=== PATIENT | female | born 1935 | race Caucasian/White ===

== ENCOUNTER 2017-01-06 12:02 | Emergency (ER) | payer OTHER ==
[~2017-01-06] VITALS: Ht 144.8 cm; Wt 54.8 kg
[~2017-01-06 12:02] MED LIST: ASPEC325 PO; LISI-729 PO; MAGN400T6 PO; POTA-335 PO
[2017-01-06 12:09] VITALS: TEMP 36.4; Ht 144.8 cm; Wt 54.8 kg
[2017-01-06 12:14] VITALS: O2SAT 97
[2017-01-06] MEDS ORDERED: SODIUM CHLORIDE 0.9% 1000ML 1,000 ML IV STA (12:14)
[2017-01-06] MEDS ORDERED: SODIUM CHLORIDE 0.9% 1000ML 500 ML IV STA (12:14)
--- NOTE | 2017-01-06 13:08 | DIAGNOSTIC IMAGING REPORT ---
SINGLE VIEW CHEST CLINICAL HISTORY: Weakness. Change in mental status. FINDINGS: An AP, portable, upright chest radiograph is compared to study dated 07/16/2016. The examination is degraded by portable technique and patient rotation. The heart is enlarged and there is atherosclerotic calcification of the thoracic aorta. The pulmonary vasculature is noncongested. A large hiatal hernia is again noted. Chronic interstitial thickening is similar to previous. There is minimal bibasilar atelectasis. No airspace consolidation, large pleural effusion, or pneumothorax is seen. The skeletal structures are osteopenic. The bony thorax is grossly intact. IMPRESSION: 1. Cardiomegaly with no acute cardiopulmonary abnormality. 2. Hiatal hernia. Electronically signed by: Rodolfo Oliveira M.D. 01/06/2017 1:07 PM Dictated Date/Time: 01/06/2017 1:06 PM
[2017-01-06] MEDS ORDERED: ASPI81TA28 PO (13:10)
[2017-01-06 13:22] LABS: HEMATOCRIT 35.2 % (37-47); MEAN PLATELET VOLUME 9.1 fL (7.4-10.4); PLATELET COUNT 314 K/uL (130-400); RED BLOOD COUNT 3.87 M/uL (4.2-5.4); WHITE BLOOD COUNT 13.99 K/uL (4.8-10.8)
[2017-01-06 13:39] LABS: URINE APPEARANCE CLEAR (CLEAR); URINE BILIRUBIN NEG (NEG); URINE COLOR YELLOW; URINE EPITHELIAL CELL AUTO 20-30 /lpf (0-5); URINE NITRITE NEG (NEG); URINE PH 5.5 (4.5-7.5); URINE SPECIFIC GRAVITY 1.007 (1.000-1.030); UROBILINOGEN NEG (NEG); ZZUR CULT IF INDIC CLEAN CATCH NO
[2017-01-06 13:42] LABS: MANUAL MICROSCOPIC REQUIRED? NO; REVIEW REQ? NO
[2017-01-06 13:43] LABS: BASO % 0.1 %; BASO ABS # 0.02 K/uL (0-0.2); COMPLETE YES; EOS % 0.1 %; IG% 0.3 %; LYMPH % 8.6 %; MONO % 6.5 %; NEUT % 84.4 %
[2017-01-06 13:45] LABS: BUN/CREATININE RATIO 18.5 (10-20); CALCIUM 7.9 mg/dl (8.5-10.1); MAGNESIUM 1.9 mg/dl (1.8-2.4); POTASSIUM 2.8 mmol/L (3.5-5.1)
[2017-01-06] MEDS ORDERED: POTASSIUM CHLORIDE 10 MEQ / 100ML WTR IV STA (13:48)
[2017-01-06] MEDS ORDERED: POTASSIUM CHLORIDE 10 MEQ TABCR PO STA (13:48)
[2017-01-06 13:55] LABS: ALB/GLOB RATIO 0.5 (0.9-2); THYROID STIMULATING HORMONE 0.9 uIu/ml (0.300-4.500)
[2017-01-06] MEDS ORDERED: OPTIRAY 320 IV PRN (15:00)
--- NOTE | 2017-01-06 15:16 | EMERGENCY ROOM VISIT NOTE ---
History Report prepared by Lauryn: Belinda Martinez Under the Supervision of: Dr. Rodolfo Caruso M.D. First contact with patient: 12:07 Chief Complaint: HYPOTENSION Stated Complaint: HYPOTENSION History of Present Illness The patient is a 81 year old female who presents to the Emergency Room with complaints of an episode of low blood pressure starting just prior to arrival. The patient states that she went in this morning for a cataract surgery on her left eye and that when she got out, her blood pressure was low. She states that the procedure went fine and that she had the right cataract done a few weeks ago. The patient states she feels fine and that she had no idea her blood pressure was low. She states that she normally takes medication for high blood pressure. The patient notes that she has been eating normally and drinking normally besides for nothing after midnight for the procedure today. She complains of being fatigued for a few days. The patient denies and shortness of breath and chest pain. Per the records sent from the doctor's office, her blood pressure was 89/40. The state they gave her 500 cc of IV Saline and saw no improvement so recommended her to come to the ED. Source of History: patient Onset: prior to arrival Position: other Quality: other (global) Timing: other (episode) Associated Symptoms: + fatigue, No SOB, No chest pain Review of Systems See HPI for pertinent positives & negatives. A total of 10 systems reviewed and were otherwise negative. Past Medical & Surgical Medical Problems: (1) Hypertension Family History No pertinent family history Social History Smoking Status: Never Smoker Marital Status: Housing Status: lives with significant other Occupation Status: retired Current/Historical Medications Scheduled Aspirin (Aspirin Ec), 81 MG PO DAILY Lisinopril (Prinivil), 5 MG PO DAILY Magnesium Oxide (Mag-Ox), 400 MG PO DAILY Potassium Chloride (Micro-K Ext Rel), 20 MEQ PO DAILY Allergies Coded Allergies: No Known Allergies (Verified , 01/06/17) Physical Exam Vital Signs Date Time Temp Pulse Resp B/P Pulse Ox O2 Delivery O2 Flow Rate FiO2 01/06/17 18:32 66 17 01/06/17 18:30 115/73 01/06/17 18:02 74 19 01/06/17 18:00 109/55 01/06/17 17:32 66 25 01/06/17 17:30 102/56 01/06/17 17:02 69 20 01/06/17 17:00 92/50 01/06/17 16:57 112/ 01/06/17 16:32 67 17 01/06/17 16:30 99/54 01/06/17 15:50 77 20 110/64 97 Room Air 01/06/17 15:02 69 23 01/06/17 15:00 110/64 01/06/17 14:32 65 17 01/06/17 14:22 69 106/59 74 104/64 01/06/17 14:17 104/64 01/06/17 14:14 106/59 01/06/17 14:02 65 20 01/06/17 13:50 67 20 93/52 97 Room Air 01/06/17 13:32 64 19 01/06/17 13:02 65 23 01/06/17 12:41 65 01/06/17 12:32 64 19 94 01/06/17 12:30 93/52 01/06/17 12:26 94/54 01/06/17 12:14 97 Room Air 01/06/17 12:09 36.4 67 20 98/49 97 Room Air 01/06/17 12:06 98/49 Physical Exam GENERAL: Patient is in no acute distress. HEENT: No acute trauma, normocephalic atraumatic, mucous membranes moist, no nasal congestion, no scleral icterus. NECK: No stridor, no adenopathy, no meningismus, trachea is midline. LUNGS: Clear to auscultation bilaterally, no wheeze, no rhonchi, breath sounds equal. HEART: Without murmurs gallops or rubs, regular rate and rhythm. ABDOMEN: Soft, nontender, bowel sounds positive, no hernias, no peritonitis. EXTREMITIES: No cyanosis or edema, full range of motion of all the joints without pain or difficulty, no signs for acute trauma. NEUROLOGIC: Oriented x 3, no acute motor or sensory deficits, no focal weakness. SKIN: No rash, no jaundice, no diaphoresis. Medical Decision & Procedures ER Provider Diagnostic Interpretation: X ray results and stated below per my interpretation and radiologist interpretation. Other radiology results and stated below per my review and radiologist interpretation: SINGLE VIEW CHEST CLINICAL HISTORY: Weakness. Change in mental status. FINDINGS: An AP, portable, upright chest radiograph is compared to study dated 07/16/2016. The examination is degraded by portable technique and patient rotation. The heart is enlarged and there is atherosclerotic calcification of the thoracic aorta. The pulmonary vasculature is noncongested. A large hiatal hernia is again noted. Chronic interstitial thickening is similar to previous. There is minimal bibasilar atelectasis. No airspace consolidation, large pleural effusion, or pneumothorax is seen. The skeletal structures are osteopenic. The bony thorax is grossly intact. IMPRESSION: 1. Cardiomegaly with no acute cardiopulmonary abnormality. 2. Hiatal hernia. Electronically signed by: Rodolfo Oliveira M.D. 01/06/2017 1:07 PM Dictated Date/Time: 01/06/2017 1:[address] ABD/PELVIS IV CONTRAST ONLY CLINICAL HISTORY: Lower abdominal pain. History of diverticular abscess. Hypertension. COMPARISON STUDY: 07/16/2016 TECHNIQUE: Following the IV administration of 93 mL of Optiray-320, CT scan of the abdomen and pelvis was performed from the lung bases to the proximal femurs. Images are reviewed in the axial, sagittal, and coronal planes. IV contrast was administered without complication. CT DOSE: 254.02 mGy.cm FINDINGS: Lower chest: There is a moderate hiatal hernia. The heart is mildly enlarged. There is a trace pericardial effusion. There is bibasal atelectasis. Liver: The contrast-enhanced liver is normal in size, contour, and attenuation. There is no intrahepatic biliary ductal dilatation. The hepatic veins and portal veins are patent. Gallbladder: Unremarkable. Spleen: Normal in size and attenuation. Pancreas: Unremarkable. Adrenal glands: Unremarkable. Kidneys: There is symmetric renal cortical enhancement. The kidneys are normal in size without hydronephrosis. Bowel: There are no transition zones indicate bowel obstruction. There is extensive sigmoid wall thickening. There is infiltration the perisigmoid fat. There is matted enhancing soft tissue adjacent to the sigmoid with fluid collections and small air bubbles. The findings are consistent with perisigmoid phlegmonous change with multiple perisigmoid abscesses. The findings are progressive when compared the preceding examination. Fistula to adjacent bowel loops cannot be excluded. Peritoneum: There is no intraperitoneal free air or abdominal ascites. Vasculature: The abdominal aorta is normal in course and caliber. Adenopathy: None. Pelvic viscera: The endometrium remains thickened. Skeletal structures: No destructive osseous lesions are seen. IMPRESSION: 1. Progressive severe diverticulitis. There is suspected microperforation with adjacent phlegmon and peridiverticular abscesses. There is adjacent small bowel wall thickening and fistula to adjacent bowel loops cannot be excluded. 2. Persistent thickening of the endometrium. 3. Hiatal hernia Electronically signed by: Caleb Yanez M.D. 01/06/2017 3:48 PM Dictated Date/Time: 01/06/2017 3:38 PM Laboratory Results 01/06/17 12:55 Red Blood Count 3.87, Mean Corpuscular Volume 91.0, Mean Corpuscular Hemoglobin 30.0, Mean Corpuscular Hemoglobin Concent 33.0, Mean Platelet Volume 9.1, Neutrophils (%) (Auto) 84.4, Lymphocytes (%) (Auto) 8.6, Monocytes (%) (Auto) 6.5, Eosinophils (%) (Auto) 0.1, Basophils (%) (Auto) 0.1, Neutrophils # (Auto) 11.81, Lymphocytes # (Auto) 1.20, Monocytes # (Auto) 0.91, Eosinophils # (Auto) 0.01, Basophils # (Auto) 0.02 01/06/17 12:55 Test 01/06/17 12:55 01/06/17 13:20 White Blood Count 13.99 K/uL (4.8-10.8) Red Blood Count 3.87 M/uL (4.2-5.4) Hemoglobin 11.6 g/dL (12.0-16.0) Hematocrit 35.2 % (37-47) Mean Corpuscular Volume 91.0 fL (80-100) Mean Corpuscular Hemoglobin 30.0 pg (25-34) Mean Corpuscular Hemoglobin Concent 33.0 g/dl (32-36) Platelet Count 314 K/uL (130-400) Mean Platelet Volume 9.1 fL (7.4-10.4) Neutrophils (%) (Auto) 84.4 % Lymphocytes (%) (Auto) 8.6 % Monocytes (%) (Auto) 6.5 % Eosinophils (%) (Auto) 0.1 % Basophils (%) (Auto) 0.1 % Neutrophils # (Auto) 11.81 K/uL (1.4-6.5) Lymphocytes # (Auto) 1.20 K/uL (1.2-3.4) Monocytes # (Auto) 0.91 K/uL (0.11-0.59) Eosinophils # (Auto) 0.01 K/uL (0-0.5) Basophils # (Auto) 0.02 K/uL (0-0.2) RDW Standard Deviation 47.7 fL (36.4-46.3) RDW Coefficient of Variation 14.3 % (11.5-14.5) Immature Granulocyte % (Auto) 0.3 % Immature Granulocyte # (Auto) 0.04 K/uL (0.00-0.02) Anion Gap 8.0 mmol/L (3-11) Est Creatinine Clear Calc Drug Dose 30.9 ml/min Estimated GFR () 60.8 Estimated GFR (Non- 52.4 BUN/Creatinine Ratio 18.5 (10-20) Calcium Level 7.9 mg/dl (8.5-10.1) Magnesium Level 1.9 mg/dl (1.8-2.4) Total Bilirubin 0.7 mg/dl (0.2-1) Aspartate Amino Transf (AST/SGOT) 9 U/L (15-37) Alanine Aminotransferase (ALT/SGPT) 13 U/L (12-78) Alkaline Phosphatase 78 U/L (45-117) Troponin I 0.030 ng/ml (0-0.045) Total Protein 5.8 gm/dl (6.4-8.2) Albumin 2.0 gm/dl (3.4-5.0) Globulin 3.8 gm/dl (2.5-4.0) Albumin/Globulin Ratio 0.5 (0.9-2) Thyroid Stimulating Hormone (TSH) 0.900 uIu/ml (0.300-4.500) Urine Color YELLOW Urine Appearance CLEAR (CLEAR) Urine pH 5.5 (4.5-7.5) Urine Specific [place] 1.007 (1.000-1.030) Urine Protein NEG (NEG) Urine Glucose (UA) NEG (NEG) Urine Ketones NEG (NEG) Urine Occult Blood 1+ (NEG) Urine Nitrite NEG (NEG) Urine Bilirubin NEG (NEG) Urine Urobilinogen NEG (NEG) Urine Leukocyte Esterase NEG (NEG) Urine WBC (Auto) 0 /hpf (0-5) Urine RBC (Auto) 0-4 /hpf (0-4) Urine Hyaline Casts (Auto) 0 /lpf (0-5) Urine Epithelial Cells (Auto) 20-30 /lpf (0-5) Urine Bacteria (Auto) NEG (NEG) Laboratory results reviewed by me. Medications Administered Medications (Trade) Dose Ordered Sig/Cayla Route Start Time Stop Time Status Last Admin Dose Admin Sodium Chloride 500 ml @ 999 mls/hr Q31M STAT IV 01/06/17 12:14 01/06/17 12:44 DC 01/06/17 12:27 999 MLS/HR Sodium Chloride (Nss 1000ml) 1,000 ml @ 200 mls/hr Q5H STAT IV 01/06/17 12:14 01/06/17 17:13 DC 01/06/17 12:27 200 MLS/HR Potassium Chloride (Klor-Con M10) 40 meq NOW STAT PO 01/06/17 13:48 01/06/17 13:50 DC 01/06/17 14:09 40 MEQ Potassium Chloride (Kcl 10 Meq / Wtr) 10 meq NOW STAT IV 01/06/17 13:48 01/06/17 13:50 DC 01/06/17 14:09 10 MEQ Piperacillin Sod/ Tazobactam Sod (Zosyn Iv) 4.5 gm NOW STAT IV 01/06/17 15:55 01/06/17 15:56 DC 01/06/17 16:10 4.5 GM ECG Indication: other (low blood pressure) Rate (beats per minute): 67 Rhythm: sinus rhythm Findings: PAC, no acute ischemic change ED Course 1211: The patient was evaluated in room C3. A complete history and physical exam was performed. 1214: Ordered NSS 1000 ml @ 200 mls/hr, NSS 500 ml @ 999 mls/hr. 1348: Ordered Potassium Chloride 10 meq Iv, Potassium Chloride 40 meq PO. 1408: Upon reevaluation, the patient is feeling fine. Her blood pressure is still low. 1445: Upon reevaluation, the patient is feeling the same. The patient stated that she has a history of a diverticular abscess. 1552: Upon reevaluation, the patient is feeling fine and has no complaints. 1555: Ordered Zosyn Iv 4.5 IV. 1610: Discussed the patient's case with Dr. Gu. The patient will be evaluated for further management. 1617: I notified the patient of the plans for her to be further evaluated at [place]. She will be transferred for further management by ALS. Medical Decision Differential diagnoses include dehydration, anemia, electrolyte imbalance, medications reaction, infection, UTI , AL There is a mild leukocytosis which could be consistent with infection. No concerning anemia. Renal panel testing shows hypokalemia, no kidney failure. There was no hepatitis. The patient appears to be in a euthyroid state. Urinalysis does not show infection. EKG shows a sinus rhythm, no acute ischemia. Cardiac enzyme testing times one is not consistent with acute cardiac injury. Chest x-ray does not show pneumonia or CHF. Abdominal and pelvis CT shows worsening diverticulitis with abscess lesions present. The patient has a severe case of diverticulitis. Things seem worse compared to previous CT scans. I suspect this is the underlying reason for the hypotension and the elevated white blood cell count. The patient received IV saline, she received IV Zosyn, she was given both oral and IV potassium. The patient looks well and is without complaints. Her blood pressure is improved since fluids have been administered. I did speak with the patient, I spoke with her surgical group at [facility] in [place]. The patient is being sent to [facility] via [facility] ambulance. All the paperwork was signed, the orders for transfer were written. Consults Time Called: 1601 Consulting Physician: Dr. Keely Armstrong Returned Call: 1610 Discussed the patient's case with Dr. Gu. The patient will be evaluated for further management. Impression Primary Impression: Diverticulitis Additional Impressions: Intra-abdominal abscess Hypotension Scribe Attestation The scribe's documentation has been prepared under my direction and personally reviewed by me in its entirety. I confirm that the note above accurately reflects all work, treatment, procedures, and medical decision making performed by me. Departure Information Dispostion Transfer Acute Care Facility Referrals Mauricio Mckeon M.D. (PCP) Patient Instructions My [facility] Problem Qualifiers
--- NOTE | 2017-01-06 15:49 | DIAGNOSTIC IMAGING REPORT ---
CT ABD/PELVIS IV CONTRAST ONLY CLINICAL HISTORY: Lower abdominal pain. History of diverticular abscess. Hypertension. COMPARISON STUDY: 07/16/2016 TECHNIQUE: Following the IV administration of 93 mL of Optiray-320, CT scan of the abdomen and pelvis was performed from the lung bases to the proximal femurs. Images are reviewed in the axial, sagittal, and coronal planes. IV contrast was administered without complication. CT DOSE: 254.02 mGy.cm FINDINGS: Lower chest: There is a moderate hiatal hernia. The heart is mildly enlarged. There is a trace pericardial effusion. There is bibasal atelectasis. Liver: The contrast-enhanced liver is normal in size, contour, and attenuation. There is no intrahepatic biliary ductal dilatation. The hepatic veins and portal veins are patent. Gallbladder: Unremarkable. Spleen: Normal in size and attenuation. Pancreas: Unremarkable. Adrenal glands: Unremarkable. Kidneys: There is symmetric renal cortical enhancement. The kidneys are normal in size without hydronephrosis. Bowel: There are no transition zones indicate bowel obstruction. There is extensive sigmoid wall thickening. There is infiltration the perisigmoid fat. There is matted enhancing soft tissue adjacent to the sigmoid with fluid collections and small air bubbles. The findings are consistent with perisigmoid phlegmonous change with multiple perisigmoid abscesses. The findings are progressive when compared the preceding examination. Fistula to adjacent bowel loops cannot be excluded. Peritoneum: There is no intraperitoneal free air or abdominal ascites. Vasculature: The abdominal aorta is normal in course and caliber. Adenopathy: None. Pelvic viscera: The endometrium remains thickened. Skeletal structures: No destructive osseous lesions are seen. IMPRESSION: 1. Progressive severe diverticulitis. There is suspected microperforation with adjacent phlegmon and peridiverticular abscesses. There is adjacent small bowel wall thickening and fistula to adjacent bowel loops cannot be excluded. 2. Persistent thickening of the endometrium. 3. Hiatal hernia Electronically signed by: Caleb Yanez M.D. 01/06/2017 3:48 PM Dictated Date/Time: 01/06/2017 3:38 PM
[2017-01-06] MEDS ORDERED: PIPERACILLIN/TAZOBACTAM 4.5 GM/100ML D5W IV STA (15:55)
[2017-01-06 21:13] VITALS: BP 120/90; PULSE 76; O2SAT 97
== END 2017-01-06 21:15 | disposition short-term general hospital (02) ==
LOC: EDBD 12:02 → C.EDC 12:05
DX: K57.92 Diverticulitis of intestine, part unspecified, without perforation or abscess without bleeding (principal); I95.9 Hypotension, unspecified; K65.1 Peritoneal abscess; Z79.899 Other long term (current) drug therapy

== ENCOUNTER → 2017-04-07 | Outpatient (CLI) | payer OTHER ==
[~2017-04-07] MED LIST changes: -ASPEC325 PO; +ASPI81TA28 PO; +MCRK20 PO; +WATERPILL
--- NOTE | 2017-04-07 15:55 | DIAGNOSTIC IMAGING REPORT ---
CHEST 2 VIEWS ROUTINE CLINICAL HISTORY: PLEURAL EFFUSION dyspnea COMPARISON STUDY: 01/06/2017 FINDINGS: Interval development of a relatively large left pleural effusion. Trace pleural fluid right base. Fixed hiatal hernia. Upper lungs are clear. IMPRESSION: Prominent left pleural effusion. Trace pleural effusion right base. Fixed hiatal hernia. The above report was generated using voice recognition software. It may contain grammatical, syntax or spelling errors. Electronically signed by: Mauricio Linda M.D. 04/07/2017 3:54 PM Dictated Date/Time: 04/07/2017 3:48 PM
== END | disposition home or self-care (01) ==
LOC: C.RAD 15:09
PROVIDERS: ATTEND Internal Medicine
DX: J90 Pleural effusion, not elsewhere classified (principal); K44.9 Diaphragmatic hernia without obstruction or gangrene

== ENCOUNTER → 2017-04-07 | Outpatient (CLI) | payer OTHER ==
[2017-04-07 17:49] LABS: BASO % 0.1 %; BASO ABS # 0.01 K/uL (0-0.2); EOS % 0.2 %; HEMATOCRIT 24.8 % (37-47); IG% 0.3 %; LYMPH % 10.6 %; LYMPH ABS # 1.55 K/uL (1.2-3.4); MEAN CORPUSCULAR HEMOGLOBIN 30.8 pg (25-34); MEAN CORPUSCULAR HGB CONC 31.5 g/dl (32-36); MEAN PLATELET VOLUME 9.6 fL (7.4-10.4); MONO % 5.8 %; PLATELET COUNT 665 K/uL (130-400); RED BLOOD COUNT 2.53 M/uL (4.2-5.4); WHITE BLOOD COUNT 14.65 K/uL (4.8-10.8)
[2017-04-07 18:10] LABS: BLOOD UREA NITROGEN 12 mg/dl (7-18); BUN/CREATININE RATIO 14.9 (10-20); CARBON DIOXIDE 26 mmol/L (21-32); CHLORIDE 104 mmol/L (98-107); CREATININE 0.78 mg/dl (0.60-1.20); GLUCOSE 93 mg/dl (70-99); MAGNESIUM 1.7 mg/dl (1.8-2.4); POTASSIUM 3.8 mmol/L (3.5-5.1); SODIUM 138 mmol/L (136-145)
[2017-04-07 18:24] LABS: COMPLETE YES; POLYCHROMASIA 1+
== END | disposition home or self-care (01) ==
LOC: C.LABBFT 09:53
PROVIDERS: ATTEND Internal Medicine
DX: N18.3 Chronic kidney disease, stage 3 (moderate) (principal); I97.89 Other postprocedural complications and disorders of the circulatory system, not elsewhere classified; J90 Pleural effusion, not elsewhere classified; K44.9 Diaphragmatic hernia without obstruction or gangrene

== ENCOUNTER → 2017-04-18 | Outpatient (CLI) | payer OTHER ==
--- NOTE | 2017-04-18 12:14 | DIAGNOSTIC IMAGING REPORT ---
CHEST 2 VIEWS ROUTINE CLINICAL HISTORY: J90 Pleural [id number] pleural effusion COMPARISON STUDY: December 06, 2016 FINDINGS: Unchanging left pleural effusion. Small fixed hiatal hernia. Trace pleural fluid right lateral costophrenic angle unchanged. Lungs otherwise are clear. IMPRESSION: 1. Stable left pleural effusion. 2. Small stable right pleural effusion.. 3. No change in the prior exam. The above report was generated using voice recognition software. It may contain grammatical, syntax or spelling errors. Electronically signed by: Mauricio Linda M.D. 04/18/2017 12:13 PM Dictated Date/Time: 04/18/2017 12:12 PM
[2017-04-18 13:26] LABS: BASO % 0.2 %; BASO ABS # 0.02 K/uL (0-0.2); EOS % 0.6 %; HEMATOCRIT 26.4 % (37-47); IG% 0.2 %; LYMPH % 12.8 %; LYMPH ABS # 1.32 K/uL (1.2-3.4); MEAN CORPUSCULAR HEMOGLOBIN 29.2 pg (25-34); MEAN CORPUSCULAR HGB CONC 31.4 g/dl (32-36); MEAN PLATELET VOLUME 8.7 fL (7.4-10.4); MONO % 7.5 %; NEUT % 78.7 %; PLATELET COUNT 821 K/uL (130-400); RED BLOOD COUNT 2.84 M/uL (4.2-5.4); WHITE BLOOD COUNT 10.32 K/uL (4.8-10.8)
[2017-04-18 13:32] LABS: ALT/SGPT 24 U/L (12-78); AST/SGOT 35 U/L (15-37); BLOOD UREA NITROGEN 13 mg/dl (7-18); BUN/CREATININE RATIO 15.8 (10-20); CALCIUM 8.7 mg/dl (8.5-10.1); CARBON DIOXIDE 35 mmol/L (21-32); CHLORIDE 97 mmol/L (98-107); CREATININE 0.85 mg/dl (0.60-1.20); GLUCOSE 115 mg/dl (70-99); POTASSIUM 3.3 mmol/L (3.5-5.1); SODIUM 136 mmol/L (136-145)
[2017-04-18 13:37] LABS: ALB/GLOB RATIO 0.4 (0.9-2); ALKALINE PHOSPHATASE 83 U/L (45-117); FERRITIN 133.6 ng/ml (8.0-388.0); TOTAL IRON BINDING CAPACITY 249 mcg/dl (250-450)
[2017-04-18 14:00] LABS: COMPLETE YES; HYPOCHROMIA PRESENT; SPHEROCYTE 1+
--- NOTE | 2017-05-14 06:02 | CODING QUERY MEDICAL NECESSITY ---
CQSUPPORTING DIAGNOSIS NEEDED A supporting diagnosis is required for the test/procedure performed on this patient in order for us to be reimbursed by the patient's insurance. Please provide a supporting diagnosis for the following test/procedure listed below next to the test name along with your signature. *If there is no additional diagnosis for this patient that would support the following test/procedure please document that below next to the test/procedure. Test(s)/Procedure(s) that require a supporting diagnosis: DOS 04/18/17 VITAMIN D TEST VITAMIN B12 TEST FOLIC ACID TEST ORDERED BY JUAN JOSÉ PEREZ Provider Signature: Date: Thank you Eve Shin Health Information Management Once completed, please kindly fax back to [phone] For questions please call [phone]
== END | disposition home or self-care (01) ==
LOC: C.RAD1850 11:29
PROVIDERS: ATTEND Physician Assistant Medical
DX: J90 Pleural effusion, not elsewhere classified (principal); D64.9 Anemia, unspecified; E88.09 Other disorders of plasma-protein metabolism, not elsewhere classified; R53.83 Other fatigue

== ENCOUNTER → 2017-04-28 | Outpatient (CLI) | payer OTHER ==
[2017-04-28 17:43] LABS: HEMATOCRIT 31.7 % (37-47); MEAN CELL VOLUME 91.6 fL (80-100); MEAN CORPUSCULAR HEMOGLOBIN 27.2 pg (25-34); MEAN CORPUSCULAR HGB CONC 29.7 g/dl (32-36); MEAN PLATELET VOLUME 9.2 fL (7.4-10.4); PLATELET COUNT 955 K/uL (130-400); RED BLOOD COUNT 3.46 M/uL (4.2-5.4); WHITE BLOOD COUNT 13.17 K/uL (4.8-10.8)
[2017-04-28 17:58] LABS: ALT/SGPT 27 U/L (12-78); BLOOD UREA NITROGEN 13 mg/dl (7-18); BUN/CREATININE RATIO 14.9 (10-20); CALCIUM 9.3 mg/dl (8.5-10.1); CARBON DIOXIDE 29 mmol/L (21-32); CHLORIDE 101 mmol/L (98-107); GLUCOSE 97 mg/dl (70-99); MAGNESIUM 2.1 mg/dl (1.8-2.4); POTASSIUM 3.6 mmol/L (3.5-5.1); SODIUM 137 mmol/L (136-145)
[2017-04-28 18:03] LABS: ALB/GLOB RATIO 0.4 (0.9-2); ALKALINE PHOSPHATASE 88 U/L (45-117); AST/SGOT 40 U/L (15-37)
[2017-04-28 18:49] LABS: BASO % 0.2 %; BASO ABS # 0.02 K/uL (0-0.2); COMPLETE YES; EOS % 0.2 %; IG% 0.3 %; LYMPH % 14.7 %; LYMPH ABS # 1.93 K/uL (1.2-3.4); MONO % 6.4 %; NEUT % 78.2 %
== END | disposition home or self-care (01) ==
LOC: C.LABBFT 12:01
PROVIDERS: ATTEND Physician Assistant Medical
DX: E87.6 Hypokalemia (principal); D64.9 Anemia, unspecified

== ENCOUNTER → 2017-05-10 | Outpatient (CLI) | payer OTHER ==
--- NOTE | 2017-05-10 15:10 | DIAGNOSTIC IMAGING REPORT ---
(CHEST) THORAX WITHOUT CT DOSE: 159.39 mGy.cm CLINICAL HISTORY: 82 years-old Female with PULM NODULE. Follow-up study to assess for pulmonary nodule. No acute chest complaints. TECHNIQUE: Multiaxial CT images of the chest were performed without contrast. A dose lowering technique was utilized adhering to the principles of ALARA. COMPARISON: CT abdomen and pelvis 01/06/2017, chest radiograph 04/18/2017 FINDINGS: Thyroid is heterogeneous without dominant nodule. Evaluation for adenopathy is limited without the use of IV contrast. Scattered mildly prominent nonenlarged prevascular, AP window and paratracheal lymph nodes are seen measuring up to approximately 5 mm in short axis, nonspecific and likely benign. Multiple calcified mediastinal lymph nodes are also seen compatible with granulomatous disease. Heart is normal in size with small pericardial effusion. Coronary arterial calcifications are noted. There is mild fusiform dilation of the ascending thoracic aorta beginning distal to the sinotubular junction, 4.1 x 4.0 cm in AP and transverse dimension as seen on image 111. Moderate atherosclerosis of the thoracic aorta. There is dilation of the main pulmonary artery, 3.3 cm suggesting pulmonary arterial hypertension. There is a small to moderate left pleural effusion. Lungs are hyperinflated with mild central lobular emphysematous changes. Subsegmental left basilar consolidative opacities are present. There are multiple scattered groundglass nodules of the right lower lobe measuring up to 4 mm. Additionally, solid noncalcified pulmonary nodules are present within the right middle lobe and right lower lobe measuring up to 2 mm as seen on image 139 and 102 of the axial series. Additional scattered groundglass nodules are present within the lingula and to lesser extent within the superior segment left lower lobe. Central airways are patent. Within the left upper abdomen there is a thick-walled collection, 4.6 x 3.5 cm intermediate attenuating collection abutting the spleen superiorly which appears subdiaphragmatic in location or less likely may be subcapsular in location with moderate associated soft tissue stranding within the left upper abdomen. Moderate-sized hiatal hernia with partially intrathoracic stomach is noted. The bones are intact. Multiple remote left-sided rib fractures are noted. Compression deformities of the T7 and T8 vertebral bodies are age indeterminate, however appear chronic. IMPRESSION: 1. Thick-walled complex collection of the left upper abdomen appears to be subdiaphragmatic in location, 4.6 x 3.5 cm with moderate surrounding inflammatory stranding suspicious for abscess, however hematoma may have a similar imaging appearance. Further evaluation with CT abdomen and pelvis with IV contrast is recommended. 2. Small to moderate left pleural effusion, likely reactive. 3. Multiple scattered groundglass pulmonary nodules, greatest within the right lower lobe measuring up to 4 mm are noted in conjunction with a few scattered solid pulmonate nodules measuring up to 2 mm. These findings would suggest infectious or inflammatory etiology. 4. Moderate-sized hiatal hernia with partially intrathoracic stomach. 5. Small pericardial effusion. 6. Fusiform dilation of the ascending thoracic aorta, 4.1 cm 7. Prior granulomatous disease. Please refer to below summary of Fleischner criteria recommendations for follow-up of incidental CT nodules (Nena Kwan, Guidelines for management of small pulmonary nodules detected on CT scans: A statement from the Fleischner Society, Radiology 237: [phone].) SOLID NODULES Solitary nodule size: <6 mm * Low risk patients: no follow-up needed * high risk patients: optional CT at 12 months Solitary nodule size: 6-8 mm * Low risk patients: follow-up at 6-12 months, then consider further follow-up at 18-24 months * high risk patients: initial follow-up CT at 6-12 months and then at 18-24 months if no change Solitary nodule size: >8 mm * either low or high risk patients - consider follow-up CT at 3 months, and/or CT-PET, and/or biopsy Multiple nodules size: <6 mm * Low risk patients: no routine follow-up * high risk patients: optional CT at 12 months Multiple nodules size: 6-8 mm * Low risk patients: follow-up at 3-6 months, then consider further follow-up at 18-24 months * high risk patients: follow-up at 3-6 months, then at 18-24 months if no change Multiple nodules size: >8 mm * Low risk patients: follow-up at 3-6 months, then consider further follow-up at 18-24 months * high risk patients: follow-up at 3-6 months, then at 18-24 months if no change Note: newly detected indeterminate nodule in persons 35 years of age or older. * Low risk patients: minimal or absent history of smoking and/or other known risk factors * high risk patients: history of smoking or of other known risk factors (e.g. first degree relative with lung cancer, or exposure to asbestos, radon, uranium) * if a nodule up to 8 mm is partly solid or is ground glass further follow-up is required after 24 months to exclude possible slow growing adenocarcinoma (THELMA) SUBSOLID NODULES Solitary pure ground-glass nodule * nodule size <6 mm - no CT follow-up required * nodule size >=6 mm - follow-up CT at 6-12 months, then every 2 years until 5 years Solitary part-solid nodule * nodule size <6 mm - no CT follow-up required * nodule size >=6 mm - follow-up CT at 3-6 months. If unchanged, and solid component remains <6 mm, then annual follow-up for 5 years Multiple subsolid nodules * nodule size <6 mm - follow-up CT at 3-6 months, consider further follow-up at 2 and 4 years if stable * nodule size >=6 mm - follow-up CT at 3-6 months, subsequent management based on the most suspicious nodule(s) The above report was generated using voice recognition software. It may contain grammatical, syntax or spelling errors. Electronically signed by: Kevin Mcfarland M.D. 05/10/2017 3:08 PM Dictated Date/Time: 05/10/2017 2:17 PM
== END | disposition home or self-care (01) ==
LOC: C.CTS 13:54
PROVIDERS: ATTEND Internal Medicine
DX: R91.8 Other nonspecific abnormal finding of lung field (principal); J90 Pleural effusion, not elsewhere classified; K44.9 Diaphragmatic hernia without obstruction or gangrene; I31.3 Pericardial effusion (noninflammatory)

== ENCOUNTER 2017-05-18 19:00 | Emergency (ER) | payer OTHER ==
[~2017-05-18] VITALS: Ht 149.9 cm; Wt 50.1 kg
[~2017-05-18 19:00] MED LIST changes: -MCRK20 PO; -OPTIRAY 320 IV PRN; -WATERPILL
[2017-05-18 19:17] VITALS: TEMP 37.6; Ht 149.9 cm; Wt 50.1 kg
[2017-05-18] MEDS ORDERED: WATERPILL (20:04)
[2017-05-18] MEDS ORDERED: MCRK20 PO (20:04)
[2017-05-18 20:15] LABS: BASO % 0.5 %; BASO ABS # 0.05 K/uL (0-0.2); COMPLETE YES; EOS % 1.1 %; HEMATOCRIT 29.9 % (37-47); IG% 0.3 %; LYMPH % 18.6 %; LYMPH ABS # 1.83 K/uL (1.2-3.4); MEAN CELL VOLUME 84.5 fL (80-100); MEAN CORPUSCULAR HGB CONC 30.8 g/dl (32-36); MEAN PLATELET VOLUME 8.6 fL (7.4-10.4); MONO % 7.4 %; NEUT % 72.1 %; PLATELET COUNT 488 K/uL (130-400); RED BLOOD COUNT 3.54 M/uL (4.2-5.4); WHITE BLOOD COUNT 9.85 K/uL (4.8-10.8)
--- NOTE | 2017-05-18 20:16 | EMERGENCY ROOM VISIT NOTE ---
History Report prepared by Lauryn: Aleta Betancur Under the Supervision of: Dr. Rey Ortega D.O. First contact with patient: 19:20 Chief Complaint: ABNORMAL DIAGNOSTIC TESTING Stated Complaint: ANORMAL CT SCAN- PHYSICIAN REFERRED History of Present Illness The patient is a 82 year old female who presents to the Emergency Room after an abdominal CT that was done earlier today. The patient had a colostomy done 2 months ago at [facility] in [place]. She has been doing well since then and she had a follow-up CT today. The patient states that Dr. Gooden ordered the CT because the patient has continued to lose weight since her colostomy. She is currently asymptomatic. She denies nausea, vomiting, fevers, chills, and abdominal pain. She was called this evening with the results of her CT and told to come to the ED for further evaluation. Source of History: patient Onset: today Position: abdomen Symptom Intensity: minimal Timing: constant Associated Symptoms: No fevers, No chills, No nausea, No vomiting, No abdominal pain Review of Systems See HPI for pertinent positives & negatives. A total of 10 systems reviewed and were otherwise negative. Past Medical & Surgical Medical Problems: (1) Hypertension Family History No pertinent family history Social History Smoking Status: Never Smoker Marital Status: Housing Status: lives with significant other Occupation Status: retired Current/Historical Medications Scheduled Aspirin (Aspirin Ec), 81 MG PO DAILY Magnesium Oxide (Mag-Ox), 400 MG PO DAILY Potassium Chloride (Klor-Con M20), 2 MEQ PO DAILY Miscellaneous Medications [Waterpill] Allergies Coded Allergies: No Known Allergies (Verified , 05/18/17) Physical Exam Vital Signs Date Time Temp Pulse Resp B/P (MAP) Pulse Ox O2 Delivery O2 Flow Rate FiO2 05/19/17 00:00 69 18 157/69 05/18/17 23:31 153/71 05/18/17 23:30 71 21 95 05/18/17 23:03 179/77 05/18/17 22:28 74 20 171/78 95 Room Air 05/18/17 21:15 75 18 151/61 96 Room Air 05/18/17 20:49 75 05/18/17 19:17 37.6 83 19 118/84 97 Room Air Physical Exam GENERAL: Patient is awake, alert, and in no acute distress. Patient is resting comfortably and showing no signs of anxiety EYES: The conjunctivae are clear. The pupils are round and reactive. EARS, NOSE, MOUTH AND THROAT: The nose is without any evidence of any deformity. Mucous membranes are moist tongue is midline NECK: The neck is nontender and supple. RESPIRATORY: Normal respiratory effort is noted there is no evidence of wheezing rhonchi or rales CARDIOVASCULAR: Regular rate and rhythm noted there no murmurs rubs or gallops normal S1 normal S2 GASTROINTESTINAL: The abdomen is mildly distended but soft. There was a recent surgical scar noted, no erythema or dehiscence was noted. No guarding or rigidity. Bowel sounds are present in all quadrants. Abdomen is nontender MUSCULOSKELETAL/EXTREMITIES: There is no evidence of gross deformity full range of motion is noted in the hips and shoulders SKIN: There is no obvious evidence of any rash. There are no petechiae, pallor or cyanosis noted. NEUROLOGIC: Patient is awake alert and oriented x3 Medical Decision & Procedures Laboratory Results 05/18/17 20:00 Red Blood Count 3.54, Mean Corpuscular Volume 84.5, Mean Corpuscular Hemoglobin 26.0, Mean Corpuscular Hemoglobin Concent 30.8, Mean Platelet Volume 8.6, Neutrophils (%) (Auto) 72.1, Lymphocytes (%) (Auto) 18.6, Monocytes (%) (Auto) 7.4, Eosinophils (%) (Auto) 1.1, Basophils (%) (Auto) 0.5, Neutrophils # (Auto) 7.10, Lymphocytes # (Auto) 1.83, Monocytes # (Auto) 0.73, Eosinophils # (Auto) 0.11, Basophils # (Auto) 0.05 05/18/17 20:00 Test 05/18/17 20:00 05/18/17 20:03 05/18/17 23:03 White Blood Count 9.85 K/uL (4.8-10.8) Red Blood Count 3.54 M/uL (4.2-5.4) Hemoglobin 9.2 g/dL (12.0-16.0) Hematocrit 29.9 % (37-47) Mean Corpuscular Volume 84.5 fL (80-100) Mean Corpuscular Hemoglobin 26.0 pg (25-34) Mean Corpuscular Hemoglobin Concent 30.8 g/dl (32-36) Platelet Count 488 K/uL (130-400) Mean Platelet Volume 8.6 fL (7.4-10.4) Neutrophils (%) (Auto) 72.1 % Lymphocytes (%) (Auto) 18.6 % Monocytes (%) (Auto) 7.4 % Eosinophils (%) (Auto) 1.1 % Basophils (%) (Auto) 0.5 % Neutrophils # (Auto) 7.10 K/uL (1.4-6.5) Lymphocytes # (Auto) 1.83 K/uL (1.2-3.4) Monocytes # (Auto) 0.73 K/uL (0.11-0.59) Eosinophils # (Auto) 0.11 K/uL (0-0.5) Basophils # (Auto) 0.05 K/uL (0-0.2) RDW Standard Deviation 52.1 fL (36.4-46.3) RDW Coefficient of Variation 16.6 % (11.5-14.5) Immature Granulocyte % (Auto) 0.3 % Immature Granulocyte # (Auto) 0.03 K/uL (0.00-0.02) Erythrocyte Sedimentation Rate 73 mm/hr (0-21) Prothrombin Time 10.7 SECONDS (9.0-12.0) Prothromb Time International Ratio 1.0 (0.9-1.1) Activated Partial Thromboplast Time 28.5 SECONDS (21.0-31.0) Partial Thromboplastin Ratio 1.1 Anion Gap 5.0 mmol/L (3-11) Est Creatinine Clear Calc Drug Dose 26.4 ml/min Estimated GFR () 53.8 Estimated GFR (Non- 46.4 BUN/Creatinine Ratio 13.0 (10-20) Calcium Level 9.5 mg/dl (8.5-10.1) Total Bilirubin 0.4 mg/dl (0.2-1) Direct Bilirubin 0.1 mg/dl (0-0.2) Aspartate Amino Transf (AST/SGOT) 20 U/L (15-37) Alanine Aminotransferase (ALT/SGPT) 14 U/L (12-78) Alkaline Phosphatase 66 U/L (45-117) C-Reactive Protein 5.07 mg/dl (0-0.29) Total Protein 8.1 gm/dl (6.4-8.2) Albumin 2.5 gm/dl (3.4-5.0) Lipase 173 U/L (73-393) Bedside Lactic Acid Venous 1.55 mmol/L (0.90-1.70) Urine Color YELLOW Urine Appearance CLEAR (CLEAR) Urine pH 8.5 (4.5-7.5) Urine Specific [place] 1.044 (1.000-1.030) Urine Protein NEG (NEG) Urine Glucose (UA) NEG (NEG) Urine Ketones NEG (NEG) Urine Occult Blood NEG (NEG) Urine Nitrite NEG (NEG) Urine Bilirubin NEG (NEG) Urine Urobilinogen NEG (NEG) Urine Leukocyte Esterase NEG (NEG) Laboratory results per my review. ED Course 0: The patient was evaluated in room B2. A complete history and physical examination were performed. 0: I updated the patient and will contact her surgeon. 2219: I spoke with Dr. Webster of colorectal surgery with [facility]. We discussed the patient's case and he felt it could just be related to postoperative status and recommends outpatient follow-up and return to ED with worsening symptoms. 2223: I updated the patient and answered all of her questions. 2239: I discussed the case with Dr. Gooden, the patient's PCP. He had spoken with the radiologist regarding the patient's CT results. He was not comfortable managing the patient as an outpatient. 2247: I reassessed the patient at this time. She is feeling better and resting comfortably. I discussed the results and treatment plan with the patient. I answered all pertaining questions that she had. She expressed understanding and verbalized agreement. The patient will be transferred to [facility] for further management. 2257: I discussed the case with Dr. Webster again and he accepted the patient for transfer to his facility. Medical Decision Differential diagnosis: Etiologies such as appendicitis, diverticulitis, PUD, biliary pathology, UTI, pancreatitis, obstruction, mesenteric ischemia, aortic pathology, infections, inflammatory bowel disease, renal colic, as well as others were entertained. Nursing notes reviewed. Patient's CAT scan from earlier today was also reviewed. The patient is an 82-year-old female who presented to the emergency department for an abnormal CT. She had a CT ordered by her primary care physician and was sent to the emergency department for an evaluation after her CAT scan revealed multiple intra-abdominal fluid collections which could be consistent with postoperative abscesses. The patient does not have a fever. Her white blood cell count was normal but her inflammatory markers are elevated. I discussed her case with the covering surgeon at [facility] for the patient' s primary surgeon. I also discussed her case with her primary care physician who is very concerned because these findings on CAT scan. We were only agreement that the patient may require further evaluation for either surgical drainage or possibly drainage oozing interventional radiology. For this reason the patient was transferred to [facility] further management and disposition. At this time I will hold antibiotics as the patient does not have pain or fever. She may require antibiotics in the near future but at this time I will defer this to the surgeon. Medication Reconcilliation Current Medication List: was personally reviewed by me Blood Pressure Screening Patient's blood pressure: Elevated blood pressure Blood pressure disposition: Elevated BP felt to be situational Consults Time Called: 2214 Consulting Physician: Dr. Webster Returned Call: [address] Webster of colorectal surgery with [facility]. We discussed the patient's case and he felt it could just be related to postoperative status and recommends outpatient follow-up and return to ED with worsening symptoms. Additional Consults: Time Called: 2235 Consulted Physician: Dr. Gooden Returned Call: 3 Additional Comments: I discussed the case with Dr. Gooden, the patient's PCP. He had spoken with the radiologist regarding the patient's CT results. He was not comfortable managing the patient as an outpatient. Time Called: 2254 Consulted Physician: Dr. Webster Returned Call: [phone] Additional Comments: I discussed the case with Dr. Webster again and he accepted the patient for transfer to his facility. Impression Primary Impression: Postoperative intra-abdominal abscess Additional Impression: Post op infection Scribe Attestation The scribe's documentation has been prepared under my direction and personally reviewed by me in its entirety. I confirm that the note above accurately reflects all work, treatment, procedures, and medical decision making performed by me. Departure Information Referrals Scott Gooden M.D. (PCP) Patient Instructions My [facility] Problem Qualifiers Primary Impression: Postoperative intra-abdominal abscess Encounter type: initial encounter Qualified Codes: T81.4XXA - Infection following a procedure, initial encounter; K65.1 - Peritoneal abscess Additional Impression: Post op infection Encounter type: initial encounter Qualified Codes: T81.4XXA - Infection following a procedure, initial encounter
[2017-05-18 20:38] LABS: C-REACTIVE PROTEIN 5.07 mg/dl (0-0.29); CALCIUM 9.5 mg/dl (8.5-10.1); CREATININE 1.1 mg/dl (0.60-1.20); POTASSIUM 3.6 mmol/L (3.5-5.1)
[2017-05-18 20:57] LABS: PARTIAL THROMBOPLASTIN RATIO 1.1; PROTHROMBIN TIME (PATIENT) 10.7 SECONDS (9.0-12.0)
[2017-05-18 23:27] LABS: URINE APPEARANCE CLEAR (CLEAR); URINE BILIRUBIN NEG (NEG); URINE COLOR YELLOW; URINE NITRITE NEG (NEG); URINE PH 8.5 (4.5-7.5); URINE SPECIFIC GRAVITY 1.044 (1.000-1.030); UROBILINOGEN NEG (NEG)
[2017-05-18 23:30] LABS: MANUAL MICROSCOPIC REQUIRED? NO; REVIEW REQ? NO
[2017-05-19 00:53] VITALS: BP 157/69; PULSE 70; O2SAT 95
== END 2017-05-19 00:53 | disposition short-term general hospital (02) ==
LOC: C.EDB 19:01
DX: T81.4XXA Infection following a procedure, initial encounter (principal); K65.1 Peritoneal abscess; X58.XXXA Exposure to other specified factors, initial encounter; R93.7 Abnormal findings on diagnostic imaging of other parts of musculoskeletal system; I10 Essential (primary) hypertension; Z79.82 Long term (current) use of aspirin; R93.8 Abnormal findings on diagnostic imaging of other specified body structures

== ENCOUNTER → 2017-05-18 | Outpatient (CLI) | payer OTHER ==
[~2017-05-18] MED LIST changes: +OPTIRAY 320 IV PRN
--- NOTE | 2017-05-18 16:32 | DIAGNOSTIC IMAGING REPORT ---
ABD/PELVIS IV CONTRAST ONLY CT DOSE: 230.49 mGy.cm HISTORY: Pain abscess TECHNIQUE: Multiaxial CT images of the abdomen and pelvis were performed following the use of intravenous contrast. A dose lowering technique was utilized adhering to the principles of ALARA. COMPARISON STUDY: CT chest dated 05/10/2017. CT abdomen and pelvis dated 01/06/2017. FINDINGS: Interval development of a complex left pleural effusion. Circumferential focus of increased density possibly related to subdiaphragmatic collection. This is multifocal high in location with 4.8 and 2.0 cm pockets adjacent to the spleen. Liver is uniform in appearance. Small hiatal hernia. Small pericardial effusion. Spleen is not noted appears to be unremarkable in appearance. Kidneys enhance uniformly. Interval placement of the left anterior colostomy. Bowel pattern is considered nonobstructive. Absence of oral contrast precludes evaluation of moderate to small detail. Potential mild wall thickening of the colon. Postoperative changes in the periumbilical region. Bladder is midline. There is moderate fecal material within the colon. There is moderate fecal material within the rectum. Inguinal regions appear unremarkable. Potential additional collection left mid abdomen measuring 1.6 cm. Additional left flank collection measuring 5. 5.3 x 2.4 cm. IMPRESSION: 1. Interval left anterior colostomy. 2. Postoperative changes central abdominal wall. 3. Interval development of multifocal collections involving the left central abdomen, left flank, left splenic and perisplenic region, and possibly left base as noted. 4. Small left effusion. 5. Small hiatal hernia. 6. Small pericardial effusion. The above report was generated using voice recognition software. It may contain grammatical, syntax or spelling errors. Electronically signed by: Mauricio Linda M.D. 05/18/2017 4:31 PM Dictated Date/Time: 05/18/2017 4:22 PM
== END | disposition home or self-care (01) ==
LOC: C.CTS 15:38
PROVIDERS: ATTEND Internal Medicine
DX: R93.8 Abnormal findings on diagnostic imaging of other specified body structures (principal)

== ENCOUNTER → 2017-07-23 | Outpatient (CLI) | payer OTHER ==
[~2017-07-23] MED LIST changes: -LISI-729 PO; +MCRK20 PO; -POTA-335 PO; +WATERPILL
== END | disposition home or self-care (01) ==
LOC: C.LABSPEC 17:37
PROVIDERS: ATTEND Internal Medicine Hematology & Oncology
DX: D50.9 Iron deficiency anemia, unspecified (principal)

== ENCOUNTER → 2017-10-06 | Outpatient (CLI) | payer OTHER ==
[~2017-10-06] MED LIST changes: +ACET-1311 PO; +AMPI500C9 PO; +COCO1OIL2 PO; +COEN1CAP28 PO; +DILT120C68 PO; +DULCOLAX SUPP RE; +FURO-85 PO; +LCTX PO; +MULT-506 PO; +POTA1TAB PO; +SODI1ENE RE
[2017-10-06 08:49] LABS: ALBUMIN 1.6 gm/dl (3.4-5.0); ALT/SGPT 90 U/L (12-78); BLOOD UREA NITROGEN 11 mg/dl (7-18); CALCIUM 7.9 mg/dl (8.5-10.1); CARBON DIOXIDE 28 mmol/L (21-32); CREATININE 0.63 mg/dl (0.60-1.20); GLUCOSE 84 mg/dl (70-99); POTASSIUM 3.4 mmol/L (3.5-5.1); SODIUM 135 mmol/L (136-145)
[2017-10-06 08:51] LABS: ALKALINE PHOSPHATASE 130 U/L (45-117); AST/SGOT 64 U/L (15-37); TOTAL PROTEIN 5.3 gm/dl (6.4-8.2)
[2017-10-06 09:03] LABS: HEMATOCRIT 20.6 % (37-47); HEMOGLOBIN 6.4 g/dL (12.0-16.0); MEAN CELL VOLUME 91.6 fL (80-100); MEAN CORPUSCULAR HEMOGLOBIN 28.4 pg (25-34); MEAN CORPUSCULAR HGB CONC 31.1 g/dl (32-36); MEAN PLATELET VOLUME 9.5 fL (7.4-10.4); PLATELET COUNT 543 K/uL (130-400); RED CELL DISTRIBUTION WIDTH CV 18.3 % (11.5-14.5); RED CELL DISTRIBUTION WIDTH SD 61.4 fL (36.4-46.3); WHITE BLOOD COUNT 17.21 K/uL (4.8-10.8)
== END ==
LOC: C.LABUPNIT 08:14
PROVIDERS: ATTEND Nurse Practitioner Family
DX: I10 Essential (primary) hypertension (principal)

== ENCOUNTER → 2017-10-06 | Outpatient (CLI) | payer OTHER ==
[2017-10-06 15:44] LABS: HEMATOCRIT 24.3 % (37-47); HEMOGLOBIN 7.5 g/dL (12.0-16.0)
== END ==
LOC: C.LABUPNIT 15:27
PROVIDERS: ATTEND Nurse Practitioner Family
DX: D50.9 Iron deficiency anemia, unspecified (principal)

== ENCOUNTER → 2017-10-07 | Outpatient (CLI) | payer OTHER ==
[2017-10-07 09:13] LABS: HEMOGLOBIN 6.7 g/dL (12.0-16.0); MEAN CELL VOLUME 91.3 fL (80-100); MEAN CORPUSCULAR HEMOGLOBIN 29.1 pg (25-34); MEAN CORPUSCULAR HGB CONC 31.9 g/dl (32-36); MEAN PLATELET VOLUME 9.3 fL (7.4-10.4); PLATELET COUNT 629 K/uL (130-400); RED CELL DISTRIBUTION WIDTH CV 17.7 % (11.5-14.5); RED CELL DISTRIBUTION WIDTH SD 59.6 fL (36.4-46.3); WHITE BLOOD COUNT 17.97 K/uL (4.8-10.8)
[2017-10-07 09:47] LABS: BASO % 0.1 %; BASO ABS # 0.02 K/uL (0-0.2); EOS % 0.7 %; EOS ABS # 0.12 K/uL (0-0.5); IG# 0.07 K/uL (0.00-0.02); LYMPH % 10.1 %; LYMPH ABS # 1.81 K/uL (1.2-3.4); MONO % 8.2 %; MONO ABS # 1.47 K/uL (0.11-0.59); NEUT % 80.5 %; NEUT ABS # 14.48 K/uL (1.4-6.5)
== END ==
LOC: C.LABUPNIT 08:04
PROVIDERS: ATTEND Nurse Practitioner Family
DX: I50.21 Acute systolic (congestive) heart failure (principal)

== ENCOUNTER → 2017-10-08 | Outpatient (CLI) | payer OTHER ==
[2017-10-08 06:38] LABS: BASO % 0.2 %; BASO ABS # 0.04 K/uL (0-0.2); EOS % 0.9 %; EOS ABS # 0.15 K/uL (0-0.5); HEMATOCRIT 24.5 % (37-47); HEMOGLOBIN 7.6 g/dL (12.0-16.0); IG# 0.07 K/uL (0.00-0.02); LYMPH % 9.8 %; MEAN CELL VOLUME 90.7 fL (80-100); MEAN CORPUSCULAR HEMOGLOBIN 28.1 pg (25-34); MEAN PLATELET VOLUME 9.6 fL (7.4-10.4); MONO % 8.6 %; MONO ABS # 1.49 K/uL (0.11-0.59); NEUT % 80.1 %; NEUT ABS # 13.87 K/uL (1.4-6.5); PLATELET COUNT 662 K/uL (130-400); RED CELL DISTRIBUTION WIDTH CV 16.8 % (11.5-14.5); RED CELL DISTRIBUTION WIDTH SD 55.6 fL (36.4-46.3); WHITE BLOOD COUNT 17.32 K/uL (4.8-10.8)
== END ==
LOC: C.LABUPNIT 12:10
PROVIDERS: ATTEND Nurse Practitioner Family
DX: Z43.3 Encounter for attention to colostomy (principal); K94.00 Colostomy complication, unspecified; R68.89 Other general symptoms and signs

== ENCOUNTER → 2017-10-10 | Outpatient (CLI) | payer OTHER ==
[~2017-10-10] MED LIST changes: -ASPI81TA28 PO; -MCRK20 PO; -WATERPILL
[2017-10-10 08:28] LABS: BASO % 0.3 %; BASO ABS # 0.04 K/uL (0-0.2); EOS % 0.7 %; HEMATOCRIT 24.4 % (37-47); HEMOGLOBIN 7.6 g/dL (12.0-16.0); IG# 0.04 K/uL (0.00-0.02); LYMPH % 13.7 %; MEAN CORPUSCULAR HEMOGLOBIN 28.4 pg (25-34); MEAN CORPUSCULAR HGB CONC 31.1 g/dl (32-36); MEAN PLATELET VOLUME 9.3 fL (7.4-10.4); MONO % 9.1 %; MONO ABS # 1.26 K/uL (0.11-0.59); NEUT % 75.9 %; NEUT ABS # 10.51 K/uL (1.4-6.5); PLATELET COUNT 734 K/uL (130-400); RED CELL DISTRIBUTION WIDTH CV 16.7 % (11.5-14.5); RED CELL DISTRIBUTION WIDTH SD 55.3 fL (36.4-46.3); WHITE BLOOD COUNT 13.85 K/uL (4.8-10.8)
== END ==
LOC: C.LABUPNIT 07:45
PROVIDERS: ATTEND Nurse Practitioner Family
DX: I50.21 Acute systolic (congestive) heart failure (principal)

== ENCOUNTER → 2017-10-12 | Outpatient (CLI) | payer OTHER ==
[2017-10-12 09:37] LABS: HEMATOCRIT 25.6 % (37-47); HEMOGLOBIN 7.9 g/dL (12.0-16.0)
[2017-10-12 11:23] LABS: BLOOD UREA NITROGEN 11 mg/dl (7-18); CARBON DIOXIDE 30 mmol/L (21-32); CREATININE 0.67 mg/dl (0.60-1.20); GLUCOSE 80 mg/dl (70-99); POTASSIUM 3.2 mmol/L (3.5-5.1); SODIUM 135 mmol/L (136-145)
[2017-10-12 11:53] LABS: MEAN CORPUSCULAR HEMOGLOBIN 28.5 pg (25-34); MEAN PLATELET VOLUME 9.4 fL (7.4-10.4); PLATELET COUNT 718 K/uL (130-400); RED CELL DISTRIBUTION WIDTH CV 16.1 % (11.5-14.5); RED CELL DISTRIBUTION WIDTH SD 55.1 fL (36.4-46.3); WHITE BLOOD COUNT 12.27 K/uL (4.8-10.8)
[2017-10-12 14:38] LABS: MEAN CELL VOLUME 91.1 fL (80-100); MEAN CORPUSCULAR HGB CONC 30.9 g/dl (32-36)
== END ==
LOC: C.LABUPNIT 08:50
PROVIDERS: ATTEND Nurse Practitioner Family
DX: R77.0 Abnormality of albumin (principal); D58.2 Other hemoglobinopathies; R79.89 Other specified abnormal findings of blood chemistry

== ENCOUNTER → 2017-10-20 | Outpatient (CLI) | payer OTHER ==
[2017-10-20 17:44] LABS: BASO % 0.2 %; BASO ABS # 0.03 K/uL (0-0.2); EOS % 0.8 %; HEMOGLOBIN 9.4 g/dL (12.0-16.0); IG# 0.04 K/uL (0.00-0.02); LYMPH % 16.3 %; LYMPH ABS # 2.05 K/uL (1.2-3.4); MEAN CELL VOLUME 88.5 fL (80-100); MEAN CORPUSCULAR HEMOGLOBIN 27.7 pg (25-34); MEAN CORPUSCULAR HGB CONC 31.3 g/dl (32-36); MEAN PLATELET VOLUME 9.2 fL (7.4-10.4); MONO % 7.6 %; MONO ABS # 0.95 K/uL (0.11-0.59); NEUT % 74.8 %; NEUT ABS # 9.38 K/uL (1.4-6.5); PLATELET COUNT 705 K/uL (130-400); RED CELL DISTRIBUTION WIDTH CV 15.9 % (11.5-14.5); RED CELL DISTRIBUTION WIDTH SD 52.4 fL (36.4-46.3); WHITE BLOOD COUNT 12.55 K/uL (4.8-10.8)
== END | disposition home or self-care (01) ==
LOC: C.LABBFT 13:06
PROVIDERS: ATTEND Internal Medicine Hematology & Oncology
DX: D72.829 Elevated white blood cell count, unspecified (principal)

== ENCOUNTER → 2017-10-26 | Outpatient (CLI) | payer OTHER ==
[2017-10-26 17:47] LABS: BASO % 0.5 %; BASO ABS # 0.05 K/uL (0-0.2); EOS % 0.9 %; EOS ABS # 0.09 K/uL (0-0.5); HEMATOCRIT 30.5 % (37-47); HEMOGLOBIN 9.5 g/dL (12.0-16.0); IG# 0.04 K/uL (0.00-0.02); LYMPH % 21.7 %; LYMPH ABS # 2.19 K/uL (1.2-3.4); MEAN CELL VOLUME 88.2 fL (80-100); MEAN CORPUSCULAR HEMOGLOBIN 27.5 pg (25-34); MEAN CORPUSCULAR HGB CONC 31.1 g/dl (32-36); MEAN PLATELET VOLUME 8.7 fL (7.4-10.4); NEUT % 69.5 %; PLATELET COUNT 561 K/uL (130-400); RED CELL DISTRIBUTION WIDTH CV 16.2 % (11.5-14.5); RED CELL DISTRIBUTION WIDTH SD 51.8 fL (36.4-46.3); WHITE BLOOD COUNT 10.07 K/uL (4.8-10.8)
[2017-10-26 17:57] LABS: ALBUMIN 2.5 gm/dl (3.4-5.0); ALT/SGPT 34 U/L (12-78); AST/SGOT 27 U/L (15-37); BLOOD UREA NITROGEN 18 mg/dl (7-18); CALCIUM 9.1 mg/dl (8.5-10.1); CARBON DIOXIDE 27 mmol/L (21-32); CREATININE 0.94 mg/dl (0.60-1.20); GLUCOSE 91 mg/dl (70-99); POTASSIUM 3.7 mmol/L (3.5-5.1); SODIUM 136 mmol/L (136-145)
[2017-10-26 17:59] LABS: ALKALINE PHOSPHATASE 94 U/L (45-117); TOTAL PROTEIN 7.9 gm/dl (6.4-8.2); TRANSFERRIN 227 mg/dl (200-360)
== END | disposition home or self-care (01) ==
LOC: C.LABBFT 15:24
PROVIDERS: ATTEND Internal Medicine
DX: D50.9 Iron deficiency anemia, unspecified (principal); E55.9 Vitamin D deficiency, unspecified

== ENCOUNTER → 2018-01-20 | Outpatient (CLI) | payer OTHER ==
[2018-01-20 13:02] LABS: BASO % 0.4 %; BASO ABS # 0.03 K/uL (0-0.2); EOS % 0.9 %; EOS ABS # 0.07 K/uL (0-0.5); HEMATOCRIT 43.4 % (37-47); HEMOGLOBIN 14.1 g/dL (12.0-16.0); LYMPH % 21.3 %; LYMPH ABS # 1.63 K/uL (1.2-3.4); MEAN CORPUSCULAR HEMOGLOBIN 31.2 pg (25-34); MEAN CORPUSCULAR HGB CONC 32.5 g/dl (32-36); MEAN PLATELET VOLUME 9.7 fL (7.4-10.4); MONO % 7.5 %; MONO ABS # 0.57 K/uL (0.11-0.59); NEUT % 69.9 %; NEUT ABS # 5.35 K/uL (1.4-6.5); PLATELET COUNT 334 K/uL (130-400); RED CELL DISTRIBUTION WIDTH CV 15.2 % (11.5-14.5); RED CELL DISTRIBUTION WIDTH SD 53.3 fL (36.4-46.3); WHITE BLOOD COUNT 7.65 K/uL (4.8-10.8)
== END | disposition home or self-care (01) ==
LOC: C.LABBFT 11:02
PROVIDERS: ATTEND Internal Medicine Hematology & Oncology
DX: D72.829 Elevated white blood cell count, unspecified (principal); D47.3 Essential (hemorrhagic) thrombocythemia

== ENCOUNTER → 2018-03-28 | Outpatient (CLI) | payer OTHER ==
--- NOTE | 2018-03-28 11:58 | DIAGNOSTIC IMAGING REPORT ---
ULTRASOUND OF THE CAROTID ARTERIES CLINICAL HISTORY: R09.89 Right carotid [id number] COMPARISON STUDY: September 2010 TECHNIQUE: Real-time, grayscale, and color Doppler sonography of the carotid arteries was performed. Imaging reviewed in the transverse and longitudinal planes. NASCET criteria was utilized for stenosis calcification. FINDINGS: There is moderate atherosclerotic plaque present ] at the level the left carotid bulb. The peak systolic velocity within the right internal carotid artery is 91 cm/sec. The systolic velocity ratio of right internal to common carotid artery is 2.2. The peak systolic velocity within the left internal carotid artery is 112 cm/sec. The systolic velocity ratio left internal to common carotid artery is 2.0. Antegrade flow is seen in the vertebral arteries. The external carotid arteries are patent. Blood pressure in the right arm measured 215 mm/Hg. Blood pressure in the left arm measured 228 mm/Hg. IMPRESSION: 1. Atheromatous changes 2. No evidence of hemodynamically significant carotid stenosis 3. Systemic hypertension Electronically signed by: Caleb Yanez M.D. 03/28/2018 11:56 AM Dictated Date/Time: 03/28/2018 11:55 AM
== END | disposition home or self-care (01) ==
LOC: C.ULTR 10:52
PROVIDERS: ATTEND Physician Assistant Medical
DX: R09.89 Other specified symptoms and signs involving the circulatory and respiratory systems (principal); I10 Essential (primary) hypertension

== ENCOUNTER → 2018-04-28 | Outpatient (CLI) | payer OTHER ==
[2018-04-28 12:45] LABS: BASO % 0.3 %; BASO ABS # 0.02 K/uL (0-0.2); EOS % 0.7 %; EOS ABS # 0.05 K/uL (0-0.5); HEMATOCRIT 49.1 % (37-47); HEMOGLOBIN 15.1 g/dL (12.0-16.0); IG# 0.01 K/uL (0.00-0.02); LYMPH % 21.2 %; LYMPH ABS # 1.56 K/uL (1.2-3.4); MEAN CELL VOLUME 92.8 fL (80-100); MEAN CORPUSCULAR HEMOGLOBIN 28.5 pg (25-34); MEAN CORPUSCULAR HGB CONC 30.8 g/dl (32-36); MEAN PLATELET VOLUME 10.5 fL (7.4-10.4); MONO % 7.3 %; MONO ABS # 0.54 K/uL (0.11-0.59); NEUT % 70.4 %; NEUT ABS # 5.18 K/uL (1.4-6.5); PLATELET COUNT 283 K/uL (130-400); RED CELL DISTRIBUTION WIDTH CV 14.9 % (11.5-14.5); RED CELL DISTRIBUTION WIDTH SD 50.5 fL (36.4-46.3); WHITE BLOOD COUNT 7.36 K/uL (4.8-10.8)
== END | disposition home or self-care (01) ==
LOC: C.LABBFT 10:42
PROVIDERS: ATTEND Internal Medicine Hematology & Oncology
DX: D72.829 Elevated white blood cell count, unspecified (principal)

== ENCOUNTER 2019-01-11 09:05 | Observation (INO) ==
[2019-01-11 10:29] LABS: Basophils # (auto) 0.04 K/uL (0-0.2); Basophils % (auto) 0.5 %; Eosinophils # (auto) 0.05 K/uL (0-0.5); Eosinophils % (auto) 0.7 %; Hematocrit (blood only) 43.9 % (37-47); Hemoglobin 14.6 g/dL (12.0-16.0); Immature Granulocytes # (auto) 0.02 K/uL (0.00-0.02); Immature Granulocytes % (auto) 0.3 %; Lymphocytes # (auto) 1.17 K/uL (1.2-3.4); Mean Corpuscular Hgb Conc 33.3 g/dL (32-36); Mean Corpuscular Volume 99.3 fL (80-100); Mean Platelet Volume 9.9 fL (7.4-10.4); Monocytes % (auto) 8.2 %; Neutrophils # (auto) 5.45 K/uL (1.4-6.5); Neutrophils % (auto) 74.3 %; Platelet Count 225 K/uL (130-400); RDW Coefficient of Variation 12.5 % (11.5-14.5); RDW Standard Deviation 45.5 fL (36.4-46.3); Red Blood Count 4.42 M/uL (4.2-5.4); White Blood Count 7.33 K/uL (4.8-10.8)
[2019-01-11 10:38] LABS: Prothrombin Time 10.7 Seconds (9.0-12.0)
[2019-01-11 10:47] LABS: Albumin Level 2.9 gm/dl (3.4-5.0); BUN Creatinine Ratio 18.9 (10-20); Calcium 8.8 mg/dl (8.5-10.1); Creatinine Clr Calc Pharmacy 27.1 ml/min; Est GFR (African American) 51.7; Est GFR (Non-African American) 44.6; Magnesium 1.8 mg/dl (1.8-2.4); Potassium 4.3 mmol/L (3.5-5.1)
[2019-01-11 10:55] LABS: Albumin Globulin Ratio 0.6 (0.9-2); Bilirubin,Total 1.4 mg/dl (0.2-1); Globulin 4.6 gm/dl (2.5-4.0); Total Protein 7.5 gm/dl (6.4-8.2); Troponin I 0.151 ng/ml (0-0.045)
--- NOTE | 2019-01-11 11:17 | XRay Report ---
XR chest 2V routine HISTORY: 83 years-old Female sob, cough acute shortness of breath with cough and pleural effusion COMPARISON: Chest radiograph 01/05/2019 TECHNIQUE: PA and lateral views of the chest FINDINGS: Cardiomediastinal and hilar silhouettes are unchanged. Calcification of the thoracic aortic arch. Mod erate hiatal hernia. No pneumothorax. Subsegmental left basilar atelectasis. Right basilar opacities with moderate right pleural effusion which appears stable from comparison. Degenerative changes of th e shoulders and spine. IMPRESSION: 1. Moderate right pleural effusion with persistent right basilar opacities. 2. Cardiomegaly without overt pulmonary edema. 3. Moderate hiatal hernia. The above report was generated using voice recognition software. It may contain grammatical, syntax o r spelling errors. Electronically signed by: Kevin Mcfarland M.D. 01/11/2019 11:16 AM
[2019-01-11] MEDS ORDERED: FUROSEMIDE 20 MG in SYRINGE 0 ML IV ONE (11:19)
[2019-01-11] MEDS ORDERED: FUROSEMIDE 40 MG/4 ML VIAL IV ONE (11:43)
--- NOTE | 2019-01-11 11:58 | History & Physical Report ---
Date of Service January 11, 2019 Assessment & Plan (1) Dyspnea: 83 y/o F Hx chronic AF, HTN, R pleural effusion. Presents with progressive SOB. Denies CP, a productive cough or fevers. Initial labs are notable for an elevated troponin, elevated BNP and are otherwise unremarkable. A CXR demonstrates a R pleural effusion which has increased in size and R basilar opacities which are reported on previous studies. An EKG demonstrates AF and does not otherwise support acute ischemia. The pt had been to her control operator flow coat earlier in the month due to an elevated HR and Atenolol was added to her Diltiazem with positive effect per her daughter. 1) Progressive R effusion and dyspnea - this is likely due to CHF or possibly volume overload due to recent rate control issues. She is scheduled for an echo. We have provided IV Lasix, will measure I/O, daily weights. If there is no improvement by AM, we would consider a tap. Her control operator flow coat is consulted. 2) Elevated trop is likely due to volume. This will be trended. We do not have convincing evidence of ACS presently. An echo is pending - would reconsider plan of care if there are corresponding wall motion abnormalities. 3) AF - rate is fairly well controlled - anticoagulation would be appropriate as she does not describe a propensity for falls. Cont Atenolol, Diltiazem. 4) HTN - cont Lisinopril, Diltiazem, Atenolol Full code - Heparin prophylaxis - consider full-dose anticoagulation AM if no tap needed. Total time for this admit including review of labs, meds imaging, records - discussion with pt, daughter and ER attending - 38 min (2) Pleural effusion on right: (3) Elevated troponin: History of Present Illness Chief Complaint: Shortness of breath Primary Care Provider: Scott mathews MD 83 y/o F Hx chronic AF, HTN, R pleural effusion. Presents with progressive SOB. Denies CP, a productive cough or fevers. Initial labs are notable for an elevated troponin, elevated BNP and are otherwise unremarkable. A CXR demonstrates a R pleural effusion which has increased in size and R basilar opacities which are reported on previous studies. An EKG demonstrates AF and does not otherwise support acute ischemia. The pt had been to her control operator flow coat earlier in the month due to an elevated HR and Atenolol was added to her Diltiazem with positive effect per her daughter. 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 Family: Noncontributory due to age Allergies Allergy/AdvReac Type Severity Reaction Status Date / Time No Known Allergies Allergy Verified 01/11/19 10:25 Home Medications Home Medications Medication Instructions Recorded Confirmed Type aspirin [Aspirin Low Dose] 81 mg PO DAILY 01/11/19 01/11/19 History atenolol 25 mg PO HS 01/11/19 01/11/19 History diltiazem HCl [DILT-XR] 1 cap PO BID 01/11/19 01/11/19 History furosemide 20 mg PO DAILY 01/11/19 01/11/19 History lisinopril 20 mg PO BID 01/11/19 01/11/19 History Past Med/Surg History Medical History A-fib Hypertension (Chronic) Surgical History History of intestinal surgery Social History Preferred Language: [place] Communication Ability: Effective 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 Beliefs That Will Affect Care: None Current Living Situation: Alone Feels Safe at Home: Yes Safety Concerns: Feels Safe At This Time Smoking Status: Never smoker 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) Hx Alcohol Use: Yes Alcohol type: wine Hx Substance Use: No Review of Systems Review of Systems: Gen: Denies fevers, night sweats, rigors, fatigue, malaise, weight loss/gain ENT: Denies congestion, throat pain, hearing loss Eyes: Denies acute visual changes CV: Denies CP, palpitations Pulmonary: Progressive SOB - no cough GI: Denies N/V, diarrhea, constipation Neuro: Denies acute or unilateral weakness, acute gait impairment, headache or acute visual changes Musculoskeletal: Denies joint pain, inflammation Endocrine: Denies polydipsia, polyuria Skin: Denies acute rashes or ulcers Physical Exam Physical Exam: General: AAO x 3, no distress - breathing is labored ENT: No erythema or exudates, no thrush Eyes: MIGUEL, EOMI Head and neck: Normocephalic, atraumatic + JVD. Malar rash Chest/heart: Nontender, S1,2, irr, slight systolic murmur, no gallops Lungs: marked kyphosis - no air entry into R base Abdomen: Nontender, nondistended, BS+ Neuro: AAO x 3, speech is clear, no unilateral weakness or loss of sensation, coordination intact Musculoskeletal: No joint inflammation, muscle tenderness, FROM Skin: Malar rash is seen Extremities: No clubbing, cyanosis, edema Results & Data Vital Signs (Past 12 Hours) Vital Signs Temp Pulse Pulse Resp BP BP Pulse Ox 01/11/19 11:28 82 16 157/95 H 91 01/11/19 10:31 77 16 157/95 H 97 01/11/19 09:24 90 01/11/19 09:13 97.9 F 78 20 151/95 H 90 Diagnostic Findings CXR: 1. Moderate right pleural effusion with persistent right basilar opacities. 2. Cardiomegaly without overt pulmonary edema. 3. Moderate hiatal hernia. EKG: AF, 80BPM, no evidence of acute ischemia (1) Dyspnea Dyspnea type: shortness of breath Qualified Code(s): R06.02 - Shortness of breath; R06.00 - Dyspnea, unspecified; R06.01 - Orthopnea
[2019-01-11] MEDS ORDERED: NITROGLYCERIN 2% OINTMENT 30GM TUBE EXT STA (13:14)
[2019-01-11] MEDS ORDERED: ACETAMINOPHEN 325 MG TAB PO PRN (15:14)
[2019-01-11] MEDS ORDERED: ALUMINUM/MAGNESIUM SUSP 30 ML UDC PO PRN (15:14)
[2019-01-11] MEDS ORDERED: MAGNESIUM HYDROXIDE SUSP 30 ML UDC PO PRN (15:14)
[2019-01-11] MEDS ORDERED: POLYETHYLENE (MIRALAX) 17 GM PACK PO PRN (15:14)
[2019-01-11] MEDS ORDERED: ONDANSETRON INJ 2 MG/ML 2 ML VIAL IV PRN (15:14)
[2019-01-11] MEDS: HEPARIN SOD 5,000 UNIT/0.5 ML VIAL SQ SCH (21:54)
[2019-01-11] MEDS: LISINOPRIL 20 MG TAB PO SCH (21:56)
[2019-01-11] MEDS: ATENOLOL 25 MG TABLET PO SCH (22:32)
[2019-01-12] MEDS: HEPARIN SOD 5,000 UNIT/0.5 ML VIAL SQ SCH ×3 (05:44→20:50)
--- NOTE | 2019-01-12 07:01 | XRay Report ---
XR chest 1V portable HISTORY: 83 years-old Female chf follow-up study in a patient with congestive heart failure COMPARISON: Chest radiograph 01/11/2019 TECHNIQUE: Portable AP view of the chest FINDINGS: Cardiac silhouette is enlarged, unchanged. Calcification of the thoracic aortic arch. Pulmonary vascu lar congestion with interval development of mild interstitial coarsening. No pneumothorax. Moderate r ight pleural effusion with right lung base and right midlung opacities. Suggestion of a trace left pl eural effusion with left basilar opacities. Moderate hiatal hernia. Degenerative changes of the shoul ders and spine. IMPRESSION: 1. Cardiomegaly with suggestion of mild pulmonary edema. 2. Moderate right pleural effusion with right midlung and right lung base opacities. 3. Probable trace left pleural effusion with left basilar opacities. 4. Moderate hiatal hernia. The above report was generated using voice recognition software. It may contain grammatical, syntax o r spelling errors. Electronically signed by: Kevin Mcfarland M.D. 01/12/2019 6:59 AM
--- NOTE | 2019-01-12 07:07 | Emergency Department Note ---
Entered by Sherine Bhatti acting as a scribe for History of Present Illness General Chief complaint: Shortness of Breath/Dyspnea Stated complaint: SOB,FLUID IN RT LUNG Time Seen by Provider: 01/11/19 09:26 Source: patient and family Mode of arrival: ambulatory Limitations: no limitations History of Present Illness Provider complaint: shortness of breath Onset (ago): day(s) (a few) Location: chest Pain Consistency: + other (persistent) Quality: + other (SOB) Exacerbated By: + other (lying flat) Associated symptoms: + denies other symptoms (urinary, abn BM, leg swelling); no chest pain, no cough and no fever/chills The patient is an 83 year old female who presents to the ER with complaints of a persistent shortness of breath that began a few days ago. The patients niece at bedside reports that the patient has fluid in her right lung and is currently on medication for it, but notes no relief. She states that the patient was also switched from Diltiazem XR 180 mg to Atenolol a week ago. She reports that she did also have a partial bowel removal and does have a history of CHF and a-fib. Patient typically follows with Dr. Telles. Per niece, the patient takes a daily low-dose aspirin, no other anticoagulation. The patient denies any leg swelling or chest pain but notes she has been tired. She also denies any urinary symptoms, abnormal bowel movements, fevers, chills, or cough and cold symptoms. She denies any other history of lung disease. She denies ever being a smoker but admits to daily alcohol use. Per niece, the patient has 1-2 glasses of wine every day. The patient reports that her symptoms are worsened when lying flat and with exertion. Niece does note the patient has a productive sounding cough, denies any other symptoms of URI. Home Medications Home Medications Medication Instructions Recorded Confirmed Type aspirin [Aspirin Low Dose] 81 mg PO DAILY 01/11/19 01/11/19 History atenolol 25 mg PO HS 01/11/19 01/11/19 History diltiazem HCl [DILT-XR] 1 cap PO BID 01/11/19 01/11/19 History furosemide 20 mg PO DAILY 01/11/19 01/11/19 History lisinopril 20 mg PO BID 01/11/19 01/11/19 History Allergies Allergy/AdvReac Type Severity Reaction Status Date / Time No Known Allergies Allergy Verified 01/11/19 10:25 Past Med/Surg History Medical History A-fib Hypertension (Chronic) Surgical History History of intestinal surgery Social History Preferred Language: Taiwanese Communication Ability: Effective 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 and A total of 10 systems reviewed and were otherwise negative Physical Exam Vital Signs Vital Signs - 24 hr 01/11/19 09:13 01/11/19 09:24 01/11/19 10:31 Temperature 36.6 C Temperature Source Oral Sepsis Recent Fever Within 48 Hours No Sepsis Action Taken by Nursing No Action Required Pulse Rate 78 Pulse Rate [Apical] 77 Pulse Rhythm [Apical] Pulse Strength [Apical] Respiratory Rate 20 16 Respiratory Effort / Characteristics Respiratory Depth Respiratory Pattern Blood Pressure 151/95 H Blood Pressure [Right Arm] 157/95 H Blood Pressure Mean 113 Blood Pressure Mean [Right Arm] 115 Blood Pressure Position Sitting Blood Pressure Position [Right Arm] Pulse Oximetry 90 90 97 Oxygen Delivery Method Room Air Room Air Room Air Oxygen Flow Rate 01/11/19 11:28 01/11/19 12:17 01/11/19 13:29 Temperature Temperature Source Sepsis Recent Fever Within 48 Hours Sepsis Action Taken by Nursing Pulse Rate Pulse Rate [Apical] 82 97 H Pulse Rhythm [Apical] Pulse Strength [Apical] Respiratory Rate 16 16 Respiratory Effort / Characteristics Non-Labored Spontaneous Respiratory Depth Normal Respiratory Pattern Regular Blood Pressure Blood Pressure [Right Arm] 157/95 H 154/110 H Blood Pressure Mean Blood Pressure Mean [Right Arm] 115 124 Blood Pressure Position Blood Pressure Position [Right Arm] Pulse Oximetry 91 93 Oxygen Delivery Method Room Air Room Air Room Air Oxygen Flow Rate 01/11/19 14:39 01/11/19 15:00 01/11/19 15:41 Temperature 36.8 C Temperature Source Oral Sepsis Recent Fever Within 48 Hours Sepsis Action Taken by Nursing Pulse Rate 102 H Pulse Rate [Apical] 89 Pulse Rhythm [Apical] Pulse Strength [Apical] Respiratory Rate 18 20 Respiratory Effort / Characteristics Non-Labored Spontaneous Respiratory Depth Normal Respiratory Pattern Blood Pressure 131/98 Blood Pressure [Right Arm] 137/86 Blood Pressure Mean Blood Pressure Mean [Right Arm] 103 Blood Pressure Position Blood Pressure Position [Right Arm] Lying Pulse Oximetry 94 92 96 Oxygen Delivery Method Room Air Room Air Nasal Cannula Oxygen Flow Rate 2 01/11/19 17:29 01/11/19 20:00 01/11/19 20:20 Temperature 36.8 C Temperature Source Oral Sepsis Recent Fever Within 48 Hours Sepsis Action Taken by Nursing Pulse Rate Pulse Rate [Apical] 88 Pulse Rhythm [Apical] Pulse Strength [Apical] Respiratory Rate 18 Respiratory Effort / Characteristics Non-Labored Spontaneous SOB on Exertion Non-Labored Spontaneous SOB on Exertion Respiratory Depth Normal Normal Respiratory Pattern Regular Regular Blood Pressure Blood Pressure [Right Arm] 138/95 Blood Pressure Mean Blood Pressure Mean [Right Arm] 109 Blood Pressure Position Blood Pressure Position [Right Arm] Pulse Oximetry 92 Oxygen Delivery Method Nasal Cannula Room Air Oxygen Flow Rate 2 1 01/11/19 23:05 01/12/19 03:57 Temperature 36.4 C L 36.8 C Temperature Source Oral Oral Sepsis Recent Fever Within 48 Hours Sepsis Action Taken by Nursing Pulse Rate Pulse Rate [Apical] 82 71 Pulse Rhythm [Apical] Irregular Pulse Strength [Apical] Normal Respiratory Rate 18 20 Respiratory Effort / Characteristics Non-Labored Spontaneous SOB on Exertion Respiratory Depth Normal Respiratory Pattern Regular Blood Pressure Blood Pressure [Right Arm] 124/80 153/89 H Blood Pressure Mean Blood Pressure Mean [Right Arm] 94 110 Blood Pressure Position Blood Pressure Position [Right Arm] Lying Pulse Oximetry 92 91 Oxygen Delivery Method Room Air Room Air Oxygen Flow Rate GENERAL: alert, well appearing, well nourished, no distress, non-toxic EYE EXAM: normal conjunctiva, PERRL and EOM's grossly intact OROPHARYNX: no exudate, no erythema, lips, buccal mucosa, and tongue normal and mucous membranes are moist NECK: supple, no nuchal rigidity, no adenopathy, non-tender LUNGS: Diminished breath sounds at bilateral bases. Mildly increased work of breathing. HEART: no murmurs, S1 normal and S2 normal ABDOMEN: abdomen soft, non-tender, normo-active bowel sounds, no masses, no rebound or guarding. BACK: Back is symmetrical on inspection and there is no deformity, no midline tenderness, no CVA tenderness. SKIN: no rashes and no bruising UPPER EXTREMITIES: upper extremities are grossly normal. FROM, nml pulses b/l. LOWER EXTREMITIES: No pitting edema. FROM, nml pulses b/l. NEURO EXAM: Normal sensorium, cranial nerves II-XII grossly intact, normal speech, no gross weakness of arms, no gross weakness of legs. Gross sensation intact. Course 930: Past medical records reviewed. The patient was evaluated in room B8. A complete history and physical examination was performed. 1127: I updated the patient on her results and she verbalized agreement of the treatment plan. 1148: I discussed the patients case with Dr. [facility] Hospitalist. He will evaluate the patient for further management. Administered Medications Atenolol (Tenormin) 25 mg PO HS ARI Stop: 02/10/19 20:59 Last Admin: 01/11/19 22:32 Dose: 25 mg Documented by: [id number] Diltiazem HCl (Dilacor Xr) 180 mg PO BID ARI Stop: 02/10/19 20:59 Last Admin: 01/11/19 21:56 Dose: 180 mg Documented by: [id number] Heparin Sodium (Porcine) (Heparin Sodium (Porcine)) 5,000 units SQ Q8 ARI Stop: 02/10/19 21:59 Last Admin: 01/12/19 05:44 Dose: 5,000 units Documented by: [id number] Cosigned by: [id number] Admin: 01/11/19 21:54 Dose: 5,000 units Documented by: [id number] Cosigned by: [id number] Lisinopril (Zestril) 20 mg PO BID ARI Stop: 02/10/19 20:59 Last Admin: 01/11/19 21:56 Dose: 20 mg Documented by: [id number] Discontinued Medications Furosemide (Lasix) Confirm Administered Dose 40 mg IV .STK-MED ONE Stop: 01/11/19 11:44 Last Admin: 01/11/19 11:46 Dose: 20 mg Documented by: [id number] Furosemide 20 mg/ Syringe 2 mls @ 4 mls/min IV ONE ONE Stop: 01/11/19 11:20 Last Admin: 01/11/19 11:46 Dose: Not Given Documented by: [id number] Nitroglycerin (Nitro-Bid 2%) 1 inch EXT NOW STA Stop: 01/11/19 13:15 Last Admin: 01/11/19 13:28 Dose: 1 inch Documented by: [id number] Medical Decision Making Differential Diagnosis Differential diagnoses includes : pneumonia, bronchitis, COPD/Asthma exacerbation, pneumothorax, pulmonary embolism, congestive heart failure, and acute coronary syndrome amongst others. Medical Records Attestation: I reviewed the patient's medical records. Home Medications Current Medication List: was personally reviewed by me Laboratory Data Attestation: I reviewed the patient's lab results. Result diagrams: 01/11/19 10:13 01/11/19 10:13 Lab Results 01/11/19 01/11/19 01/11/19 Range/Units 10:13 10:13 10:17 WBC 7.33 (4.8-10.8) K/uL RBC 4.42 (4.2-5.4) M/uL Hgb 14.6 (12.0-16.0) g/dL Hct 43.9 (37-47) % MCV 99.3 (80-100) fL MCH 33.0 (25-34) pg MCHC 33.3 (32-36) g/dL RDW Std Deviation 45.5 (36.4-46.3) fL RDW Coeff of Elvi 12.5 (11.5-14.5) % Plt Count 225 (130-400) K/uL MPV 9.9 (7.4-10.4) fL Immature Gran % (Auto) 0.3 % Neut % (Auto) 74.3 % Lymph % (Auto) 16.0 % [place] % (Auto) 8.2 % Eos % (Auto) 0.7 % Baso % (Auto) 0.5 % Immature Gran # (Auto) 0.02 (0.00-0.02) K/uL Neut # (Auto) 5.45 (1.4-6.5) K/uL Lymph # (Auto) 1.17 L (1.2-3.4) K/uL [place] # (Auto) 0.60 H (0.11-0.59) K/uL Eos # (Auto) 0.05 (0-0.5) K/uL Baso # (Auto) 0.04 (0-0.2) K/uL PT 10.7 (9.0-12.0) Seconds INR 1.0 (0.9-1.1) Sodium 138 (136-145) mmol/L Potassium 4.3 (3.5-5.1) mmol/L Chloride 103 (98-107) mmol/L Carbon Dioxide 31 (21-32) mmol/L Anion Gap 4.0 (3-11) BUN 21 H (7-18) mg/dl Creatinine 1.13 (0.6-1.2) mg/dl Est Cr Clr Drug Dosing 27.1 ml/min Est GFR ( Amer) 51.7 Est GFR (Non-Af Amer) 44.6 BUN/Creatinine Ratio 18.9 (10-20) Glucose 89 (70-99) mg/dl Calcium 8.8 (8.5-10.1) mg/dl Magnesium 1.8 (1.8-2.4) mg/dl Total Bilirubin 1.4 H (0.2-1) mg/dl AST 23 (15-37) U/L ALT 21 (12-78) U/L Alkaline Phosphatase 85 (45-117) U/L Troponin I 0.151 H* (0-0.045) ng/ml NT-Pro-B Natriuret Pep 2411 H (0-1800) pg/ml Total Protein 7.5 (6.4-8.2) gm/dl Albumin 2.9 L (3.4-5.0) gm/dl Globulin 4.6 H (2.5-4.0) gm/dl Albumin/Globulin Ratio 0.6 L (0.9-2) Lipase 88 (73-393) U/L 01/11/19 01/11/19 Range/Units 15:34 18:51 WBC (4.8-10.8) K/uL RBC (4.2-5.4) M/uL Hgb (12.0-16.0) g/dL Hct (37-47) % MCV (80-100) fL MCH (25-34) pg MCHC (32-36) g/dL RDW Std Deviation (36.4-46.3) fL RDW Coeff of Elvi (11.5-14.5) % Plt Count (130-400) K/uL MPV (7.4-10.4) fL Immature Gran % (Auto) % Neut % (Auto) % Lymph % (Auto) % [place] % (Auto) % Eos % (Auto) % Baso % (Auto) % Immature Gran # (Auto) (0.00-0.02) K/uL Neut # (Auto) (1.4-6.5) K/uL Lymph # (Auto) (1.2-3.4) K/uL [place] # (Auto) (0.11-0.59) K/uL Eos # (Auto) (0-0.5) K/uL Baso # (Auto) (0-0.2) K/uL PT (9.0-12.0) Seconds INR (0.9-1.1) Sodium (136-145) mmol/L Potassium (3.5-5.1) mmol/L Chloride (98-107) mmol/L Carbon Dioxide (21-32) mmol/L Anion Gap (3-11) BUN (7-18) mg/dl Creatinine (0.6-1.2) mg/dl Est Cr Clr Drug Dosing ml/min Est GFR ( Amer) Est GFR (Non-Af Amer) BUN/Creatinine Ratio (10-20) Glucose (70-99) mg/dl Calcium (8.5-10.1) mg/dl Magnesium (1.8-2.4) mg/dl Total Bilirubin (0.2-1) mg/dl AST (15-37) U/L ALT (12-78) U/L Alkaline Phosphatase (45-117) U/L Troponin I 0.217 H* 0.230 H* (0-0.045) ng/ml NT-Pro-B Natriuret Pep (0-1800) pg/ml Total Protein (6.4-8.2) gm/dl Albumin (3.4-5.0) gm/dl Globulin (2.5-4.0) gm/dl Albumin/Globulin Ratio (0.9-2) Lipase (73-393) U/L Imaging Data Radiologist's Impression: Radiology results as stated below per my review and the radiologist's interpretation: XR chest 2V routine HISTORY: 83 years-old Female sob, cough acute shortness of breath with cough and pleural effusion COMPARISON: Chest radiograph 01/05/2019 TECHNIQUE: PA and lateral views of the chest FINDINGS: Cardiomediastinal and hilar silhouettes are unchanged. Calcification of the thoracic aortic arch. Moderate hiatal hernia. No pneumothorax. Subsegmental left basilar atelectasis. Right basilar opacities with moderate right pleural effusion which appears stable from comparison. Degenerative changes of the shoulders and spine. IMPRESSION: 1. Moderate right pleural effusion with persistent right basilar opacities. 2. Cardiomegaly without overt pulmonary edema. 3. Moderate hiatal hernia. The above report was generated using voice recognition software. It may contain grammatical, syntax or spelling errors. Electronically signed by: Kevin Mcfarland M.D. 01/11/2019 11:16 AM ECG Data Attestation: I personally reviewed and interpreted this ECG as follows: Indication: SOB/dyspnea Rate (beats per minute): 81 Rhythm: atrial fibrillation Findings: + other (normal QRS and QTC, normal axis); no acute ischemic change Blood Pressure Blood Pressure Findings: Elevated blood pressure Blood Pressure Disposition: further management by hospitalist RUBI Wright Patient presenting with increasing dyspnea and known small right pleural effusion for which she uses Lasix as needed. Patient here found to have a slightly increased size of her pleural effusion as well as an increase in her BNP and subsequent increase in troponin. I have a low suspicion for primary ACS. I feel the elevated troponin is likely secondary to the respiratory distress, pleural effusion/CHF. Patient does routinely follow with cardiology. Patient is on antiplatelet but no anticoagulation therapy. Patient with normal renal function. I do not suspect occult infectious etiology of pleural effusion. Patient with no fevers or leukocytosis. Patient here hemodynamically stable. While patient was not overtly hypoxic on room air, she did have increased work of breathing and requested oxygen via nasal cannula which she felt symptomatically improved her breathing. Patient and niece made aware of all results and were in agreement with plan for additional inpatient management. Patient in her chronic A. fib here, rate controlled in the 70s. Impression & Plan Dyspnea, Pleural effusion on right, Elevated troponin, Elevated brain natriuretic peptide (BNP) level Discharge Plan Visit Data *Final* Discharge Date/Time: 01/11/19 14:39 Chief Complaint: Shortness of Breath/Dyspnea Stated Complaint: SOB,FLUID IN RT LUNG ED Provider: Patrica Ramon Discharge Problem: Dyspnea, Pleural effusion on right, Elevated troponin, Elevated brain natriuretic peptide (BNP) level Patient Disposition: Admitted As Inpatient Discharge Instructions Interventions: ED Discharge Assessment Last Done: 01/11/19 14:39 Discharge Problem: Dyspnea Qualifiers: Dyspnea type: shortness of breath Qualified Code(s): R06.02 - Shortness of breath The scribe's documentation has been prepared under my direction and personally reviewed by me in its entirety. I confirm that the note above accurately reflec ts all work, treatment, procedures, and medical decision making performed by me.
[2019-01-12] MEDS ORDERED: HydrALAZINE HCL 20 MG/ML VIAL IV PRN (08:10)
[2019-01-12] MEDS: ASPIRIN 81 MG ECTAB PO SCH (08:14)
[2019-01-12] MEDS: LISINOPRIL 20 MG TAB PO SCH ×2 (08:14→20:49)
[2019-01-12] MEDS ORDERED: FUROSEMIDE 20 MG in SYRINGE 0 ML IV ONE (08:40)
--- NOTE | 2019-01-12 08:50 | Cardiology Consultation ---
Date of Consultation January 12, 2019 Assessment & Plan (1) Acute diastolic CHF (congestive heart failure): She appears mildly hypervolemic. Will give another dose of 40 mg IV Lasix later this morning but first recommend basic metabolic panel to evaluate electrolytes and renal function. It is likely that her pleural effusion is related to CHF but given her degree of shortness of breath, would consider thoracentesis. Low-sodium diet. Recommend strict I&Os and daily weights. On discharge, would recommend at least 40 mg of p.o. Lasix daily rather than 20 mg which she has been taking more recently. (2) Elevated troponin: Elevated troponins but no angina. Could be secondary to CHF exacerbation. Echocardiogram is ordered and pending. No further ischemic evaluation at this time however. Recommend treatment for hypervolemia and consideration of thoracentesis to improve her breathing. (3) Pleural effusion on right: Consider thoracentesis. Discussed with Dr. Lopez. (4) A-fib: Heart rate is adequately controlled on diltiazem and also atenolol. She has declined anticoagulation therapy despite extensive discussions in the past. Please see outpatient notes for full details. (5) Hypertension: Blood pressure has been reasonably controlled but is elevated this morning. Another dose of diuretics ordered. Monitor and adjust antihypertensive agents if necessary. Low-sodium diet. Disposition: Plan of care discussed with Dr. Lopez of the primary hospitalist service. I will be away from the hospital for the next 2 days. Please call the on-call blueprinting machine operator over the weekend for any questions or concerns. Would try to keep that fluid balance negative each day, if renal function remains stable. Heart failure program will be notified to ensure close follow-up when discharged. Greater than 40 minute spent, with greater than 50% time spent counseling patient and coordinating care. Thank you for allowing me to participate in the care of your patient. Please call for any other questions or concerns. Sincerely, Srinivas Telles M.D. History of Present Illness Reason for Consultation: CHF and elevated troponin Requesting Physician: Dr. Leon Attending Physician: Sohan Lopez MD, PhD, [facility] History of Present Illness Ms. Odom is a very pleasant 83-year-old female with a history significant for paroxysmal atrial fibrillation, hypertension, mitral regurgitation, and suspected TIA. She was referred to Cardiology for atrial fibrillation. She was admitted on 01/11/2019 with worsening shortness of breath. She has a right-sided pleural effusion. She was given intravenous Lasix but unfortunately did not collect her urine for quantification. She continues to feel short of breath. She describes orthopnea and also dyspnea with exertion. She appears slightly short of breath even discussing her presentation, when compared to her outpatient visit on 01/05/2019. At that time, she had just started taking Lasix 20 mg daily and she had already been feeling better after 2 days. She states that she had continue taking Lasix but her symptoms worsened. She maintains a low-sodium diet. She does not weigh herself as an outpatient. She denies chest pain, syncope, near-syncope, palpitations, edema, melena, hematochezia, hematuria, nausea, vomiting, diarrhea, fevers, stroke or stroke- like symptoms. She does not feel any better now than when she presented yesterday, despite Lasix 40 mg IV and 20 mg IV. Last week when seen as an outpatient, she was in atrial fibrillation with rapid ventricular response. Atenolol 25 mg once daily was initiated and her heart rate is now adequately controlled. She denies palpitations. Review of systems: As above. Review of systems otherwise negative/unremarkable. Past medical history: 1. Abnormal CBC (R79.89) 2. Abnormal finding on imaging (R93.89) 3. Bilateral lower extremity edema (R60.0) 4. Chronic kidney disease, stage 3 (N18.3) 5. Cyst 6. Fatigue (R53.83) 7. Hiatal hernia (K44.9) 8. 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 Hypertension (I10) 10. Hypoalbuminemia (E88.09) 11. Hypokalemia (E87.6) 12. Iron deficiency anemia (D50.9) 13. Mitral regurgitation (I34.0) 14. MRSA infection (A49.02) 15. Need for shingles vaccine (Z23) 16. Paroxysmal atrial fibrillation (I48.0) 17. Pericardial effusion (I31.3) 18. Pleural effusion (J90) 19. Postoperative anemia (D64.9) 20. Pulmonary nodules (R91.8) 21. Right carotid bruit (R09.89) 22. Thrombocytosis (D47.3) 23. Vitamin D deficiency (E55.9) Family history: Mother in her 30s from infection. There was no known premature CAD in first-degree relatives. Social history: Denies tobacco or drug abuse. She consumes 3 glasses of wine per day. She is from her first marriage and from her second marriage. She has 4 step children but no biologic children. She lives alone. Her niece, Shayna, typically accompanies her to the office. She is currently alone in her hospital room. Allergies Allergy/AdvReac Type Severity Reaction Status Date / Time No Known Allergies Allergy Verified 01/11/19 10:25 Home Medications Home Medications Medication Instructions Recorded Confirmed Type aspirin [Aspirin Low Dose] 81 mg PO DAILY 01/11/19 01/11/19 History atenolol 25 mg PO HS 01/11/19 01/11/19 History diltiazem HCl [DILT-XR] 1 cap PO BID 01/11/19 01/11/19 History furosemide 20 mg PO DAILY 01/11/19 01/11/19 History lisinopril 20 mg PO BID 01/11/19 01/11/19 History Patient History Medical History A-fib Hypertension (Chronic) Surgical History History of intestinal surgery Social History Preferred Language: Telugu Communication Ability: Effective Conservation Agent Required: No Beliefs That Will Affect Care: None Current Living Situation: Alone Feels Safe at Home: Yes Safety Concerns: Feels Safe At This Time Smoking Status: Never smoker 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 Alert and oriented. HEENT: Anicteric sclera. Neck: Mild JVD with hepatic jugular reflux. No bruits. Normal carotid upstrokes bilaterally. Cardiac: PMI was nondisplaced. No ventricular heave. Irregularly irregular. Normal S1-S2. 2/6 holosystolic murmur. No rubs, or gallops. Pulmonary: Decreased breath sounds in the right lung field, excluding the apex. Otherwise clear to auscultation. Abdomen: Soft, nontender, nondistended, with normoactive bowel sounds. No bruits noted. Extremities: 2+ radial pulses bilaterally. 2+ posterior tibialis pulses bilaterally. No edema or cyanosis. Psychiatric: Affect appears appropriate. Back: Kyphosis. Results & Data Vital Signs (Past 12 Hours) Vital Signs Temp Pulse Resp BP Pulse Ox 01/12/19 07:49 37 C 89 18 170/104 H 90 01/12/19 03:57 36.8 C 71 20 153/89 H 91 01/11/19 23:05 36.4 C L 82 18 124/80 92 Laboratory Results Laboratory Results - last 24 hr 01/11/19 01/11/19 01/11/19 10:13 10:13 10:17 WBC 7.33 RBC 4.42 Hgb 14.6 Hct 43.9 MCV 99.3 MCH 33.0 MCHC 33.3 RDW Std Deviation 45.5 RDW Coeff of Elvi 12.5 Plt Count 225 MPV 9.9 Immature Gran % (Auto) 0.3 Neut % (Auto) 74.3 Lymph % (Auto) 16.0 [place] % (Auto) 8.2 Eos % (Auto) 0.7 Baso % (Auto) 0.5 Immature Gran # (Auto) 0.02 Neut # (Auto) 5.45 Lymph # (Auto) 1.17 L [place] # (Auto) 0.60 H Eos # (Auto) 0.05 Baso # (Auto) 0.04 PT 10.7 INR 1.0 Sodium 138 Potassium 4.3 Chloride 103 Carbon Dioxide 31 Anion Gap 4.0 BUN 21 H Creatinine 1.13 Est Cr Clr Drug Dosing 27.1 Est GFR ( Amer) 51.7 Est GFR (Non-Af Amer) 44.6 BUN/Creatinine Ratio 18.9 Glucose 89 Calcium 8.8 Magnesium 1.8 Total Bilirubin 1.4 H AST 23 ALT 21 Alkaline Phosphatase 85 Troponin I 0.151 H* NT-Pro-B Natriuret Pep 2411 H Total Protein 7.5 Albumin 2.9 L Globulin 4.6 H Albumin/Globulin Ratio 0.6 L Lipase 88 01/11/19 01/11/19 15:34 18:51 WBC RBC Hgb Hct MCV MCH MCHC RDW Std Deviation RDW Coeff of Elvi Plt Count MPV Immature Gran % (Auto) Neut % (Auto) Lymph % (Auto) [place] % (Auto) Eos % (Auto) Baso % (Auto) Immature Gran # (Auto) Neut # (Auto) Lymph # (Auto) [place] # (Auto) Eos # (Auto) Baso # (Auto) PT INR Sodium Potassium Chloride Carbon Dioxide Anion Gap BUN Creatinine Est Cr Clr Drug Dosing Est GFR ( Amer) Est GFR (Non-Af Amer) BUN/Creatinine Ratio Glucose Calcium Magnesium Total Bilirubin AST ALT Alkaline Phosphatase Troponin I 0.217 H* 0.230 H* NT-Pro-B Natriuret Pep Total Protein Albumin Globulin Albumin/Globulin Ratio Lipase Diagnostic Findings ECG personally reviewed: ECG 01/11/2019: Atrial fibrillation 81 bpm. Nonspecific T-wave abnormality. Telemetry personally reviewed: Atrial fibrillation. No ventricular arrhythmia noted. Chest x-ray 01/12/2019: Moderate right pleural effusion with right mid lung and right lung base opacities. Medications Administered Current Inpatient Medications Acetaminophen (Tylenol) 650 mg PO Q4H PRN PRN Reason: Pain or Fever Stop: 02/10/19 15:13 Al Hydrox/Mg Hydrox/Simethicone (Maalox) 15 ml PO Q4H PRN PRN Reason: Dyspepsia Stop: 02/10/19 15:13 Aspirin (Ecotrin Ectab) 81 mg PO DAILY ARI Stop: 02/11/19 08:59 Last Admin: 01/12/19 08:14 Dose: 81 mg Documented by: Atenolol (Tenormin) 25 mg PO HS ARI Stop: 02/10/19 20:59 Last Admin: 01/11/19 22:32 Dose: 25 mg Documented by: Diltiazem HCl (Dilacor Xr) 180 mg PO BID ARI Stop: 02/10/19 20:59 Last Admin: 01/12/19 08:14 Dose: 180 mg Documented by: Heparin Sodium (Porcine) (Heparin Sodium (Porcine)) 5,000 units SQ Q8 ARI Stop: 02/10/19 21:59 Last Admin: 01/12/19 05:44 Dose: 5,000 units Documented by: Hydralazine HCl (Hydralazine Hcl) 20 mg IV Q8 PRN PRN Reason: Hypertension Stop: 02/11/19 08:09 Furosemide 40 mg/ Syringe 4 mls @ 4 mls/min IV ONE ONE Stop: 01/12/19 11:01 Lisinopril (Zestril) 20 mg PO BID ARI Stop: 02/10/19 20:59 Last Admin: 01/12/19 08:14 Dose: 20 mg Documented by: Magnesium Hydroxide (Milk Of Magnesia) 30 ml PO Q12H PRN PRN Reason: Constipation Stop: 02/10/19 15:13 Ondansetron HCl (Zofran) 4 mg IV Q6H PRN PRN Reason: Nausea Stop: 02/10/19 15:13 Polyethylene Glycol (Miralax Powder Packet) 17 gm PO DAILY PRN PRN Reason: Constipation Stop: 02/10/19 15:13
[2019-01-12] MEDS ORDERED: FUROSEMIDE 20 MG TAB PO SCH (09:00)
--- NOTE | 2019-01-12 09:36 | Consultation Report ---
DATE OF CONSULTATION: 01/12/2019 SURGICAL CONSULTATION REASON FOR CONSULTATION: Pleural effusion. HISTORY OF PRESENT ILLNESS: This is an 83-year-old female who was admitted to [facility] due to worsening dyspnea. At the time of admission, the patient did have labs checked where CBC revealed hemoglobin, hematocrit, white blood cell count and platelet count were all within the normal range. Coagulation studies were checked and were also noted to be within normal range. A chemistry profile was checked, it showed sodium, potassium and creatinine were within normal range as well. BUN was elevated at 21. The patient did have serial troponins checked that were elevated. She also had a ProBNP that was noted to be elevated at 2411. Imaging studies were checked including chest x-rays yesterday as well as today that showed the patient had a moderate right pleural effusion. This was compared with a chest x-ray that was performed on 01/05/2019 and again showed a right pleural effusion. I did visit with the patient at the bedside and she notes that she has had progressive shortness of breath that she feels it has gotten worse over the past 3 days. Because of worsening shortness of breath, she presented to the Emergency Department with the above labs and imaging that were performed and the patient was ultimately admitted to the hospital. I questioned on her numerous symptoms. She has not had any recent falls, head injuries, or visual changes. She denies any tinnitus, sore throat, fever, shakes, or chills. She has not noted any chest pain or palpitations, but again notes some worsening shortness of breath and her shortness of breath has gotten to the point where even minimal activity such as having a conversation makes her somewhat winded. She denies abdominal pain, nausea, vomiting or diarrhea. She denies dysuria. She does not note any history of DVT, PE, anxiety, or depression. At the time of my exam, she was resting comfortably in bed, but even with a simple conversation, she did seem to get somewhat short of breath. PAST MEDICAL HISTORY: Includes the followin. Atrial fibrillation. 2. Hypertension. PAST SURGICAL HISTORY: The patient notes that she has had a colonoscopy in the past. SOCIAL HISTORY: She is a lifetime nonsmoker. FAMILY HISTORY: She does not note any family history of premature coronary artery disease. ALLERGIES: None. OUTPATIENT MEDICATIONS: 1. Aspirin 81 mg daily. 2. Atenolol 25 mg daily. 3. Diltiazem twice daily. 4. Lasix 20 mg daily. 5. Lisinopril 20 mg twice daily. REVIEW OF SYSTEMS: As noted above. PHYSICAL EXAMINATION: VITAL SIGNS: Blood pressure is 170/104, pulse is 89 and irregular, respirations are 18 and unlabored. Temperature, she is afebrile with temperature of 37.0 degrees. Her oxygen saturation is 90% on room air. GENERAL: She is alert. She is oriented x3. She is in no distress. HEENT: Head is atraumatic, normocephalic. Eyes: Pupils equal, round, react to light and accommodation. Extraocular motions are intact. Ears: Auditory acuity is grossly intact. Nose: Nasal patency was intact. Sinuses are nontender. Mouth is moist without exudates. NECK: Supple. There is no JVD. CARDIOVASCULAR: Revealed irregular rate and rhythm. LUNGS: Revealed markedly decreased breath sounds at the right base. ABDOMEN: Soft and nontender. EXTREMITIES: Revealed no cyanosis, clubbing or edema. NEUROLOGIC: Revealed she can move all 4 extremities and follow simple commands without noted focal deficits. DIAGNOSTIC DATA: As noted above. IMPRESSION: This is an 83-year-old female admitted with acute diastolic congestive heart failure, now with a right pleural effusion. PLAN: I have discussed with the patient the risks and benefits of performing a thoracentesis. The risks include but are not limited to bleeding, infection and pneumothorax as well as reexpansion pulmonary edema. Benefits include obtaining a diagnostic evaluation of fluid as well as improving her respiratory status. Alternatives include merely observing this fluid. I did explain to her that we can perform a bedside ultrasound and if we can identify a large enough fluid pocket, we will consider doing a thoracentesis at that time, and she is agreeable to this and informed consent has been obtained. For specifics of this procedure, please refer to separate note.
[2019-01-12 09:47] LABS: BUN Creatinine Ratio 17.9 (10-20); Calcium 9.2 mg/dl (8.5-10.1); Creatinine Clr Calc Pharmacy 28.1 ml/min; Est GFR (Non-African American) 46.6; Potassium 3.6 mmol/L (3.5-5.1)
[2019-01-12] MEDS ORDERED: FUROSEMIDE 40 MG in SYRINGE 0 ML IV ONE (11:00)
--- NOTE | 2019-01-12 12:03 | XRay Report ---
XR chest 1V portable CLINICAL HISTORY: thoracentesis COMPARISON STUDY: Chest radiograph performed earlier today. FINDINGS: The right pleural effusion has decreased in size following thoracentesis. There is no pneum othorax. A small left pleural effusion is noted. Bibasilar opacities persist. There is cardiomegaly. There is no evidence for pulmonary edema. A hiatal hernia is suspected. IMPRESSION: 1. No pneumothorax following right thoracentesis. Interval decrease in size of the right pleural effu faviola. 2. Small bilateral pleural effusions. 3. Large hiatal hernia. Electronically signed by: Jimi Skinner M.D. 01/12/2019 12:02 PM
[2019-01-12 12:43] LABS: Total Protein Pleural Fluid 4.2 g/dl
[2019-01-12 13:04] LABS: Appearance Pleural Fluid HAZY; Color Pleural Fluid YELLOW; Mononuclear WBC Pleural 57.3 %; Polynuclear WBC Pleural 42.7 %; RBC Pleural Fluid (A) < 3000 /uL; Source Pleural Fluid RIGHT LUNG; WBC Pleural Fluid (A) 2971 /uL
--- NOTE | 2019-01-12 14:52 | Hospitalist Progress Note ---
Date of Service January 12, 2019 Assessment & Plan (1) Dyspnea: likely because of acute on chronic diastolic CHF exacerbation, bilateral pleural effusion, right more than left, CHF exacerbation is supported by obvious dyspnea on exertion, mild JVD, right pleural effusion, elevated BNP, and chest x-ray of pulmonary edema Talk to road repairer, continue oral Lasix 20 daily, Chest surgery and has done right thoracentesis with 1300 ml fluid removed, likely transudate, Accelerated hypertension, blood pressure 170/101, add hydralazine as needed, Minimal elevated troponin at 0.15 up to 0.23, negative because of the impending ischemia, follow-up Hypomagnesemia, Continue IV diuretic, replace magnesium, Minimal elevated total bili, liver function test was within normal limits, possible from liver congestion from CHF, will follow up, Hypertension, stable we will follow-up, Increase activity PTOT, follow-up morning lab (2) Pleural effusion on right: See above (3) Elevated troponin: See above (4) A-fib: Stable, Subjective Had a paracentesis done, tolerated well, comfortable, pleasant 92% in room air, Review of Systems Review of Systems: Review of Systems Constitutional: positive weakness, and fatigue Respiratory: occasional cough , no wheezing, or dyspnea on exertion Cardiac: No chest pain, No orthopnea, Abdomen: No pain, No nausea, No vomiting, No diarrhea, No constipation, No GI bleeding Musculoskeletal: No joint pain, No muscle pain, No swelling, : No dysuria, No urinary frequency, No incontinence, No hematuria Neurologic: No paralysis, No weakness, No numbness/tingling, Psychiatric: No depression symptoms, No anxiety, Heme: No abnormal bleeding/bruising, No clotting problems, Skin: No rash, No itch, No new/changing skin lesions, No color change, No bleeding Physical Exam Physical Exam: Gen.: Pleasant, no short of breath, no acute distress, smiling, HEENT: Anicteric sclera. Neck: Mild JVD with hepatic jugular reflux. No bruits. Normal carotid upstrokes bilaterally. Cardiac: PMI was nondisplaced. No ventricular heave. Irregularly irregular. Normal S1-S2. 2/6 systolic murmur. No rubs, or gallops. Pulmonary: Decreased breath sounds in the right lung field, excluding the apex. Otherwise clear to auscultation. Abdomen: Soft, nontender, nondistended, with normoactive bowel sounds. No bruits noted. Extremities: 2+ radial pulses bilaterally. 2+ posterior tibialis pulses bilaterally. No edema or cyanosis. Psychiatric: Affect appears appropriate. Back: Kyphosis. Results & Data Vital Signs (Past 12 Hours) Vital Signs Temp Pulse Resp BP Pulse Ox 01/12/19 11:45 36.6 C 74 18 135/83 92 01/12/19 07:49 37 C 89 18 170/104 H 90 01/12/19 03:57 36.8 C 71 20 153/89 H 91 Laboratory Results - last 24 hr 01/11/19 01/11/19 01/12/19 15:34 18:51 08:42 Sodium 138 Potassium 3.6 D Chloride 102 Carbon Dioxide 31 Anion Gap 6.0 BUN 20 H Creatinine 1.09 Est Cr Clr Drug Dosing 28.1 Est GFR ( Amer) 54.0 Est GFR (Non-Af Amer) 46.6 BUN/Creatinine Ratio 17.9 Glucose 170 H Calcium 9.2 Troponin I 0.217 H* 0.230 H* Pleural Fluid Source Pleural Color Pleural Appearance Pleural WBC Pleural RBC Pleural Polynuclear % Pleural Mononuclear % Pleural Total Protein Pleural LDH Pleural Glucose Pleural Amylase 01/12/19 01/12/19 11:00 11:00 Sodium Potassium Chloride Carbon Dioxide Anion Gap BUN Creatinine Est Cr Clr Drug Dosing Est GFR ( Amer) Est GFR (Non-Af Amer) BUN/Creatinine Ratio Glucose Calcium Troponin I Pleural Fluid Source RIGHT LUNG Pleural Color YELLOW Pleural Appearance HAZY Pleural WBC 2971 Pleural RBC < 3000 Pleural Polynuclear % 42.7 Pleural Mononuclear % 57.3 Pleural Total Protein 4.2 Pleural LDH 145 Pleural Glucose 114 Pleural Amylase 37 Microbiology 01/12/19 11:00 Pleural Fluid Fungal Smear - Final 01/12/19 11:00 Pleural Fluid Gram Stain - Final (1) Dyspnea Dyspnea type: shortness of breath Qualified Code(s): R06.02 - Shortness of breath; R06.00 - Dyspnea, unspecified; R06.01 - Orthopnea
--- NOTE | 2019-01-12 14:53 | Heart Failure Progress Note ---
Date of Service January 12, 2019 Assessment & Plan (1) Acute diastolic CHF (congestive heart failure): She appears mildly hypervolemic. She's had a total of 60 mg IV Lasix so far and one dose of 20 mg PO. Kidney function and electrolyte are stable on today's labs. She should continue to maintain a negative fluid balance. Low- sodium diet. Recommend strict I&Os and daily weights. On discharge, would recommend at least 40 mg of p.o. Lasix daily rather than 20 mg which she has been taking more recently. Echocardiogram has been completed but results are pending at this time. (2) Elevated troponin: Elevated troponins but no angina. Could be secondary to CHF exacerbation. Echocardiogram is ordered and pending. No further ischemic evaluation at this time however. Recommend treatment for hypervolemia and consideration of thoracentesis to improve her breathing. (3) Pleural effusion on right: S/p right thoracentesis. Will continue to follow clinical response. (4) A-fib: Heart rate is adequately controlled on diltiazem and also atenolol. She has declined anticoagulation therapy despite extensive discussions in the past. Please see outpatient notes for full details. (5) Hypertension: Blood pressure has been reasonably controlled but is elevated this morning. Monitor and adjust antihypertensive agents if necessary. Low-sodium diet. Disposition: Patient is agreeable to participating in the heart failure program as an outpatient. She will need to follow up within 7 days of discharge with labs prior. Will activate the outpatient protocol. Subjective Ms. Odom has been referred to the heart failure program by Dr. Telles for discharge planning. She had underwent thoracentesis this morning with Dr. Odonnell. She is sitting up in the bed this afternoon and reports she is feeling much better. She is inquiring about going home. Current weight is 58 kg and she is net negative -.[phone] L so far this admission, not including pleural fluid. Results & Data Vital Signs (Past 12 Hours) Vital Signs Temp Pulse Resp BP Pulse Ox 01/12/19 11:45 36.6 C 74 18 135/83 92 01/12/19 07:49 37 C 89 18 170/104 H 90 01/12/19 03:57 36.8 C 71 20 153/89 H 91
[2019-01-12] MEDS: ATENOLOL 25 MG TABLET PO SCH (20:49)
--- NOTE | 2019-01-12 23:23 | Consultation Report ---
DATE OF CONSULTATION: 01/12/2019 Ms. Odom is an 83-year-old who has probable congestive heart failure and has a loculated effusion. We were asked to see her for this effusion. She was really having trouble breathing and had a long talk with the patient's niece. We have elected to proceed with a thoracentesis. For specifics of this consultation, please see Mr. Lai Balderas's note.
--- NOTE | 2019-01-12 23:30 | Operative Report ---
DATE OF OPERATION: 01/12/2019 PREPROCEDURE DIAGNOSIS: Large right pleural effusion. POSTOPERATIVE DIAGNOSIS: Large right pleural effusion. PROCEDURE: Bedside thoracentesis under ultrasound guidance on the right. SURGEON: Sotero Odonnell MD. CLAY WASHER: JUAN JOSÉ Mae. ANESTHESIA: Local. DESCRIPTION OF PROCEDURE: After appropriate consent had been obtained. I had a long discussion with the patient and her niece. We elected to proceed with the thoracentesis. The patient in a seated position on the side of the bed, I used an ultrasound and found a good spot for a window into her chest. I did not see fluid on the left, but we saw significant amount on the right. She was prepped and draped in usual sterile fashion, calling appropriate timeout, 25-gauge needle was used to raise a skin wheal. A large bore needle was used to anesthetize the deeper subcutaneous tissues and pleura and then got free flowing fluid and guidewire was inserted through the needle and the needle removed. Triple lumen catheter was slid over the guidewire and the guidewire removed and 1300 mL of a poe yellow fluid was drained. I-STAT pH was 7.40. She had some reexpansion pain. We really could not get any more fluid out and stopped at 1300 mL. Catheter was removed. She had no bleeding. An antimicrobial dressing was placed. Her x-ray showed much improvement with no pneumothorax. I attest to the content of the Intraoperative Record and any orders documented therein. Any exception s are noted below.
[2019-01-13] MEDS: HEPARIN SOD 5,000 UNIT/0.5 ML VIAL SQ SCH (05:23)
[2019-01-13 06:45] LABS: Basophils # (auto) 0.04 K/uL (0-0.2); Basophils % (auto) 0.4 %; Eosinophils # (auto) 0.31 K/uL (0-0.5); Eosinophils % (auto) 3.1 %; Hematocrit (blood only) 48.2 % (37-47); Hemoglobin 16.6 g/dL (12.0-16.0); Immature Granulocytes # (auto) 0.02 K/uL (0.00-0.02); Immature Granulocytes % (auto) 0.2 %; Lymphocytes # (auto) 1.59 K/uL (1.2-3.4); Lymphocytes % (auto) 16.1 %; Mean Corpuscular Hgb Conc 34.4 g/dL (32-36); Mean Corpuscular Volume 96.2 fL (80-100); Mean Platelet Volume 9.8 fL (7.4-10.4); Monocytes # (auto) 0.94 K/uL (0.11-0.59); Monocytes % (auto) 9.5 %; Neutrophils # (auto) 6.98 K/uL (1.4-6.5); Neutrophils % (auto) 70.7 %; Platelet Count 258 K/uL (130-400); RDW Coefficient of Variation 12.3 % (11.5-14.5); RDW Standard Deviation 43.2 fL (36.4-46.3); Red Blood Count 5.01 M/uL (4.2-5.4); White Blood Count 9.88 K/uL (4.8-10.8)
--- NOTE | 2019-01-13 07:11 | XRay Report ---
XR chest 1V portable CLINICAL HISTORY: effusion dyspnea COMPARISON STUDY: 01/12/2019 FINDINGS: Moderate cardiomegaly. Stable fixed hiatal hernia. Small bilateral pleural effusions unchanged. No evidence pneumothorax. Chronic prominence of the pulm onary vasculature. IMPRESSION: 1. Small stable bilateral pleural effusions. 2. Moderate cardiomegaly and hiatal hernia considered unchanged. 3. Slight fullness the pulmonary vasculature. 4. No evidence for pneumothorax. The above report was generated using voice recognition software. It may contain grammatical, syntax or spelling errors. Electronically signed by: Mauricio Linda M.D. 01/13/2019 7:10 AM
[2019-01-13 07:29] LABS: Albumin Globulin Ratio 0.6 (0.9-2); Albumin Level 2.6 gm/dl (3.4-5.0); BUN Creatinine Ratio 17.7 (10-20); Bilirubin,Total 1.6 mg/dl (0.2-1); Creatinine Clr Calc Pharmacy 29.5 ml/min; Est GFR (African American) 57.1; Est GFR (Non-African American) 49.3; Globulin 4.6 gm/dl (2.5-4.0); Magnesium 1.4 mg/dl (1.8-2.4); Phosphorus 2.7 mg/dl (2.5-4.9); Potassium 3.6 mmol/L (3.5-5.1); Total Protein 7.2 gm/dl (6.4-8.2)
[2019-01-13] MEDS ORDERED: MAGNESIUM SULFATE / D5W 1 GM/100 ML BAG IV ONE (08:30)
[2019-01-13] MEDS: ASPIRIN 81 MG ECTAB PO SCH (08:48)
[2019-01-13] MEDS: LISINOPRIL 20 MG TAB PO SCH (08:48)
[2019-01-13] MEDS ORDERED: MAGNESIUM OXIDE 400 MG TAB PO SCH (09:00)
[2019-01-13 11:54] VITALS: BP 132/62; PULSE 76; TEMP 97.7; O2SAT 96
[2019-01-13] MEDS ORDERED: FUROSEMIDE 40 MG in SYRINGE 0 ML IV SCH (12:45)
--- NOTE | 2019-01-13 13:31 | Progress Note ---
DATE: 01/13/2019 Ms. Odom was seen today on 01/13/2019. She underwent a thoracentesis yesterday. She is being discharged today. She felt much better after we drained approximately 1300 mL of fluid yesterday. This is an LDH of 145, which is close to being an exudate. Her glucose is 114. Her pH was 7.4. She has no evidence of infection. She had no organisms on her Gram stain. Her x-ray looked better. I was quite pleased with her film this morning. She had some minor reaccumulation, but she sounds good on physical exam. At this point, she is to be discharged. I will not follow her up unless she reaccumulates.
--- NOTE | 2019-01-13 15:18 | Discharge Summary ---
Date of Service January 13, 2019 Admission HPI Per Admitting Provider 83 y/o F Hx chronic AF, HTN, R pleural effusion. Presents with progressive SOB. Denies CP, a productive cough or fevers. Initial labs are notable for an elevated troponin, elevated BNP and are otherwise unremarkable. A CXR demonstrates a R pleural effusion which has increased in size and R basilar opacities which are reported on previous studies. An EKG demonstrates AF and does not otherwise support acute ischemia. The pt had been to her joinery machinist earlier in the month due to an elevated HR and Atenolol was added to her Diltiazem with positive effect per her daughter. 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 Family: Noncontributory due to age Principal Diagnosis no Discharge Exam Gen.: Pleasant, no short of breath, no acute distress, smiling, HEENT: Anicteric sclera. Neck: Mild JVD with hepatic jugular reflux. No bruits. Normal carotid upstrokes bilaterally. Cardiac: PMI was nondisplaced. No ventricular heave. Irregularly irregular. Normal S1-S2. 2/6 systolic murmur. No rubs, or gallops. Pulmonary: Decreased breath sounds in the right lung field, excluding the apex. Otherwise clear to auscultation. Abdomen: Soft, nontender, nondistended, with normoactive bowel sounds. No bruits noted. Extremities: 2+ radial pulses bilaterally. 2+ posterior tibialis pulses bilaterally. No edema or cyanosis. Psychiatric: Affect appears appropriate. Back: Kyphosis. Discharge Data Allergies Allergy/AdvReac Type Severity Reaction Status Date / Time No Known Allergies Allergy Verified 01/11/19 10:25 Consultations 01/11/19 11:49 ED Decision to Admit Stat 01/11/19 13:10 Consult Cardiology Routine 01/12/19 08:35 Consult Thoracic Surgery Routine Hospital Course (1) Dyspnea: likely because of acute on chronic diastolic CHF exacerbation, bilateral pleural effusion, right more than left, CHF exacerbation is supported by obvious dyspnea on exertion, mild JVD, right pleural effusion, elevated BNP, and chest x-ray of pulmonary edema Talked to joinery machinist, continue oral Lasix 40 daily, Chest surgery and has done right thoracentesis with 1300 ml fluid removed, likely transudate, Accelerated hypertension, blood pressure 170/101, add hydralazine as needed, improved to 132/62 Minimal elevated troponin at 0.15 up to 0.23, likely because of the impending ischemia, follow-up Hypomagnesemia, replaced Continue IV diuretic, replace magnesium, Minimal elevated total bili, liver function test was within normal limits, possible from liver congestion from CHF, t bili today 1.6 , with normal AST/ALT/ALK, pcp please f/u Hypertension, stable we will follow-up, Increase activity , up and walk in hallway, doing well, DC today you have acute on chronic diastolic CHF exacerbationa and bilateral pleural effusion, right more than left, your current oral Lasix is 40 daily, Chest surgery and has done right thoracentesis with 1300 ml fluid removed I told pt to follow up with joinery machinist Dr. Telles or heart failure clinic in 1week, labs of bmp , mag in the follow up visit (2) Pleural effusion on right: See above (3) Elevated troponin: See above (4) A-fib: Stable, Total Time Total Time Spent Total Time Spent (In Minutes): 32 Discharge Plan Discharge Items Patient Disposition: Home - Self-Care Reason For Visit: PLEURAL EFFUSION, ELEVATED TROP Discharge Diagnosis: cute on chronic diastolic CHF exacerbationa and bilateral pleural effusion, right more than left Condition: Fair Discharge Goals: Decrease discomfort, Diagnostic testing, Improve disease control and Improve function Activity: Resume your previous activity Non-emergency contact: Primary Care Provider and Quality Control Engineering Technician Call non-emergency contact if: you have any medication questions Follow-up/Referrals: Nehemias Gooden MD [Primary Care Provider] - Diet: Low Sodium (2gm) Fluids: 1800ml (7 cups) Addtl Provider Instructions: you have acute on chronic diastolic CHF exacerbationa and bilateral pleural effusion, right more than left, your current oral Lasix is 40 daily, Chest surgery and has done right thoracentesis with 1300 ml fluid removed you need to follow up with joinery machinist Dr. Telles or heart failure clinic in 1week, labs of bmp , mag in the follow up visit you need to follow up with your primary care physician in 1 week, - take medication as instructed, never overdose or any misuse, or take with alcohol, because misuse of medicine may cause organ damage or , call me, or your primary care physician if have questions of discharge medicaitons. - call your primary care physician, or go to local emergency room if has any fever/chill, chest pain, shortness of breathing, nausea/vomiting/abdominal pain, facial droop/slurry speech/local weakness, or if has any questions. - fall precaution - diet as instructed Prescriptions: New magnesium oxide 400 mg (241.3 mg magnesium) Tablet 400 mg PO BID 10 Days Qty: 20 RF: 0 Continued lisinopril 20 mg tablet 20 mg PO BID RF: 0 atenolol 25 mg tablet 25 mg PO HS RF: 0 aspirin [Aspirin Low Dose] 81 mg Tablet,Delayed Release (Dr/Ec) 81 mg PO DAILY RF: 0 diltiazem HCl [DILT-XR] 180 mg capsule,ext.rel 24h degradable 1 cap PO BID RF: 0 Changed furosemide 20 mg Tablet 40 mg PO DAILY Qty: 0 RF: 0 Stand-Alone Forms: [facility] [place]/Other Patient Handouts: Choices Low Salt, Heart Failure Tracking Weight, Fluids Limiting Dc Discharge Orders: Discharge Order (Routine); Ordered 01/13/19 Ordered By: Sohan Lopez Admission Data Admit Date/Time: 01/11/19 12:21 Attending Provider: Sohan Lopez Admit Provider: Navarro Leon Primary Care Provider: Nehemias Gooden Other Providers: Navarro Leon ; Brody Telles ; Sotero Odonnell Service: Telemetry Other Interventions: Discharge Summary Assessment (RN) Last Done: 01/13/19 13:36 DC Date/Time DO NOT enter until pt leaves facility: 01/13/19 15:02
== END 2019-01-13 15:02 | disposition home or self-care (01) ==
LOC: ED 09:05 → 2S 09:05 → SUATTDRO 12:21 → 2S 14:39

== ENCOUNTER 2019-07-10 15:52 | Inpatient (IN) ==
[2019-07-10] MEDS ORDERED: ACETAMINOPHEN 1,000 MG/100 ML VIAL IV STA (16:39)
[2019-07-10] MEDS ORDERED: SODIUM CHLORIDE 0.9% 500 ML IV SCH (16:45)
[2019-07-10] MEDS ORDERED: IOVERSOL 100ml IV PRN (16:49)
[2019-07-10 16:54] LABS: Basophils # (auto) 0.01 K/uL (0-0.2); Basophils % (auto) 0.1 %; Eosinophils # (auto) 0.01 K/uL (0-0.5); Eosinophils % (auto) 0.1 %; Hematocrit (blood only) 38.3 % (37-47); Hemoglobin 12.6 g/dL (12.0-16.0); Immature Granulocytes # (auto) 0.07 K/uL (0.00-0.02); Immature Granulocytes % (auto) 0.4 %; Lymphocytes # (auto) 0.94 K/uL (1.2-3.4); Lymphocytes % (auto) 5.7 %; Mean Corpuscular Hemoglobin 31.9 pg (25-34); Mean Corpuscular Hgb Conc 32.9 g/dL (32-36); Mean Platelet Volume 9.9 fL (7.4-10.4); Monocytes # (auto) 0.95 K/uL (0.11-0.59); Monocytes % (auto) 5.7 %; Neutrophils # (auto) 14.58 K/uL (1.4-6.5); Platelet Count 318 K/uL (130-400); RDW Coefficient of Variation 13.6 % (11.5-14.5); RDW Standard Deviation 47.2 fL (36.4-46.3); Red Blood Count 3.95 M/uL (4.2-5.4); White Blood Count 16.56 K/uL (4.8-10.8)
[2019-07-10 16:56] LABS: iSTAT Creatinine 1.1 mg/dl (0.6-1.3); iSTAT Hemoglobin 12.6 g/dl (12.0-16.0); iSTAT Ionized Calcium 1.15 mmol/l (1.12-1.32); iSTAT Potassium 3.8 mEq/L (3.3-5.0)
[2019-07-10 17:04] LABS: INR 1.1 (0.9-1.1); Prothrombin Time 11.1 Seconds (9.0-12.0)
--- NOTE | 2019-07-10 17:22 | CT Scan Report ---
CT cervical spine wo con CT DOSE: HISTORY: Trauma. Pain. fall TECHNIQUE: Multiaxial CT images of the cervical spine were performed and reformatted in the sagittal and coronal plane without the use of contrast. A dose lowering technique was utilized adhering to th e principles of ALARA. COMPARISON: None. FINDINGS: Considerable degenerative disc changes throughout. No evidence for compression deformity. Grade 1 anterolisthesis C2 on C3 felt to be degenerative in nature. Degenerative changes C1-C2 complex with subchondral cyst formation throughout. No evidence for fracture. No evidence for compression deformity. IMPRESSION: Considerable degenerative change. No acute process. The above report was generated using voice recognition software. It may contain grammatical, syntax or spelling errors. Electronically signed by: Mauricio Linda M.D. 07/10/2019 5:20 PM
--- NOTE | 2019-07-10 17:24 | CT Scan Report ---
CT thoracic spine wo con CT DOSE: HISTORY: Trauma fall TECHNIQUE: Multiaxial CT images of the thoracic spine were performed and reformatted in the sagittal and coronal plane without the use of contrast. A dose lowering technique was utilized adhering to th e principles of ALARA. COMPARISON: None. FINDINGS: Significant degenerative disc changes throughout. 50% compression deformity T10. 25% compression deformity T8. 50% compression deformity T7. Osteopenia. No evidence for subluxation. No bony compromise of the spinal canal or neural foramina. Bilateral pleural effusions are present. IMPRESSION: 1. Compression deformities of T7, T8, and T10. 2. Generalized degenerative disc changes throughout. 3. Osteopenia to osteoporosis. 4. No bony compromise of the spinal canal. The above report was generated using voice recognition software. It may contain grammatical, syntax or spelling errors. Electronically signed by: Mauricio Linda M.D. 07/10/2019 5:23 PM
--- NOTE | 2019-07-10 17:24 | CT Scan Report ---
CT SCAN OF THE BRAIN WITHOUT IV CONTRAST CLINICAL HISTORY: Fall. COMPARISON STUDY: CT of the brain dated 06/14/2019. TECHNIQUE: Unenhanced axial CT scan of the brain is performed from the vertex to the skull base. A do se lowering technique was utilized adhering to the principles of ALARA. FINDINGS: Brain parenchyma: There are age-related involutional changes noting moderate confluent subcortical a nd periventricular microangiopathic change. There is no hemorrhage, mass effect, or evidence of acute territorial ischemia by CT criteria. Min-white matter differentiation is preserved. No extra-axial fluid collection is seen. Ventricles, sulci, cisterns: Prominent secondary to involutional change. Intracranial vasculature: There is atherosclerotic calcification of the cavernous carotid arteries. Calvarium: The skeletal structures are osteopenic. No depressed calvarial fracture is identified. Soft tissues: There is occipital scalp contusion. Sinuses and mastoids: Mucosal thickening is noted within the right ethmoid sinuses. The remaining vis ualized paranasal sinuses are clear. There is a small left mastoid effusion. The right mastoid air ce lls are well pneumatized. Orbits: The bony orbits are grossly intact. There are bilateral ocular lens implants. IMPRESSION: There is no hemorrhage, mass effect, or evidence of acute territorial ischemia by CT aguila pedro. Electronically signed by: Rodolfo Oliveira M.D. 07/10/2019 5:23 PM
[2019-07-10 17:26] LABS: Alanine Aminotransferase 15 U/L (12-78); Albumin Globulin Ratio 0.6 (0.9-2); Albumin Level 2.7 gm/dl (3.4-5.0); Alkaline Phosphatase 98 U/L (45-117); Aspartate Aminotransferase 22 U/L (15-37); BUN Creatinine Ratio 21.3 (10-20); Bilirubin,Total 1.6 mg/dl (0.2-1); Blood Urea Nitrogen 25 mg/dl (7-18); Calcium 9.5 mg/dl (8.5-10.1); Carbon Dioxide 32 mmol/L (21-32); Chloride 101 mmol/L (98-107); Creatine Kinase 229 U/L (26-192); Est GFR (African American) 49.2; Est GFR (Non-African American) 42.5; Globulin 4.8 gm/dl (2.5-4.0); Glucose 109 mg/dl (70-99); Potassium 3.7 mmol/L (3.5-5.1); Sodium 139 mmol/L (136-145); Total Protein 7.5 gm/dl (6.4-8.2); Troponin I < 0.015 ng/ml (0-0.045)
--- NOTE | 2019-07-10 17:29 | CT Scan Report ---
CT chest w con CT DOSE: HISTORY: Trauma fall TECHNIQUE: Multiaxial CT images of the chest were performed following the intravenous administration of contrast. A dose lowering technique was utilized adhering to the principles of ALARA. COMPARISON: None 2016 FINDINGS: Bilateral pleural effusions. Components of atelectatic change of the right as well as left lower lobe region. Moderate cardiomegaly. Small pericardial effusion. Atherosclerotic change and ectasia of the thoracic aorta. Several moderate compression deformities of the thoracic spine which have been described previously. No evidence for pneumothorax. No well-defined rib fracture. IMPRESSION: 1. Bilateral pleural effusions with basilar lower lobe atelectatic change. 2. Cardiomegaly with small pericardial effusion. 3. Several compression deformities of the thoracic spine which have been described previously. The above report was generated using voice recognition software. It may contain grammatical, syntax or spelling errors. Electronically signed by: Mauricio Linda M.D. 07/10/2019 5:28 PM
--- NOTE | 2019-07-10 17:42 | CT Scan Report ---
CT SCAN OF THE ABDOMEN AND PELVIS WITH IV CONTRAST; CT SCAN OF THE LUMBAR SPINE WITHOUT IV CONTRAST CLINICAL HISTORY: Fall. COMPARISON STUDY: Abdominal CT dated 05/18/2017. TECHNIQUE: Following the IV administration of 92 cc of Optiray 320, CT scan of the abdomen and pelvi s is performed from the lung bases to the proximal femora. Additionally, CT scan of the lumbar spine is performed from the lower thoracic spine to the sacrum. Images were both examinations are reviewed in the axial, sagittal, and coronal planes. IV contrast was administered without complication. A dose lowering technique was utilized adhering to the principles of ALARA. The examination is greater by s treak artifact from the arms which could not be elevated above the abdomen. CT DOSE: 1594.65 mGy.cm FINDINGS: Lung bases: The heart is top normal in size noting a moderate pericardial effusion. There are moderat e right and trace left pleural effusions with associated atelectasis. No basilar pneumothorax is seen . A moderate hiatal hernia is noted. Liver: The contrast-enhanced liver is normal in size, contour, and attenuation. There is no intrahepa tic biliary ductal dilatation. The hepatic veins and portal veins are patent. Gallbladder: Unremarkable. Spleen: Normal in size and attenuation. There are calcified splenic granulomas. Pancreas: Atrophic and grossly unremarkable. Adrenal glands: Unremarkable. Kidneys: The contrast enhanced kidneys are atrophic and without hydronephrosis. The kidneys enhance s ymmetrically. Abdominal vasculature: The abdominal aorta is normal in course and caliber noting advanced atheroscle rotic calcification. Bowel: There is postoperative change from sigmoid colon resection with colocolonic anastomosis. Small bowel anastomoses are noted in the right lower quadrant. No bowel obstruction is seen. There is rect al sigmoid fecal retention and moderate constipation. The appendix is well-visualized and normal. Peritoneum end body wall: There is no intraperitoneal free air or abdominal ascites. There is a thick walled, peripherally enhancing, and multiloculated collection identified within the abdominal wall i n the posterior left flank. Most superiorly loculated component is seen on image 113 and measures loreta roximately 6 x 5 x 2.5 cm. A more inferiorly loculated component on image #150 measures approximately 4.5 x 4 x 2.5 cm. This was present in 2017 but has decreased in size from that examination. Residual soft tissue thickening is noted in the left iliacus muscle and along the posterior margin of the spl een. Lymphadenopathy: None. Pelvic viscera: The bladder is distended but otherwise normal in appearance. The endometrium is promi nent for age measuring up to 7 mm in thickness. No adnexal lesion is seen. Intramuscular hemorrhage i s noted within the right adductor compartment. Skeletal structures: The skeletal structures are osteopenic. There is a comminuted and distracted fra cture of the intertrochanteric right femur with surrounding hemorrhage. The lumbosacral spine and bon y pelvis appear intact. No lytic or blastic lesions are seen. LUMBAR SPINE: Vertebral body height and alignment are maintained throughout the lumbar spine. Minimal levocurvature is centered at L3. There is no evidence of fracture or malalignment. Anterior and late ral marginal osteophytes are seen throughout. The transverse and spinous processes are intact. There is no evidence of spondylolysis. There is advanced disc space narrowing at T12-L1. Moderate disc spac e narrowing seen at L3-L4 and L4-L5. Only mild disc space narrowing seen at the remaining lumbar leve ls. Posterior discussed by complexes are seen at L2-L3, L3-L4, and L4-L5. There is no evidence of hig h-grade central canal stenosis by CT The paraspinous soft tissues are within normal limits. IMPRESSION: 1. There is a comminuted and distracted fracture of the intertrochanteric right femur with surroundin g hemorrhage. 2. There is no evidence of fracture or malalignment involving the lumbar spine. 3. There is no evidence of solid organ injury in the abdomen or pelvis. 4. There are thick-walled, peripherally enhancing, and multiloculated fluid collections identified wi thin the abdominal wall of the left posterior flank as detailed above. This has been present dating b ack to 2017 but has decreased in size from that time. Top differential considerations include infecti on/abscess or possibly necrotic tumor. Clinical correlation will be essential. 5. Moderate right and trace left pleural effusions. 6. Intramuscular hemorrhage is noted within the right adductor compartment. 7. Moderate pericardial effusion. 8. Postoperative change from colonic resections as above. No bowel obstruction is seen. 9. The endometrium appears thickened for age. This is not well assessed by CT, and follow-up with a n onemergent pelvic ultrasound is recommended for further assessment. 10. Additional findings as above. Electronically signed by: Rodolfo Oliveira M.D. 07/10/2019 5:41 PM
--- NOTE | 2019-07-10 17:51 | XRay Report ---
XR chest 1V portable CLINICAL HISTORY: fall trauma COMPARISON STUDY: 06/22/2018 FINDINGS: Interval bilateral pleural effusions possibly with a loculated component. Stable cardiomega ly. No evidence of pneumothorax. Prominent pulmonary vasculature. IMPRESSION: 1. Progressive bilateral parenchymal infiltrates. 2. Moderate stable cardiomegaly. 3. Potential components of developing congestive failure. The above report was generated using voice recognition software. It may contain grammatical, syntax or spelling errors. Electronically signed by: Mauricio Linda M.D. 07/10/2019 5:50 PM
--- NOTE | 2019-07-10 17:53 | XRay Report ---
XR pelvis 1-2V routine CLINICAL HISTORY: fall/pain pain COMPARISON: None. DISCUSSION: Limited study technically. Intertrochanteric fracture right hip versus fracture proximal right femoral shaft. No evidence dislocation. Nondiagnostic evaluation of the left hip. There is no evidence for soft tissue swelling. IMPRESSION: 1. Intertrochanteric fracture right hip with probable extension to the proximal femoral shaft. 2. No evidence dislocation. 3. Evaluation of the remaining bony structures is extremely limited due to overlying bowel content The above report was generated using voice recognition software. It may contain grammatical, syntax or spelling errors. Electronically signed by: Mauricio Linda M.D. 07/10/2019 5:52 PM
--- NOTE | 2019-07-10 17:54 | XRay Report ---
XR femur RT 2V routine CLINICAL HISTORY: fall trauma. Pain. COMPARISON: None. DISCUSSION: Intertrochanteric fracture right hip with extension to the proximal femoral shaft. Remain robbie the femur shows no additional acute abnormality. Moderate generalized soft tissue edema IMPRESSION: Fracture intertrochanteric region right hip with extension to the proximal femoral shaft. The above report was generated using voice recognition software. It may contain grammatical, syntax or spelling errors. Electronically signed by: Mauricio Linda M.D. 07/10/2019 5:53 PM
[2019-07-10 18:52] LABS: Appearance Urine Clear (Clear); Bacteria Urine Automated Negative (Negative); Bilirubin Urine Negative (Negative); Blood Urine Negative (Negative); Color Urine Yellow; Epithelial Cell Urine Auto >30 /lpf (0-5); Glucose Urine UA Negative (Negative); Ketones Urine Negative (Negative); Leukocyte Esterase Urine Negative (Negative); Nitrite Urine Negative (Negative); Protein Urine Trace (Negative); RBC Urine Automated 0-4 /hpf (0-4); Specific Gravity Urine 1.026 (1.000-1.030); Urobilinogen Urine Negative (Negative)
--- NOTE | 2019-07-10 20:14 | Emergency Department Note ---
Entered by Lizzie Santo acting as a scribe for History of Present Illness General Chief complaint: Altered Mental Status Stated complaint: AMS Source: patient and family Mode of arrival: EMS Limitations: altered mental status History of Present Illness Onset (ago): day(s) 1 Location: head Radiation: non-radiation Pain Consistency: + constant Maximum Pain Intensity: 0 Relieved By: + none Exacerbated By: + none Treatments prior to arrival: none The patient is an 84 year old female who presents to the ED with complaints of altered mental status. She was brought to the ED via EMS. EMS states they found her on the floor of her home and are unsure of how long she was on the floor for. The patient thinks she was down for about 3 hours, but is not completely sure. Her family states they last saw her yesterday afternoon around 1400. They tried calling her today, but were unable to reach her, so they called a friend to check on her, and the friend found her on the floor of her home. The patient did start taking Atenolol yesterday for a history of atrial fibrillation. She denies any other symptoms at this time. History is limited secondary to patient confusion. Home Medications Home Medications Medication Instructions Recorded Confirmed Type diltiazem HCl [DILT-XR] 1 cap PO BID 01/11/19 07/10/19 History furosemide 20 mg tablet 20 mg PO QAM tab 04/17/19 07/10/19 History lisinopril 20 mg tablet 20 mg PO BID #60 tab 05/14/19 07/10/19 Rx atenolol 25 mg tablet 12.5 mg PO HS #45 tab 07/09/19 07/10/19 Rx [id number] 1 cap PO DAILY 07/10/19 07/10/19 History [Mega[employer] [place]-3 Krill Oil] Allergies Allergy/AdvReac Type Severity Reaction Status Date / Time codeine AdvReac Verified 07/10/19 17:28 fentanyl AdvReac Verified 07/10/19 17:28 hydromorphone [From Dilaudid] AdvReac Verified 07/10/19 17:28 tramadol AdvReac Verified 07/10/19 17:28 Past Med/Surg History Medical History Pleural effusion on right (Acute) Arrhythmia (Acute) Atrial fibrillation (Acute) HTN (hypertension) (Acute) Hypertension (Acute) Surgical History History of colon resection (Acute) Hx laparoscopic cholecystectomy (Acute) Social History Preferred Language: [place] Communication Ability: Effective Pipe Connector Required: No Beliefs That Will Affect Care: None Current Living Situation: Alone Feels Safe at Home: Yes Smoking Status: Never smoker Second Hand Exposure: No ; Hx Alcohol Use: Yes Alcohol type: wine Hx Substance Use: No Review of Systems See HPI for pertinent positives & negatives. Unobtainable due to cognitive status Physical Exam Vital Signs Vital Signs - 24 hr 07/10/19 15:55 07/10/19 16:07 07/10/19 16:08 Temperature 36.8 C Temperature Source Oral Sepsis Recent Fever Within 48 Hours No Sepsis New/Unexplained Change in Mental Status No Sepsis Action Taken by Nursing No Action Required Pulse Rate 91 H 94 H 78 Pulse Rate [Finger] Pulse Rate from SpO2 Sensor Respiratory Rate 18 23 20 Blood Pressure 164/121 H 164/121 H Blood Pressure [Right Arm] Blood Pressure Mean 135 135 Blood Pressure Mean [Right Arm] Pulse Oximetry 96 Oxygen Delivery Method Room Air Room Air Room Air Oxygen Flow Rate 07/10/19 16:10 07/10/19 16:20 07/10/19 16:30 Temperature Temperature Source Sepsis Recent Fever Within 48 Hours Sepsis New/Unexplained Change in Mental Status Sepsis Action Taken by Nursing Pulse Rate 99 H 98 H 103 H Pulse Rate [Finger] Pulse Rate from SpO2 Sensor Respiratory Rate 25 H 22 14 Blood Pressure Blood Pressure [Right Arm] Blood Pressure Mean Blood Pressure Mean [Right Arm] Pulse Oximetry Oxygen Delivery Method Room Air Room Air Room Air Oxygen Flow Rate 07/10/19 16:40 07/10/19 16:45 07/10/19 16:50 Temperature Temperature Source Sepsis Recent Fever Within 48 Hours Sepsis New/Unexplained Change in Mental Status Sepsis Action Taken by Nursing Pulse Rate 89 91 H Pulse Rate [Finger] Pulse Rate from SpO2 Sensor Respiratory Rate 25 H 23 Blood Pressure Blood Pressure [Right Arm] Blood Pressure Mean Blood Pressure Mean [Right Arm] Pulse Oximetry Oxygen Delivery Method Room Air Room Air Room Air Oxygen Flow Rate 07/10/19 17:26 07/10/19 17:27 07/10/19 17:28 Temperature Temperature Source Sepsis Recent Fever Within 48 Hours Sepsis New/Unexplained Change in Mental Status Sepsis Action Taken by Nursing Pulse Rate Pulse Rate [Finger] 86 Pulse Rate from SpO2 Sensor 104 H 87 Respiratory Rate 15 Blood Pressure 104/86 Blood Pressure [Right Arm] 104/86 Blood Pressure Mean 92 Blood Pressure Mean [Right Arm] 92 Pulse Oximetry 91 87 L 89 L Oxygen Delivery Method Room Air Nasal Cannula Nasal Cannula Oxygen Flow Rate 2 2 07/10/19 17:30 07/10/19 17:40 07/10/19 17:50 Temperature Temperature Source Sepsis Recent Fever Within 48 Hours Sepsis New/Unexplained Change in Mental Status Sepsis Action Taken by Nursing Pulse Rate 80 89 Pulse Rate [Finger] Pulse Rate from SpO2 Sensor 84 Respiratory Rate Blood Pressure 147/78 H Blood Pressure [Right Arm] Blood Pressure Mean 101 Blood Pressure Mean [Right Arm] Pulse Oximetry 84 L Oxygen Delivery Method Nasal Cannula Nasal Cannula Nasal Cannula Oxygen Flow Rate 2 2 2 07/10/19 17:54 07/10/19 18:00 07/10/19 18:01 Temperature Temperature Source Sepsis Recent Fever Within 48 Hours Sepsis New/Unexplained Change in Mental Status Sepsis Action Taken by Nursing Pulse Rate 89 84 Pulse Rate [Finger] Pulse Rate from SpO2 Sensor Respiratory Rate 23 11 L Blood Pressure 159/124 H Blood Pressure [Right Arm] Blood Pressure Mean 135 Blood Pressure Mean [Right Arm] Pulse Oximetry 88 L Oxygen Delivery Method Nasal Cannula Nasal Cannula Nasal Cannula Oxygen Flow Rate 2 2 2 07/10/19 18:10 07/10/19 18:20 07/10/19 18:30 Temperature Temperature Source Sepsis Recent Fever Within 48 Hours Sepsis New/Unexplained Change in Mental Status Sepsis Action Taken by Nursing Pulse Rate 84 99 H 78 Pulse Rate [Finger] Pulse Rate from SpO2 Sensor Respiratory Rate 14 22 21 Blood Pressure Blood Pressure [Right Arm] Blood Pressure Mean Blood Pressure Mean [Right Arm] Pulse Oximetry Oxygen Delivery Method Nasal Cannula Nasal Cannula Nasal Cannula Oxygen Flow Rate 2 2 2 07/10/19 18:31 07/10/19 18:40 07/10/19 18:50 Temperature Temperature Source Sepsis Recent Fever Within 48 Hours Sepsis New/Unexplained Change in Mental Status Sepsis Action Taken by Nursing Pulse Rate 85 80 85 Pulse Rate [Finger] Pulse Rate from SpO2 Sensor 88 83 Respiratory Rate 19 14 16 Blood Pressure 174/100 H Blood Pressure [Right Arm] Blood Pressure Mean 124 Blood Pressure Mean [Right Arm] Pulse Oximetry 100 99 Oxygen Delivery Method Nasal Cannula Nasal Cannula Nasal Cannula Oxygen Flow Rate 2 2 2 07/10/19 19:00 07/10/19 19:10 07/10/19 19:20 Temperature Temperature Source Sepsis Recent Fever Within 48 Hours Sepsis New/Unexplained Change in Mental Status Sepsis Action Taken by Nursing Pulse Rate 80 83 79 Pulse Rate [Finger] Pulse Rate from SpO2 Sensor 80 83 78 Respiratory Rate 17 18 19 Blood Pressure 137/84 Blood Pressure [Right Arm] Blood Pressure Mean 101 Blood Pressure Mean [Right Arm] Pulse Oximetry 100 100 99 Oxygen Delivery Method Nasal Cannula Nasal Cannula Nasal Cannula Oxygen Flow Rate 2 2 2 07/10/19 19:32 Temperature Temperature Source Sepsis Recent Fever Within 48 Hours Sepsis New/Unexplained Change in Mental Status Sepsis Action Taken by Nursing Pulse Rate Pulse Rate [Finger] 80 Pulse Rate from SpO2 Sensor Respiratory Rate 20 Blood Pressure Blood Pressure [Right Arm] 134/113 H Blood Pressure Mean Blood Pressure Mean [Right Arm] 120 Pulse Oximetry 94 Oxygen Delivery Method Nasal Cannula Oxygen Flow Rate 2 GENERAL: Awake, alert, on litter in c collar. HENT: Normocephalic, atraumatic. EYES: Normal conjunctiva. Sclera non-icteric. PERRL NECK: In C-Collar. No nuchal rigidity. No midline tenderness RESPIRATORY: Clear to auscultation. No wheezes. Normal respiratory effort. CARDIAC: Normal rate. Irregular rhythm. Extremities with decreased cap refill. GI: Soft, non-distended. No tenderness to palpation. No rebound or guarding. RECTAL: Deferred. MUSCULOSKELETAL: Atraumatic. Chest examination reveals no tenderness. There is no CVA tenderness to palpation. LOWER EXTREMITIES: Tenderness and deformity of right upper thigh, moving RLE. Faint DP pulses. NEURO: Patient is oriented to birthday and month, not oriented to events. No facial droop. Moving all extremities, but limited in the RLE thigh/hip area. SKIN: Warm and dry. No jaundice noted. Course 163: The patient was evaluated in room C12 and a complete history and physical were performed. 1809: I reevaluated the patient. I discussed my recommendation she remain in the hospital for further evaluation and management and she is agreeable with the plan. 1826: I discussed the patients case with Dr. Watson, Orthopedics. He will see the patient in the morning. 1904: I discussed the patients case with Dr. Sanchez, [facility] Hospitalist. The patient will be further evaluated. Consultations Consultation #1: I discussed the patients case with Dr. Watson, Orthopedics. He will see the patient in the morning. Time: 18:27 Consultation #2: 1904: I discussed the patients case with Dr. Sanchez, [facility] Hospitalist. The patient will be further evaluated. Time: 19:05 Administered Medications Ioversol (Optiray 320 100ml) 92 ml IV ONCE PRN PRN Reason: Interaction Checking Stop: 07/14/19 16:48 Last Admin: 07/10/19 16:49 Dose: 92 ml Documented by: [id number] Discontinued Medications Acetaminophen (Ofirmev) 1,000 mg in 100 mls @ 400 mls/hr IV NOW STA Stop: 07/10/19 16:53 Last Infusion: 07/10/19 17:46 Dose: 0 mls/hr Documented by: [id number] Admin: 07/10/19 17:22 Dose: 400 mls/hr Documented by: [id number] Sodium Chloride (Nss) 500 mls @ 999 mls/hr IV .Q31M ARI Stop: 07/10/19 17:15 Last Infusion: 07/10/19 17:56 Dose: 0 mls/hr Documented by: [id number] Admin: 07/10/19 17:25 Dose: 999 mls/hr Documented by: [id number] Medical Decision Making Differential Diagnosis Differential diagnoses include major intracranial, cervical, spinal, thoracic, abdominal, pelvic and neurologic injury. Fracture, contusion, sprain, strain, laceration, abrasions included as well. Medical Records Attestation: I reviewed the patient's medical records. Home Medications Current Medication List: was personally reviewed by me Laboratory Data Attestation: I reviewed the patient's lab results. Result diagrams: 07/10/19 16:38 07/10/19 16:38 Lab Results 07/10/19 07/10/19 07/10/19 Range/Units 16:38 16:38 16:38 WBC 16.56 H (4.8-10.8) K/uL RBC 3.95 L (4.2-5.4) M/uL Hgb 12.6 (12.0-16.0) g/dL POC Hgb (12.0-16.0) g/dl Hct 38.3 (37-47) % POC Hct (37-47) % MCV 97.0 (80-100) fL MCH 31.9 (25-34) pg MCHC 32.9 (32-36) g/dL RDW Std Deviation 47.2 H (36.4-46.3) fL RDW Coeff of Elvi 13.6 (11.5-14.5) % Plt Count 318 (130-400) K/uL MPV 9.9 (7.4-10.4) fL Immature Gran % (Auto) 0.4 % Neut % (Auto) 88.0 % Lymph % (Auto) 5.7 % [place] % (Auto) 5.7 % Eos % (Auto) 0.1 % Baso % (Auto) 0.1 % Immature Gran # (Auto) 0.07 H (0.00-0.02) K/uL Neut # (Auto) 14.58 H (1.4-6.5) K/uL Lymph # (Auto) 0.94 L (1.2-3.4) K/uL [place] # (Auto) 0.95 H (0.11-0.59) K/uL Eos # (Auto) 0.01 (0-0.5) K/uL Baso # (Auto) 0.01 (0-0.2) K/uL PT 11.1 (9.0-12.0) Seconds INR 1.1 (0.9-1.1) POC Sodium (135-144) mEq/L Sodium 139 (136-145) mmol/L POC Potassium (3.3-5.0) mEq/L Potassium 3.7 (3.5-5.1) mmol/L POC Chloride (101-112) mEq/L Chloride 101 (98-107) mmol/L Carbon Dioxide 32 (21-32) mmol/L POC Total CO2 (24-31) mEq/l Anion Gap 6.0 (3-11) POC Anion Gap (16-25) mmol/L POC BUN (7-18) mg/dl BUN 25 H (7-18) mg/dl Creatinine 1.17 (0.6-1.2) mg/dl POC Creatinine (0.6-1.3) mg/dl Est Cr Clr Drug Dosing 27.0 ml/min Est GFR ( Amer) 49.2 Est GFR (Non-Af Amer) 42.5 BUN/Creatinine Ratio 21.3 H (10-20) Glucose 109 H (70-99) mg/dl POC Glucose (other) (70-99) mg/dl Calcium 9.5 (8.5-10.1) mg/dl POC Ioniz Calcium Margot (1.12-1.32) mmol/l Total Bilirubin 1.6 H (0.2-1) mg/dl AST 22 (15-37) U/L ALT 15 (12-78) U/L Alkaline Phosphatase 98 (45-117) U/L Total Creatine Kinase 229 H (26-192) U/L Troponin I < 0.015 (0-0.045) ng/ml Total Protein 7.5 (6.4-8.2) gm/dl Albumin 2.7 L (3.4-5.0) gm/dl Globulin 4.8 H (2.5-4.0) gm/dl Albumin/Globulin Ratio 0.6 L (0.9-2) Specimen Hemolysis Urine Color Urine Appearance (Clear) Urine pH (4.5-7.5) Ur Specific [place] (1.000-1.030) Urine Protein (Negative) Urine Glucose (UA) (Negative) Urine Ketones (Negative) Urine Blood (Negative) Urine Nitrite (Negative) Urine Bilirubin (Negative) Urine Urobilinogen (Negative) Ur Leukocyte Esterase (Negative) Urine WBC (Auto) (0-5) /hpf Urine RBC (Auto) (0-4) /hpf U Hyaline Cast (Auto) (0-5) /lpf U Epithel Cells (Auto) (0-5) /lpf Urine Bacteria (Auto) (Negative) 07/10/19 07/10/19 Range/Units 16:43 18:35 WBC (4.8-10.8) K/uL RBC (4.2-5.4) M/uL Hgb (12.0-16.0) g/dL POC Hgb 12.6 (12.0-16.0) g/dl Hct (37-47) % POC Hct 37 (37-47) % MCV (80-100) fL MCH (25-34) pg MCHC (32-36) g/dL RDW Std Deviation (36.4-46.3) fL RDW Coeff of Elvi (11.5-14.5) % Plt Count (130-400) K/uL MPV (7.4-10.4) fL Immature Gran % (Auto) % Neut % (Auto) % Lymph % (Auto) % [place] % (Auto) % Eos % (Auto) % Baso % (Auto) % Immature Gran # (Auto) (0.00-0.02) K/uL Neut # (Auto) (1.4-6.5) K/uL Lymph # (Auto) (1.2-3.4) K/uL [place] # (Auto) (0.11-0.59) K/uL Eos # (Auto) (0-0.5) K/uL Baso # (Auto) (0-0.2) K/uL PT (9.0-12.0) Seconds INR (0.9-1.1) POC Sodium 140 (135-144) mEq/L Sodium (136-145) mmol/L POC Potassium 3.8 (3.3-5.0) mEq/L Potassium (3.5-5.1) mmol/L POC Chloride 98 L (101-112) mEq/L Chloride (98-107) mmol/L Carbon Dioxide (21-32) mmol/L POC Total CO2 35 H (24-31) mEq/l Anion Gap (3-11) POC Anion Gap 12.0 L (16-25) mmol/L POC BUN 29 H (7-18) mg/dl BUN (7-18) mg/dl Creatinine (0.6-1.2) mg/dl POC Creatinine 1.1 (0.6-1.3) mg/dl Est Cr Clr Drug Dosing ml/min Est GFR ( Amer) Est GFR (Non-Af Amer) BUN/Creatinine Ratio (10-20) Glucose (70-99) mg/dl POC Glucose (other) 112 H (70-99) mg/dl Calcium (8.5-10.1) mg/dl POC Ioniz Calcium Margot 1.15 (1.12-1.32) mmol/l Total Bilirubin (0.2-1) mg/dl AST (15-37) U/L ALT (12-78) U/L Alkaline Phosphatase (45-117) U/L Total Creatine Kinase (26-192) U/L Troponin I (0-0.045) ng/ml Total Protein (6.4-8.2) gm/dl Albumin (3.4-5.0) gm/dl Globulin (2.5-4.0) gm/dl Albumin/Globulin Ratio (0.9-2) Specimen Hemolysis Urine Color Yellow Urine Appearance Clear (Clear) Urine pH 5.0 (4.5-7.5) Ur Specific [place] 1.026 (1.000-1.030) Urine Protein Trace H (Negative) Urine Glucose (UA) Negative (Negative) Urine Ketones Negative (Negative) Urine Blood Negative (Negative) Urine Nitrite Negative (Negative) Urine Bilirubin Negative (Negative) Urine Urobilinogen Negative (Negative) Ur Leukocyte Esterase Negative (Negative) Urine WBC (Auto) 1-5 (0-5) /hpf Urine RBC (Auto) 0-4 (0-4) /hpf U Hyaline Cast (Auto) 1-5 (0-5) /lpf U Epithel Cells (Auto) >30 H (0-5) /lpf Urine Bacteria (Auto) Negative (Negative) Imaging Data Radiologist's Impression: Radiology results as stated below per my review and the radiologist's interpretation: XR pelvis 1-2V routine CLINICAL HISTORY: fall/pain pain COMPARISON: None. DISCUSSION: Limited study technically. Intertrochanteric fracture right hip versus fracture proximal right femoral shaft. No evidence dislocation. Nondiagnostic evaluation of the left hip. There is no evidence for soft tissue swelling. IMPRESSION: 1. Intertrochanteric fracture right hip with probable extension to the proximal femoral shaft. 2. No evidence dislocation. 3. Evaluation of the remaining bony structures is extremely limited due to overlying bowel content The above report was generated using voice recognition software. It may contain grammatical, syntax or spelling errors. Electronically signed by: Mauricio Linda M.D. 07/10/2019 5:52 PM XR femur RT 2V routine CLINICAL HISTORY: fall trauma. Pain. COMPARISON: None. DISCUSSION: Intertrochanteric fracture right hip with extension to the proximal femoral shaft. Remainder the femur shows no additional acute abnormality. Moderate generalized soft tissue edema IMPRESSION: Fracture intertrochanteric region right hip with extension to the proximal femoral shaft. The above report was generated using voice recognition software. It may contain grammatical, syntax or spelling errors. Electronically signed by: Mauricio Linda M.D. 07/10/2019 5:[address] thoracic spine wo con CT DOSE: HISTORY: Trauma fall TECHNIQUE: Multiaxial CT images of the thoracic spine were performed and reformatted in the sagittal and coronal plane without the use of contrast. A dose lowering technique was utilized adhering to the principles of ALARA. COMPARISON: None. FINDINGS: Significant degenerative disc changes throughout. 50% compression deformity T10. 25% compression deformity T8. 50% compression deformity T7. Osteopenia. No evidence for subluxation. No bony compromise of the spinal canal or neural foramina. Bilateral pleural effusions are present. IMPRESSION: 1. Compression deformities of T7, T8, and T10. 2. Generalized degenerative disc changes throughout. 3. Osteopenia to osteoporosis. 4. No bony compromise of the spinal canal. The above report was generated using voice recognition software. It may contain grammatical, syntax or spelling errors. Electronically signed by: Mauricio Linda M.D. 07/10/2019 5:[address] SCAN OF THE ABDOMEN AND PELVIS WITH IV CONTRAST; CT SCAN OF THE LUMBAR SPINE WITHOUT IV CONTRAST CLINICAL HISTORY: Fall. COMPARISON STUDY: Abdominal CT dated 05/18/2017. TECHNIQUE: Following the IV administration of 92 cc of Optiray 320, CT scan of the abdomen and pelvis is performed from the lung bases to the proximal femora. Additionally, CT scan of the lumbar spine is performed from the lower thoracic spine to the sacrum. Images were both examinations are reviewed in the axial, sagittal, and coronal planes. IV contrast was administered without complication. A dose lowering technique was utilized adhering to the principles of ALARA. The examination is greater by streak artifact from the arms which could not be elevated above the abdomen. CT DOSE: 1594.65 mGy.cm FINDINGS: Lung bases: The heart is top normal in size noting a moderate pericardial effusion. There are moderate right and trace left pleural effusions with associated atelectasis. No basilar pneumothorax is seen. A moderate hiatal her meme is noted. Liver: The contrast-enhanced liver is normal in size, contour, and attenuation. There is no intrahepatic biliary ductal dilatation. The hepatic veins and portal veins are patent. Gallbladder: Unremarkable. Spleen: Normal in size and attenuation. There are calcified splenic granulomas. Pancreas: Atrophic and grossly unremarkable. Adrenal glands: Unremarkable. Kidneys: The contrast enhanced kidneys are atrophic and without hydronephrosis. The kidneys enhance symmetrically. Abdominal vasculature: The abdominal aorta is normal in course and caliber noting advanced atherosclerotic calcification. Bowel: There is postoperative change from sigmoid colon resection with colocolon ic anastomosis. Small bowel anastomoses are noted in the right lower quadrant. No bowel obstruction is seen. There is rectal sigmoid fecal retention and moderate constipation. The appendix is well-visualized and normal. Peritoneum end body wall: There is no intraperitoneal free air or abdominal asc ites. There is a thick walled, peripherally enhancing, and multiloculated collection identified within the abdominal wall in the posterior left flank. Most superiorly loculated component is seen on image 113 and measures approximately 6 x 5 x 2.5 cm. A more inferiorly loculated component on image #1 50 measures approximately 4.5 x 4 x 2.5 cm. This was present in 2017 but has decreased in size from that examination. Residual soft tissue thickening is noted in the left iliacus muscle and along the posterior margin of the spleen. Lymphadenopathy: None. Pelvic viscera: The bladder is distended but otherwise normal in appearance. The endometrium is prominent for age measuring up to 7 mm in thickness. No adnexal lesion is seen. Intramuscular hemorrhage is noted within the right adductor compartment. Skeletal structures: The skeletal structures are osteopenic. There is a comminuted and distracted fracture of the intertrochanteric right femur with surrounding hemorrhage. The lumbosacral spine and bony pelvis appear intact. No lytic or blastic lesions are seen. LUMBAR SPINE: Vertebral body height and alignment are maintained throughout the lumbar spine. Minimal levocurvature is centered at L3. There is no evidence of fracture or malalignment. Anterior and lateral marginal osteophytes are seen throughout. The transverse and spinous processes are intact. There is no evidence of spondylolysis. There is advanced disc space narrowing at T12-L1. Moderate disc space narrowing seen at L3-L4 and L4-L5. Only mild disc space narrowing seen at the remaining lumbar levels. Posterior discussed by complexes are seen at L2-L3, L3-L4, and L4-L5. There is no evidence of high-grade central canal stenosis by CT The paraspinous soft tissues are within normal limits. IMPRESSION: 1. There is a comminuted and distracted fracture of the intertrochanteric right femur with surrounding hemorrhage. 2. There is no evidence of fracture or malalignment involving the lumbar spine. 3. There is no evidence of solid organ injury in the abdomen or pelvis. 4. There are thick-walled, peripherally enhancing, and multiloculated fluid collections identified within the abdominal wall of the left posterior flank as detailed above. This has been present dating back to 2017 but has decreased in size from that time. Top differential considerations include infection/abscess or possibly necrotic tumor. Clinical correlation will be essential. 5. Moderate right and trace left pleural effusions. 6. Intramuscular hemorrhage is noted within the right adductor compartment. 7. Moderate pericardial effusion. 8. Postoperative change from colonic resections as above. No bowel obstruction is seen. 9. The endometrium appears thickened for age. This is not well assessed by CT, and follow-up with a nonemergent pelvic ultrasound is recommended for further assessment. 10. Additional findings as above. Electronically signed by: Rodolfo Oliveira M.D. 07/10/2019 5:[address] SCAN OF THE BRAIN WITHOUT IV CONTRAST CLINICAL HISTORY: Fall. COMPARISON STUDY: CT of the brain dated 06/14/2019. TECHNIQUE: Unenhanced axial CT scan of the brain is performed from the vertex to the skull base. A dose lowering technique was utilized adhering to the principles of ALARA. FINDINGS: Brain parenchyma: There are age-related involutional changes noting moderate confluent subcortical and periventricular microangiopathic change. There is no hemorrhage, mass effect, or evidence of acute territorial ischemia by CT criteria. Min-white matter differentiation is preserved. No extra-axial fluid collection is seen. Ventricles, sulci, cisterns: Prominent secondary to involutional change. Intracranial vasculature: There is atherosclerotic calcification of the cavernous carotid arteries. Calvarium: The skeletal structures are osteopenic. No depressed calvarial fracture is identified. Soft tissues: There is occipital scalp contusion. Sinuses and mastoids: Mucosal thickening is noted within the right ethmoid sinuses. The remaining visualized paranasal sinuses are clear. There is a small left mastoid effusion. The right mastoid air cells are well pneumatized. Orbits: The bony orbits are grossly intact. There are bilateral ocular lens implants. IMPRESSION: There is no hemorrhage, mass effect, or evidence of acute territorial ischemia by CT criteria. Electronically signed by: Rodolfo Oliveira M.D. 07/10/2019 5:23 PM XR chest 1V portable CLINICAL HISTORY: fall trauma COMPARISON STUDY: 06/22/2018 FINDINGS: Interval bilateral pleural effusions possibly with a loculated component. Stable cardiomegaly. No evidence of pneumothorax. Prominent pulmonary vasculature. IMPRESSION: 1. Progressive bilateral parenchymal infiltrates. 2. Moderate stable cardiomegaly. 3. Potential components of developing congestive failure. The above report was generated using voice recognition software. It may contain grammatical, syntax or spelling errors. Electronically signed by: Mauricio Linda M.D. 07/10/2019 5:[address] chest w con CT DOSE: HISTORY: Trauma fall TECHNIQUE: Multiaxial CT images of the chest were performed following the intravenous administration of contrast. A dose lowering technique was utilized adhering to the principles of ALARA. COMPARISON: None 2016 FINDINGS: Bilateral pleural effusions. Components of atelectatic change of the right as well as left lower lobe region. Moderate cardiomegaly. Small pericardial effusion. Atherosclerotic change and ectasia of the thoracic aorta. Several moderate compression deformities of the thoracic spine which have been described previously. No evidence for pneumothorax. No well-defined rib fracture. IMPRESSION: 1. Bilateral pleural effusions with basilar lower lobe atelectatic change. 2. Cardiomegaly with small pericardial effusion. 3. Several compression deformities of the thoracic spine which have been described previously. The above report was generated using voice recognition software. It may contain grammatical, syntax or spelling errors. Electronically signed by: Mauricio Linda M.D. 07/10/2019 5:[address] cervical spine wo con CT DOSE: HISTORY: Trauma. Pain. fall TECHNIQUE: Multiaxial CT images of the cervical spine were performed and reformatted in the sagittal and coronal plane without the use of contrast. A dose lowering technique was utilized adhering to the principles of ALARA. COMPARISON: None. FINDINGS: Considerable degenerative disc changes throughout. No evidence for compression deformity. Grade 1 anterolisthesis C2 on C3 felt to be degenerative in nature. Degenerative changes C1-C2 complex with subchondral cyst formation throughout. No evidence for fracture. No evidence for compression deformity. IMPRESSION: Considerable degenerative change. No acute process. The above report was generated using voice recognition software. It may contain grammatical, syntax or spelling errors. Electronically signed by: Mauricio Linda M.D. 07/10/2019 5:20 PM ECG Data Attestation: I personally reviewed and interpreted this ECG as follows: Indication: + altered mental status Rate (beats per minute): 104 Rhythm: + atrial fibrillation ECG ST segments: + T-wave inversions (Anterior); no ST elevation ECG Findings: + PVCs Comparison ECG Date: from (01/11/2019) Change: the following changes noted (Increased anterior t-wave inversions, still in atrial fibrillation) Blood Pressure Blood Pressure Findings: Elevated blood pressure Blood Pressure Disposition: further management by hospitalist Head Trauma GCS Score: 13 MDM Narrative Patient is a 84-year-old female with a history of CKD, CHF, atrial fibrillation not currently on anticoagulation, anemia and hypertension presenting from home after a fall. Patient's knows the month and her birthday is been unable to provide lots of details. Found her floor by family when neighbor checked on her today. Did not take her evening medications so concerned she may spent the night on the floor. Significant pain of the right proximal femur and hip area. Patient was placed in a c-collar by staff upon arrival. Basic labs were checked including CK to look for signs of dehydration elect light abnormality or rhabdomyolysis. CT of the head, cervical spine, lumbar spine, thoracic spine, chest abdomen pelvis were completed. X-rays of the chest and right hip and femur were obtained. No obvious lacerations. Blood work showed no significant CPK elevation or troponin. Renal function appeared stable. Leukocytosis of [address] the head and cervical spine without acute traumatic injury noted. Cervical collar removed. CT of the chest shows effusions but no other traumatic injury. She has had recurrent effusions priorly dealt with by Dr. Oliveros. CT of the thoracic spine shows T7, T8, and T10 compression deformities. No intra- abdominal significant acute traumatic pathology. Imaging shows a right intertrochanteric hip fracture extended the proximal femur. Moving extremities with just globally decreased peripheral perfusion. Discussed with family and patient and on-call orthopedics. Will admit medically given her underlying medical conditions for optimization for likely surgical repair. No signs of UTI at this point. Discussed with the [place] hospitalist group. Impression & Plan Compression fracture of thoracic vertebra, Fall, Closed fracture of right hip, Confusion Discharge Plan Visit Data Chief Complaint: Altered Mental Status Stated Complaint: [facility] ED Provider: Bull Garcia Discharge Problem: Compression fracture of thoracic vertebra, Fall, Closed fracture of right hip, Confusion Patient Disposition: Being Evaluated by Hospitalist Forms Stand Alone Forms: My [facility] Prescriptions Prescriptions: No Action atenolol 25 mg tablet 12.5 mg PO HS Qty: 45 RF: 3 lisinopril 20 mg tablet 20 mg PO BID Qty: 60 RF: 0 diltiazem HCl [DILT-XR] 180 mg capsule,ext.rel 24h degradable 1 cap PO BID RF: 0 furosemide 20 mg tablet 20 mg PO QAM RF: 0 Mega[employer] [place]-3 [employer] [phone] mg Capsule 1 cap PO DAILY RF: 0 Referrals Referrals: Nehemias Gooden MD [Primary Care Provider] - The scribe's documentation has been prepared under my direction and personally reviewed by me in its entirety. I confirm that the note above accurately reflects all work, treatment, procedures, and medical decision making performed by me.
--- NOTE | 2019-07-10 20:40 | History & Physical Report ---
Date of Service July 10, 2019 Assessment & Plan (1) Closed comminuted intertrochanteric fracture of femur: Ms. Odom is a 84 year old female with a past medical history of atrial fibrillation, hypertension, diastolic CHF, CKD stage III, compression fractures of thoracic vertebrae, recurrent pleural effusions s/p repeated thoracenteses and vitamin D deficiency who presents to the emergency department after a fall. ED course: 500 mL normal saline bolus, 1 g IV acetaminophen She had several imaging studies conducted, including a head CT, chest x-ray, chest CT, C-spine CT, abdomen and pelvis CT, thoracic spine CT, lumbar spine CT, pelvic x-ray, femur x-ray. Her head CT was negative for intracranial hemorrhage. Her C-Spine CT did not show any evidence of fracture. Additional imaging addressed below. Closed comminuted intertrochanteric fracture femur -Admit to med/surg -CT scan shows comminuted fracture of intratrochanteric right femur with surrounding hemorrhage -Orthopedics aware, Dr. Watson consulted -N.p.o. at midnight, in preparation for potential surgery tomorrow -pierson catheter placed in ER -We will consult cardiology for pre-op optimization, given patient's cardiac history, Intramuscular hemorrhage within right adductor compartment -Seen on CT scan -Vitals stable, hemoglobin 12.6 -Trend hemoglobin every 8 hours Compression fracture of thoracic vertebrae -Seen on thoracic spine CT, involving T7, T8 and T10 -Sustained during prior fall 3 weeks ago -Continue pain management with 1 g IV acetaminophen scheduled every 8 hours Diastolic CHF -Follows with heart failure clinic -Echo in 01/21 -> left ventricular ejection fraction of 60-65%. Grade 2 diastolic dysfunction. Mild mitral regurg. Small pericardial effusion. -Hold Lasix, can restart postoperatively History of pleural effusions -Follows with Dr. Odonnell -Last thoracentesis was on 06/22/2019, at which time she had 700 mL of fluid drained from her right lung -Chest CT today showed bilateral pleural effusions - moderate on the right and trace on the left -Dr. Odonnell consulted given right sided effusion Atrial fibrillation -Not on anticoagulation -Continue home atenolol and diltiazem Hypertension -Hold home lisinopril given dehydrated on examination -Can restart postoperatively CKD stage III -Creatinine 1.17 today, close to baseline of 1 -Monitor BMP, avoid nephrotoxic agents Elevated creatinine kinase -Creatinine kinase elevated at 229, suspect this is related to mild rhabdomyolysis, given patient was reportedly laying on the floor overnight -Continue gentle rehydration with IVF, recheck level tomorrow Vitamin D deficiency -Vitamin D not listed as a home medication -Vitamin D level ordered with a.m. labs Incidentals seen on imaging: -Thickened endometrial lining nonemergent pelvic ultrasound recommended outpatient -Thick-walled, peripherally enhancing, multiloculated fluid collections in the abdominal wall of the left posterior flankpresent since 2017, decreased in size from that time. Differential diagnosis infection/abscess/necrotic tumor. Low suspicion for infection and abscess given this has been present for a number of years. CODE STATUS: DNR/DNI, confirmed with POA who brought advanced directive DVT prophylaxis: SCDs Disposition: Admit to med/surg. Anticipate discharge to rehab facility. This was discussed with the family. Will require PT/OT evals postoperatively. (2) Intramuscular hematoma: (3) Fall: (4) Compression fracture of thoracic vertebra: (5) Vitamin D deficiency: (6) Anemia: (7) CKD (chronic kidney disease) stage 3, GFR 30-59 ml/min: (8) Pleural effusion: (9) Acute diastolic CHF (congestive heart failure): (10) A-fib: (11) Hypertension: History of Present Illness Chief Complaint: Hip Fracture Primary Care Provider: Scott Gooden MD Ms. Odom is a 84 year old female with a past medical history of atrial fibrillation, hypertension, diastolic CHF, CKD stage III, compression fractures of thoracic vertebrae, recurrent pleural effusions s/p repeated thoracenteses and vitamin D deficiency who presents to the emergency department after a fall. Her family is present at the bedside, and report that they found her on the ground this afternoon, and think that she may have fallen last evening. History is largely provided by her family, given Ms. Odom is extremely hard of hearing. Her family states that she has been well recently, although do report that she did have another mechanical fall approximately 3 weeks ago, while she was walking her dog. She did seek medical attention at this time, and had a CT scan of her head performed, which did not show any evidence of intracranial hemorrhage. She, however, did suffer vertebral fractures at this time, and has been managing her pain with Tylenol. They do endorse that she has been more short of breath since June 22, at which time she had a pleural effusion drained by Dr. Odonnell. They do note that since her atenolol dose was decreased recently, she has not complained of shortness of breath. She denies any recent chest pain. Her family reports that she did not take any of her usual medications last night. They report that she follows with the heart failure clinic, and generally sees Dr. Telles. She is not on anticoagulation for atrial fibrillation. She is a non-smoker. She enjoys the occasional glass of wine. She lives at home, by herself, and is independent in all her ADLs. Her home is one level, however she does have a few steps to get into her house, and a couple of steps to get into certain rooms. Allergies Allergy/AdvReac Type Severity Reaction Status Date / Time codeine AdvReac Verified 07/10/19 17:28 fentanyl AdvReac Verified 07/10/19 17:28 hydromorphone [From Dilaudid] AdvReac Verified 07/10/19 17:28 tramadol AdvReac Verified 07/10/19 17:28 Home Medications Home Medications Medication Instructions Recorded Confirmed Type diltiazem HCl [DILT-XR] 1 cap PO BID 01/11/19 07/10/19 History furosemide 20 mg tablet 20 mg PO QAM tab 04/17/19 07/10/19 History lisinopril 20 mg tablet 20 mg PO BID #60 tab 05/14/19 07/10/19 Rx atenolol 25 mg tablet 12.5 mg PO HS #45 tab 07/09/19 07/10/19 Rx [id number] 1 cap PO DAILY 07/10/19 07/10/19 History [MegaRed [place]-3 Kr[employer]] Past Med/Surg History Medical History Pleural effusion on right (Acute) Arrhythmia (Acute) Atrial fibrillation (Acute) HTN (hypertension) (Acute) Hypertension (Acute) Surgical History History of colon resection (Acute) Hx laparoscopic cholecystectomy (Acute) Social History Preferred Language: Korean Communication Ability: Effective Communication Ability Comment: Patient disoriented. Unable to answer at this time. 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 Beliefs That Will Affect Care: None Current Living Situation: Alone Feels Safe at Home: Yes Smoking Status: Unknown if ever smoked Hx Alcohol Use: Yes Alcohol type: wine Review of Systems Constitutional: no fever and no chills Respiratory: no cough, no dyspnea and no wheezing Cardiovascular: no chest pain, no syncope, no edema and no calf pain Gastrointestinal: no abdominal pain, no nausea, no vomiting and no change in bowel habits Musculoskeletal: + back pain Integumentary: no rash and no lesions Physical Exam Constitutional: WD/WN, vitals as above Eyes: PERRL, conjunctivae normal, anicteric sclerae ENMT: external ear and nose normal, oropharynx normal (Dry mucous membranes) Respiratory: normal respiratory effort, lungs clear to auscultation Cardiovascular: Rate/Rhythm: regular rate and regular rhythm (Irregularly irregular) Vessels: dorsalis pedis pulses present (Faint, but palpable) Extremities: normal capillary refill; no calf tenderness and no pedal edema Gastrointestinal (Abdomen): normal bowel sounds, soft, nontender, no hepatosplenomegaly Musculoskeletal: Right leg externally rotated and shortened Moves all extremities, with the exception of right leg Skin: no rashes, warm and dry Neurologic: PERRL, EOMI, accommodation nl, no face palsy, no dysarthria no focal motor deficits Psychiatric: Orientation: alert Oriented to person only Results & Data Vital Signs (Past 12 Hours) Vital Signs Temp Pulse Pulse Resp BP BP Pulse Ox 07/10/19 19:32 80 20 134/113 H 94 07/10/19 19:20 79 19 99 07/10/19 19:10 83 18 100 07/10/19 19:00 80 17 137/84 100 07/10/19 18:50 85 16 99 07/10/19 18:40 80 14 100 07/10/19 18:31 85 19 174/100 H 07/10/19 18:30 78 21 07/10/19 18:20 99 H 22 07/10/19 18:10 84 14 07/10/19 18:01 84 11 L 07/10/19 18:00 89 23 159/124 H 07/10/19 17:54 88 L 07/10/19 17:50 89 07/10/19 17:40 80 07/10/19 17:30 147/78 H 84 L 07/10/19 17:28 104/86 89 L 07/10/19 17:27 87 L 07/10/19 17:26 86 15 104/86 91 07/10/19 16:50 91 H 23 07/10/19 16:40 89 25 H 07/10/19 16:30 103 H 14 07/10/19 16:20 98 H 22 07/10/19 16:10 99 H 25 H 07/10/19 16:08 36.8 C 78 20 164/121 H 96 07/10/19 16:07 94 H 23 07/10/19 15:55 91 H 18 164/121 H Code Status & VTE Plan VTE Prophylaxis Plan VTE Prophylaxis will be ordered: Yes Supervising Physician Co-Signing Physician Notes Patient was seen and examined by me personally. I reviewed the chart, the orders and discussed the case in detail with Dr. Beba Stephen MD. I read this H&P and agree with its contents to entirety. Resident Activity Tracking Resident Involvement: Resident Care Provided Care Provided: Adult Hospital Medicine (1) Compression fracture of thoracic vertebra Encounter type: initial encounter Thoracic vertebra fracture level: unspecified thoracic vertebra Qualified Code(s): S22.000A - Wedge compression fracture of unspecified thoracic vertebra, initial encounter for closed fracture (2) Fall Encounter type: initial encounter Qualified Code(s): W19.XXXA - Unspecified fall, initial encounter
[2019-07-10] MEDS ORDERED: ATENOLOL 25 MG TABLET PO SCH (21:04)
[2019-07-10] MEDS ORDERED: ONDANSETRON INJ 2 MG/ML 2 ML VIAL IV PRN (21:04)
[2019-07-10] MEDS: LACTATED RINGER'S 1,000 ML IV SCH (21:21)
[2019-07-10] MEDS: ACETAMINOPHEN 1,000 MG/100 ML VIAL IV SCH (22:19)
[2019-07-11 00:32] LABS: Hematocrit (blood only) 34.7 % (37-47); Hemoglobin 11.1 g/dL (12.0-16.0)
--- NOTE | 2019-07-11 01:19 | Death Summary ---
Coding Level of Care Code 11430 Initial Inpt Care Lvl 3
[2019-07-11] MEDS ORDERED: PNEUMOCOCCAL POLYSACCHARIDES 25 MCG/0.5 ML VIAL/SYR IM ONE (05:45)
[2019-07-11] MEDS ORDERED: INFLUENZA VACCINE HIGH DOSE 65+ 0.5 ML SYR IM ONE (05:45)
[2019-07-11] MEDS ORDERED: PNEUMOCOCCAL ADMINISTRATION CHARGE ONE (05:45)
[2019-07-11] MEDS ORDERED: INFLUENZA ADMINISTRATION CHARGE ONE (05:45)
[2019-07-11] MEDS: ACETAMINOPHEN 1,000 MG/100 ML VIAL IV SCH ×2 (05:45→15:00)
--- NOTE | 2019-07-11 07:44 | Consultation ---
Date of Consultation July 11, 2019 Assessment & Plan (1) Closed comminuted intertrochanteric fracture of femur: -ortho planning on surgical intervention once medically cleared (2) Pleural effusion: -the effusion on the left is small and does not warrant intervention -the effusion on the right does not seem to be causing significant respiratory issues at this time -review of CXR reveals that effusion is similar in size to most recent thoracentesis -due to hip fracture, pt. will not be able to sit up at bedside for thoracentesis -will not intervene at this time -will follow pt. while she is in hospital and if she is noted to have worsen ing effusion/respiratory issue will consider thoracentesis (3) Pericardial effusion: -this was noted on CT scan and is small -at this time there is no clinical evidence of tamponade -this can be followed clinically as well as with serial echos History of Present Illness Attending Physician: Alphonso Sanchez, History of Present Illness 84 year old female known to our service. She was initially seen in Jan, 2019, secondary to right pleural effusion. She has undergone right thoracentesis on 01/12/19 (1300 cc fluid), 01/25/19 (1400 cc fluid), 03/27/19 (700 cc fluid), 06/22/19 (700 cc fluid). Of note the fluid has never been shown to have malignant cells, and all cultures have been (-) for growth. It is felt that her effusion are related to hx. of diastolic CHF, and she has been followed by the CHF clinic for optimization of her cardiac meds. She was admitted to [facility] last night as she fell resulting in a right hip fracture. I questioned her about her fracture and she stated that she fell, but could not provide any further details. She did not report preceding CP or SOB and is unsure if she "passed out." She believes she hit her head. At the time of my exam (7:30 am) she was resting in bed and complained of pain in her right hip (worse with palpation) as well as a slight headache. She specifically stated that her breathing was comfortable even with lying flat. In addition she noted that prior to her admission her breathing seemed to be "ok." Allergies Allergy/AdvReac Type Severity Reaction Status Date / Time codeine AdvReac Verified 07/10/19 17:28 fentanyl AdvReac Verified 07/10/19 17:28 hydromorphone [From Dilaudid] AdvReac Verified 07/10/19 17:28 tramadol AdvReac Verified 07/10/19 17:28 Home Medications Home Medications Medication Instructions Recorded Confirmed Type diltiazem HCl [DILT-XR] 1 cap PO BID 01/11/19 07/10/19 History furosemide 20 mg tablet 20 mg PO QAM tab 04/17/19 07/10/19 History lisinopril 20 mg tablet 20 mg PO BID #60 tab 05/14/19 07/10/19 Rx atenolol 25 mg tablet 12.5 mg PO HS #45 tab 07/09/19 07/10/19 Rx [id number]-ast 1 cap PO DAILY 07/10/19 07/10/19 History [MegaRed [place]-3 Krill Oil] Patient History Medical History Pleural effusion on right (Acute) Arrhythmia (Acute) Atrial fibrillation (Acute) HTN (hypertension) (Acute) Hypertension (Acute) Surgical History History of colon resection (Acute) Hx laparoscopic cholecystectomy (Acute) Social History Preferred Language: Czech Communication Ability: Effective Communication Ability Comment: Patient disoriented. Unable to answer at this time. Welt Butter Hand Required: No Beliefs That Will Affect Care: None Current Living Situation: Alone Feels Safe at Home: Yes Smoking Status: Unknown if ever smoked Hx Alcohol Use: Yes Alcohol type: wine Review of Systems Constitutional: no fever and no chills Eyes: no diplopia Ear, Nose, Mouth, Throat: no ear pain and no dizziness Respiratory: no cough and no dyspnea Cardiovascular: no chest pain Additional Comments: no orthopnea Gastrointestinal: no abdominal pain Genitourinary: no dysuria Musculoskeletal: + joint pain (right hip) Integumentary: no rash Neurologic: + gait abnormality (frequent falls) Physical Exam Constitutional: no acute distress and not ill appearing Eyes: PERRL, conjunctivae normal, anicteric sclerae -no raccoon eyes ENMT: Ears: no hearing impairment Mouth: no oral mucosal abnormality and no tongue abnormality Neck: trachea midline Respiratory: normal respiratory effort; no respiratory distress, no labored breathing and does not use accessory muscles BS are slightly decreased at bases, R>L Cardiovascular: Rate/Rhythm: regular rate Heart Sounds: no murmur Gastrointestinal (Abdomen): Percussion/Palpation: abdomen soft; abdomen nontender Musculoskeletal: right LE is shortened and externally rotated Skin: no rashes, warm and dry Neurologic: -pt. able to follow simple commands; she is alert to person and place (knows she is in hospital secondary to hip fracture); unsure of year; no focal or localized deficits Psychiatric: Orientation: alert oriented to person and place Results & Data Vital Signs (Past 12 Hours) Vital Signs Temp Pulse Pulse Resp BP BP BP 07/11/19 07:07 36.4 C L 72 18 151/99 H 07/10/19 23:22 36.5 C 92 H 16 138/92 07/10/19 22:10 88 156/107 H 07/10/19 21:22 36.4 C L 92 H 18 162/96 H 07/10/19 21:00 36.4 C L 92 H 18 162/96 H 07/10/19 20:50 81 16 146/83 H Pulse Ox 07/11/19 07:07 93 07/10/19 23:22 99 07/10/19 22:10 07/10/19 21:22 99 07/10/19 21:00 98 07/10/19 20:50 100
--- NOTE | 2019-07-11 08:00 | Consultation Report ---
DATE OF CONSULTATION: 07/11/2019 CHIEF COMPLAINT: Right hip pain. HISTORY OF PRESENT ILLNESS: Ms. Odom is a pleasant 84-year-old female who was found in her home yesterday on the ground with inability to walk. She was brought to the Emergency Room by ambulance where she had an extensive workup which revealed a subtrochanteric right femur fracture. She was also found to have compression fractures of the T7, T8 and T10 vertebrae which were likely sustained 3 weeks ago. She has a medical history significant for diastolic congestive heart failure with a history of pleural effusion status post for thoracocentesis times [address] Odonnell. She has atrial fibrillation but does not take anticoagulation. She has a chronic kidney disease stage III. She was admitted by the hospitalist service and thoracic surgery and cardiology has been consulted. The patient was seen in her hospital bed this morning. She is arousable and conversant. She is oriented to her name and place. She denies pain in the hip, although when palpated, she does that this hurts. PAST MEDICAL HISTORY: As per HPI and reviewed in the chart. Past surgical history, medications, allergies, social history, family history, 14-point review of systems are all reviewed in the chart as well. PHYSICAL EXAMINATION: GENERAL: She is a thin female, arousable and oriented x2. She is comfortable. SKIN: Over the right hip shows no cuts lesions, abrasions or rashes. NEUROLOGIC: Reveals her to wiggle her toes and fire ankle dorsiflexors and plantar flexors. She reports sensation intact to light touch dorsal and plantar aspects of the foot. CARDIOVASCULAR: She has warm and well perfused feet with palpable dorsalis pedis pulse. MUSCULOSKELETAL: Right leg is shortened and externally rotated. She has mild swelling over the hip. She is tender to palpation here. RESULTS REVIEWED: X-rays that were done yesterday evening in the Emergency Room demonstrate a subtrochanteric femur fracture and osteoporotic appearing bone. The fracture is displaced. IMPRESSION: Displaced subtrochanteric femur fracture in an 84-year-old female with multiple medical comorbidities. PLAN: I spoke with the patient's niece Shayna regarding the diagnosis and treatment options, including nonsurgical and surgical treatment, as she is her power of commonwealth attorney and medical decision maker. Risks and benefits of both options were reviewed in detail. The patient's niece elects to proceed with surgery. Informed consent was obtained. She will have her consultations performed by thoracic surgery and cardiology this morning. Assuming they clear her for surgery, we will plan on performing an intramedullary leodan after a closed versus open reduction of her fracture today. JULY
[2019-07-11 08:31] LABS: Hematocrit (blood only) 34.7 % (37-47); Hemoglobin 11.1 g/dL (12.0-16.0)
[2019-07-11 08:58] LABS: BUN Creatinine Ratio 20.8 (10-20); Calcium 8.9 mg/dl (8.5-10.1); Creatinine Clr Calc Pharmacy 28.4 ml/min; Est GFR (African American) 56.7; Potassium 3.6 mmol/L (3.5-5.1)
--- NOTE | 2019-07-11 09:20 | Cardiology Consultation ---
Date of Consultation July 11, 2019 Assessment & Plan (1) A-fib: (2) Chronic diastolic CHF (congestive heart failure): (3) Pleural effusion: (4) Hypertension: (5) Preoperative cardiovascular examination: ASSESSMENT/PLAN: 1. Atrial fibrillation: Heart rate currently adequately controlled on atenolol and diltiazem. She is asymptomatic in this regard. She has declined anticoagulation therapy as an outpatient after several discussions despite having significantly elevated chads Vasc score. 2. Chronic diastolic CHF: She appears well compensated. Can continue home dose of Lasix. Low-sodium diet. 3. Hypertension: Blood pressure has mostly been elevated while hospitalized. This may be due to pain as well from her right hip fracture. Continue home medications. Titrate medications as appropriate. 4. Pleural effusion: Followed by Dr. Odonnell. She does not appear to be symptomatic currently. 5. Preoperative cardiac assessment: Prior to this injury, she was able to achieve greater than 4 METS according to her niece, without angina. She would be low cardiac risk for upcoming surgery. She may become more significant tachycardic with her atrial fibrillation. Continue her outpatient regimen, including the day of surgery of diltiazem and atenolol. If she becomes tachycardic, can consider IV medications if necessary. No further cardiac workup recommended prior to her surgery. Overall risk discussed with her niece, Corina, via telephone. 6. Disposition: Please call for any other questions or concerns. Patient care discussed with Dr. Odonnell. Thank you for allowing me to participate in the care of your patient. Please call for any other questions or concerns. Sincerely, Srinivas Telles M.D. History of Present Illness Reason for Consultation: Preoperative cardiac assessment Requesting Physician: Dr. Stephen Attending Physician: Doc Bassett History of Present Illness Ms. Odom is a very pleasant 84-year-old female with a history significant for atrial fibrillation, diastolic CHF, pleural effusions s/p thoracentesis (Dr. Odonnell), hypertension, mitral regurgitation, and suspected TIA. She was 1st diagnosed with atrial fibrillation immediately postop on 03/28/2017 for elective sigmoid resection due to ongoing diverticulitis. Her atrial fibrillation was with rapid ventricular response. She spontaneously converted to sinus rhythm following metoprolol IV. She was completely asymptomatic with her atrial fibrillation. She was placed on Coumadin which initially was switched to Pradaxa due to difficulty in monitoring her INR. Pradaxa was then discontinued secondary to financial concerns. She did not tolerate outpatient metoprolol and this was replaced with diltiazem. She had Holter monitors as an outpatient which reported paroxysmal atrial fibrillation episodes in April of 2017. She has had the following studies/procedures: 1. Echo 05/02/2017 [facility]: Normal LV systolic function. EF 64%. Normal wall motion. Sigmoid septum. Moderate left atrial dilation. Moderate MR. Mild TR. Small circumferential pericardial effusion. Sinus rhythm. 2. Holter [facility] 04/21/2017: Sinus rhythm predominantly. Frequent short episodes of atrial fibrillation. Frequent PVCs. No symptoms reported. 3. Echo 06/30/2018: Normal LV size, wall motion, systolic function. EF> 70%. Mild to moderate LVH. Type 1 diastolic dysfunction. Severe left atrial dilation. Mild to moderate MR. Sclerotic aortic valve. RVSP 40. Small anterior pericardial effusion. Sinus rhythm. 4. Echo 01/12/2019: Normal LV size, wall motion, systolic function. EF 60-65%. Mild MR. Small pericardial effusion without echocardiographic evidence of tamponade physiology. She presented to [facility] on 07/10/2019 with a right hip fracture. She apparently fell 3 weeks ago while walking her dog and this is reported as a mechanical fall by her niece, Shayna. She once again recently fell however there are no details of the event. It is not clear the etiology of yesterday's fall however family, Shayna, believes that her falls have been mechanical. The patient herself is a very poor historian. Shayna states that she believes that the atenolol was causing her to have 2 slow heart rate. When asked how slow her heart rate had been, she was unable to quantitate. She states that when she checked her pulse, it was a retic as she does have atrial fibrillation. She states that earlier this week atenolol was reduced to 12.5 mg daily and she believes that her heart rate has improved. She also thought that the atenolol was causing her aunt to be more disoriented. She states that up until her recent fall, she had been quite active and that her aunt had not been experiencing chest pain. Her breathing has also improved in the past with thoracentesis. Patient herself currently denies chest pain, shortness of breath, palpitations, or bleeding. She denies any current pain. When asked about alcohol consumption, she states that she consumes 5-6 drinks per night however in the past she reported 3 drinks per night. When asked, her niece believes that she does consume alcohol and states that she typically admits to 2 glasses of wine per day but she does have concerns that she may be drinking more a sometimes when she calls in the evening she has noted that her aunt slurs her words. Review of systems: As above. Review of systems otherwise negative or unobtainable due to patient's mental status. Family history: Mother in her 30s from infection. There was no known premature CAD in first-degree relatives. Social history: Denies tobacco or drug abuse. She consumes at least glasses of wine per day. She is from her first marriage and from her second marriage. She has 4 step children but no biologic children. She lives alone. No family at the bedside. Corina, her niece, typically accompanies her in the office. Allergies Allergy/AdvReac Type Severity Reaction Status Date / Time codeine AdvReac Verified 07/10/19 17:28 fentanyl AdvReac Verified 07/10/19 17:28 hydromorphone [From Dilaudid] AdvReac Verified 07/10/19 17:28 tramadol AdvReac Verified 07/10/19 17:28 Home Medications Home Medications Medication Instructions Recorded Confirmed Type diltiazem HCl [DILT-XR] 1 cap PO BID 01/11/19 07/10/19 History furosemide 20 mg tablet 20 mg PO QAM tab 04/17/19 07/10/19 History lisinopril 20 mg tablet 20 mg PO BID #60 tab 05/14/19 07/10/19 Rx atenolol 25 mg tablet 12.5 mg PO HS #45 tab 07/09/19 07/10/19 Rx [id number] 1 cap PO DAILY 07/10/19 07/10/19 History [MegaRed [place]-3 Krill Oil] Patient History Medical History Chronic diastolic CHF (congestive heart failure) (Chronic) Hypertension (Chronic) A-fib (Chronic) Pleural effusion (Acute) Pericardial effusion (Acute) Compression fracture of thoracic vertebra (Acute) Fall (Acute) Vitamin D deficiency (Chronic) Anemia (Chronic) CKD (chronic kidney disease) stage 3, GFR 30-59 ml/min (Chronic) Pleural effusion on right (Acute) Arrhythmia (Acute) Atrial fibrillation (Acute) HTN (hypertension) (Acute) Hypertension (Acute) Surgical History History of colon resection (Acute) Hx laparoscopic cholecystectomy (Acute) Social History Preferred Language: [place] Citizen Communication Ability: Effective Communication Ability Comment: Patient disoriented. Unable to answer at this time. Clinical Specialist Medical Device Required: No Beliefs That Will Affect Care: None Current Living Situation: Alone Feels Safe at Home: Yes Smoking Status: Unknown if ever smoked Hx Alcohol Use: Yes Alcohol type: wine Physical Exam Physical Exam: Gen.: No acute distress. Alert. Oriented to place and self. She did not know the year month.. HEENT: Anicteric sclera. Neck: No JVD. No bruits. Normal carotid upstrokes bilaterally. Cardiac: PMI was nondisplaced. No ventricular heave. Irregularly irregular, but rate controlled. Normal S1-S2. 1/6 systolic murmur best heard at the apex. No rubs, or gallops. Pulmonary: Clear to auscultation bilaterally without wheezes, rales, or rhonchi. Abdomen: Soft, nontender, nondistended, with normoactive bowel sounds. No bruits noted. Extremities: 2+ radial pulses bilaterally. 1+ posterior tibialis pulses bilaterally. No edema or cyanosis. Psychiatric: Affect appears appropriate. Results & Data Vital Signs (Past 12 Hours) Vital Signs Temp Pulse Resp BP BP Pulse Ox 07/11/19 07:07 36.4 C L 72 18 151/99 H 93 07/10/19 23:22 36.5 C 92 H 16 138/92 99 07/10/19 22:10 88 156/107 H 07/10/19 21:22 36.4 C L 92 H 18 162/96 H 99 Laboratory Results Laboratory Results - last 24 hr 07/10/19 07/10/19 07/10/19 16:38 16:38 16:38 WBC 16.56 H RBC 3.95 L Hgb 12.6 POC Hgb Hct 38.3 POC Hct MCV 97.0 MCH 31.9 MCHC 32.9 RDW Std Deviation 47.2 H RDW Coeff of Elvi 13.6 Plt Count 318 MPV 9.9 Immature Gran % (Auto) 0.4 Neut % (Auto) 88.0 Lymph % (Auto) 5.7 [place] % (Auto) 5.7 Eos % (Auto) 0.1 Baso % (Auto) 0.1 Immature Gran # (Auto) 0.07 H Neut # (Auto) 14.58 H Lymph # (Auto) 0.94 L [place] # (Auto) 0.95 H Eos # (Auto) 0.01 Baso # (Auto) 0.01 PT 11.1 INR 1.1 POC Sodium Sodium 139 POC Potassium Potassium 3.7 POC Chloride Chloride 101 Carbon Dioxide 32 POC Total CO2 Anion Gap 6.0 POC Anion Gap POC BUN BUN 25 H Creatinine 1.17 POC Creatinine Est Cr Clr Drug Dosing 27.0 Est GFR ( Amer) 49.2 Est GFR (Non-Af Amer) 42.5 BUN/Creatinine Ratio 21.3 H Glucose 109 H POC Glucose (other) Calcium 9.5 POC Ioniz Calcium Margot Total Bilirubin 1.6 H AST 22 ALT 15 Alkaline Phosphatase 98 Total Creatine Kinase 229 H Troponin I < 0.015 Total Protein 7.5 Albumin 2.7 L Globulin 4.8 H Albumin/Globulin Ratio 0.6 L 25-OH Vitamin D Total Specimen Hemolysis Urine Color Urine Appearance Urine pH Ur Specific [place] Urine Protein Urine Glucose (UA) Urine Ketones Urine Blood Urine Nitrite Urine Bilirubin Urine Urobilinogen Ur Leukocyte Esterase Urine WBC (Auto) Urine RBC (Auto) U Hyaline Cast (Auto) U Epithel Cells (Auto) Urine Bacteria (Auto) 07/10/19 07/10/19 07/11/19 16:43 18:35 00:18 WBC RBC Hgb 11.1 L POC Hgb 12.6 Hct 34.7 L POC Hct 37 MCV MCH MCHC RDW Std Deviation RDW Coeff of Elvi Plt Count MPV Immature Gran % (Auto) Neut % (Auto) Lymph % (Auto) [place] % (Auto) Eos % (Auto) Baso % (Auto) Immature Gran # (Auto) Neut # (Auto) Lymph # (Auto) [place] # (Auto) Eos # (Auto) Baso # (Auto) PT INR POC Sodium 140 Sodium POC Potassium 3.8 Potassium POC Chloride 98 L Chloride Carbon Dioxide POC Total CO2 35 H Anion Gap POC Anion Gap 12.0 L POC BUN 29 H BUN Creatinine POC Creatinine 1.1 Est Cr Clr Drug Dosing Est GFR ( Amer) Est GFR (Non-Af Amer) BUN/Creatinine Ratio Glucose POC Glucose (other) 112 H Calcium POC Ioniz Calcium Margot 1.15 Total Bilirubin AST ALT Alkaline Phosphatase Total Creatine Kinase Troponin I Total Protein Albumin Globulin Albumin/Globulin Ratio 25-OH Vitamin D Total Specimen Hemolysis Urine Color Yellow Urine Appearance Clear Urine pH 5.0 Ur Specific [place] 1.026 Urine Protein Trace H Urine Glucose (UA) Negative Urine Ketones Negative Urine Blood Negative Urine Nitrite Negative Urine Bilirubin Negative Urine Urobilinogen Negative Ur Leukocyte Esterase Negative Urine WBC (Auto) 1-5 Urine RBC (Auto) 0-4 U Hyaline Cast (Auto) 1-5 U Epithel Cells (Auto) >30 H Urine Bacteria (Auto) Negative 07/11/19 07/11/19 07/11/19 08:14 08:14 08:14 WBC RBC Hgb 11.1 L POC Hgb Hct 34.7 L POC Hct MCV MCH MCHC RDW Std Deviation RDW Coeff of Elvi Plt Count MPV Immature Gran % (Auto) Neut % (Auto) Lymph % (Auto) [place] % (Auto) Eos % (Auto) Baso % (Auto) Immature Gran # (Auto) Neut # (Auto) Lymph # (Auto) [place] # (Auto) Eos # (Auto) Baso # (Auto) PT INR POC Sodium Sodium 141 POC Potassium Potassium 3.6 POC Chloride Chloride 103 Carbon Dioxide 31 POC Total CO2 Anion Gap 6.0 POC Anion Gap POC BUN BUN 22 H Creatinine 1.04 POC Creatinine Est Cr Clr Drug Dosing 28.4 Est GFR ( Amer) 56.7 Est GFR (Non-Af Amer) 49.0 BUN/Creatinine Ratio 20.8 H Glucose 94 POC Glucose (other) Calcium 8.9 POC Ioniz Calcium Margot Total Bilirubin AST ALT Alkaline Phosphatase Total Creatine Kinase 163 Troponin I Total Protein Albumin Globulin Albumin/Globulin Ratio 25-OH Vitamin D Total 20.6 L Specimen Hemolysis Urine Color Urine Appearance Urine pH Ur Specific [place] Urine Protein Urine Glucose (UA) Urine Ketones Urine Blood Urine Nitrite Urine Bilirubin Urine Urobilinogen Ur Leukocyte Esterase Urine WBC (Auto) Urine RBC (Auto) U Hyaline Cast (Auto) U Epithel Cells (Auto) Urine Bacteria (Auto) Diagnostic Findings Echo report reviewed as above. ECG personally reviewed: ECG 07/10/2019: AFib with RVR 104 bpm. PVC versus aberrantly conducted complex. Nonspecific T-wave abnormality. CT chest 07/10/2019: Bilateral pleural effusions. Several compression deformities of the thoracic spine. Small pericardial effusion. Medications Administered Current Inpatient Medications Atenolol (Tenormin) 12.5 mg PO HS ARI Stop: 08/09/19 21:03 Last Admin: 07/10/19 22:15 Dose: 12.5 mg Documented by: Diltiazem HCl (Dilacor Xr) 180 mg PO BID ARI Stop: 08/09/19 21:03 Last Admin: 07/11/19 07:37 Dose: 180 mg Documented by: Lactated Ringer's (Lr) 1,000 mls @ 75 mls/hr IV .[id number] ARI Stop: 08/09/19 21:29 Last Infusion: 07/11/19 06:03 Dose: 75 mls/hr Documented by: Acetaminophen (Ofirmev) 1,000 mg in 100 mls @ 400 mls/hr IV Q8H ARI Stop: 07/11/19 21:59 Last Infusion: 07/11/19 06:03 Dose: Infused Documented by: Cefazolin Sodium (Ancef 2000mg) 2,000 mg in 15 mls @ 3.75 mls/min IV PREOP ARI Stop: 07/11/19 18:00 Ioversol (Optiray 320 100ml) 92 ml IV ONCE PRN PRN Reason: Interaction Checking Stop: 07/14/19 16:48 Last Admin: 07/10/19 16:49 Dose: 92 ml Documented by: Ondansetron HCl (Zofran) 4 mg IV Q6H PRN PRN Reason: Nausea Stop: 08/09/19 21:03 PG Care Time/CCT Total # of Minutes Spent Total Time Spent with Patient: Total time spent is greater than 50% in coordination of care (as documented) at patient's floor/unit and/or counseling patient:
[2019-07-11] MEDS ORDERED: CEFAZOLIN 2000MG 2,000 MG/15 ML SYR IV SCH (09:45)
[2019-07-11] MEDS: LACTATED RINGER'S 1,000 ML IV SCH ×2 (11:16→16:28)
--- NOTE | 2019-07-11 12:12 | Anesthesiology Consultation ---
Date of Service July 11, 2019 Assessment & Plan (1) Encounter for pre-operative examination: Chart Review Chart Review: Acceptable Risk for Surgery and Patient NOT seen in Pre Admission Testing Consults Requested none ASA ASA3 Proposed Anesthesia Anesthesia Type: MAC Spinal Risk / Benefits Reviewed With: PT / POA / Parent / Guardian, Accepts Plan and Informed Consent Obtained Additional Notes Per patient and her niece - to receive no narcotics intraop History Surgery Operation Date: 07/11/19 07:00 Proposed Procedures p Right Hip Long Troch Nail - Roger Watson MD Height/Weight Height: 5 ft Weight: 50 kg Allergies Allergy/AdvReac Type Severity Reaction Status Date / Time codeine AdvReac Verified 07/10/19 17:28 fentanyl AdvReac Verified 07/10/19 17:28 hydromorphone [From Dilaudid] AdvReac Verified 07/10/19 17:28 tramadol AdvReac Verified 07/10/19 17:28 Medications Home Medications Medication Instructions Recorded Confirmed Last Taken diltiazem HCl [DILT-XR] 1 cap PO BID 01/11/19 07/10/19 07/10/19 furosemide 20 mg tablet 20 mg PO QAM tab 04/17/19 07/10/19 07/10/19 lisinopril 20 mg tablet 20 mg PO BID #60 tab 05/14/19 07/10/19 07/10/19 atenolol 25 mg tablet 12.5 mg PO HS #45 tab 07/09/19 07/10/19 07/09/19 [id number] 1 cap PO DAILY 07/10/19 07/10/19 Unknown [MegaRed [place]-3 Krill Oil] Active Medications Generic Name Dose Route Start Last Admin Trade Name Freq PRN Reason Stop Dose Admin Atenolol 12.5 mg 07/10/19 21:04 07/10/19 22:15 Tenormin PO 08/09/19 21:03 12.5 mg HS ARI Administration Diltiazem HCl 180 mg 07/10/19 21:04 07/11/19 07:37 Dilacor Xr PO 08/09/19 21:03 180 mg BID ARI Administration Lactated Ringer's 1,000 mls @ 75 mls/hr 07/10/19 21:30 07/11/19 11:16 Lr IV 08/09/19 21:29 75 mls/hr .[id number] ARI Administration Acetaminophen 1,000 mg in 100 mls @ 400 mls/hr 07/10/19 22:00 07/11/19 06:03 Ofirmev IV 07/11/19 21:59 Infused Q8H ARI Infusion Ioversol 92 ml 07/10/19 16:49 07/10/19 16:49 Optiray 320 100ml IV 07/14/19 16:48 92 ml ONCE PRN Administration Interaction Checking NPO Date Last Intake of Fluids: 07/10/19 Time Last Intake of Fluids: 23:59 Date Last Intake of Solids: 07/10/19 Time Last Intake of Solids: 23:59 Past Medical History Medical History Chronic diastolic CHF (congestive heart failure) (Chronic) Hypertension (Chronic) A-fib (Chronic) Pleural effusion (Acute) Pericardial effusion (Acute) Compression fracture of thoracic vertebra (Acute) Fall (Acute) Vitamin D deficiency (Chronic) Anemia (Chronic) CKD (chronic kidney disease) stage 3, GFR 30-59 ml/min (Chronic) Pleural effusion on right (Acute) Arrhythmia (Acute) Atrial fibrillation (Acute) HTN (hypertension) (Acute) Hypertension (Acute) Exercise / Class Metabolic Activity III < 4 Walking/Shop/Light housework Past Surgical History Surgical History History of colon resection (Acute) Hx laparoscopic cholecystectomy (Acute) Past Anesthesia History No Hx of Anesthesia Complications History of PONV No Hx of PONV Social History Smoking Status: Unknown if ever smoked Hx Alcohol Use: Yes Alcohol type: wine alcohol intake frequency: 0-2 drinks per day substance use type: does not use Review of Systems Patient denies active symptoms of GERD. Physical Exam Vital Signs Last Vital Signs Temp 36.6 C 07/11/19 12:17 Pulse 52 L 07/11/19 12:17 Resp 18 07/11/19 12:17 BP 107/71 07/11/19 12:17 Pulse Ox 99 07/11/19 12:17 Constitutional not obese ENMT Mouth: no TMJ abnormality and oral opening not small Thyromental Distance: < 3.5 Finger Breadths Mallampati Class: II Mouth / Teeth: 1. capped Neck normal visual inspection; neck extension not limited Respiratory normal respiratory effort Auscultation: lungs clear to auscultation bilaterally Cardiovascular Rate/Rhythm: regular rate and regular rhythm Heart Sounds: no murmur Vessels: no carotid bruit Neurologic moves all extremities Psychiatric Orientation: alert and oriented x 3 Testing Laboratory Results 07/11/19 08:14 07/11/19 08:14 PT 11.1 Seconds (9.0-12.0) 07/10/19 16:38 INR 1.1 (0.9-1.1) 07/10/19 16:38 Urine Color Yellow 07/10/19 18:35 Urine Appearance Clear (Clear) 07/10/19 18:35 Urine pH 5.0 (4.5-7.5) 07/10/19 18:35 Ur Specific [place] 1.026 (1.000-1.030) 07/10/19 18:35 Urine Protein Trace (Negative) H 07/10/19 18:35 Urine Glucose (UA) Negative (Negative) 07/10/19 18:35 Urine Ketones Negative (Negative) 07/10/19 18:35 Urine Nitrite Negative (Negative) 07/10/19 18:35 Ur Leukocyte Esterase Negative (Negative) 07/10/19 18:35 Urine WBC (Auto) 1-5 /hpf (0-5) 07/10/19 18:35 Urine RBC (Auto) 0-4 /hpf (0-4) 07/10/19 18:35 U Hyaline Cast (Auto) 1-5 /lpf (0-5) 07/10/19 18:35 U Epithel Cells (Auto) >30 /lpf (0-5) H 07/10/19 18:35 Urine Bacteria (Auto) Negative (Negative) 07/10/19 18:35 Electrocardiogram Date: 07/10/19 Findings: + AFIB @ (104) Rapid ventricular response with premature ventricular or aberrantly conducted complexes, Nonspecific T wave abnormality, When compared with ECG of 11-JAN-2019 10:26, Nonspecific T wave abnormality now evident in Inferior leads Inverted T waves have replaced nonspecific T wave abnormality in Anterior leads T wave inversion no longer evident in Lateral leads Chest X-Ray Date: 07/10/19 IMPRESSION: 1. Bilateral pleural effusions with basilar lower lobe atelectatic change. 2. Cardiomegaly with small pericardial effusion. 3. Several compression deformities of the thoracic spine which have been described previously. Echocardiogram Date: 01/12/19 EF: 60-65% LV Function: normal RWMA: + none Other Findings: + diastolic dysfunction (grade 2) Valvular Disease: + MR (mild) small pericardial effusion, no tamponade
[2019-07-11] MEDS ORDERED: ATROPINE SULFATE 0.1 MG/ML 10ML SYR IV PRN (12:47)
[2019-07-11] MEDS ORDERED: ONDANSETRON INJ 2 MG/ML 2 ML VIAL IV PRN (12:47)
[2019-07-11] MEDS ORDERED: ePHEDrine sulfate 50 MG/ML AMP IV PRN (12:47)
[2019-07-11] MEDS ORDERED: BUPIVACAINE/EPINEPHRINE 0.5% MPF 1:200,000 30 ML VIAL ONE ×2 (13:02→13:03)
[2019-07-11] MEDS ORDERED: PHENYLEPHRINE 100MCG/ML 5ML SYR ONE (13:54)
[2019-07-11] MEDS ORDERED: ePHEDrine sulfate 50 MG/ML SYR ONE (13:54)
[2019-07-11] MEDS ORDERED: PROPOFOL IV EMULSION 10 MG/ML 20 ML VIAL IV ONE (13:54)
[2019-07-11] MEDS ORDERED: BUPIVACAINE/EPINEPHRINE 0.25% 1:200,000 30 ML VIAL INJ ONE (14:56)
[2019-07-11] MEDS ORDERED: NALOXONE HCL 0.4 MG/1 ML VIAL/CARP IV PRN (15:11)
--- NOTE | 2019-07-11 15:11 | Operative Report ---
Post Operative Report Pre & Post Diagnosis Operation Date: 07/11/19 07:00 Pre-Op Diagnosis: Right hip fracture Post-Op Diagnosis: Right hip fracture I identified the patient and participated in the time-out.: Yes Procedure Operation Date: 07/11/19 07:00 Actual Procedures p Right Hip Long Troch Nail(Right) - Roger Watson MD Surgeon Roger Watson MD [employer] Gino Mercer PA-C Estimated Blood Loss 50 Findings Consistent with Post-Op Diagnosis Specimens none Complications none Disposition Accompanied Patient To Recovery: Yes Disposition: Recovery Room Description of Procedure I was present during the entire procedure assisting with wound closure and dressing application. Please see Dr. Watson procedure note for specifics of the case. I attest to the content of the Intraoperative Record and any orders documented therein. Any exceptions are noted below.
[2019-07-11] MEDS ORDERED: SODIUM CHLORIDE 0.9% 1000ML 1,000 ML IV SCH (15:15)
--- NOTE | 2019-07-11 15:23 | Fluoroscopy Report ---
FL hip RT 2-3V HISTORY: 84 years-old Female RT TROCH NAIL acute fracture of the right hip COMPARISON: Right femur radiographs 07/10/2019 TECHNIQUE: 4 spot fluoroscopic images of the right hip and femur were obtained utilizing 193.0 second s fluoroscopy time FINDINGS: Fixation of the acute intertrochanteric fracture with intertrochanteric nail and elongated medullary leodan. There is improved alignment with a least 1 cm lateral displacement of the greater trochanter fra cture fragment. Moderate right hip osteoarthritis. Demineralized appearance of the bones. No addition al acute fracture identified. Expected postsurgical soft tissue swelling and deep tissue air. IMPRESSION: Fluoroscopic assistance as above. Please see operative report for further details. The above report was generated using voice recognition software. It may contain grammatical, syntax o r spelling errors. Electronically signed by: Kevin Mcfarland M.D. 07/11/2019 3:22 PM
--- NOTE | 2019-07-11 15:42 | Operative Report ---
DATE OF OPERATION: 07/11/2019 PREOPERATIVE DIAGNOSIS: Right intertrochanteric femur fracture with subtrochanteric extension. POSTOPERATIVE DIAGNOSIS: Right intertrochanteric femur fracture with subtrochanteric extension. OPERATIONS PERFORMED: Closed reduction and intramedullary nailing of right intertrochanteric femur fracture. SURGEON: Roger Watson MD. HYDROMETEOROLOGY TEACHER: Leon Mercer. ESTIMATED BLOOD LOSS: 50 mL. INTRAVENOUS FLUIDS: 1000 mL of crystalloid. SPECIMENS: None. COMPLICATIONS: None. IMPLANTS: 1. Synthes 11 mm x 360 mm titanium trochanteric fixation nail and a 90 mm length helical blade. 2. A 5 x 48 mm locking screw. INDICATIONS: Ms. Odom is an 84-year-old female who was found down at her home yesterday from a fall. She was brought to the Emergency Room and was admitted to the internal medicine service. X-rays in the Emergency Room demonstrated an intertrochanteric femur fracture with subtrochanteric extension. Her leg was shortened and externally rotated and she was distally neurovascularly intact. She lives independently at baseline. I had a long discussion with the patient and her family about the risks and benefits of surgery, alternatives to surgery and expected outcomes. After reviewing all these, both the patient and her power of roller skates assembler who is her niece, Shayna Wolf, elected to proceed. Informed consent was signed. FINDINGS: Fracture was reduced in closed fashion and stabilized with a long cephalomedullary Synthes titanium nail and helical blade. DESCRIPTION OF THE OPERATION: The patient was identified in the preoperative holding area where her surgical site was marked. She was brought back to main operating room where a spinal anesthetic was performed by anesthesia. She was then moved on to the operating room table. She was moved down on the perineal post and the foot was padded appropriately and secured in a boot for the fracture table. The contralateral hip was flexed and abducted and well-padded. We then brought in our C-arm fluoroscopy and obtained a reduction using a combination of traction, adduction and internal rotation of the leg. The hip was then prepped and draped in the normal sterile fashion. Prior to incision, a multidisciplinary timeout was called. All in the room were in agreement. We began by marking out on the lateral fluoroscopic view, the proper trajectory on the skin. This was then confirmed on the AP view and an incision was made for a length of approximately 4 cm. The guidewire was then placed down to the tip of the trochanter on the AP view. It was then optimized on the lateral view. The guidewire was then drilled down through the greater trochanter and into the proximal femur past the fracture site. The awl was then used to open up the proximal femur. We had just a slight loss of reduction of the greater trochanter fragment when the awl was introduced. I decided to accept this, as the risks of opening the fracture to get a better reduction outweigh the potential benefits. We then placed our 12.5 mm reamer over the guidewire and reamed all the way down to the distal femur. We obtained our measurement, which was 380 mm. I elected to use a 360 mm nail so as to not violate the anterior cortex of the distal femur. The femoral nail was then opened up. The nail was slid over the guidewire and was optimally positioned on the AP fluoroscopic view. We then positioned it on the lateral view. We then placed the outrigger device with the metal sleeve and obturator which we used to attempt to reduce the greater trochanter fragment by turning the compression mechanism which was partially successful. Once this was optimized, the guidewire was then drilled up into the center-center position of the femoral head. It measured a 98 mm. We then drilled to a depth of 95 mm using the opening reamer first and then the step reamer. We then opened up a 90 mm helical blade. This was impacted up into the femoral head. Once this was in place, we then engaged the proximal set screw in the nail to control rotation. We then used the compression device to compress the intertrochanteric fracture region using the helical blade. At this point, the traction was let down on the leg to further compress the subtrochanteric fracture region. We then abducted the leg on the fracture table and obtained our perfect circles on lateral view of the static locking hole in the distal aspect of the nail. A small anna incision was made in the skin and the drill was placed using perfect circles technique. It was measured and a 48 mm screw was selected. The screw was then placed without difficulty. This was checked on the AP and fluoroscopic views, which we were very happy with. At this point, our final fluoroscopic images were obtained. Again, there was slight malreduction of the greater trochanter fragment, but excellent reduction of the medial calcar. The wounds were irrigated with copious amounts of normal saline. The wounds were closed using 2-0 Vicryl in the deep layers and hesham for the skin. 30 mL of 0.5% Marcaine with epinephrine was injected into the incision sites for postoperative pain control. Wounds were dressed with Xeroform, 4 x 4's and Tegaderms. She then had her sedation lifted and was transferred to the recovery room in stable condition. POSTOPERATIVE COURSE: The patient will be admitted back to the internal medicine service. She will be on Lovenox for DVT prophylaxis starting tomorrow morning. She can weightbear as tolerated. Hard copy x-rays are pending in the recovery room. I attest to the content of the Intraoperative Record and any orders documented therein. Any exceptions are noted below. JULY
--- NOTE | 2019-07-11 15:46 | XRay Report ---
XR femur RT 2V routine HISTORY: 84 years-old Female post op troch nail acute fracture of the right hip COMPARISON: Right femur radiographs 07/10/2019 TECHNIQUE: 2 views of the right femur FINDINGS: Status post placement of an intratrochanteric nail with intramedullary leodan fixating the previously de scribed intertrochanteric fracture. There is persistent lateral displacement of the greater trochante deirdre fragment measuring up to 1.7 cm which has improved from comparison. Moderate right hip osteoarthr itis. No additional acute fracture or dislocation. Lateral skin hesham with expected postsurgical so ft tissue swelling and deep tissue air. Arterial calcifications are noted. IMPRESSION: Status post fixation of the acute intertrochanteric fracture with improved alignment. The re is persistent lateral displacement of the greater trochanter. The above report was generated using voice recognition software. It may contain grammatical, syntax o r spelling errors. Electronically signed by: Kevin Mcfarland M.D. 07/11/2019 3:44 PM
--- NOTE | 2019-07-11 16:00 | Anesthesiology Progress Note ---
Date of Service July 11, 2019 Anesthesia Post Procedure Vital Signs Vital Signs: Temp Pulse Pulse Pulse Resp BP BP 07/11/19 15:50 36.4 C L 47 L 20 07/11/19 15:40 47 L 20 07/11/19 15:30 44 L 14 07/11/19 15:20 52 L 19 07/11/19 15:12 36.3 C L 44 L 19 07/11/19 12:17 36.6 C 52 L 18 107/71 07/11/19 07:07 36.4 C L 72 18 151/99 H 07/10/19 23:22 36.5 C 92 H 16 07/10/19 22:10 88 156/107 H 07/10/19 21:22 36.4 C L 92 H 18 162/96 H 07/10/19 21:00 36.4 C L 92 H 18 07/10/19 20:50 81 16 146/83 H 07/10/19 19:32 80 20 07/10/19 19:20 79 19 07/10/19 19:10 83 18 07/10/19 19:00 80 17 137/84 07/10/19 18:50 85 16 07/10/19 18:40 80 14 07/10/19 18:31 85 19 174/100 H 07/10/19 18:30 78 21 07/10/19 18:20 99 H 22 07/10/19 18:10 84 14 07/10/19 18:01 84 11 L 07/10/19 18:00 89 23 159/124 H 07/10/19 17:54 07/10/19 17:50 89 07/10/19 17:40 80 07/10/19 17:30 147/78 H 07/10/19 17:28 104/86 07/10/19 17:27 07/10/19 17:26 86 15 07/10/19 16:50 91 H 23 07/10/19 16:40 89 25 H 07/10/19 16:30 103 H 14 07/10/19 16:20 98 H 22 07/10/19 16:10 99 H 25 H 07/10/19 16:08 36.8 C 78 20 164/121 H 07/10/19 16:07 94 H 23 BP Pulse Ox 07/11/19 15:50 92/46 L 100 07/11/19 15:40 92/47 L 97 07/11/19 15:30 89/42 L 100 07/11/19 15:20 101/44 L 100 07/11/19 15:12 79/41 L 98 07/11/19 12:17 99 07/11/19 07:07 93 07/10/19 23:22 138/92 99 07/10/19 22:10 07/10/19 21:22 99 07/10/19 21:00 162/96 H 98 07/10/19 20:50 100 07/10/19 19:32 134/113 H 94 07/10/19 19:20 99 07/10/19 19:10 100 07/10/19 19:00 100 07/10/19 18:50 99 07/10/19 18:40 100 07/10/19 18:31 07/10/19 18:30 07/10/19 18:20 07/10/19 18:10 07/10/19 18:01 07/10/19 18:00 07/10/19 17:54 88 L 07/10/19 17:50 07/10/19 17:40 07/10/19 17:30 84 L 07/10/19 17:28 89 L 07/10/19 17:27 87 L 07/10/19 17:26 104/86 91 07/10/19 16:50 07/10/19 16:40 07/10/19 16:30 07/10/19 16:20 07/10/19 16:10 07/10/19 16:08 96 07/10/19 16:07 Transfer of Care Handoff Completed per policy Notes Mental Status: alert / awake / arousable and participated in evaluation Nausea / Vomiting: adequately controlled Pain: adequately controlled Airway Patency, RR, SpO2: stable & adequate BP & HR: stable & adequate Hydration State: stable & adequate Neuraxial Anesthesia: was administered and sensory block is resolving Anesthetic Complications: no major complications apparent and Pt Satisfied with anesthetic care
--- NOTE | 2019-07-11 17:25 | Hospitalist Progress Note ---
Date of Service July 11, 2019 Assessment & Plan (1) Bradycardia: EKG this evening with slow a.fib. Bradycardia began about noon today. Prior to noon her HRs had been appropriate. She did receive her atenolol last pm and cardizem last pm and this am. These are chronic meds for her. She appears asymptomatic from the a.fib at this time. However, her low or low-normal BP could be from reduced cardiac output in the setting of the bradycardia. Plan - HOLD atenolol. HOLD cardizem. Check TSH in am. Keep mag/K wnl. Transfer to PCU for ongoing monitoring. If BP continues to be low despite adequate fluid resuscitation, and especially if HR continues to be low, consider giving IV calcium for reversal of calcium channel reggie. Could consider low-dose dopamine or similar as well. Plan of care was signed out to night-time MD. Family made aware of transfer to telemetry. She does not endorse symptoms of ACS but consider checking troponin. (2) Hypotension: Appears to correlate with start of the bradycardia based on vital signs flow sheet. See above in "bradycardia." Thus low cardiac output from slow a.fib could be contributing to hypotension. Gave 500cc NS bolus this evening followed by ongoing maintenance fluids with LR. EBL from surgery today was ~50cc. Despite the low EBL consider checking H/H this evening with any persistent hypotension. HOLD atenolol. HOLD lasix. HOLD cardizem. HOLD lisinopril. Could consider random cortisol level as well. (3) Closed comminuted intertrochanteric fracture of femur: RIGHT. s/p ORIF today by orthopedics. Appreciate their assistance. Lovenox for DVT proph. PT, OT. Replace low vitamin D. Will need rehab. (4) Intramuscular hematoma: Right - in setting of hip fracture. Trend h/h. (5) Fall: Multiple (1 fall about 3 weeks ago, and another preceding this admission). Cause of falls? Niece concerned it is due to bradycardia. See discussion above. Telemetry. Pt, Ot. (6) Compression fracture of thoracic vertebra: osteoporotic. T7, T8, and T10. no pain reported during my visit today. (7) Vitamin D deficiency: vit D level 20. start vit D 2000 IU daily. (8) Anemia: Hb 11. anticipate lower level by the am given fluids, acute blood loss, etc. trend CBC. (9) Pleural effusion: recurrent. high total protein in fluid c/w exudative. etiology?? b/l but worse on right. s/p recent thoracentesis on right by Dr Odonnell in June. moderate effusion on right on CT. seen by thoracic - no Rx at this time. (10) Chronic kidney disease, stage IV (severe): baseline CrCl <30. BMP in am. (11) A-fib: see discussion above in "bradycardia." not on chronic anticoagulation. (12) Hypertension: holding all anti-hypertensives due to hypotension. see above. (13) Chronic diastolic CHF (congestive heart failure): appears compensated at this time. (14) Pericardial effusion: small in size, dating back to 2017 based on serial echos. no evidence of tamponade clinically. etiology? (15) DVT prophylaxis: lovenox 30mg daily selected by orthopedics plan 30-day course of such family updated at bedside this afternoon message left for niece early this evening re: transfer to telemetry next of kin is niece (pt is and she has no biological children) Subjective saw the patient post hip surgery on the ortho floor. her niece and 2 step-sons walked into the room shortly after my arrival. the patient has severe hearing impairment and did not have her hearing aids. thus it was hard to elicit a review of systems. however it appeared she denied any dyspnea, orthopnea, chest pain, abd pain or nausea. a pulse ox/HR monitor was on her and it was reading 40s/50s for her HR. review of HR trend since about 12noon today showed low HRs. following my visit I continued to trend her HR - HRs indeed remained <60. EKG was obtained - my reading - slow a.fib - rate low 40s. no pauses. decision was made to transfer patient to PCU for closer monitoring given her slow a.fib and low or low-normal BPs. Review of Systems Constitutional: no fever Respiratory: no cough and no dyspnea Cardiovascular: no chest pain, no dyspnea at rest, no orthopnea, no paroxysmal nocturnal dyspnea, no palpitations and no edema Gastrointestinal: no abdominal pain, no nausea and no vomiting Physical Exam Constitutional: + thin and + altered mental status (vs severe hearing impairment masquerading as altered MS); no acute distress ENMT: external ear and nose normal, oropharynx normal Respiratory: no respiratory distress Auscultation: lungs clear to auscultation bilaterally and + diminished lung sounds (right base); no crackles and no wheezes Cardiovascular: Rate/Rhythm: + bradycardic and + irregularly irregular Heart Sounds: normal S1 and normal S2; no murmur Vessels: posterior tibial pulses present and dorsalis pedis pulses present; no JVD Extremities: no edema Gastrointestinal (Abdomen): normal bowel sounds, soft, nontender, no hepatosplenomegaly Musculoskeletal: right hip dressings in place Psychiatric: Orientation: alert (mildly slow to answer questions) Results & Data Vital Signs (Past 12 Hours) Vital Signs Temp Pulse Pulse Pulse Resp BP BP 07/11/19 16:55 36.2 C L 52 L 12 108/66 07/11/19 16:20 36.3 C L 43 L 17 98/52 L 07/11/19 16:00 36.4 C L 47 L 20 94/51 L 07/11/19 15:50 36.4 C L 47 L 20 92/46 L 07/11/19 15:40 47 L 20 92/47 L 07/11/19 15:30 44 L 14 89/42 L 07/11/19 15:20 52 L 19 101/44 L 07/11/19 15:12 36.3 C L 44 L 19 79/41 L 07/11/19 12:17 36.6 C 52 L 18 107/71 07/11/19 07:07 36.4 C L 72 18 151/99 H Pulse Ox 07/11/19 16:55 100 07/11/19 16:20 100 07/11/19 16:00 100 07/11/19 15:50 100 07/11/19 15:40 97 07/11/19 15:30 100 07/11/19 15:20 100 07/11/19 15:12 98 07/11/19 12:17 99 07/11/19 07:07 93 Laboratory Results Laboratory Results - last 24 hr 07/11/19 07/11/19 07/11/19 00:18 08:14 08:14 Hgb 11.1 L 11.1 L Hct 34.7 L 34.7 L Sodium 141 Potassium 3.6 Chloride 103 Carbon Dioxide 31 Anion Gap 6.0 BUN 22 H Creatinine 1.04 Est Cr Clr Drug Dosing 28.4 Est GFR ( Amer) 56.7 Est GFR (Non-Af Amer) 49.0 BUN/Creatinine Ratio 20.8 H Glucose 94 Calcium 8.9 Total Creatine Kinase 163 25-OH Vitamin D Total 07/11/19 08:14 Hgb Hct Sodium Potassium Chloride Carbon Dioxide Anion Gap BUN Creatinine Est Cr Clr Drug Dosing Est GFR ( Amer) Est GFR (Non-Af Amer) BUN/Creatinine Ratio Glucose Calcium Total Creatine Kinase 25-OH Vitamin D Total 20.6 L Diagnostic Findings all studies from ER presentation reviewed in detail PG Care Time/CCT Total # of Minutes Spent Total Time Spent with Patient: Total time spent is greater than 50% in coordination of care (as documented) at patient's floor/unit and/or counseling patient: (1) Closed comminuted intertrochanteric fracture of femur Encounter type: subsequent encounter Laterality: right Fracture healing: with routine healing Qualified Code(s): S72.141D - Displaced intertrochanteric fracture of right femur, subsequent encounter for closed fracture with routine healing (2) Fall Encounter type: initial encounter Qualified Code(s): W19.XXXA - Unspecified fall, initial encounter (3) Compression fracture of thoracic vertebra Encounter type: initial encounter Thoracic vertebra fracture level: unspecified thoracic vertebra Qualified Code(s): S22.000A - Wedge compression fracture of unspecified thoracic vertebra, initial encounter for closed fracture (4) Anemia Anemia type: other cause Other causes of anemia: other cause, not classified Qualified Code(s): D64.89 - Other specified anemias (5) A-fib Atrial fibrillation type: permanent Qualified Code(s): I48.21 - Permanent atrial fibrillation (6) Hypertension Hypertension type: essential hypertension Qualified Code(s): I10 - Essential (primary) hypertension (7) Hypotension Hypotension type: other hypotension type Qualified Code(s): I95.89 - Other hypotension
[2019-07-11] MEDS ORDERED: SODIUM CHLORIDE 0.9% 1000ML 500 ML IV ONE (18:33)
[2019-07-11] MEDS ORDERED: Nursing to Pharmacy Communication ONE ×2 (20:28→20:51)
[2019-07-12 06:44] LABS: Basophils # (auto) 0.02 K/uL (0-0.2); Basophils % (auto) 0.1 %; Eosinophils # (auto) 0.03 K/uL (0-0.5); Eosinophils % (auto) 0.2 %; Hematocrit (blood only) 30.4 % (37-47); Hemoglobin 9.5 g/dL (12.0-16.0); Immature Granulocytes # (auto) 0.04 K/uL (0.00-0.02); Immature Granulocytes % (auto) 0.3 %; Lymphocytes % (auto) 7.4 %; Mean Corpuscular Hemoglobin 31.5 pg (25-34); Mean Corpuscular Hgb Conc 31.3 g/dL (32-36); Mean Corpuscular Volume 100.7 fL (80-100); Mean Platelet Volume 9.8 fL (7.4-10.4); Monocytes # (auto) 0.85 K/uL (0.11-0.59); Monocytes % (auto) 6.3 %; Neutrophils # (auto) 11.62 K/uL (1.4-6.5); Neutrophils % (auto) 85.7 %; Platelet Count 245 K/uL (130-400); RDW Coefficient of Variation 13.8 % (11.5-14.5); RDW Standard Deviation 50.6 fL (36.4-46.3); Red Blood Count 3.02 M/uL (4.2-5.4); White Blood Count 13.56 K/uL (4.8-10.8)
[2019-07-12 07:09] LABS: BUN Creatinine Ratio 20.5 (10-20); Calcium 8.4 mg/dl (8.5-10.1); Creatinine Clr Calc Pharmacy 36.6 ml/min; Est GFR (African American) 68.5; Est GFR (Non-African American) 59.1; Magnesium 1.4 mg/dl (1.8-2.4); Potassium 3.9 mmol/L (3.5-5.1)
[2019-07-12 07:20] LABS: Thyroid Stimulating Hormone 3.05 uIu/ml (0.300-4.500)
[2019-07-12] MEDS: LACTATED RINGER'S 1,000 ML IV SCH ×2 (07:43→15:41)
[2019-07-12] MEDS: CHOLECALCIFEROL 1,000 UNITS TAB PO SCH (07:44)
--- NOTE | 2019-07-12 08:56 | Hospitalist Progress Note ---
Date of Service July 12, 2019 Assessment & Plan (1) Closed comminuted intertrochanteric fracture of femur: * POD #1 S/p right hip ORIF by Dr. Watson * Lovenox for DVT * PT * OT * Rehab referral placed for [facility]- auth pending * Will send patient with 50,000 IU Vit D (2) Bradycardia: * Resolved -- post-op EKG with slow a.fib, hypotension (90s/50s) -- likely secondary to slow HR given response of treatment. Evening medications held, 500cc bolus given, transferred to PCU. * Telemetry overnight with HRs 90-110s, 80-90s this morning. * Restarted diltiazem 180 this morning for rate control. * Discussion with cardiology -- continue dilt, but only 180mg daily, continue atenolol (3) Hypotension: * As above * Lasix held in setting of hypotension post-op * Stable- current BP 110/70 * Will resume lasix tomorrow, as patient not volume up on exam- creat stable at 0.89 (4) Intramuscular hematoma: * Right - in setting of hip fracture. * H/H down to 9.5/30.4 * Continue to monitor (5) Fall: * Multiple (1 fall about 3 weeks ago, and another preceding this admission). * Mechanical fall * PT/OT-- will need rehab -- ref Chrissy (6) Compression fracture of thoracic vertebra: * osteoporotic. * T7, T8, and T10. * Pain minimal by report * Vit D supplement-- will d/c with 50,000 IU weekly (7) Vitamin D deficiency: * vit D level 20. * start vit D 2000 IU daily. * Will increase Vit D supplement as above (8) Anemia: * Hb 9.5 -- secondary to fluid bolus and acute blood loss post-op * MCV elevated * B12 wnl * CBC, Folate level in AM (9) Pleural effusion: * recurrent. s/p thoracentesis on right by Dr Odonnell in June.. Seen during admission. No treatment at this time. * high total protein in fluid c/w exudative - ?etiology * Mod right sided effusion on CT (10) Chronic kidney disease, stage IV (severe): * baseline CrCl <30. * BMP in am. (11) A-fib: * see discussion above in "bradycardia." * not on chronic anticoagulation -- per discussion with patient and family today, patient worried about "lack of reversal" for new agents * Will readdress anticoag in AM given patient's CHADsVASc (12) Hypertension: * See above * Stable at 110/70 currenlty. (13) Chronic diastolic CHF (congestive heart failure): * appears compensated at this time. (14) Pericardial effusion: * small in size, dating back to 2017 based on serial echos. * no evidence of tamponade clinically. * etiology? (15) DVT prophylaxis: * lovenox 30mg daily selected by orthopedics * plan 30-day course of such Dispo: possible d/c to [facility] tomorrow pending evaluation Supervising Physician Co-Signing Physician Notes Attending Attestation: Chart reviewed in detail, care plan d/w PA Genevieve Slaughter. I agree w/ the domínguez components of her documentation. POD #1 - s/p ORIF for right hip fracture. Post-op had slow a.fib/bradycardia and hypotension. I believe her hypotension was due to reduced cardiac output from the slow a.fib. Fortunately both her HR and BP are now improved/normalized. Mild acute blood loss anemia - 1.5gm drop overnight. Recommend ferrous sulfate supplementation. MCV is borderline high - recommend checking folic acid level. B12 was wnl. Other plans per Ms Slaughter. Doc Bassett MD Subjective Patient evaluated up in chair with family present. She states she feels better. She was up with physical therapy today and states she is a little sore, but it's much better. Moving her bowels. Denies any chest pain, shortness of breath, nausea, vomiting, fevers, chills, dizziness, or syncope. She plans to go to [facility] for rehab once medically stable. Review of Systems Review of Systems: No fevers, chills, diplopia, difficulty swallowing, chest pain, nausea, vomiting, diarrhea, fevers, chills, dizziness, or syncope. Physical Exam Constitutional: WD/WN, vitals as above Eyes: PERRL, conjunctivae normal, anicteric sclerae ENMT: hard of hearing Neck: trachea midline, no thyromegaly Respiratory: no respiratory distress and no labored breathing Auscultation: + diminished lung sounds (primarily right base); no crackles and no wheezes Cardiovascular: Rate/Rhythm: + irregularly irregular Heart Sounds: normal S1 and normal S2; no murmur Vessels: no JVD Extremities: no edema Gastrointestinal (Abdomen): normal bowel sounds, soft, nontender, no hepatosplenomegaly Musculoskeletal: Right hip: dressings clean, dry and intact. Neurovascularly intact. Calf nontender. Skin: no rashes, warm and dry Neurologic: PERRL, EOMI, accommodation nl, no face palsy, no dysarthria Psychiatric: Orientation: alert, oriented to person and oriented to place baseline dementia Results & Data Vital Signs (Past 12 Hours) Vital Signs Temp Pulse Pulse Resp BP Pulse Ox 07/12/19 08:00 36.4 C L 77 18 123/77 100 07/12/19 03:39 36.5 C 84 20 114/69 100 07/11/19 23:27 36.5 C 66 21 111/71 100 Laboratory Results 07/12/19 07/12/19 07/12/19 Range/Units 08:30 06:31 06:31 WBC 13.56 H (4.8-10.8) K/uL RBC 3.02 L (4.2-5.4) M/uL Hgb 9.5 L (12.0-16.0) g/dL Hct 30.4 L (37-47) % MCV 100.7 H (80-100) fL MCH 31.5 (25-34) pg MCHC 31.3 L (32-36) g/dL RDW Std Deviation 50.6 H (36.4-46.3) fL RDW Coeff of Elvi 13.8 (11.5-14.5) % Plt Count 245 (130-400) K/uL MPV 9.8 (7.4-10.4) fL Immature Gran % (Auto) 0.3 % Neut % (Auto) 85.7 % Lymph % (Auto) 7.4 % [place] % (Auto) 6.3 % Eos % (Auto) 0.2 % Baso % (Auto) 0.1 % Immature Gran # (Auto) 0.04 H (0.00-0.02) K/uL Neut # (Auto) 11.62 H (1.4-6.5) K/uL Lymph # (Auto) 1.00 L (1.2-3.4) K/uL [place] # (Auto) 0.85 H (0.11-0.59) K/uL Eos # (Auto) 0.03 (0-0.5) K/uL Baso # (Auto) 0.02 (0-0.2) K/uL Sodium 140 (136-145) mmol/L Potassium 3.9 (3.5-5.1) mmol/L Chloride 106 (98-107) mmol/L Carbon Dioxide 30 (21-32) mmol/L Anion Gap 4.0 (3-11) BUN 18 (7-18) mg/dl Creatinine 0.89 (0.6-1.2) mg/dl Est Cr Clr Drug Dosing 36.6 ml/min Est GFR ( Amer) 68.5 Est GFR (Non-Af Amer) 59.1 BUN/Creatinine Ratio 20.5 H (10-20) Glucose 111 H (70-99) mg/dl Calcium 8.4 L (8.5-10.1) mg/dl Magnesium 1.4 L (1.8-2.4) mg/dl Total Creatine Kinase (26-192) U/L Vitamin B12 Pending 25-OH Vitamin D Total (30-100) ng/ml TSH 3.050 (0.300-4.500) uIu/ml 07/11/19 07/11/19 Range/Units 08:14 08:14 WBC (4.8-10.8) K/uL RBC (4.2-5.4) M/uL Hgb (12.0-16.0) g/dL Hct (37-47) % MCV (80-100) fL MCH (25-34) pg MCHC (32-36) g/dL RDW Std Deviation (36.4-46.3) fL RDW Coeff of Elvi (11.5-14.5) % Plt Count (130-400) K/uL MPV (7.4-10.4) fL Immature Gran % (Auto) % Neut % (Auto) % Lymph % (Auto) % [place] % (Auto) % Eos % (Auto) % Baso % (Auto) % Immature Gran # (Auto) (0.00-0.02) K/uL Neut # (Auto) (1.4-6.5) K/uL Lymph # (Auto) (1.2-3.4) K/uL [place] # (Auto) (0.11-0.59) K/uL Eos # (Auto) (0-0.5) K/uL Baso # (Auto) (0-0.2) K/uL Sodium 141 (136-145) mmol/L Potassium 3.6 (3.5-5.1) mmol/L Chloride 103 (98-107) mmol/L Carbon Dioxide 31 (21-32) mmol/L Anion Gap 6.0 (3-11) BUN 22 H (7-18) mg/dl Creatinine 1.04 (0.6-1.2) mg/dl Est Cr Clr Drug Dosing 28.4 ml/min Est GFR ( Amer) 56.7 Est GFR (Non-Af Amer) 49.0 BUN/Creatinine Ratio 20.8 H (10-20) Glucose 94 (70-99) mg/dl Calcium 8.9 (8.5-10.1) mg/dl Magnesium (1.8-2.4) mg/dl Total Creatine Kinase 163 (26-192) U/L Vitamin B12 25-OH Vitamin D Total 20.6 L (30-100) ng/ml TSH (0.300-4.500) uIu/ml PG Care Time/CCT Total # of Minutes Spent Total Time Spent with Patient: Total time spent is greater than 50% in coordination of care (as documented) at patient's floor/unit and/or counseling patient: (1) Anemia Anemia type: other cause Other causes of anemia: other cause, not classified Qualified Code(s): D64.89 - Other specified anemias (2) A-fib Atrial fibrillation type: permanent Qualified Code(s): I48.21 - Permanent atrial fibrillation (3) Compression fracture of thoracic vertebra Encounter type: initial encounter Thoracic vertebra fracture level: unspecified thoracic vertebra Qualified Code(s): S22.000A - Wedge compression fracture of unspecified thoracic vertebra, initial encounter for closed fracture (4) Closed comminuted intertrochanteric fracture of femur Encounter type: subsequent encounter Fracture healing: with routine healing Laterality: right Qualified Code(s): S72.141D - Displaced intertrochanteric fracture of right femur, subsequent encounter for closed fracture with routine healing (5) Hypertension Hypertension type: essential hypertension Qualified Code(s): I10 - Essential (primary) hypertension (6) Hypotension Hypotension type: other hypotension type Qualified Code(s): I95.89 - Other hypotension (7) Fall Encounter type: initial encounter Qualified Code(s): W19.XXXA - Unspecified fall, initial encounter
[2019-07-12] MEDS ORDERED: KRILL OM DHA EPA PHOSPHO AST PO SCH (09:00)
[2019-07-12] MEDS ORDERED: FUROSEMIDE 20 MG TAB PO SCH (09:00)
[2019-07-12] MEDS: MAGNESIUM SULFATE / D5W 1 GM/100 ML BAG IV SCH ×3 (09:06→11:15)
[2019-07-12] MEDS ORDERED: CEFAZOLIN 2000MG 2,000 MG/15 ML SYR IV ONE (09:30)
[2019-07-12] MEDS: ACETAMINOPHEN 500 MG TAB PO PRN ×2 (10:16→21:06)
--- NOTE | 2019-07-12 11:06 | Orthopedic Progress Note ---
Date of Service July 12, 2019 Assessment & Plan (1) Status post-operative repair of hip fracture: PT/OT today DVT prophy with IM Lovenox 40 mg for 21 days post op. Please Provide prescription Knee high TEDs for 2 wks post op Pain control with PO med WBAT with walker assistance Ice with EZ wrap Awaiting placement in rehab facility Keep dressing intact Will cont to follow while inpatient Orthopedically patient is ready for discharge. F/u with Dr. Watson or Gino Mercer at [facility] 2 wks after hospital discharge. Call to set up appointment. Subjective This 84 yo F is seen this AM after undergoing ORIF of Right femoral fracture with intramedulary rodding yesterday afternoon. Patient states that she is doing well. States that her pain is well controlled. She denies CP, SOB, Nausea, vomiting, diarrhea or lethargy. Review of Systems Review of Systems: All systems reviewed & are unremarkable except as noted in HPI & below Physical Exam Physical Exam: Right hip: dressings clean, dry and intact. Able to SLR. NV intact. Calf soft and supple. Has not yet been ambulatory but has transitioned from bed to chair. Results & Data Vital Signs (Past 12 Hours) Vital Signs Temp Pulse Pulse Resp BP Pulse Ox 07/12/19 08:00 36.4 C L 77 18 123/77 100 07/12/19 03:39 36.5 C 84 20 114/69 100 07/11/19 23:27 36.5 C 66 21 111/71 100 Laboratory Results 07/12/19 07/12/19 07/12/19 Range/Units 08:30 06:31 06:31 WBC 13.56 H (4.8-10.8) K/uL RBC 3.02 L (4.2-5.4) M/uL Hgb 9.5 L (12.0-16.0) g/dL Hct 30.4 L (37-47) % MCV 100.7 H (80-100) fL MCH 31.5 (25-34) pg MCHC 31.3 L (32-36) g/dL RDW Std Deviation 50.6 H (36.4-46.3) fL RDW Coeff of Elvi 13.8 (11.5-14.5) % Plt Count 245 (130-400) K/uL MPV 9.8 (7.4-10.4) fL Immature Gran % (Auto) 0.3 % Neut % (Auto) 85.7 % Lymph % (Auto) 7.4 % [place] % (Auto) 6.3 % Eos % (Auto) 0.2 % Baso % (Auto) 0.1 % Immature Gran # (Auto) 0.04 H (0.00-0.02) K/uL Neut # (Auto) 11.62 H (1.4-6.5) K/uL Lymph # (Auto) 1.00 L (1.2-3.4) K/uL [place] # (Auto) 0.85 H (0.11-0.59) K/uL Eos # (Auto) 0.03 (0-0.5) K/uL Baso # (Auto) 0.02 (0-0.2) K/uL Sodium 140 (136-145) mmol/L Potassium 3.9 (3.5-5.1) mmol/L Chloride 106 (98-107) mmol/L Carbon Dioxide 30 (21-32) mmol/L Anion Gap 4.0 (3-11) BUN 18 (7-18) mg/dl Creatinine 0.89 (0.6-1.2) mg/dl Est Cr Clr Drug Dosing 36.6 ml/min Est GFR ( Amer) 68.5 Est GFR (Non-Af Amer) 59.1 BUN/Creatinine Ratio 20.5 H (10-20) Glucose 111 H (70-99) mg/dl Calcium 8.4 L (8.5-10.1) mg/dl Magnesium 1.4 L (1.8-2.4) mg/dl Vitamin B12 1637 H (211-911) pg/ml TSH 3.050 (0.300-4.500) uIu/ml
[2019-07-12] MEDS: ENOXAPARIN INJ 30 MG/0.3 ML SYR SQ SCH (15:42)
--- NOTE | 2019-07-12 16:53 | Cardiology Progress Note ---
Date of Service July 12, 2019 Assessment & Plan (1) A-fib: (2) Chronic diastolic CHF (congestive heart failure): (3) Pleural effusion: (4) Hypertension: ASSESSMENT/PLAN: 1. Atrial fibrillation: She remains asymptomatic. She was bradycardic following surgery yesterday. Atenolol has been completely held. She became tachycardic this morning and primary service gave diltiazem 180 mg. Her heart rate is very well controlled currently. Would recommend continuing diltiazem 180 mg once daily in place of her usual twice daily unless her heart rate warrants returning to her home dose. She has declined anticoagulation therapy as an outpatient after several discussions despite having significantly elevated chads Vasc score. 2. Chronic diastolic CHF: She appears euvolemic on examination. Can resume her home dose of Lasix as she has been receiving some intermittent fluids. Low- sodium diet. 3. Hypertension: Blood pressure was mildly hypotensive yesterday but normotensive today. Plan as above. 4. Pleural effusion: Followed by Dr. Odonnell. She does not appear to be s ymptomatic currently. 5. Disposition: Plan of care discussed with primary service, Ms. Slaughter. Please call with any other questions or concerns. Subjective She is much more alert today. She denies chest pain, shortness of breath, syncope, near-syncope, palpitations, or edema. She states that her right hip hurts if she tries to walk. Because she is more alert today and less confused we discussed her fall that led to her injury. She states that she lost her balance in the kitchen when she turned, describing a mechanical fall, without syncope. Yesterday following surgery she became bradycardic. Hospitalist service held her rate-controlling medications and her heart rate improved, becoming mildly tachycardic this morning. Diltiazem 180 mg was given this morning and her heart rate has since improved. She was alone in her hospital room. Review of systems: As above. Physical Exam Physical Exam: Gen.: No acute distress. Alert. Oriented to place, month, self. She did not know the year. HEENT: Anicteric sclera. Neck: No JVD. Cardiac: Irregularly irregular. Rate controlled. Normal S1-S2. 1/6 systolic murmur best heard at the apex. No rubs, or gallops. Pulmonary: Clear to auscultation bilaterally without wheezes, rales, or rhonchi. Abdomen: Soft, nontender, nondistended, with normoactive bowel sounds. No bruits noted. Extremities: 2+ radial pulses bilaterally. 1+ posterior tibialis pulses bilaterally. No edema or cyanosis. Psychiatric: Affect appears appropriate. Results & Data Vital Signs (Past 12 Hours) Vital Signs Temp Pulse Pulse Resp BP Pulse Ox 07/12/19 15:51 68 07/12/19 15:16 36.4 C L 67 18 110/70 98 07/12/19 12:00 36.4 C L 77 18 102/67 07/12/19 08:00 36.4 C L 77 18 123/77 100 Intake & Output 07/10/19 07/11/19 07/12/19 07/13/19 06:59 06:59 06:59 06:59 Intake Total 1430 / 1430 3610 / 3610 1037.5 / 1037.5 Output Total 325 / 325 425 / 425 110 / 110 Balance 1105 / 1105 3185 / 3185 927.5 / 927.5 Weight 50 kg 57.2 kg Laboratory Results Laboratory Results - last 24 hr 07/12/19 07/12/19 07/12/19 06:31 06:31 08:30 WBC 13.56 H RBC 3.02 L Hgb 9.5 L Hct 30.4 L MCV 100.7 H MCH 31.5 MCHC 31.3 L RDW Std Deviation 50.6 H RDW Coeff of Elvi 13.8 Plt Count 245 MPV 9.8 Immature Gran % (Auto) 0.3 Neut % (Auto) 85.7 Lymph % (Auto) 7.4 [place] % (Auto) 6.3 Eos % (Auto) 0.2 Baso % (Auto) 0.1 Immature Gran # (Auto) 0.04 H Neut # (Auto) 11.62 H Lymph # (Auto) 1.00 L [place] # (Auto) 0.85 H Eos # (Auto) 0.03 Baso # (Auto) 0.02 Sodium 140 Potassium 3.9 Chloride 106 Carbon Dioxide 30 Anion Gap 4.0 BUN 18 Creatinine 0.89 Est Cr Clr Drug Dosing 36.6 Est GFR ( Amer) 68.5 Est GFR (Non-Af Amer) 59.1 BUN/Creatinine Ratio 20.5 H Glucose 111 H Calcium 8.4 L Magnesium 1.4 L Vitamin B12 1637 H TSH 3.050 Diagnostic Findings Telemetry personally reviewed: Currently rate controlled atrial fibrillation. No significant pauses. Was tachycardic this morning. Medications Administered Current Inpatient Medications Acetaminophen (Tylenol) 1,000 mg PO Q6H PRN PRN Reason: post op pain Stop: 08/10/19 15:14 Last Admin: 07/12/19 10:16 Dose: 1,000 mg Documented by: Atenolol (Tenormin) 12.5 mg PO HS [facility] Stop: 08/09/19 21:03 Last Admin: 07/10/19 22:15 Dose: 12.5 mg Documented by: Diltiazem HCl (Dilacor Xr) 180 mg PO QAM [facility] Stop: 08/12/19 08:59 Enoxaparin Sodium (Lovenox) 30 mg SQ Q24H [facility] Stop: 08/02/19 15:14 Last Admin: 07/12/19 15:42 Dose: 30 mg Documented by: Furosemide (Lasix) 20 mg PO QAM [facility] Stop: 08/11/19 08:59 Lactated Ringer's (Lr) 1,000 mls @ 75 mls/hr IV .[id number] [facility] Stop: 08/09/19 21:29 Last Admin: 07/12/19 15:41 Dose: 75 mls/hr Documented by: Sodium Chloride (Nss 1000ml) 1,000 mls @ 0 mls/hr IV .Q0M [facility] Stop: 08/10/19 15:14 Ioversol (Optiray 320 100ml) 92 ml IV ONCE PRN PRN Reason: Interaction Checking Stop: 07/14/19 16:48 Last Admin: 07/10/19 16:49 Dose: 92 ml Documented by: Lisinopril (Zestril) 20 mg PO BID [facility] Stop: 08/10/19 20:59 Naloxone HCl (Narcan) 0.1 mg IV UD PRN PRN Reason: Opioid Overdose Stop: 08/10/19 15:10 Ondansetron HCl (Zofran) 4 mg IV Q6H PRN PRN Reason: Nausea Stop: 08/09/19 21:03 Vitamin D (Vitamin D3) 2,000 units PO QAM [facility] Stop: 08/11/19 08:59 Last Admin: 07/12/19 07:44 Dose: 2,000 units Documented by: PG Care Time/CCT Total # of Minutes Spent Total Time Spent with Patient: Total time spent is greater than 50% in coordination of care (as documented) at patient's floor/unit and/or counseling patient: (1) A-fib Atrial fibrillation type: permanent Qualified Code(s): I48.21 - Permanent atrial fibrillation (2) Hypertension Hypertension type: essential hypertension Qualified Code(s): I10 - Essential (primary) hypertension
[2019-07-12] MEDS: ATENOLOL 25 MG TABLET PO SCH (21:00)
[2019-07-12] MEDS: LISINOPRIL 20 MG TAB PO SCH (21:01)
[2019-07-12] MEDS ORDERED: FUROSEMIDE 20 MG TAB PO ONE (23:28)
[2019-07-13] MEDS: LACTATED RINGER'S 1,000 ML IV SCH (04:00)
[2019-07-13 06:51] LABS: Hematocrit (blood only) 30.8 % (37-47); Hemoglobin 9.8 g/dL (12.0-16.0); Mean Corpuscular Hemoglobin 31.3 pg (25-34); Mean Corpuscular Hgb Conc 31.8 g/dL (32-36); Mean Corpuscular Volume 98.4 fL (80-100); Mean Platelet Volume 9.8 fL (7.4-10.4); Platelet Count 243 K/uL (130-400); RDW Coefficient of Variation 13.8 % (11.5-14.5); RDW Standard Deviation 49.6 fL (36.4-46.3); Red Blood Count 3.13 M/uL (4.2-5.4); White Blood Count 14.29 K/uL (4.8-10.8)
[2019-07-13 07:26] LABS: BUN Creatinine Ratio 16.7 (10-20); Calcium 8.9 mg/dl (8.5-10.1); Creatinine Clr Calc Pharmacy 30.5 ml/min; Est GFR (African American) 55.4; Est GFR (Non-African American) 47.8; Magnesium 2.1 mg/dl (1.8-2.4); Potassium 3.7 mmol/L (3.5-5.1)
--- NOTE | 2019-07-13 08:57 | Surgery Progress Note ---
Date of Service July 13, 2019 Assessment & Plan (1) Pleural effusion: -pt. has undergone multiple thoracentesis in the past -as she does not appear to have respiratory distress/SOB no intervention will be performed at this time -continue to follow symptomatically as well as with serial CXR and consider thoracentesis if the need arises Subjective Pt. state her breathing "feels fine." No CP. Physical Exam Respiratory: normal respiratory effort; no respiratory distress, no labored breathing and no cough BS noted to be diminished at bases R>L Results & Data Vital Signs (Past 12 Hours) Vital Signs Temp Pulse Pulse Resp BP BP Pulse Ox 07/13/19 08:00 36.3 C L 81 18 116/68 07/13/19 04:10 36.4 C L 70 20 124/73 93 07/12/19 23:14 36.4 C L 69 16 104/64 91 07/12/19 21:02 102/61 96 PG Care Time/CCT Total # of Minutes Spent Total Time Spent with Patient: Total time spent is greater than 50% in coordination of care (as documented) at patient's floor/unit and/or counseling patient:
[2019-07-13] MEDS: FOLIC ACID 400 MCG TAB PO SCH (10:10)
[2019-07-13] MEDS: CHOLECALCIFEROL 1,000 UNITS TAB PO SCH (10:10)
[2019-07-13] MEDS: LISINOPRIL 20 MG TAB PO SCH ×2 (10:12→20:55)
--- NOTE | 2019-07-13 11:37 | Orthopedic Progress Note ---
Date of Service July 13, 2019 Assessment & Plan (1) Status post-operative repair of hip fracture: PT/OT today DVT prophy with IM Lovenox 40 mg for 21 days post op. Please Provide prescription Knee high TEDs for 2 wks post op Pain control with PO med WBAT with walker assistance Ice with EZ wrap Awaiting placement in rehab facility Keep dressing intact Will cont to follow while inpatient Orthopedically patient is ready for discharge to rehab facility. F/u with Dr. Watson or Gino Mercer at [facility] 2 wks after hospital discharge. Call to set up appointment. Subjective This 84 yo F is 2 days s/p ORIF of Right femoral neck fracture with intramedulary leodan placement. Patient states that she is doing well. She is currently seated in chair. She denies pain, fever, chills, sweats, nausea, vomiting diarrhea, CP or SOB. Family is currently visiting. Review of Systems Review of Systems: All systems reviewed & are unremarkable except as noted in HPI & below Physical Exam Physical Exam: Right hip: dressings clean, dry and intact. Able to SLR. NV intact. Calf soft and supple. Has been ambulatory around her room with walker assitance with PT. Results & Data Vital Signs (Past 12 Hours) Vital Signs Temp Pulse Pulse Resp BP BP Pulse Ox 07/13/19 09:26 80 20 100 07/13/19 09:25 79 20 97 07/13/19 08:00 36.3 C L 81 18 116/68 07/13/19 04:10 36.4 C L 70 20 124/73 93 Laboratory Results 07/13/19 07/13/19 07/13/19 Range/Units 06:36 06:36 06:36 WBC 14.29 H (4.8-10.8) K/uL RBC 3.13 L (4.2-5.4) M/uL Hgb 9.8 L (12.0-16.0) g/dL Hct 30.8 L (37-47) % MCV 98.4 (80-100) fL MCH 31.3 (25-34) pg MCHC 31.8 L (32-36) g/dL RDW Std Deviation 49.6 H (36.4-46.3) fL RDW Coeff of Elvi 13.8 (11.5-14.5) % Plt Count 243 (130-400) K/uL MPV 9.8 (7.4-10.4) fL Sodium 138 (136-145) mmol/L Potassium 3.7 (3.5-5.1) mmol/L Chloride 102 (98-107) mmol/L Carbon Dioxide 30 (21-32) mmol/L Anion Gap 6.0 (3-11) BUN 18 (7-18) mg/dl Creatinine 1.06 (0.6-1.2) mg/dl Est Cr Clr Drug Dosing 30.5 ml/min Est GFR ( Amer) 55.4 Est GFR (Non-Af Amer) 47.8 BUN/Creatinine Ratio 16.7 (10-20) Glucose 98 (70-99) mg/dl Calcium 8.9 (8.5-10.1) mg/dl Magnesium 2.1 (1.8-2.4) mg/dl Folate 4.14 L (>5.38) ng/ml
[2019-07-13] MEDS: ACETAMINOPHEN 500 MG TAB PO PRN ×2 (12:46→20:55)
[2019-07-13] MEDS: ENOXAPARIN INJ 30 MG/0.3 ML SYR SQ SCH (16:25)
--- NOTE | 2019-07-13 17:12 | Hospitalist Progress Note ---
Date of Service July 13, 2019 Assessment & Plan (1) Closed comminuted intertrochanteric fracture of femur: * POD #2 S/p right hip ORIF by Dr. Watson * Lovenox for DVT * PT * OT * Rehab referral placed for [facility] -- auth pending * Vit D level low-- will need to increase replacement-- had previously been on 50,000IU daily but unsure why they stopped. (2) Bradycardia: * Resolved -- post-op EKG with slow a.fib, hypotension (90s/50s) -- likely secondary to slow HR given response of treatment. Evening medications held, 500cc bolus given, transferred to PCU. * Telemetry overnight -- afib 70-80s, 80s this morning-- rate controlled * Restarted diltiazem 180 yesterday morning for rate control -- per cardiology recommendations, will continue forward with just 180mg daily. Continue atenolol. (3) Hypotension: * As above -- lasix originally held in setting of hypotension post operatively. * Lasix held in setting of hypotension post-op * Stable - current BP 116/68 * Lasix was resumed last evening for urine output. Patient euvolemic on exam today * Will continue to monitor (4) Intramuscular hematoma: * Right - in setting of hip fracture. * H/H improved to 9.8/30.8 * Continue to monitor (5) Fall: * Multiple (1 fall about 3 weeks ago, and another preceding this admission). * Mechanical fall * PT/OT-- to go to [facility] tomorrow (6) Compression fracture of thoracic vertebra: * osteoporotic. * T7, T8, and T10. * Pain minimal by report * Vit D supplement increased to 50,000 IU weekly * Family requested DEXA scan while inpatient-- will need done as outpatient (7) Vitamin D deficiency: * vit D level 20. * Will increase Vit D supplement as above (8) Anemia: * Hb 9.8 -- secondary to fluid bolus and acute blood loss post-op * MCV elevated -- B12 wnl, however folate level low * Folic acid supplementation * Continue to monitor (9) Pleural effusion: * Recurrent. s/p thoracentesis on right by Dr Odonnell in June. * Moderate right sided effusion on CT * Previous analysis c/w exudative effusion -- ?? CHF vs other * See during this admission. Sats acceptable on room air-- no intervention at this time * Will continue to monitor (10) Chronic kidney disease, stage IV (severe): * baseline GFR <30. * GFR 30.5 today * Will continue to monitor * BMP in am. (11) A-fib: * See discussion above in "bradycardia." * Not on chronic anticoagulation -- per discussion with patient and family, patient worried about "lack of reversal" for new agents * Will readdress anticoag in AM given patient's CHADsVASc (12) Hypertension: * See above * Stable at 116/68 currently. (13) Chronic diastolic CHF (congestive heart failure): * appears compensated at this time. * ECHO 01/12/19 -- LVEF 60-65%. Normal LV size. Grade 2 diastolic dysfunction. Mild mitral regurg. Small pericardial effusion. No evidence of tamponade (14) Pericardial effusion: * small in size, dating back to 2017 based on serial echos. * no evidence of tamponade clinically. (15) DVT prophylaxis: * lovenox 30mg daily selected by orthopedics * plan 30-day course of such Dispo: discharge tomorrow to [facility] Supervising Physician Co-Signing Physician Notes Attending Attestation: Chart reviewed in detail, care plan d/w JUAN JOSÉ Slaughter. I agree w/ the domínguez components of her documentation. POD #2 - s/p ORIF for right hip fracture. Post-op had slow a.fib/bradycardia and hypotension. Both resolved. Diltiazem resumed although at daily dosing rather than BID dosing as previous. HRs/BPs acceptable overnight. Mild acute blood loss anemia - ferrous sulfate supplementation. Folic acid def - start folate 1mg daily x 30 days. Dispo planning for rehab. Doc Bassett MD Subjective Patient evaluated at bedside with family present. She states she's feeling fine. Pain in hip tolerable with PO medications. No bowel movement, but she has been passing gas. Patient plans to go to [facility] once stable via liter van per family. Denies chest pain or shortness of breath at this time. Review of Systems Review of Systems: No fevers, chills, diplopia, syncope, dizziness, difficulty swallowing, chest pain, nausea, vomiting, diarrhea, fevers, chills. Physical Exam Constitutional: WD/WN, vitals as above Eyes: PERRL, conjunctivae normal, anicteric sclerae Neck: trachea midline, no thyromegaly Respiratory: no respiratory distress and no labored breathing Auscultation: + diminished lung sounds (primarily right base); no crackles and no wheezes Cardiovascular: Rate/Rhythm: + irregularly irregular Heart Sounds: normal S1 and normal S2; no murmur Vessels: no JVD Extremities: no edema Gastrointestinal (Abdomen): normal bowel sounds, soft, nontender, no hepatosplenomegaly Musculoskeletal: dressing to hip c/d/i NVI Skin: no rashes, warm and dry Neurologic: PERRL, EOMI, accommodation nl, no face palsy, no dysarthria Psychiatric: Orientation: alert, oriented to person and oriented to place Results & Data Vital Signs (Past 12 Hours) Vital Signs Temp Pulse Resp BP Pulse Ox 07/13/19 15:03 36.8 C 84 16 87/57 L 91 07/13/19 12:00 37.2 C 72 20 95/63 L 07/13/19 09:26 80 20 100 07/13/19 09:25 79 20 97 07/13/19 08:00 36.3 C L 81 18 116/68 Laboratory Results 07/13/19 07/13/19 07/13/19 Range/Units 06:36 06:36 06:36 WBC 14.29 H (4.8-10.8) K/uL RBC 3.13 L (4.2-5.4) M/uL Hgb 9.8 L (12.0-16.0) g/dL Hct 30.8 L (37-47) % MCV 98.4 (80-100) fL MCH 31.3 (25-34) pg MCHC 31.8 L (32-36) g/dL RDW Std Deviation 49.6 H (36.4-46.3) fL RDW Coeff of Elvi 13.8 (11.5-14.5) % Plt Count 243 (130-400) K/uL MPV 9.8 (7.4-10.4) fL Sodium 138 (136-145) mmol/L Potassium 3.7 (3.5-5.1) mmol/L Chloride 102 (98-107) mmol/L Carbon Dioxide 30 (21-32) mmol/L Anion Gap 6.0 (3-11) BUN 18 (7-18) mg/dl Creatinine 1.06 (0.6-1.2) mg/dl Est Cr Clr Drug Dosing 30.5 ml/min Est GFR ( Amer) 55.4 Est GFR (Non-Af Amer) 47.8 BUN/Creatinine Ratio 16.7 (10-20) Glucose 98 (70-99) mg/dl Calcium 8.9 (8.5-10.1) mg/dl Magnesium 2.1 (1.8-2.4) mg/dl Folate 4.14 L (>5.38) ng/ml PG Care Time/CCT Total # of Minutes Spent Total Time Spent with Patient: Total time spent is greater than 50% in coordination of care (as documented) at patient's floor/unit and/or counseling patient: (1) Anemia Anemia type: other cause Other causes of anemia: other cause, not classified Qualified Code(s): D64.89 - Other specified anemias (2) A-fib Atrial fibrillation type: permanent Qualified Code(s): I48.21 - Permanent atrial fibrillation (3) Compression fracture of thoracic vertebra Encounter type: initial encounter Thoracic vertebra fracture level: unspecified thoracic vertebra Qualified Code(s): S22.000A - Wedge compression fracture of unspecified thoracic vertebra, initial encounter for closed fracture (4) Closed comminuted intertrochanteric fracture of femur Encounter type: subsequent encounter Fracture healing: with routine healing Laterality: right Qualified Code(s): S72.141D - Displaced intertrochanteric fracture of right femur, subsequent encounter for closed fracture with routine healing (5) Hypertension Hypertension type: essential hypertension Qualified Code(s): I10 - Essential (primary) hypertension (6) Hypotension Hypotension type: other hypotension type Qualified Code(s): I95.89 - Other hypotension (7) Fall Encounter type: initial encounter Qualified Code(s): W19.XXXA - Unspecified fall, initial encounter
[2019-07-13] MEDS ORDERED: POLYETHYLENE (MIRALAX) 17 GM PACK PO PRN (19:05)
[2019-07-13] MEDS ORDERED: DOCUSATE SODIUM 100 MG CAP PO ONE (19:05)
[2019-07-13] MEDS: ATENOLOL 25 MG TABLET PO SCH (20:54)
[2019-07-14 06:58] LABS: Hematocrit (blood only) 28.6 % (37-47); Hemoglobin 9.2 g/dL (12.0-16.0); Mean Corpuscular Hemoglobin 31.3 pg (25-34); Mean Corpuscular Hgb Conc 32.2 g/dL (32-36); Mean Corpuscular Volume 97.3 fL (80-100); Mean Platelet Volume 9.6 fL (7.4-10.4); Platelet Count 263 K/uL (130-400); RDW Coefficient of Variation 13.6 % (11.5-14.5); RDW Standard Deviation 47.8 fL (36.4-46.3); Red Blood Count 2.94 M/uL (4.2-5.4); White Blood Count 14.11 K/uL (4.8-10.8)
[2019-07-14 07:06] LABS: Prothrombin Time 10.4 Seconds (9.0-12.0)
[2019-07-14 07:35] LABS: BUN Creatinine Ratio 18.9 (10-20); Calcium 8.7 mg/dl (8.5-10.1); Est GFR (African American) 64.1; Est GFR (Non-African American) 55.3; Magnesium 1.8 mg/dl (1.8-2.4); Potassium 3.3 mmol/L (3.5-5.1)
[2019-07-14] MEDS ORDERED: ERGOCALCIFEROL 50,000 UNITS CAP PO SCH (08:00)
[2019-07-14] MEDS: FOLIC ACID 400 MCG TAB PO SCH (08:51)
[2019-07-14] MEDS: LISINOPRIL 20 MG TAB PO SCH (08:51)
[2019-07-14] MEDS ORDERED: POTASSIUM CHLORIDE 20 MEQ TABCR PO ONE ×2 (09:00)
--- NOTE | 2019-07-14 10:53 | Hospitalist Progress Note ---
Date of Service July 14, 2019 Results & Data Vital Signs (Past 12 Hours) Vital Signs Temp Pulse Pulse Resp BP Pulse Ox 07/14/19 07:44 36.5 C 80 16 105/69 98 07/14/19 03:27 36.3 C L 90 18 122/78 94 07/14/19 00:00 77 07/13/19 23:07 36.3 C L 85 18 97/61 L 94 Laboratory Results 07/14/19 07/14/19 07/14/19 Range/Units 06:51 06:51 06:51 WBC 14.11 H (4.8-10.8) K/uL RBC 2.94 L (4.2-5.4) M/uL Hgb 9.2 L (12.0-16.0) g/dL Hct 28.6 L (37-47) % MCV 97.3 (80-100) fL MCH 31.3 (25-34) pg MCHC 32.2 (32-36) g/dL RDW Std Deviation 47.8 H (36.4-46.3) fL RDW Coeff of Elvi 13.6 (11.5-14.5) % Plt Count 263 (130-400) K/uL MPV 9.6 (7.4-10.4) fL PT 10.4 (9.0-12.0) Seconds INR 1.0 (0.9-1.1) Sodium 137 (136-145) mmol/L Potassium 3.3 L (3.5-5.1) mmol/L Chloride 102 (98-107) mmol/L Carbon Dioxide 28 (21-32) mmol/L Anion Gap 7.0 (3-11) BUN 18 (7-18) mg/dl Creatinine 0.94 (0.6-1.2) mg/dl Est Cr Clr Drug Dosing 35.0 ml/min Est GFR ( Amer) 64.1 Est GFR (Non-Af Amer) 55.3 BUN/Creatinine Ratio 18.9 (10-20) Glucose 88 (70-99) mg/dl Calcium 8.7 (8.5-10.1) mg/dl Magnesium 1.8 (1.8-2.4) mg/dl PG Care Time/CCT Total # of Minutes Spent Total Time Spent with Patient: Total time spent is greater than 50% in coordination of care (as documented) at patient's floor/unit and/or counseling patient:
--- NOTE | 2019-07-14 11:34 | Discharge Summary ---
Date of Service July 14, 2019 Admission HPI Per Admitting Provider Ms. Odom is a 84 year old female with a past medical history of atrial fibrillation, hypertension, diastolic CHF, CKD stage III, compression fractures of thoracic vertebrae, recurrent pleural effusions s/p repeated thoracenteses and vitamin D deficiency who presents to the emergency department after a fall. Her family is present at the bedside, and report that they found her on the ground this afternoon, and think that she may have fallen last evening. History is largely provided by her family, given Ms. Odom is extremely hard of hearing. Her family states that she has been well recently, although do report that she did have another mechanical fall approximately 3 weeks ago, while she was walking her dog. She did seek medical attention at this time, and had a CT scan of her head performed, which did not show any evidence of intracranial hemorrhage. She, however, did suffer vertebral fractures at this time, and has been managing her pain with Tylenol. They do endorse that she has been more short of breath since June 22, at which time she had a pleural effusion drained by Dr. Odonnell. They do note that since her atenolol dose was decreased recently, she has not complained of shortness of breath. She denies any recent chest pain. Her family reports that she did not take any of her usual medications last night. They report that she follows with the heart failure clinic, and generally sees Dr. Telles. She is not on anticoagulation for atrial fibrillation. She is a non-smoker. She enjoys the occasional glass of wine. She lives at home, by herself, and is independent in all her ADLs. Her home is one level, however she does have a few steps to get into her house, and a couple of steps to get into certain rooms. Admission Exam Per Admitting Provider Constitutional: WD/WN, vitals as above Eyes: PERRL, conjunctivae normal, anicteric sclerae ENMT: external ear and nose normal, oropharynx normal (Dry mucous membranes) Respiratory: normal respiratory effort, lungs clear to auscultation Cardiovascular: Rate/Rhythm: regular rate and regular rhythm (Irregularly irregular) Vessels: dorsalis pedis pulses present (Faint, but palpable) Extremities: normal capillary refill; no calf tenderness and no pedal edema Gastrointestinal (Abdomen): normal bowel sounds, soft, nontender, no hepato splenomegaly Musculoskeletal: Right leg externally rotated and shortened Moves all extremities, with the exception of right leg Skin: no rashes, warm and dry Neurologic: PERRL, EOMI, accommodation nl, no face palsy, no dysarthria no focal motor deficits Psychiatric: Orientation: alert Oriented to person only Principal Diagnosis Closed comminuted intertrochanteric fracture of femur Discharge Exam Constitutional WD/WN, vitals as above Eyes PERRL, conjunctivae normal, anicteric sclerae Neck trachea midline, no thyromegaly Respiratory no respiratory distress and no labored breathing Auscultation: + diminished lung sounds (primarily right base); no crackles and no wheezes Cardiovascular Rate/Rhythm: + irregularly irregular Heart Sounds: normal S1 and normal S2; no murmur Vessels: no JVD Extremities: no edema Gastrointestinal (Abdomen) normal bowel sounds, soft, nontender, no hepatosplenomegaly Skin no rashes, warm and dry Neurologic PERRL, EOMI, accommodation nl, no face palsy, no dysarthria Psychiatric Orientation: alert, oriented to person and oriented to place Discharge Data Allergies Allergy/AdvReac Type Severity Reaction Status Date / Time codeine AdvReac Verified 07/10/19 17:28 fentanyl AdvReac Verified 07/10/19 17:28 hydromorphone [From Dilaudid] AdvReac Verified 07/10/19 17:28 tramadol AdvReac Verified 07/10/19 17:28 Consultations 07/10/19 19:05 ED Decision to Admit Stat 07/10/19 21:04 Consult Cardiology Routine Consult Case Management - Discharge Planning Routine Consult Orthopedic Surgery Routine 07/10/19 22:09 Consult Thoracic Surgery Routine 07/11/19 15:11 Consult Case Management - Discharge Planning Routine Procedures Performed Operation Date: 07/11/19 07:00 Actual Procedures p Right Hip Long Troch Nail(Right) - Roger Watson MD Ordered Studies 07/10/19 16:37 CT cervical spine wo con Stat CT chest w con Stat CT head/brain wo con Stat 07/10/19 16:39 CT abd pelvis IV con only Stat CT lumbar spine wo con Stat CT thoracic spine wo con Stat 07/11/19 14:00 FL fluoroscopy <1hr Routine FL hip RT 2-3V Routine Femur x-ray Hip x-ray Pelvis x-ray Chest x-ray Hospital Course (1) Closed comminuted intertrochanteric fracture of femur: * POD #3 S/p right hip ORIF by Dr. Watson * Now on Eliquis for A. fib which would also serve as DVT prophylaxis * PT * OT * Rehab at [facility] * Vit D level low-- had previously been on 50,000IU daily but unsure why they stopped -- was given 2,000 IU daily and 50,000 IU prior to d/c * Will need outpatient DEXA scan (2) Bradycardia: * Resolved -- post-op EKG with slow a.fib, hypotension (90s/50s) -- likely secondary to slow HR given response of treatment. Evening medications held, 500cc bolus given and patient was transferred to PCU. Patient remained rate controlled, 70-80bpm on telemetry after reducing AV breana blocking agents * Restarted diltiazem 180 mg ONCE DAILY as per cardiology recommendations which is a reduction from her previous dosing of twice daily * Continue atenolol 12.5 mg qhs (3) Hypotension: * As above (4) Intramuscular hematoma: * Right - in setting of hip fracture. H/H decreased, but stable at d/c. Patient initiated on iron BID as well as folate. (5) Fall: * Multiple (1 fall about 3 weeks ago, and another preceding this admission). * Mechanical fall (6) Compression fracture of thoracic vertebra: * osteoporotic. * T7, T8, and T10. * Pain minimal by report * Vit D supplement increased to 50,000 IU weekly * DEXA scan will need done as outpatient (7) Vitamin D deficiency: * vit D level 20. * Increase Vit D supplement as above (8) Anemia: * Hb 9.2 -- secondary to fluid bolus and acute blood loss post-op * MCV elevated -- B12 wnl, however folate level low * With folate deficiency anemia * Folic acid supplementation recommended at 1 mg once daily (9) Pleural effusion: * Recurrent. s/p thoracentesis on right by Dr Odonnell in June. * Moderate right sided effusion on CT * Previous analysis c/w exudative effusion -- ?? CHF vs other * See during this admission. Sats acceptable on room air-- no intervention at this time (10) Chronic kidney disease, stage IV (severe): * baseline GFR <30. * GFR 30.5 today (11) A-fib: * See discussion above in "bradycardia." * Not on chronic anticoagulation -- per discussion with patient and family, patient worried about "lack of reversal" for new agents * Patient agreeable to initiation of Eliquis prior to discharge. Given prescription, 2.5mg BID dosing based on wt and age (12) Hypertension: * See above (13) Chronic diastolic CHF (congestive heart failure): * appears compensated at this time. * ECHO 01/12/19 -- LVEF 60-65%. Normal LV size. Grade 2 diastolic dysfunction. Mild mitral regurg. Small pericardial effusion. No evidence of tamponade (14) Pericardial effusion: * small in size, dating back to 2017 based on serial echos. * no evidence of tamponade clinically. (15) Leukocytosis: WBC count still elevated at 14 up on the day of discharge. She remained afebrile and there was no signs of infection anywhere This likely represents a reactive leukocytosis secondary to stress of recent surgery -Follow CBC in 2 to 3 days as a resident [facility] [place] [facility] (16) DVT prophylaxis: * Lovenox while inpatient-- as patient d/c on eliquis, will no longer need lovenox Total Time Total Time Spent Total Time Spent (In Minutes): 60 Discharge Plan Discharge Items Patient Disposition: Transfer Jail Fac Reason For Visit: HIP FRACTURE Discharge Diagnosis: Right Hip Fracture Goals: You have been hospitalized for an urgent problem which required surgery. During your stay at [facility], we have made an effort to correct the problem that brought you to the hospital while keeping you as comfortable as possible. Surgery and medications were used to bring your condition under control and your discharge instructions will include directions for any medications you should take after leaving the hospital. Please make sure to follow the advice of your surgeon regarding follow up with the surgeon and with your primary care provider. Activity: As commented below Non-emergency contact: Primary Care Provider and Surgeon Call non-emergency contact if: you have any medication questions, your pain is not controlled, you have a fever, your wound has increased redness, your wound has increased drainage and your wound pain has increased Follow-up/Referrals: Nehemias Gooden MD [Primary Care Provider] - Diet: Heart Healthy Addtl Attending Provider Instructions: The following medications changes have been made: - DECREASE Diltiazem to 180mg ONCE DAILY - DECREASE Lisinopril to 20mg ONCE DAILY --- this may be titrated back up to twice daily if your blood pressure begins to become elevated. - START Eliquis 2.5mg TWICE DAILY These medications were started while you have been in the hospital: - CONTINUE Folic Acid 1 mg DAILY - CONTINUE IRON supplementation 325mg TWICE DAILY - CONTINUE Vitamin D 50,000 IU weekly. You received last dose 07/13/19. You should have a repeat CBC (complete blood count) drawn within 2-3 days to monitor your hemoglobin and your elevated white blood cell count. You should be seen by your primary care provider in the next week. Call your primary care for all non-emergent needs. Please report to the closest emergency room for increased shortness of breath, fever, chills, burning with urination or for any other symptoms that are concerning for you. It has been a pleasure taking part in your care while in the hospital. Thank you! Addtl Shell Fisherman Provider Instructions: HIP FRACTURE INSTRUCTIONS You may be at risk for blood clots-Please wear your surgical stockings (DA hose) for 2 weeks after surgery. This will reduce swelling in the legs and improve your circulation Use your walker for ambulation. This may be necessary for up to 6 weeks. Your physical therapist will help you transition to a cane when appropriate. Wear low heeled shoes with non slip soles Be sure you floors are free of tripping hazards, such as throw rugs, electric cords, etc. Try to walk several times per day. You may require small rest periods in between walks. Keep your wounds covered and dry. The bandages may be removed and replaced if they become soiled. You may shower beginning on day 3, but keep your incision covered so it does not get wet. Do not soak in a tub or pool. Apply ice to the leg several times per day to reduce pain/swelling. You can bear as tolerated with walker assistance. Please call the office at [phone] if you develop: 1. Temperature greater than 101.5 degrees 2. Increased drainage or redness around the surgical incision 3. Increased pain not controlled with your prescribed medications 4. Additional questions not answered in your discharge instructions Please take Iron 325mg 2 times per day for 2 weeks to rebuild your blood count. Please be advised that this can cause you to have dark stools. If you become constipated, you may use colace or miralax to help move your bowels. Follow-up with Dr. Watson or Gino Mercer at [facility] 2 wks after hospital discharge. Call to set up appointment. This should be 12-15 days after your surgery. Pending Studies at Discharge: No Stand-Alone Forms: My [facility] Skilled Items Patient informed of condition?: Yes DNR: Yes Discharge Level of Care: Acute rehab Communicable Disease: No Discharge Prognosis: Improving Lines: None Urinary Catheter: No Medications and DC Order Prescriptions: New ferrous sulfate 325 mg (65 mg iron) Tablet,Delayed Release (Dr/Ec) 325 mg PO BIDM Qty: 28 RF: 0 diltiazem HCl 180 mg Capsule,Ext.Rel 24h Degradable 180 mg PO QAM 30 Days Qty: 30 RF: 0 lisinopril 20 mg tablet 20 mg PO DAILY Qty: 30 RF: 0 ergocalciferol (vitamin D2) [Vitamin D2] 50,000 unit Capsule 50,000 unit PO Q7D 30 Days Qty: 4 RF: 2 Eliquis 2.5 mg tablet 2.5 mg PO BID 30 Days Qty: 60 RF: 0 acetaminophen [Tylenol Extra Strength] 500 mg Tablet 1,000 mg PO Q6H PRN (Reason: pain) Qty: 30 RF: 0 folic acid 1 mg tablet 1 mg PO DAILY Qty: 30 RF: 0 Continued atenolol 25 mg tablet 12.5 mg PO HS Qty: 45 RF: 3 furosemide 20 mg tablet 20 mg PO QAM RF: 0 MegaRed [place]-3 Krill Oil [id number] mg Capsule 1 cap PO DAILY RF: 0 Discontinued lisinopril 20 mg tablet 20 mg PO BID Qty: 60 RF: 0 diltiazem HCl [DILT-XR] 180 mg capsule,ext.rel 24h degradable 1 cap PO BID RF: 0 Discharge Orders: Discharge Order (Routine); Ordered 07/14/19 Ordered By: Kary Rubio Admission Data Admit Date/Time: 07/10/19 20:25 Attending Provider: Kary Rubio Admit Provider: Beba Stephen Primary Care Provider: Nehemias Gooden Other Providers: Sotero Odonnell ; Roger Watson ; Rey Bocanegra ; Alphonso Sanchez Other Interventions: Discharge Summary Assessment (RN) Last Done: 07/14/19 13:36 DC Date/Time DO NOT enter until pt leaves facility: 07/14/19 14:29 Supervising Physician Co-Signing Physician Notes PA Supervision Note: I personally saw and examined the patient. I verified all domínguez points and agree with JUAN JOSÉ Slaughter with the following exceptions and/or additions: Patient frustrated that she is not able to walk much. No bowel movement in 3 days but is working on it. Otherwise denies chest pain or shortness of breath. No nausea or abdominal pain. She is eating. Vitals reviewed Gen: AAOx3, NAD HEENT: Anicteric sclerae, EOMI CV: Irregularly irregular no mgr nl S1S2 Pulm: Positive crackles in the right base, otherwise clear Abd: +BS soft NT ND no masses or hernias Ext: Right lower extremity with edema and ecchymosis, dressing in place Skin: Ecchymosis of right lower extremity Neuro: Able to move bilateral legs 84-year-old female with a history of CKD stage IV, chronic diastolic CHF, HTN, PAF, pleural effusion, here with fall with subsequent right hip fracture now status post repair -Stable for discharge to rehab
[2019-07-14 11:41] VITALS: BP 95/61; PULSE 75; TEMP 97.2; O2SAT 93
[2019-07-14] MEDS ORDERED: BISACODYL 5 MG TABEC PO ONE (12:46)
[2019-07-14] MEDS ORDERED: FERROUS SULFATE 325 MG TAB PO SCH ×2 (17:00)
[2019-07-15] MEDS ORDERED: FUROSEMIDE 20 MG TAB PO SCH (09:00)
== END 2019-07-14 14:29 | DRG 481 ==
LOC: ED 15:52 → 3N 20:25 → SUATTDRO 20:25 → 3N 20:50 → 2S 07-11 20:04

== ENCOUNTER 2019-09-28 08:24 | Inpatient (IN) ==
--- NOTE | 2019-09-28 09:09 | History & Physical Bridge Note ---
Date of Service September 28, 2019 History & Physical Bridge Note I have examined the patient, reviewed the History & Physical and in the interval since the performance of the History & Physical I have noted the following changes of clinical significance: no changes noted
--- NOTE | 2019-09-28 09:10 | Pre Anesthesia Assessment ---
Date of Service September 28, 2019 Pre Sedation Assessment Vital Signs Temp Pulse Resp BP Pulse Ox 09/28/19 08:45 98.4 F 131 H 20 110/74 100 Cardiovascular RRR, no murmur, no edema Respiratory normal respiratory effort, lungs clear to auscultation Pre-Sedation Airway Assessment Smoking Status: Never smoker Hx Sleep Apnea: No Hx Difficult Intubation: No Short, Thick Neck: No Thyromental Distance: > or= 3.5 Finger Breadths Oral Cavity: + WNL Mallampati Class: II ASA: ASA4 NPO Status Date of Last Intake of Fluids: 09/27/19 Date of Last Intake of Solid Food: 09/27/19 Procedure Planning Contraindications for Sedation: none Current Medications Reviewed: Yes Notes The planned sedation has been discussed with the patient. Informed Consent was obtained. I have identified the patient, determined the appropriateness of sedation and have assessed the patient immediately prior to the procedure. All medicine(s) and interventions are by my order.
[2019-09-28] MEDS ORDERED: MIDAZOLAM HCL 5 MG/ML 1 ML VIAL ONE ×2 (09:50→14:08)
[2019-09-28] MEDS ORDERED: MoRPHine SULFATE 2 MG/ML CARP ONE ×3 (09:50→10:36)
[2019-09-28] MEDS ORDERED: HEPARIN (PORCINE) 1000 UNIT/ML 10 ML (CATH LAB USE ONLY) ONE (10:25)
[2019-09-28] MEDS ORDERED: NiCARDipine HCL INJ 2.5 MG/ML 10 ML AMP ONE (10:25)
[2019-09-28] MEDS ORDERED: MoRPHine SULFATE 10 MG/ML CARP/VIAL ONE ×2 (11:15→14:08)
[2019-09-28] MEDS ORDERED: NITROGLYCERIN/D5W 100MCG/ML 20ML SYR ONE (13:17)
[2019-09-28] MEDS ORDERED: NOREPINEPHRINE BITARTRATE 1 MG/ML 4 ML VIAL IV ONE (13:57)
[2019-09-28] MEDS ORDERED: SODIUM CHLORIDE 0.9% 250 ML IV PRN (13:57)
[2019-09-28 14:52] LABS: Basophils # (auto) 0.02 K/uL (0-0.2); Basophils % (auto) 0.2 %; Eosinophils # (auto) 0.06 K/uL (0-0.5); Eosinophils % (auto) 0.6 %; Hematocrit (blood only) 26.9 % (37-47); Hemoglobin 8.4 g/dL (12.0-16.0); Immature Granulocytes # (auto) 0.03 K/uL (0.00-0.02); Immature Granulocytes % (auto) 0.3 %; Lymphocytes # (auto) 1.89 K/uL (1.2-3.4); Mean Corpuscular Hemoglobin 29.6 pg (25-34); Mean Corpuscular Volume 94.7 fL (80-100); Monocytes % (auto) 5.7 %; Neutrophils # (auto) 7.91 K/uL (1.4-6.5); Neutrophils % (auto) 75.2 %; Platelet Count 381 K/uL (130-400); RDW Coefficient of Variation 14.2 % (11.5-14.5); RDW Standard Deviation 49.4 fL (36.4-46.3); Red Blood Count 2.84 M/uL (4.2-5.4); White Blood Count 10.51 K/uL (4.8-10.8)
[2019-09-28 15:03] LABS: iSTAT Arterial Blood Gas HCO3 27 meg/L (19-24); iSTAT Arterial Blood Gas pCO2 52 mmHg (35-46); iSTAT Arterial Blood Gas pH 7.33 (7.35-7.45); iSTAT Arterial Blood Gas pO2 221 mmHg (80-95); iSTAT Carbon Dioxide 29 mmol/L (24-31); iSTAT Hematocrit 26 % (37-47); iSTAT Hemoglobin 8.8 g/dl (12.0-16.0); iSTAT Potassium 3.9 mmol/L (3.3-5.0); iSTAT Sodium 141 mmol/L (135-144)
[2019-09-28 15:10] LABS: Albumin Level 1.7 gm/dl (3.4-5.0); BUN Creatinine Ratio 26.5 (10-20); Calcium 8.4 mg/dl (8.5-10.1); Creatinine Clr Calc Pharmacy 32.2 ml/min; Est GFR (African American) 70.4; Est GFR (Non-African American) 60.7; Potassium 3.9 mmol/L (3.5-5.1)
[2019-09-28 15:11] LABS: INR 1.3 (0.9-1.1)
[2019-09-28 15:13] LABS: Albumin Globulin Ratio 0.4 (0.9-2); Bilirubin,Total 0.4 mg/dl (0.2-1); Globulin 4.3 gm/dl (2.5-4.0)
[2019-09-28] MEDS ORDERED: MoRPHine SULFATE 2 MG/ML CARP IV PRN (15:21)
[2019-09-28] MEDS ORDERED: ONDANSETRON INJ 2 MG/ML 2 ML VIAL IV PRN (15:21)
[2019-09-28] MEDS ORDERED: CLOPIDOGREL BISULFATE 300 MG TAB PO STA (15:21)
[2019-09-28] MEDS ORDERED: ACETAMINOPHEN 500 MG TAB PO PRN (15:23)
[2019-09-28 15:24] LABS: Mean Corpuscular Hgb Conc 31.2 g/dL (32-36)
[2019-09-28] MEDS ORDERED: SODIUM CHLORIDE 0.9% 1000ML 1,000 ML IV SCH (15:30)
[2019-09-28] MEDS ORDERED: CEFAZOLIN 1000MG 1,000 MG/7.5 ML SYR IV ONE (16:00)
[2019-09-28 17:05] LABS: Partial Thromboplastin Ratio 1.8
[2019-09-28] MEDS ORDERED: DOXYCYCLINE HYCLATE 100 MG CAP PO SCH (18:00)
--- NOTE | 2019-09-28 21:33 | Operative Report ---
PG Post Operative Report Pre & Post Diagnosis Operation Date: 09/28/19 09:30 <No data on this case meets the specified criteria> I identified the patient and participated in the time-out.: Yes Procedure Operation Date: 09/28/19 09:30 Actual Procedures p Cineradiography w/Routine Exam - Nehemias Reyes MD Surgeon Scott Reyes MD [employer] Fscm Developer Jennifer Estimated Blood Loss 25 Findings Consistent with Post-Op Diagnosis Specimens none Complications none Disposition Disposition: Recovery Room Description of Procedure Indication: Non-healing right lower extremity wound, critical limb ischemia - Previously underwent right lower extremity angiogram 1 week prior. Found to have an occluded distal SFA through popliteal artery with single vessel run-off to the foot via reconstituted DAVID. Unable to cross SFA occlusion antegrade. Procedure: Left common femoral access obtained under ultrasound guidance, short 5Fr sheath placed Obtained anterior tibial artery access at level of ankle under ultrasound guidance V18 wire and 0.18 seeker catheter navigated into popliteal artery. 6Fr 45 cm destination sheath placed from LT MAINTENANCE TECHNICIAN into RT SFA With aid of a quickcross, glideadvantage wire navigated across distal SFA occlusion and able to enter into plane of retrograde catheter and follow into DAVID. Intraluminal DAVID position confirmed with injection through quickcross Distal SFA, popliteal, DAVID dilated with 2.5 balloon. Calcified proximal DAVID stenosis dilated with 3.0 ultrascore balloon. SFA, popliteal dilated with 4.0 and 5.0 balloons. Poor flow after balloon dilation, possible dissection and decision to stent Popliteal artery stented with 5.0 x 120 Supera Distal SFA and proximal popliteal artery stented with 5.5 x 80 Supera overlapping proximal aspect of intial stent Still slow flow distal to stent and distal popliteal/proximal DAVID dilated with 4.0 balloon. Distal popliteal into DAVID stented with 2 overlapping drug-eluting coronary stents (3.5 x 38, 3.5 x 30 [place] Resolute CARLITOS). SFA/popliteal stents post-dilated with 6.0 balloon. IA vasodilators administered Post procedure good angiographic result, stents well expanded, no evidence of dissection with single vessel run-off to the foot. Contrast used: 120 ml Access closure: StarClose Summary: 1. Successful angioplasty of distal SFA, popliteal artery and anterior tibial artery with 4 overlapping stents (5.5 x 80 Supera, 5.0 x 120 Supera, 3.5 x 38 [place], 3.5 x 30 [place]). Recommendations: Continue Clopidogrel for 3 months along with anticoagulation with warfarin Continue ASCVD risk factor modification Follow-up ultrasound in 1 month. I attest to the content of the Intraoperative Record and any orders documented therein. Any exceptions are noted below.
--- NOTE | 2019-09-28 22:20 | Operative Report ---
PG Post Operative Report Pre & Post Diagnosis Operation Date: 09/28/19 09:30 <No data on this case meets the specified criteria> I identified the patient and participated in the time-out.: Yes Procedure Operation Date: 09/28/19 09:30 Actual Procedures p Cineradiography w/Routine Exam - Nehemias Reyes MD Surgeon Scott Reyes MD News Video Editor Ronald Estimated Blood Loss 5 Findings Consistent with Post-Op Diagnosis Specimens none Complications none Disposition Disposition: PCU Description of Procedure Indication: Following endovascular mention to right SFA, popliteal, anterior tibial artery called to recovery room. Left foot cold and blue. No dopplerable pulses present distally. Patient later hypotensive to the 70s. Decision made to reassess left lower extremity arterial system. Procedure: Right WELLNESS SPA MANAGER access obtained under ultrasound guidance with placement of short 5 Fr sheath Rim catheter placed in aorta and left common iliac. Angiography revealed widely patent iliacs, WELLNESS SPA MANAGER without any obvious dissection, perforation. SFA with mild diffuse disease prior to 100% chronic proximal popliteal occlusion. Tibial vessels occluded with collaterals to the foot With IV fluids pressure improved. Left lower extremity perfusion improved, distal pulses dopplerable. Contrast: 30 ml Summary: 1. No evidence of iliac, WELLNESS SPA MANAGER perforation or dissection. 2. Left popliteal artery chronically occluded. 3. Left tibial vessels chronically occluded with collaterals to the foot I attest to the content of the Intraoperative Record and any orders documented therein. Any exceptions are noted below.
[2019-09-28] MEDS ORDERED: CLOPIDOGREL BISULFATE 300 MG TAB ONE (22:45)
[2019-09-28] MEDS: WARFARIN SOD 2 MG TAB PO SCH (22:46)
[2019-09-28] MEDS: DOXYCYCLINE HYCLATE 100 MG CAP PO SCH (22:46)
[2019-09-28] MEDS: FERROUS SULFATE 325 MG TAB PO SCH (22:47)
[2019-09-28] MEDS: CALCIUM CARBONATE 1250MG TAB PO SCH (22:48)
[2019-09-29] MEDS: DOXYCYCLINE HYCLATE 100 MG CAP PO SCH (04:56)
[2019-09-29] MEDS ORDERED: lisinopriL 10 MG TAB PO SCH (09:00)
[2019-09-29] MEDS ORDERED: METOPROLOL TARTRATE 1 MG/ML VIAL IV PRN (09:57)
--- NOTE | 2019-09-29 09:57 | Cardiology Progress Note ---
Date of Service September 29, 2019 Assessment & Plan (1) Peripheral arterial occlusive disease: - Post endovascular intervention with 4 overlapping stents from RT distal SFA to DAVID with resulting single vessel run-off to the foot. - Post repeat angiography revealing no apparent iliac perforation or dissection -- Continue clopidogrel 75 mg daily -- Repeat ultrasound in 3 weeks as outpatient 2. Non-healing right > left lower extremity ulcerations -- Followed by wound clinic, consulted -- Continue home doxycline 3. Delirium - Confused, agitated since post procedure on top of some underlying dementia - Suspect in part medication related post significant sedation (versed, morphine) with prolonged procedures yesterday -- continue to monitor post sedation -- Repeat labs as able -- Consult hospital medicine 4. Atrial fibrillation with RVR - Long-standing persistent AF - HR in 110s pre procedure yesterday. Up into 140s overnight. Off home diltiazem, atenolol - Resume home diltiazem, start low dose metoprolol 12.5 mg BID - IV metoprolol 2.5 mg PRN for persistent HRs in 140s and above. OK with HR in 110s - Restart home coumadin. DVT prophylaxis until therapeutic. 5. Anemia - Hb down to 8.4 post procedure, IV fluids yesterday. No obvious bleeding on repeat angiography. Unable to get labs this AM - Repeat H/H later this afternoon as able - continue iron, folic acid 6. Chronic diastolic heart failure - Looks dry on limited exam - Hold home diuretics - Additional gentle IV fluids. 7. Relative Hypotension -- Hold lisinopril, gentle IV fluids Dispo - Back to [facility] when able. Left message for daughter this AM to update on status. Subjective Patient confused, intermittently combative. Did not wish to be examined. Denied pain, shortness of breath. Review of Systems Review of Systems: Unobtainable due to cognitive status Physical Exam Physical Exam: General: Lying in bed naked. Intermittently answers questions Eyes: Sclerae anicteric, extraocular movements intact HENT: Oropharynx dry Lungs: patient declined exam Cardiac: declined exam Abdomen: Soft Psych: Alert to person Extremities/Vascular: -- RT lower leg dressed. No drainage or surrounding induration. DPA pulse intact -- LT leg - warm, slight DPA pulse. ulcers dressed -- femoral access sites dressed. ecchymosis. tender Results & Data Vital Signs (Past 12 Hours) Vital Signs Temp Pulse Resp BP Pulse Ox 09/29/19 04:45 99.1 F 115 H 18 95/73 L 95 09/29/19 00:06 136 H 19 99/80 L 93 09/28/19 23:13 97.9 F 130 H 17 110/50 L 94 09/28/19 22:53 132 H 103/76 97 PG Care Time/CCT Total # of Minutes Spent Total Time Spent with Patient: Total time spent is greater than 50% in coordination of care (as documented) at patient's floor/unit and/or counseling patient: Coding Level of Care Code 92905 Subseq Hosp Care Lvl 3 Diagnoses Peripheral arterial occlusive disease I77.9
[2019-09-29] MEDS ORDERED: SODIUM CHLORIDE 0.9% 1000ML 1,000 ML IV SCH (10:00)
[2019-09-29] MEDS: CLOPIDOGREL BISULFATE 75 MG TAB PO SCH (10:02)
[2019-09-29] MEDS: dilTIAZem ER 120 MG CAPCR PO SCH (10:02)
[2019-09-29 10:10] LABS: Hematocrit (blood only) 26.1 % (37-47); Hemoglobin 8.2 g/dL (12.0-16.0); Mean Corpuscular Hgb Conc 31.4 g/dL (32-36); Mean Corpuscular Volume 95.6 fL (80-100); Mean Platelet Volume 8.7 fL (7.4-10.4); Platelet Count 364 K/uL (130-400); RDW Coefficient of Variation 14.3 % (11.5-14.5); RDW Standard Deviation 48.9 fL (36.4-46.3); Red Blood Count 2.73 M/uL (4.2-5.4); White Blood Count 14.08 K/uL (4.8-10.8)
[2019-09-29 10:20] LABS: INR 1.3 (0.9-1.1); Prothrombin Time 12.7 Seconds (9.0-12.0)
[2019-09-29] MEDS ORDERED: VANCOMYCIN CONSULT ACTIVE PRN ×2 (10:42→10:44)
[2019-09-29] MEDS ORDERED: CEFEPIME CONSULT ACTIVE ONE (10:45)
[2019-09-29] MEDS ORDERED: VANCOMYCIN HCL 1,000 MG in SODIUM CHLORIDE 0.9% 500 ML IV SCH (10:45)
[2019-09-29] MEDS: CALCIUM CARBONATE 1250MG TAB PO SCH ×2 (10:59→20:56)
[2019-09-29] MEDS: FOLIC ACID 1 MG TAB PO SCH (11:02)
[2019-09-29] MEDS: FERROUS SULFATE 325 MG TAB PO SCH ×3 (11:03→20:56)
[2019-09-29] MEDS: DOCUSATE SODIUM 100 MG CAP PO SCH (11:03)
[2019-09-29] MEDS ORDERED: CEFEPIME 2,000 MG in SYRINGE 7.5 ML IV ONE (11:15)
[2019-09-29] MEDS ORDERED: VANCOMYCIN HCL 1,000 MG in SODIUM CHLORIDE 0.9% 250 ML IV ONE (11:15)
--- NOTE | 2019-09-29 11:17 | Hospitalist Consultation ---
Date of Consultation September 29, 2019 Assessment & Plan (1) Altered mental status: Likely due to delirium s/p procedure yesterday and associated with mixed vascular/Alzheimer dementia as well as prolonged sedation with Versed and morphine during the procedure. The delirium is slowly resolving and patient is more responsive and oriented in person. Pending CT of the head Continue monitoring electrolytes and replenish as needed Avoid sedating agents including but not limited to Versed and pain medicine unless patient in severe pain. If pain medicine needs to be utilized use very small doses and less frequently. Instead we will try with salmon calcitonin to help patient with pain. Present on Admission?: Yes (2) Stage II pressure ulcer of right heel: Consulted inpatient wound care and wound care provider Dr. Reginald Garland who already knows the patient. Blood cultures pending, Wound cultures pending, MRSA swab pending, Discontinued doxycycline p.o. and started cefepime and vancomycin Plan to discontinue vancomycin if MRSA negative and continue with cefepime for good coverage of Pseudomonas. When culture available then we will target the organism with specific antibiotic. For now antibiotic therapy is empirical. Trend down white blood cell count. Lactic acid pending. Follow-up with the results Present on Admission?: Yes (3) 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: The plan as above. In addition we will do x-rays of the right lower extremity tibia-fibula since wound at the lateral aspect of the leg is large surface. Present on Admission?: Yes (4) Peripheral arterial occlusive disease: As per the primary team Present on Admission?: Yes (5) Chronic diastolic CHF (congestive heart failure): As per primary team Present on Admission?: Yes (6) A-fib: As per primary team. Continue anticoagulation as per primary team and follow closely INR. Present on Admission?: Yes History of Present Illness Reason for Consultation: Altered mental status Requesting Physician: Dr. Scott Reyes Attending Physician: Scott Reyes MD History of Present Illness The patient is an 84 years old female who has past medical history of atrial fibrillation on warfarin, iron deficiency anemia, chronic diastolic CHF who underwent cineradiography with routine exam for peripheral vascular disease of right SFA, popliteal, anterior tibial artery, and left popliteal and tibial vessels by Dr. Wasserman yesterday. This morning patient was confused and intermittently combative and medicine is consulted for patient's altered mental status. Around 11 AM when we saw the patient patient was oriented in person and place but still mildly confused. She was more cooperative and willing to follow the RNs directions. Patient was not combative anymore. Patient is poor historian but she denied fever, chills, chest pain, shortness of breath, abdominal pain, frequency or urgency. Patient has bilateral lower extremity wounds all which are measuring 13.2 x 26.2 x 0.2 cm , right heel wound 2.3 x 3.3 x 0.1 cm, left posterior leg wound 5 x 10 x 0.1 cm and wound for is located on the left facial and scalp. Patient sees Dr. Reginald Garland for wound care. Labs are reviewed: WBC is 14.08, hemoglobin 8.2, hematocrit 26.1, platelets 364. INR 1.3, PT 12.7, APTT 49. Sodium 139, potassium 3.9, chloride 108, BUN 23, creatinine 0.87, GFR 60.7, Albumin 1.7. TSH pending. X-rays of the right lower extremity pending. Allergies Allergy/AdvReac Type Severity Reaction Status Date / Time codeine AdvReac Verified 09/11/19 10:56 fentanyl AdvReac Verified 09/11/19 10:56 hydromorphone [From Dilaudid] AdvReac Verified 09/11/19 10:56 tramadol AdvReac Verified 09/11/19 10:56 Home Medications Home Medications Medication Instructions Recorded Confirmed Type furosemide 20 mg tablet 20 mg PO BID tab 04/17/19 09/21/19 History atenolol 25 mg tablet 12.5 mg PO HS #45 tab 07/09/19 09/21/19 Rx MegaRed [place]-3 Krill Oil 1 cap PO QAM 07/10/19 09/21/19 History acetaminophen [Tylenol Extra 1,000 mg PO Q6H PRN #30 tab 07/14/19 09/21/19 Rx Strength] calcium carbonate [Calcium 500] 500 mg PO BID 08/09/19 09/21/19 History ergocalciferol (vitamin D2) 50,000 unit PO MUIR 08/09/19 09/21/19 History [Vitamin D2] ferrous sulfate 325 mg PO TID 08/09/19 09/21/19 History folic acid 1 mg PO QAM 08/09/19 09/21/19 History docusate sodium 100 mg capsule 100 mg PO DAILY 08/16/19 09/21/19 History warfarin 1 mg tablet 1 mg PO .COMPLEX 08/16/19 09/21/19 History warfarin 2 mg tablet 2 mg PO DAILY 08/16/19 09/21/19 History doxycycline hyclate 100 mg tablet 100 mg PO bid #28 tab 08/23/19 09/21/19 Rx diltiazem HCl 180 mg capsule,24 120 mg PO DAILY cap 09/11/19 09/21/19 History hr,extended release lisinopril 20 mg tablet 10 mg PO QAM tab 09/20/19 09/21/19 History Patient History Medical History A-fib (Chronic) Anemia (Chronic) Arrhythmia (Acute) Atrial fibrillation (Acute) Chronic diastolic CHF (congestive heart failure) (Chronic) CKD (chronic kidney disease), stage III Compression fracture of thoracic vertebra (Acute) Fall (Acute) HTN (hypertension) (Acute) Hypertension (Chronic) Hypertension (Acute) Pericardial effusion (Acute) Peripheral arterial occlusive disease Pleural effusion (Acute) Pleural effusion on right (Acute) 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 Stage II pressure ulcer of right heel Vitamin D deficiency (Chronic) Surgical History History of colon resection (Acute) Hx laparoscopic cholecystectomy (Acute) Family History Other Family history non-contributory Social History Preferred Language: Thai Communication Ability: Effective Manugrapher Required: No Beliefs That Will Affect Care: None marital status: / Current Living Situation: Care Home Current Living Situation Comment: currently at [facility] for rehab due to hip replacement in Jul 2019 current occupational status: retired Other Information That Helps Us Care for You: No Feels Safe at Home: Yes Safety Concerns: Feels Safe At This Time Smoking Status: Never smoker Hx Alcohol Use: Yes Alcohol type: wine Alcohol type Comment: stated "some" Hx Substance Use: No during the past year weight has: remained stable Review of Systems Review of Systems: All systems reviewed & are unremarkable except as noted in HPI & below Physical Exam Constitutional: WD/WN, vitals as above well developed and + cachectic Eyes: PERRL, conjunctivae normal, anicteric sclerae ENMT: external ear and nose normal, oropharynx normal Neck: trachea midline, no thyromegaly Respiratory: normal respiratory effort, lungs clear to auscultation Cardiovascular: Rate/Rhythm: + irregularly irregular Extremities: + pedal edema Dorsalis pedis pulses present but diminished bilaterally. Worse on the left. Gastrointestinal (Abdomen): normal bowel sounds, soft, nontender, no hepatosplenomegaly Musculoskeletal: no cyanosis or clubbing, extremities motor strength 5/5 Skin: no rashes, warm and dry Neurologic: patellar DTR's 2+ bilat, sensation intact Psychiatric: Orientation: alert, oriented to person and cooperative Affect: + flat affect Insight: + limited insight Patient has underlining moderate dementia mixed type. She is coming back to her baseline. Still mildly confused. Results & Data Vital Signs (Past 12 Hours) Vital Signs Temp Pulse Resp BP BP Pulse Ox 09/29/19 10:17 36.5 C 146 H 22 96/55 L 98 09/29/19 04:45 37.3 C 115 H 18 95/73 L 95 09/29/19 00:06 136 H 19 99/80 L 93 PG Care Time/CCT Total # of Minutes Spent Total Time Spent with Patient: Total time spent is greater than 50% in coordination of care (as documented) at patient's floor/unit and/or counseling patient: Coding Level of Care Code 02775 Inpt Consult Level 5 Diagnoses Altered mental status R41.82 Stage II pressure ulcer of right heel L89.612 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 L89.622 Peripheral arterial occlusive disease I77.9 Chronic diastolic CHF (congestive heart failure) I50.32 A-fib I48.21 Atrial fibrillation type: permanent (1) A-fib Atrial fibrillation type: permanent Qualified Code(s): I48.21 - Permanent atrial fibrillation
[2019-09-29 11:49] LABS: BUN Creatinine Ratio 21.1 (10-20); Calcium 9.1 mg/dl (8.5-10.1); Creatinine Clr Calc Pharmacy 28.3 ml/min; Est GFR (African American) 60.2; Potassium 3.9 mmol/L (3.5-5.1)
--- NOTE | 2019-09-29 11:56 | CT Scan Report ---
CT SCAN OF THE BRAIN WITHOUT IV CONTRAST CLINICAL HISTORY: Change in mental status. COMPARISON STUDY: CT of the brain dated 07/10/2019. TECHNIQUE: Unenhanced axial CT scan of the brain is performed from the vertex to the skull base. A do se lowering technique was utilized adhering to the principles of ALARA. CT DOSE: 614.27 mGy.cm FINDINGS: Brain parenchyma: There are age-related involutional changes noting moderate to advanced subcortical and periventricular microangiopathic change. There is no hemorrhage, mass effect, or evidence of acu te territorial ischemia by CT criteria. Min-white matter differentiation is preserved. No extra-axia l fluid collection is seen. Ventricles, sulci, cisterns: Prominent secondary to involutional change. Intracranial vasculature: There is atherosclerotic calcification of the cavernous carotid and vertebr al arteries. Calvarium: Unremarkable. Sinuses and mastoids: There is mucosal thickening within the ethmoid sinuses. The remaining visualize d paranasal sinuses are clear. The mastoid air cells are well pneumatized. Orbits: The bony orbits are grossly intact. There are bilateral ocular lens implants. IMPRESSION: There is no hemorrhage, mass effect, or evidence of acute territorial ischemia by CT aguila pedro. ACT 112: Negative or not required by law. Electronically signed by: Rodolfo Oliveira M.D. 09/29/2019 11:55 AM
[2019-09-29] MEDS ORDERED: CEFEPIME CONSULT ACTIVE PRN (12:03)
[2019-09-29] MEDS: ENOXAPARIN INJ 30 MG/0.3 ML SYR SQ SCH (12:04)
[2019-09-29] MEDS: METOPROLOL TARTRATE 25 MG TAB PO SCH ×2 (12:05→21:00)
--- NOTE | 2019-09-29 12:23 | XRay Report ---
RIGHT TIBIA AND FIBULA 2 VIEWS CLINICAL HISTORY: Right lower extremity ulceration. FINDINGS: AP and crosstable lateral views of the right tibia and fibula are correlated with right ank le radiographs dated 08/01/2019. The skeletal structures are osteopenic. An intramedullary nail is pa rtially visualized in the distal femur. There is no radiographic evidence of tibial or fibular fractu re. Soft tissue edema is present throughout the right lower extremity. A large ulceration is suggeste d along the lateral aspect of the distal fibula. Erosive change is suggested along the lateral aspect of the distal fibular cortex deep to the ulceration. No periostitis is identified. Small foci of sub cutaneous gas are suggested in the region of the ulcer. Advanced atherosclerotic calcification is not ed in the regional arteries. A vascular stent is suggested posterior to the knee. IMPRESSION: 1. There is a large ulceration suggested along the lateral aspect of the distal fibula. 2. There is cortical irregularity seen involving the lateral cortex of the distal fibula. This repres ents a change from 08/01/2019 and is highly concerning for osteomyelitis. 3. No fracture is seen. 4. Diffuse soft tissue edema is present throughout the right lower extremity and suggests cellulitis. Clinical correlation will be required. Electronically signed by: Rodolfo Oliveira M.D. 09/29/2019 12:22 PM
[2019-09-29] MEDS: CALCITONIN SALMON NA 200 IU/AC 3.7 ML BTL SCH (12:44)
--- NOTE | 2019-09-29 13:47 | Pharmacy Report ---
Pharmacy Abx Initial Consult - Date of Service September 29, 2019 - Pharmacy Dosing Scope Date of Consult: 09/29/2019 Consultation requested by: Dr. Davidson Pharmacy is consulted to initiate Vancomycin and cefepime IV/PO dosing therapy, order appropriate labs and adjust drug dose/frequency. - Subjective The patient is a 84 year old F admitted on 09/29/19 10:04. - Objective Height: 4 ft 11 in Weight: 45 kg Vital Signs (Past 12hrs): Vital Signs Temp Pulse Resp BP BP Pulse Ox 09/29/19 10:17 36.5 C 146 H 22 96/55 L 98 09/29/19 04:45 37.3 C 115 H 18 95/73 L 95 Lab Results (24hrs): Laboratory Tests (24 Hours) 09/29/19 09/29/19 09/28/19 10:00 10:00 14:38 WBC 14.08 H Neut # (Auto) Creatinine 0.99 0.87 Est Cr Clr Drug Dosing 28.3 32.2 09/28/19 14:38 WBC 10.51 Neut # (Auto) 7.91 H Creatinine Est Cr Clr Drug Dosing Micro Results: 09/29/19 11:28 Aerobic Blood Culture - Pending Blood Anaerobic Blood Culture - Pending 09/29/19 11:22 Aerobic Blood Culture - Pending Blood Anaerobic Blood Culture - Pending - Risk Factors for Resistance * Hospitalization for 48 hours or more within the past 90 days (07/14/19) * 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 According to outpatient prescription fill history - patient has been taking doxycycline PO since August 2019. Patient also has history of peripheral arterial disease. X-ray of right tibia/fibula (09/29): cortical irregularity noted - highly concerning for osteomyelitis. Microbiology: Blood x 2: pending Plan Vancomycin IV * Estimated PK Parameters: Vd 0.7 L/kg, Humberto 0.028 hr-1, t1/2 24 hr * Loading dose: 1000 mg (22 mg/kg) * Will obtain random level tomorrow morning due to low body weight and will re- dose once appropriate * Goal trough level for osteomyelitis : 15 to 20 mcg/mL Cefepime IV * target dose for osteomyelitis: 2 g IV q8h * 2 g IV q24h appropriate for estimated CrCl: 28 mL/min Pharmacy will continue to follow and will adjust dose/frequency as necessary. Thank you.
[2019-09-29 14:10] LABS: Hematocrit (blood only) 24.9 % (37-47); Hemoglobin 7.8 g/dL (12.0-16.0)
[2019-09-29] MEDS: WARFARIN SOD 2 MG TAB PO SCH ×2 (17:27→17:31)
[2019-09-29] MEDS ORDERED: HALOPERIDOL LACTATE 5 MG/ML 1 ML VIAL IV PRN (17:55)
[2019-09-29] MEDS ORDERED: CEFEPIME 2,000 MG in SYRINGE 7.5 ML IV SCH (21:00)
[2019-09-29] MEDS ORDERED: ATENOLOL 25 MG TABLET PO SCH (21:00)
[2019-09-30 06:25] LABS: INR 1.6 (0.9-1.1); Prothrombin Time 15.8 Seconds (9.0-12.0)
[2019-09-30 06:51] LABS: Est GFR (African American) 72.4; Est GFR (Non-African American) 62.5
[2019-09-30 08:02] LABS: Basophils # (auto) 0.02 K/uL (0-0.2); Basophils % (auto) 0.2 %; Eosinophils # (auto) 0.06 K/uL (0-0.5); Eosinophils % (auto) 0.5 %; Hematocrit (blood only) 22.9 % (37-47); Hemoglobin 7.3 g/dL (12.0-16.0); Immature Granulocytes # (auto) 0.02 K/uL (0.00-0.02); Immature Granulocytes % (auto) 0.2 %; Lymphocytes # (auto) 1.21 K/uL (1.2-3.4); Lymphocytes % (auto) 10.8 %; Mean Corpuscular Hemoglobin 30.2 pg (25-34); Mean Corpuscular Hgb Conc 31.9 g/dL (32-36); Mean Corpuscular Volume 94.6 fL (80-100); Mean Platelet Volume 8.9 fL (7.4-10.4); Monocytes # (auto) 0.78 K/uL (0.11-0.59); Neutrophils # (auto) 9.12 K/uL (1.4-6.5); Neutrophils % (auto) 81.3 %; Platelet Count 350 K/uL (130-400); RDW Coefficient of Variation 14.5 % (11.5-14.5); Red Blood Count 2.42 M/uL (4.2-5.4); White Blood Count 11.21 K/uL (4.8-10.8)
[2019-09-30] MEDS ORDERED: VANCOMYCIN HCL 750 MG in SODIUM CHLORIDE 0.9% 250 ML IV ONE (08:15)
[2019-09-30 08:31] LABS: BUN Creatinine Ratio 21.8 (10-20); Calcium 8.4 mg/dl (8.5-10.1); Est GFR (African American) 72.4; Est GFR (Non-African American) 62.5; Potassium 3.6 mmol/L (3.5-5.1)
[2019-09-30] MEDS: CEFEPIME 2,000 MG in SYRINGE 7.5 ML IV SCH ×2 (08:55→20:05)
[2019-09-30] MEDS: FOLIC ACID 1 MG TAB PO SCH (08:57)
[2019-09-30] MEDS: FERROUS SULFATE 325 MG TAB PO SCH ×3 (08:57→20:08)
[2019-09-30] MEDS: DOCUSATE SODIUM 100 MG CAP PO SCH (08:57)
[2019-09-30] MEDS: METOPROLOL TARTRATE 25 MG TAB PO SCH ×3 (08:58→20:07)
[2019-09-30] MEDS: CALCITONIN SALMON NA 200 IU/AC 3.7 ML BTL SCH (08:58)
[2019-09-30] MEDS: CALCIUM CARBONATE 1250MG TAB PO SCH ×2 (08:58→20:08)
[2019-09-30] MEDS: CLOPIDOGREL BISULFATE 75 MG TAB PO SCH ×2 (08:58→13:53)
[2019-09-30] MEDS: dilTIAZem ER 120 MG CAPCR PO SCH ×2 (09:04→13:53)
[2019-09-30] MEDS ORDERED: HALOPERIDOL LACTATE 5 MG/ML 1 ML VIAL IV PRN ×2 (09:39→14:15)
[2019-09-30] MEDS ORDERED: CEFEPIME 1,000 MG in SYRINGE 0 ML IV SCH (11:00)
[2019-09-30] MEDS ORDERED: CEFEPIME 2,000 MG in SYRINGE 7.5 ML IV SCH (11:00)
[2019-09-30] MEDS: ENOXAPARIN INJ 30 MG/0.3 ML SYR SQ SCH (12:20)
--- NOTE | 2019-09-30 14:16 | Pharmacy Report ---
Pharmacy Abx Dose Short Note - Date of Service September 30, 2019 - Assessment & Plan Assessment 84 year old F receiving empiric vancomycin and cefepime for treatment of possible osteomyelitis secondary to stage II pressure ulcer of right heal. Day # 2 of antimicrobial therapy. Microbiology: Blood cultures x 2 (09/29/19): no growth at 24 hours Right leg (08/16/19): MRSA Plan Vancomycin * Random vanco level this morning returned at 8.9 approximately 17.5 hrs after the initial dose * Will initiate vancomycin 750 mg IV q18h * Goal trough level for osteomyelitis : 15 to 20 mcg/mL * Trough level ordered for: 10/02/19 @1430 * Will continue to follow renal function Cefepime * target dose: 2 g IV q8h * 2 g IV q12h appropriate based on estimated CrCl: 33 mL/min Pharmacy will continue to follow and will adjust dose/frequency as necessary. Thank you.
--- NOTE | 2019-09-30 14:33 | Consultation Report ---
DATE OF CONSULTATION: 09/30/2019 HISTORY OF PRESENT ILLNESS: This is an 84-year-old female seen at the request of Dr. Davidson for possible osteomyelitis of the right lower extremity. The patient has had a complicated history specifically related to chronic vascular insufficiency. She recently had a bilateral cineradiography and cannulization of her arteries of lower extremities to attempt a stent or balloon bilateral SFA occlusions. The patient had confusion and change in mental status and she is admitted to the hospital. She has been under the care of Reginald Garland at the [facility] for significant period of time and based upon some screening radiographs which were obtained noted new evidence of possible osteomyelitis of the lateral distal fibula, this resulted in consultation for orthopedics. The patient is in chronically debilitated state. She is nonambulatory. She is somewhat verbal; however, she is often confused and exhibiting features consistent with Alzheimer dementia. PAST MEDICAL HISTORY: Chronic AFib, chronic anemia, arrhythmia, atrial fibrillation, chronic diastolic heart failure, chronic kidney disease stage III, compression fractures of the thoracic vertebra, frequent falls, hypertension, pericardial effusion, peripheral arterial occlusive disease bilaterally, pleural effusions, stage II to III pressure ulcers of the left heel, stage II to III pressure ulcers of the right heel, skin loss of right lower extremity with chronic ulcerations, massive right lower extremity exposed tendon. PAST SURGICAL HISTORY: Colon resection laparoscopic, cholecystectomy, ORIF of wrist fracture, bilateral PTCA. ALLERGIES: CODEINE, FENTANYL, HYDROMORPHONE AND TRAMADOL. MEDICATIONS: Please note the list in the medical record. SOCIAL HISTORY: She denies tobacco, alcohol or drug use. She is retired. She is a resident of a nursing facility. PHYSICAL EXAMINATION: This is an 84-year-old female lying on her left lateral side in the hospital room. She is somewhat verbal with questioning, answered some questions reasonably; however, irritable and does answer in some nonsensical fashion time to time. No reliable history can be obtained. The examination of the lower extremities demonstrates massive skin loss on the right lower extremity essentially circumferential in the lower leg. Exposed fascia, some granulation tissue, exposed Achilles tendon, exposed peroneal tendon sheath. Desiccated superficial cutaneous nerves. Wound size is 13 x 26.2 x 0.2 cm, right heel wound 2.3 cm x 3.3 cm x 0.1 cm, left posterior leg wound 5 cm x 10 cm x 0.1 cm. Limited range of motion. She has contractures of bilateral knees and rests in a hip flexed position. Limitation in active and passive range of motion of bilateral lower extremities. Pulses are palpable. She has a regular rhythm with 1/4 pulses. Feet are warm. There is edema in the right lower extremity compared to the left. There is desiccation noted at the distal Achilles tendon. There is diffuse tenderness to palpation in the bilateral lower extremities. Radiographs reviewed demonstrating possible evidence of osteomyelitis of the lateral distal fibula. No acute fractures. Overall, osteopenia is noted. IMPRESSION: 1. Possible osteomyelitis, right distal lateral fibula. 2. Exposed Achilles tendon with desiccation. 3. Massive right lower extremity skin loss. 4. Bilateral lower extremity severe peripheral vascular disease. 5. Hypoalbuminemia. 6. Malnutrition. 7. Dementia. RECOMMENDATIONS: It is unlikely that the patient will be able to recover from massive skin loss in the right lower extremity. She will at minimum require a resection of her distal Achilles, which will render her unable to ambulate independently without a brace. At this point, a reasonable recommendation would be for amputation of the right lower extremity. The patient and family should have a discussion with medical service and vascular surgery and wound care to make a decision regarding the right lower extremity; however, it is doubtful at best, that this limb could be retained in its current state. Recommended an MRI of the right lower extremity to confirm or deny the presence of osteomyelitis at the distal fibula. We will follow with you. Thank you for the opportunity to consult in the care of this patient. JULY
--- NOTE | 2019-09-30 14:59 | Vascular Medicine ProgressNote ---
Date of Service September 30, 2019 Assessment & Plan (1) Peripheral arterial occlusive disease: - Post endovascular intervention with 4 overlapping stents from RT distal SFA to DAVID with resulting single vessel run-off to the foot. - Post repeat angiography revealing no apparent iliac perforation or dissection - RT foot with improved perfusion on exam. - Extensive RLE ulceration and now suspected osteomyelitis on plalin films -- Continue clopidogrel 75 mg daily --Now on broad-spectrum antibiotics, cefepime, vancomycin --Appreciate orthopedics consultation. Recommendation for amputation noted --MRI when able to follow commands --Further discussions with family pending 2. Delirium - Confused, agitated since post procedure on top of some underlying dementia - Suspect medications, infection, metabolic encephalopathy. Head CT unremarkable. -- continue to monitor post sedation --Appreciate hospital medicine consultation 3. Atrial fibrillation with RVR - Long-standing persistent AF - HR in 110s pre procedure. Still with RVR particularly with agitation -Back on diltiazem, and now low-dose metoprolol 12.5 mg BID with intermittent IV metoprolol. -We will hold additional Coumadin in the setting of worsening anemia, potential need for additional surgery 4. Anemia - Hb trending down with IV fluids yesterday -Serial hemoglobin -With cardiac disease target hemoglobin around 8. Will transfuse as necessary -Hold Coumadin - continue iron, folic acid 5. Chronic diastolic heart failure - Looks dry on limited exam - Continue to home diuretics 6. Relative Hypotension -- Home lisinopril on hold Subjective Patient again confused, agitated and combative overnight. At time of visit this morning patient sleeping comfortably. Review of Systems Review of Systems: Unobtainable due to cognitive status Physical Exam Physical Exam: General: Sleeping comfortably, exam deferred setting of persistent agitation Results & Data Vital Signs (Past 12 Hours) Vital Signs Temp Pulse Pulse Resp BP BP BP 09/30/19 10:52 97.9 F 105 H 14 145/112 H 09/30/19 09:01 141 H 102/69 09/30/19 07:35 97.9 F 115 H 18 101/60 09/30/19 04:05 97.9 F 09/30/19 04:02 104 H 94/51 L Pulse Ox 09/30/19 10:52 95 09/30/19 09:01 09/30/19 07:35 95 09/30/19 04:05 09/30/19 04:02 95 PG Care Time/CCT Total # of Minutes Spent Total Time Spent with Patient: Total time spent is greater than 50% in coordina tion of care (as documented) at patient's floor/unit and/or counseling patient: Coding Level of Care Code 65618 Subseq Hosp Care Lvl 3 Diagnoses Peripheral arterial occlusive disease I77.9
--- NOTE | 2019-09-30 16:50 | Hospitalist Progress Note ---
Date of Service September 30, 2019 Assessment & Plan (1) Altered mental status: Likely due to delirium s/p procedure on 09/28 and associated with mixed vascular/Alzheimer dementia as well as prolonged sedation with Versed and morphine during the procedure. very agitated today, received Haldol 1mg IV, took a few hours to work will increase Haldol to 2mg IV q6 infection is well controlled, no electrolyte abnormalities suspect that all of the agitation and confusion is hospital delirium on baseline dementia continue one on one at night, supportive care (2) Stage II pressure ulcer of right heel: Consulted inpatient wound care and wound care provider Dr. Reginald Garland who already knows the patient. Blood cultures show no growth Wound cultures from the past grew MRSA continue cefepime and vancomycin likely has osteomyelitis of distal fibula, exposed Achilles tendon Dr. Cruz recommends MRI if she can tolerate, should reassess tomorrow, too agitated today Dr. Cruz is recommending amputation of the leg, unlikely to heal from resection of Achilles tendon, not enough skin for healing (3) 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: continue wound care, Cefepime and Vanco (4) Peripheral arterial occlusive disease: As per the primary team s/p angioplasty and 4 overlapping stents to right leg (5) Chronic diastolic CHF (congestive heart failure): As per primary team (6) A-fib: As per primary team. Continue anticoagulation as per primary team Subjective patient extremely agitated this morning hitting, punching staff, trying to bite them, refused to take medications, broke her blood pressure cuff received Haldol 1mg IV after a few hours she became calm and cooperative, she did not recall being agitated and violent on exam, she denies chest pain, dyspnea, cough, fever she has some pain in her right lower leg appreciate consultation from Dr. Cruz, leg cannot be salvaged at a minimum she would need resection of Achilles tendon however, she likely would not do well and more reasonable recommendation would be amputation of right leg Dr. Cruz recommends MRI of the right leg, unsure she would cooperate today reviewed labs, WBC down to 11k from 14k, Hb down to 7.3, will need to watch closely INR 1.6 BMP shows stable renal function and electrolytes Review of Systems Review of Systems: Unobtainable due to cognitive status (patient slightly confused) Physical Exam Constitutional: WD/WN, vitals as above + thin Eyes: PERRL, conjunctivae normal, anicteric sclerae ENMT: external ear and nose normal, oropharynx normal Neck: trachea midline, no thyromegaly Respiratory: normal respiratory effort, lungs clear to auscultation Cardiovascular: Rate/Rhythm: + tachycardic and + irregularly irregular Heart Sounds: normal S1 and normal S2; no murmur Vessels: no JVD Extremities: + abnormal capillary refill (delayed refill) and no edema Gastrointestinal (Abdomen): normal bowel sounds, soft, nontender, no hepatosplenomegaly Musculoskeletal: Head/Neck/Chest: normocephalic and head atraumatic Extremities: + abnormal strength (generalized weakness); no cyanosis and no club dennis Neurologic: patellar DTR's 2+ bilat, sensation intact and PERRL, EOMI, accommodation nl, no face palsy, no dysarthria Psychiatric: Orientation: alert, oriented to person and + guarded; + not oriented to place and + not oriented to time Lymphatic: no cervical or axillary lymphadenopathy Results & Data Vital Signs (Past 12 Hours) Vital Signs Temp Pulse Pulse Resp BP BP BP 09/30/19 15:08 36.3 C L 117 H 19 113/65 09/30/19 10:52 36.6 C 105 H 14 145/112 H 09/30/19 09:01 141 H 102/69 09/30/19 07:35 36.6 C 115 H 18 101/60 Pulse Ox 09/30/19 15:08 90 09/30/19 10:52 95 09/30/19 09:01 09/30/19 07:35 95 Laboratory Results Laboratory Results - last 24 hr 09/30/19 09/30/19 09/30/19 05:54 05:54 05:54 WBC RBC Hgb Hct MCV MCH MCHC RDW Std Deviation RDW Coeff of Elvi Plt Count MPV Immature Gran % (Auto) Neut % (Auto) Lymph % (Auto) [place] % (Auto) Eos % (Auto) Baso % (Auto) Immature Gran # (Auto) Neut # (Auto) Lymph # (Auto) [place] # (Auto) Eos # (Auto) Baso # (Auto) PT 15.8 H INR 1.6 H Sodium Potassium Chloride Carbon Dioxide Anion Gap BUN Creatinine 0.85 Est Cr Clr Drug Dosing 33.0 Est GFR ( Amer) 72.4 Est GFR (Non-Af Amer) 62.5 BUN/Creatinine Ratio Glucose Calcium Random Vancomycin 8.9 09/30/19 09/30/19 07:50 07:50 WBC 11.21 H RBC 2.42 L Hgb 7.3 L Hct 22.9 L MCV 94.6 MCH 30.2 MCHC 31.9 L RDW Std Deviation 50.0 H RDW Coeff of Elvi 14.5 Plt Count 350 MPV 8.9 Immature Gran % (Auto) 0.2 Neut % (Auto) 81.3 Lymph % (Auto) 10.8 [place] % (Auto) 7.0 Eos % (Auto) 0.5 Baso % (Auto) 0.2 Immature Gran # (Auto) 0.02 Neut # (Auto) 9.12 H Lymph # (Auto) 1.21 [place] # (Auto) 0.78 H Eos # (Auto) 0.06 Baso # (Auto) 0.02 PT INR Sodium 141 Potassium 3.6 Chloride 110 H Carbon Dioxide 25 Anion Gap 6.0 BUN 18 Creatinine 0.85 Est Cr Clr Drug Dosing 33.0 Est GFR ( Amer) 72.4 Est GFR (Non-Af Amer) 62.5 BUN/Creatinine Ratio 21.8 H Glucose 83 Calcium 8.4 L Random Vancomycin Medications Administered Current Inpatient Medications Acetaminophen (Tylenol) 1,000 mg PO Q6H PRN PRN Reason: pain Stop: 10/28/19 15:22 Last Admin: 09/29/19 21:33 Dose: 1,000 mg Documented by: Calcitonin Hammond (Fortical) 1 sprays NA DAILY [facility] Stop: 10/29/19 11:44 Last Admin: 09/30/19 08:58 Dose: Not Given Documented by: Calcium Carbonate (Os-Josué 500) 1,250 mg PO BID [facility] Stop: 10/28/19 20:59 Last Admin: 09/30/19 08:58 Dose: Not Given Documented by: Clopidogrel Bisulfate (Plavix) 75 mg PO QAM [facility] Stop: 10/29/19 08:59 Last Admin: 09/30/19 13:53 Dose: 75 mg Documented by: Diltiazem HCl (Tiazac) 120 mg PO DAILY [facility] Stop: 10/29/19 08:59 Last Admin: 09/30/19 13:53 Dose: 120 mg Documented by: Docusate Sodium (Colace) 100 mg PO DAILY [facility] Stop: 10/29/19 08:59 Last Admin: 09/30/19 08:57 Dose: Not Given Documented by: Enoxaparin Sodium (Lovenox) 30 mg SQ Q24H [facility] Stop: 10/29/19 10:59 Last Admin: 09/30/19 12:20 Dose: 30 mg Documented by: Ferrous Sulfate (Feosol) 325 mg PO TID [facility] Stop: 10/28/19 20:59 Last Admin: 09/30/19 13:12 Dose: Not Given Documented by: Folic Acid (Folvite) 1 mg PO QAM [facility] Stop: 10/29/19 08:59 Last Admin: 09/30/19 08:57 Dose: Not Given Documented by: Haloperidol Lactate (Haldol) 2 mg IV Q6H PRN PRN Reason: Agitation Stop: 10/29/19 17:59 Cefepime HCl 2,000 mg/ Syringe 20 mls @ 5 mls/min IV Q12@0800,2000 [facility]; Protocol Stop: 11/11/19 08:14 Last Admin: 09/30/19 08:55 Dose: 5 mls/min Documented by: Vancomycin HCl 750 mg/ Sodium (Chloride) 265 mls @ 125 mls/hr IV Q18H [facility]; Protocol Stop: 11/12/19 02:59 Metoprolol Tartrate (Lopressor) 2.5 mg IV Q4 PRN PRN Reason: Tachycardia Stop: 10/29/19 09:56 Last Admin: 09/30/19 09:01 Dose: 2.5 mg Documented by: Metoprolol Tartrate (Lopressor) 12.5 mg PO BID [facility] Stop: 10/29/19 10:14 Last Admin: 09/30/19 13:53 Dose: 12.5 mg Documented by: Miscellaneous Information (Consult) 1 ea N/A UD PRN PRN Reason: Consult Stop: 10/29/19 10:43 Miscellaneous Information (Cefepime Consult Active) 1 ea N/A UD PRN PRN Reason: Consult Stop: 10/29/19 12:02 Ondansetron HCl (Zofran) 4 mg IV Q6H PRN PRN Reason: Nausea And Vomiting Stop: 10/28/19 15:20 Quetiapine Fumarate (Seroquel) 25 mg PO Q12 [facility] Stop: 10/30/19 20:59 Warfarin Sodium (Coumadin) 2 mg PO DAILY@1600 [facility] Stop: 10/28/19 16:29 Last Admin: 09/29/19 17:31 Dose: Not Given Documented by: PG Care Time/CCT Total # of Minutes Spent Total Time Spent with Patient: Total time spent is greater than 50% in coordination of care (as documented) at patient's floor/unit and/or counseling patient: Coding Level of Care Code 92399 Subseq Hosp Care Lvl 3 Diagnoses Altered mental status R41.82 Stage II pressure ulcer of right heel L89.612 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 L89.622 Peripheral arterial occlusive disease I77.9 Chronic diastolic CHF (congestive heart failure) I50.32 A-fib I48.21 Atrial fibrillation type: permanent (1) A-fib Atrial fibrillation type: permanent Qualified Code(s): I48.21 - Permanent atrial fibrillation
[2019-09-30] MEDS: QUETIAPINE FUMARATE 25 MG TABLET PO SCH (20:07)
[2019-10-01] MEDS: VANCOMYCIN HCL 750 MG in SODIUM CHLORIDE 0.9% 250 ML IV SCH ×2 (02:30→21:11)
[2019-10-01] MEDS: CEFEPIME 2,000 MG in SYRINGE 7.5 ML IV SCH ×2 (08:11→21:10)
[2019-10-01] MEDS: METOPROLOL TARTRATE 25 MG TAB PO SCH ×2 (09:36→21:10)
[2019-10-01] MEDS: CLOPIDOGREL BISULFATE 75 MG TAB PO SCH (09:37)
[2019-10-01] MEDS: QUETIAPINE FUMARATE 25 MG TABLET PO SCH ×2 (09:38→21:10)
[2019-10-01] MEDS: dilTIAZem ER 120 MG CAPCR PO SCH (09:39)
[2019-10-01] MEDS: FERROUS SULFATE 325 MG TAB PO SCH ×3 (09:40→21:10)
[2019-10-01] MEDS: FOLIC ACID 1 MG TAB PO SCH (09:40)
[2019-10-01] MEDS: CALCITONIN SALMON NA 200 IU/AC 3.7 ML BTL SCH (09:42)
[2019-10-01] MEDS: CALCIUM CARBONATE 1250MG TAB PO SCH ×2 (09:43→21:11)
[2019-10-01] MEDS: DOCUSATE SODIUM 100 MG CAP PO SCH (09:43)
[2019-10-01 10:30] LABS: Basophils # (auto) 0.02 K/uL (0-0.2); Basophils % (auto) 0.2 %; Eosinophils # (auto) 0.05 K/uL (0-0.5); Eosinophils % (auto) 0.6 %; Hematocrit (blood only) 23.8 % (37-47); Hemoglobin 7.5 g/dL (12.0-16.0); Immature Granulocytes # (auto) 0.03 K/uL (0.00-0.02); Immature Granulocytes % (auto) 0.3 %; Lymphocytes # (auto) 1.32 K/uL (1.2-3.4); Lymphocytes % (auto) 15.1 %; Mean Corpuscular Hemoglobin 29.9 pg (25-34); Mean Corpuscular Hgb Conc 31.5 g/dL (32-36); Mean Corpuscular Volume 94.8 fL (80-100); Mean Platelet Volume 8.9 fL (7.4-10.4); Monocytes # (auto) 0.45 K/uL (0.11-0.59); Monocytes % (auto) 5.1 %; Neutrophils # (auto) 6.87 K/uL (1.4-6.5); Neutrophils % (auto) 78.7 %; Platelet Count 337 K/uL (130-400); RDW Coefficient of Variation 14.6 % (11.5-14.5); RDW Standard Deviation 49.8 fL (36.4-46.3); Red Blood Count 2.51 M/uL (4.2-5.4); White Blood Count 8.74 K/uL (4.8-10.8)
[2019-10-01 10:48] LABS: Albumin Level 1.7 gm/dl (3.4-5.0); BUN Creatinine Ratio 18.4 (10-20); Calcium 8.8 mg/dl (8.5-10.1); Creatinine Clr Calc Pharmacy 29.2 ml/min; Est GFR (African American) 62.5; Est GFR (Non-African American) 53.9; Potassium 3.9 mmol/L (3.5-5.1)
[2019-10-01 10:50] LABS: Albumin Globulin Ratio 0.4 (0.9-2); Bilirubin,Total 0.5 mg/dl (0.2-1); Creatinine Clr Calc Pharmacy 30.2 ml/min; Globulin 4.5 gm/dl (2.5-4.0); Total Protein 6.2 gm/dl (6.4-8.2)
[2019-10-01 10:51] LABS: RBC Morphology Unremarkable
[2019-10-01 11:03] LABS: INR 1.3 (0.9-1.1); Prothrombin Time 13.5 Seconds (9.0-12.0)
[2019-10-01] MEDS: ENOXAPARIN INJ 30 MG/0.3 ML SYR SQ SCH (11:30)
--- NOTE | 2019-10-01 12:07 | Hospitalist Progress Note ---
Date of Service October 01, 2019 Assessment & Plan (1) Stage II pressure ulcer of right heel: Consulted inpatient wound care and wound care provider Dr. Reginald Garland who already knows the patient. Blood cultures show no growth Wound cultures from the past grew MRSA continue cefepime and vancomycin With severe PAD and likely has osteomyelitis of distal fibula, exposed Achilles tendon--> will try to get MRI extremity today to look for OM Post endovascular intervention with 4 overlapping stents from RT distal SFA to DAVID with resulting single vessel run-off to the foot. - Post repeat angiography revealing no apparent iliac perforation or dissection - RT foot with improved perfusion on exam. - Extensive RLE ulceration and now suspected osteomyelitis on plain films as above -- Continue clopidogrel 75 mg daily --continue broad-spectrum antibiotics, cefepime, vancomycin continue wound care Appreciate Vascular Cardio intervention Haydee Victoria is the patient's HCPOA and is adamant that the patient NOT have an amputation a this time and to perform other procedures to salvage the leg first. Appreciate ortho consult: Dr. Cruz recommends MRI if she can tolerate Dr. Cruz is recommending amputation of the leg, unlikely to heal from resection of Achilles tendon, not enough skin for healing--> however as above,HCPOA hoping for salvage of limb -continue IV abx, wound care (2) Altered mental status: Acute metabolic encephalopathy secondary to being s/p procedure on 09/28 and associated with mixed vascular/Alzheimer dementia as well as prolonged sedation with Versed and morphine during the procedure. very agitated on 09/30, received Haldol 1mg IV, took a few hours to work Seems somewhat improved now on 10/01 but still requiring IV haldol prn -continue Haldol 2mg IV q6 prn infection is well controlled, no electrolyte abnormalities suspect that all of the agitation and confusion is hospital delirium on baseline dementia continue one on one, supportive care (3) 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: continue wound care, abx (4) Peripheral arterial occlusive disease: As per the primary team, as above (5) Chronic diastolic CHF (congestive heart failure): As per primary team, not volume overloaded (6) A-fib: As per primary team. Rates mildly elevated Continue anticoagulation as per primary team-holding coumadin now, INR 1.4, for procedure -continue po diltiazem, metoprolol (7) DVT prophylaxis: Lovenox SQ Dispo-remain on PCU Discussed case at length on phone and in hallway with Corina HYLTON Subjective Pt drowsy but wakes up to verbal stimului and starts screaming out in pain when her left leg is examined due to pain. Denies headache, chest pain. She did eat some yogurt and a [place] instant breakfast this AM. Was given IV Haldol this AM as well. Tele with Aflutter and fib in the 100s, with artifact compounding. Discussed her case with Wound Care MD Dr. Garland and Ortho Review of Systems Review of Systems: Unobtainable due to cognitive status Physical Exam Constitutional: average body habitus and + lethargic; no acute distress Eyes: + anicteric sclerae ENMT: external ear and nose normal, oropharynx normal Neck: trachea midline, no thyromegaly Respiratory: normal respiratory effort, lungs clear to auscultation Cardiovascular: Rate/Rhythm: regular rate and + irregularly irregular Heart Sounds: no murmur Extremities: + edema (left leg and foot with 1+ pitting edema) Chest (Breasts): Chest: normal inspection of chest Gastrointestinal (Abdomen): normal bowel sounds, soft, nontender, no hepatosplenomegaly Musculoskeletal: Extremities: no cyanosis and no clubbing Skin: + lesion (rt Achilles exposed, large amount skin absent from medial posterior ankl ), + ulcer (left lateral leg with open wound, mild erythema) and + erythema (surrounding rt medial leg wound) Neurologic: moves all extremities; no focal motor deficits Psychiatric: Orientation: + guarded Eye Contact: + poor eye contact Speech: + loud speech Affect: + irritable affect Lymphatic: no lymphedema Results & Data Vital Signs (Past 12 Hours) Vital Signs Temp Pulse Resp BP Pulse Ox 10/01/19 11:18 36.5 C 110 H 16 90/60 L 92 10/01/19 07:33 36.6 C 108 H 18 101/64 10/01/19 04:45 36.5 C 112 H 19 90/48 L 96 Laboratory Results 10/01/19 10/01/19 10/01/19 Range/Units 10:08 10:08 10:08 WBC 8.74 (4.8-10.8) K/uL RBC 2.51 L (4.2-5.4) M/uL Hgb 7.5 L (12.0-16.0) g/dL Hct 23.8 L (37-47) % MCV 94.8 (80-100) fL MCH 29.9 (25-34) pg MCHC 31.5 L (32-36) g/dL RDW Std Deviation 49.8 H (36.4-46.3) fL RDW Coeff of Elvi 14.6 H (11.5-14.5) % Plt Count 337 (130-400) K/uL MPV 8.9 (7.4-10.4) fL Immature Gran % (Auto) 0.3 % Neut % (Auto) 78.7 % Lymph % (Auto) 15.1 % [place] % (Auto) 5.1 % Eos % (Auto) 0.6 % Baso % (Auto) 0.2 % Immature Gran # (Auto) 0.03 H (0.00-0.02) K/uL Neut # (Auto) 6.87 H (1.4-6.5) K/uL Lymph # (Auto) 1.32 (1.2-3.4) K/uL [place] # (Auto) 0.45 (0.11-0.59) K/uL Eos # (Auto) 0.05 (0-0.5) K/uL Baso # (Auto) 0.02 (0-0.2) K/uL RBC Morphology Unremarkable PT 13.5 H (9.0-12.0) Seconds INR 1.3 H (0.9-1.1) Sodium 139 (136-145) mmol/L Potassium 3.9 (3.5-5.1) mmol/L Chloride 110 H (98-107) mmol/L Carbon Dioxide 29 (21-32) mmol/L Anion Gap 0 L (3-11) BUN 18 (7-18) mg/dl Creatinine 0.96 (0.6-1.2) mg/dl Est Cr Clr Drug Dosing 29.2 ml/min Est GFR ( Amer) 62.5 Est GFR (Non-Af Amer) 53.9 BUN/Creatinine Ratio 18.4 (10-20) Glucose 141 H (70-99) mg/dl Calcium 8.8 (8.5-10.1) mg/dl Total Bilirubin 0.5 (0.2-1) mg/dl AST 24 (15-37) U/L ALT 10 L (12-78) U/L Alkaline Phosphatase 99 (45-117) U/L Total Protein 6.2 L (6.4-8.2) gm/dl Albumin 1.7 L (3.4-5.0) gm/dl Globulin 4.5 H (2.5-4.0) gm/dl Albumin/Globulin Ratio 0.4 L (0.9-2) Stl C. diff Tox B Gene (Neg) 10/01/19 09/30/19 Range/Units 10:08 Unknown WBC (4.8-10.8) K/uL RBC (4.2-5.4) M/uL Hgb (12.0-16.0) g/dL Hct (37-47) % MCV (80-100) fL MCH (25-34) pg MCHC (32-36) g/dL RDW Std Deviation (36.4-46.3) fL RDW Coeff of Elvi (11.5-14.5) % Plt Count (130-400) K/uL MPV (7.4-10.4) fL Immature Gran % (Auto) % Neut % (Auto) % Lymph % (Auto) % [place] % (Auto) % Eos % (Auto) % Baso % (Auto) % Immature Gran # (Auto) (0.00-0.02) K/uL Neut # (Auto) (1.4-6.5) K/uL Lymph # (Auto) (1.2-3.4) K/uL [place] # (Auto) (0.11-0.59) K/uL Eos # (Auto) (0-0.5) K/uL Baso # (Auto) (0-0.2) K/uL RBC Morphology PT (9.0-12.0) Seconds INR (0.9-1.1) Sodium (136-145) mmol/L Potassium (3.5-5.1) mmol/L Chloride (98-107) mmol/L Carbon Dioxide (21-32) mmol/L Anion Gap (3-11) BUN (7-18) mg/dl Creatinine 0.93 (0.6-1.2) mg/dl Est Cr Clr Drug Dosing 30.2 ml/min Est GFR ( Amer) 65.0 Est GFR (Non-Af Amer) 56.0 BUN/Creatinine Ratio (10-20) Glucose (70-99) mg/dl Calcium (8.5-10.1) mg/dl Total Bilirubin (0.2-1) mg/dl AST (15-37) U/L ALT (12-78) U/L Alkaline Phosphatase (45-117) U/L Total Protein (6.4-8.2) gm/dl Albumin (3.4-5.0) gm/dl Globulin (2.5-4.0) gm/dl Albumin/Globulin Ratio (0.9-2) Stl C. diff Tox B Gene Negative Cdiff Gene (Neg) PG Care Time/CCT Total # of Minutes Spent Total Time Spent with Patient: Total time spent is greater than 50% in coordination of care (as documented) at patient's floor/unit and/or counseling patient: Coding Level of Care Code 50143 Subseq Hosp Care Lvl 3 Diagnoses Stage II pressure ulcer of right heel L89.612 Altered mental status R41.82 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 L89.622 Peripheral arterial occlusive disease I77.9 Chronic diastolic CHF (congestive heart failure) I50.32 A-fib I48.21 Atrial fibrillation type: permanent DVT prophylaxis Z29.9 (1) A-fib Atrial fibrillation type: permanent Qualified Code(s): I48.21 - Permanent atrial fibrillation
--- NOTE | 2019-10-01 14:27 | Cardiology Progress Note ---
Date of Service October 01, 2019 Assessment & Plan (1) Peripheral arterial occlusive disease: - Post endovascular intervention with 4 overlapping stents from RT distal SFA to DAVID with resulting single vessel run-off to the foot. - Post repeat angiography revealing no apparent iliac perforation or dissection - RT foot with improved perfusion on exam. - Extensive RLE ulceration and now suspected osteomyelitis on plalin films -- Continue clopidogrel 75 mg daily --Now on broad-spectrum antibiotics, cefepime, vancomycin --Appreciate orthopedics consultation. Recommendation for amputation noted --MRI when able to follow commands --Further discussions with family pending 2. Delirium - Confused, agitated since post procedure on top of some underlying dementia - Suspect medications, infection, metabolic encephalopathy. Head CT unremarkable. -- continue to monitor post sedation --Appreciate hospital medicine consultation 3. Atrial fibrillation with RVR - Long-standing persistent AF - HR in 110s pre procedure. Still with RVR particularly with agitation -Back on diltiazem, and now low-dose metoprolol 12.5 mg BID with intermittent IV metoprolol. -We will hold additional Coumadin in the setting of worsening anemia, potential need for additional surgery 4. Anemia - Hb trending down with IV fluids yesterday -Serial hemoglobin -With cardiac disease target hemoglobin around 8. Will transfuse as necessary -Hold Coumadin - continue iron, folic acid 5. Chronic diastolic heart failure - Looks dry on limited exam - Continue to home diuretics 6. Relative Hypotension -- Home lisinopril on hold Subjective Intermittently answers questions appropriately - seemed to un Results & Data Vital Signs (Past 12 Hours) Vital Signs Temp Pulse Resp BP Pulse Ox 10/01/19 11:18 97.7 F 110 H 16 90/60 L 92 10/01/19 07:33 97.9 F 108 H 18 101/64 10/01/19 04:45 97.7 F 112 H 19 90/48 L 96 PG Care Time/CCT Total # of Minutes Spent Total Time Spent with Patient: Total time spent is greater than 50% in coordin ation of care (as documented) at patient's floor/unit and/or counseling patient: Coding Diagnoses Peripheral arterial occlusive disease I77.9
--- NOTE | 2019-10-01 15:20 | Vascular Medicine ProgressNote ---
Date of Service October 01, 2019 Assessment & Plan (1) Peripheral arterial occlusive disease: - Post endovascular intervention with 4 overlapping stents from RT distal SFA to DAVID with resulting single vessel run-off to the foot. - Post repeat angiography revealing no apparent iliac perforation or dissection - RT foot with improved perfusion on exam. - Extensive RLE ulceration and now suspected osteomyelitis on plalin films -- Continue clopidogrel 75 mg daily --Now on broad-spectrum antibiotics, cefepime, vancomycin --Appreciate orthopedics consultation. Recommendation for amputation noted. Debridement later this week being considered. --MRI when able to follow commands 2. Delirium - Confused, agitated since post procedure on top of some underlying dementia - Suspect medications, infection, metabolic encephalopathy. Head CT unremarkable. -- continue to monitor post sedation, sitter in place, haldol prn 3. Atrial fibrillation with RVR - Long-standing persistent AF - HR in 110s pre procedure. HRs stable, improved at rest. -Continue diltiazem and low-dose metoprolol 12.5 mg BID with intermittent IV metoprolol. -We will hold additional Coumadin in the setting of worsening anemia, potential need for additional surgery 4. Anemia - Hb stable -With cardiac disease target hemoglobin around 8. Will transfuse as necessary -Hold Coumadin - continue iron, folic acid 5. Chronic diastolic heart failure - home diuretics on hold 6. Relative Hypotension -- Home lisinopril on hold Appreciate Hospital medicine, orthopedics, wound team care. Subjective Still confused, intermittently agitated with one to one sitter Intermittently answers questions appropriately - seemed to understand potential need for amputation. Refused MRI. Tele reviewed - AF HRs 90-130s, Review of Systems Review of Systems: Unobtainable due to cognitive status Physical Exam Physical Exam: General: intermittently answers questions appropriately Declined exam Lower extremities pink. Dressing in place over RT leg. No surrounding induration. Results & Data Vital Signs (Past 12 Hours) Vital Signs Temp Pulse Resp BP Pulse Ox 10/01/19 11:18 97.7 F 110 H 16 90/60 L 92 10/01/19 07:33 97.9 F 108 H 18 101/64 10/01/19 04:45 97.7 F 112 H 19 90/48 L 96 PG Care Time/CCT Total # of Minutes Spent Total Time Spent with Patient: Total time spent is greater than 50% in coordination of care (as documented) at patient's floor/unit and/or counseling patient: Coding Level of Care Code 55395 Subseq Hosp Care Lvl 3 Diagnoses Peripheral arterial occlusive disease I77.9
[2019-10-01] MEDS ORDERED: GADOBUTROL 65ML VIAL IV PRN (20:15)
--- NOTE | 2019-10-01 20:53 | Magnetic Resonance Report ---
Study: MRI right lower leg HISTORY: Pain. Edema. COMPARISON: None. FINDINGS: Study is nondiagnostic due to severe patient motion. Signal characteristics of the bony str uctures are grossly unremarkable. There appears to be moderate generalized soft tissue edematous change. Further evaluation is not felt to be diagnostically accurate. IMPRESSION: 1. Nondiagnostic study due to severe patient motion. 2. No major bone marrow replacing process. 3. Generalized soft tissue edema. Electronically signed by: Mauricio Linda M.D. 10/01/2019 8:52 PM
[2019-10-02 06:42] LABS: Basophils # (auto) 0.03 K/uL (0-0.2); Basophils % (auto) 0.4 %; Eosinophils % (auto) 1.2 %; Hematocrit (blood only) 24.4 % (37-47); Hemoglobin 7.7 g/dL (12.0-16.0); Immature Granulocytes # (auto) 0.01 K/uL (0.00-0.02); Immature Granulocytes % (auto) 0.1 %; Lymphocytes # (auto) 1.62 K/uL (1.2-3.4); Lymphocytes % (auto) 19.6 %; Mean Corpuscular Hgb Conc 31.6 g/dL (32-36); Mean Corpuscular Volume 94.9 fL (80-100); Mean Platelet Volume 8.8 fL (7.4-10.4); Monocytes # (auto) 0.66 K/uL (0.11-0.59); Neutrophils # (auto) 5.84 K/uL (1.4-6.5); Neutrophils % (auto) 70.7 %; Platelet Count 336 K/uL (130-400); RDW Coefficient of Variation 14.9 % (11.5-14.5); RDW Standard Deviation 50.7 fL (36.4-46.3); Red Blood Count 2.57 M/uL (4.2-5.4); White Blood Count 8.26 K/uL (4.8-10.8)
[2019-10-02 07:14] LABS: BUN Creatinine Ratio 20.7 (10-20); C Reactive Protein 7.43 mg/dl (0-0.29); Creatinine Clr Calc Pharmacy 37.4 ml/min; Est GFR (African American) 84.2; Est GFR (Non-African American) 72.7; Magnesium 1.3 mg/dl (1.8-2.4); Potassium 3.6 mmol/L (3.5-5.1)
[2019-10-02 07:22] LABS: RBC Morphology Unremarkable
[2019-10-02] MEDS: CEFEPIME 2,000 MG in SYRINGE 7.5 ML IV SCH ×2 (08:45→20:17)
[2019-10-02] MEDS: METOPROLOL TARTRATE 25 MG TAB PO SCH ×2 (08:46→20:19)
[2019-10-02] MEDS: CLOPIDOGREL BISULFATE 75 MG TAB PO SCH (08:46)
[2019-10-02] MEDS: DOCUSATE SODIUM 100 MG CAP PO SCH (08:46)
[2019-10-02] MEDS: FOLIC ACID 1 MG TAB PO SCH (08:46)
[2019-10-02] MEDS: dilTIAZem ER 120 MG CAPCR PO SCH (08:46)
[2019-10-02] MEDS: FERROUS SULFATE 325 MG TAB PO SCH ×3 (08:46→20:18)
[2019-10-02] MEDS: CALCIUM CARBONATE 1250MG TAB PO SCH ×2 (08:46→20:19)
[2019-10-02] MEDS: QUETIAPINE FUMARATE 25 MG TABLET PO SCH ×2 (08:47→20:19)
[2019-10-02] MEDS: CALCITONIN SALMON NA 200 IU/AC 3.7 ML BTL SCH (08:47)
[2019-10-02] MEDS ORDERED: POTASSIUM CHLORIDE 20 MEQ TABCR PO STA (09:24)
[2019-10-02] MEDS: MAGNESIUM SULFATE / D5W 1 GM/100 ML BAG IV SCH ×2 (10:20→11:26)
[2019-10-02] MEDS: ENOXAPARIN INJ 30 MG/0.3 ML SYR SQ SCH (11:26)
[2019-10-02] MEDS: LACTOBACILLUS ACIDOPHILUS (FLORANEX) TAB PO SCH ×2 (12:50→17:13)
--- NOTE | 2019-10-02 14:03 | XRay Report ---
XR chest 1V portable CLINICAL HISTORY: f/u pleural effusion COMPARISON STUDY: Chest CT July 10, 2019. Chest radiograph August 09, 2019. FINDINGS: Moderate cardiomegaly is noted. There is pulmonary vascular congestion without overt pulmon saniya edema. There is no pneumothorax. Small right pleural effusion has slightly decreased since exam o f August 09, 2019. There is a small left pleural effusion which appears unchanged. There are persist ent left basilar opacities. A hiatal hernia is again noted. IMPRESSION: 1. Small right pleural effusion, decreased since exam of August 09, 2019. 2. No change in a small left pleural effusion with left basilar opacity. 3. Pulmonary vascular congestion without overt pulmonary edema. ACT 112: Negative or not required by law. Electronically signed by: Jimi Skinner M.D. 10/02/2019 2:02 PM
[2019-10-02] MEDS ORDERED: VANCOMYCIN TROUGH ONE (14:30)
[2019-10-02] MEDS: VANCOMYCIN HCL 750 MG in SODIUM CHLORIDE 0.9% 250 ML IV SCH (15:32)
--- NOTE | 2019-10-02 16:10 | Pharmacy Report ---
Pharmacy Abx Dose Short Note - Date of Service October 02, 2019 - Assessment & Plan Assessment 84 year old F receiving empiric vancomycin and cefepime for treatment of stage II pressure ulcer of right heel/osteomyelitis of distal fibula. Day # 5 of antimicrobial therapy. Microbiology: Blood cultures x 2 (09/29/19): no growth at 48 hours Right leg (08/16/19): MRSA Plan Vancomycin * Trough level of 12 mcg/mL is subtherapeutic for this indication * Change to 750 mg IV every 14 hours * Goal trough level for osteomyelitis : 15 to 20 mcg/mL * Trough or random level ordered for: 10/04/2019 @0830 prior to 4th dose of new regimen * Will continue to follow renal function Cefepime * Target dose for osteomyelitis: 2 g IV q8h * 2 g IV q12h - appropriate based on estimated CrCl of 37 mL/min (30-60 mL/min) Pharmacy will continue to follow and will adjust dose/frequency as necessary. Thank you.
[2019-10-02] MEDS ORDERED: SODIUM CHLORIDE 0.9% 250 ML IV PRN (18:42)
--- NOTE | 2019-10-02 18:50 | Hospitalist Progress Note ---
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 Reginald Garland who already knows the patient. 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 - Post repeat angiography revealing no apparent iliac perforation or dissection - RT foot with improved perfusion on exam. - Extensive RLE ulceration and now suspected osteomyelitis on plain films as above -- Continue clopidogrel 75 mg daily --continue broad-spectrum antibiotics, cefepime, vancomycin --continue wound care Appreciate Vascular Cardio intervention Haydee Victoria is the patient's HCPOA and is adamant that the patient NOT have an amputation a this time and to perform other procedures to salvage the leg first. Appreciate ortho consult: Dr. Cruz is recommending amputation of the leg, unlikely to heal from resection of Achilles tendon, not enough skin for healing--> however as above,HCPOA hoping for salvage of limb -continue IV abx, wound care -plan for surgical debridement of leg on Tuesday (2) Altered mental status: Acute metabolic encephalopathy secondary to being s/p procedure on 09/28 and associated with mixed vascular/Alzheimer dementia as well as prolonged sedation with Versed and morphine during the procedure. very agitated on 09/30, received Haldol 1mg IV, took a few hours to work Has definitely improved since then with avoidance of opioids and giving scheduled Seroquel -continue Haldol 2mg IV q6 prn infection is well controlled, no electrolyte abnormalities suspect that all of the agitation and confusion is hospital delirium on baseline dementia and with use of sedation for procedure (3) 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: continue wound care, abx (4) Peripheral arterial occlusive disease: - as above (5) Chronic diastolic CHF (congestive heart failure): -not volume overloaded -holding home diuretics (6) A-fib: Rates remain elevated, worse today, may be worsened by anemia -holding coumadin for procedure -start bridging therapeutic Lovenox 1mg/kg q12h until Ortho procedure -continue po diltiazem 120mg daily -switched from atenolol to metoprolol this admission by Cardio--> increase metoprolol to 25mg po bid -will likely transfuse PRBCs tomorrow if PRBCs drop lower and also in preparation for surgery on Tuesday -continue tele monitoring (7) Anemia: Hgb down from previous baseline Was hgb 9 after hip fracture and repair 07/2019, has slowly trended downward since then due to chronic infection Also with folate low at 4 on old labs 07/2014 Normocytic B12 normal 07/2019 -type and cross for 2 units in the AM and pt agreeable to transfusion however will get HCPOA to sign consent as pt orented only to person -follow CBC in AM -check folate level-I do not see that she is on replacement -continue FeSO4 tid (8) Hypertension: BPs on low side now -holding home lisinopril and lasix -continue diltiazem, metoprolol (9) Pleural effusion: Chronic rt sided, ?loculated pleural effusion With concern by niece for worseing dyspnea on 10/02 and need for thoracentesis? CXR 10/02 improved from previous, small pleural effusion Oxygenating well -no thoracentesis for now but if needed, follows with Dr. 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 diff neg on 09/30 -started Floranex probiotic tid -follow (12) Hypomagnesemia: could be secondary to GI losses -continue to replace with IV Mag today -follow Mag level in AM (13) Acute DVT (deep venous thrombosis): Has a known Right popliteal vein DVT from 07/25/19 after right hip ORIF -was on Eliquis at time DVT found and converted to warfarin -coumadin on hold for procedure -start Lovenox therapeutic dosing while awaiting surgery onright leg given h/o popliteal DVT and A-fib (14) DVT prophylaxis: Lovenox SQ as above Dispo-remain on PCU Discussed case at length with HCPOA, Corina Subjective Pt reports feeling better, no pain in leg. Not agitated at all today, is pleasant but only oriented to person.Is having loose stools still. Denies CP or SOB. Niece was concerned she may be building up with pleural fluid as she seemed to be having trouble breathing. CXR showed effusion less than previous in 08/2019. No bleeding from anywhere Tele with Afib, rates 60s-110s Review of Systems Review of Systems: All systems reviewed & are unremarkable except as noted in HPI & below Physical Exam Constitutional: average body habitus; no acute distress Eyes: + anicteric sclerae Neck: trachea midline, no thyromegaly Respiratory: normal respiratory effort, lungs clear to auscultation Cardiovascular: Rate/Rhythm: + tachycardic and + irregularly irregular Heart Sounds: no murmur Extremities: + edema (rt leg and foot with 1+ pitting edema) Chest (Breasts): Chest: normal inspection of chest Gastrointestinal (Abdomen): normal bowel sounds, soft, nontender, no hepatosplenomegaly Musculoskeletal: Extremities: no cyanosis and no clubbing Skin: + lesion (rt Achilles exposed, large amount skin absent from medial posterior ankl ), + ulcer (left lateral leg with open wound, mild erythema) and + erythema (surrounding rt medial leg wound) Neurologic: moves all extremities; no focal motor deficits Psychiatric: Orientation: alert, oriented to person and cooperative Eye Contact: good eye contact Speech: normal rate/rhythm/volume of speech Affect: euthymic affect Cognition: + recent memory not intact Lymphatic: no lymphedema Results & Data Vital Signs (Past 12 Hours) Vital Signs Temp Pulse Pulse Resp BP Pulse Ox 10/02/19 16:06 36.7 C 105 H 20 125/79 93 10/02/19 14:40 108 H 10/02/19 11:32 36.5 C 103 H 18 101/69 92 10/02/19 08:00 126 H 10/02/19 07:17 36.7 C 122 H 18 124/90 94 Laboratory Results 10/02/19 10/02/19 10/02/19 Range/Units 14:26 06:30 06:30 WBC 8.26 (4.8-10.8) K/uL RBC 2.57 L (4.2-5.4) M/uL Hgb 7.7 L (12.0-16.0) g/dL Hct 24.4 L (37-47) % MCV 94.9 (80-100) fL MCH 30.0 (25-34) pg MCHC 31.6 L (32-36) g/dL RDW Std Deviation 50.7 H (36.4-46.3) fL RDW Coeff of Elvi 14.9 H (11.5-14.5) % Plt Count 336 (130-400) K/uL MPV 8.8 (7.4-10.4) fL Immature Gran % (Auto) 0.1 % Neut % (Auto) 70.7 % Lymph % (Auto) 19.6 % [place] % (Auto) 8.0 % Eos % (Auto) 1.2 % Baso % (Auto) 0.4 % Immature Gran # (Auto) 0.01 (0.00-0.02) K/uL Neut # (Auto) 5.84 (1.4-6.5) K/uL Lymph # (Auto) 1.62 (1.2-3.4) K/uL [place] # (Auto) 0.66 H (0.11-0.59) K/uL Eos # (Auto) 0.10 (0-0.5) K/uL Baso # (Auto) 0.03 (0-0.2) K/uL RBC Morphology Unremarkable ESR 79 H (0-21) mm/hr Sodium (136-145) mmol/L Potassium (3.5-5.1) mmol/L Chloride (98-107) mmol/L Carbon Dioxide (21-32) mmol/L Anion Gap (3-11) BUN (7-18) mg/dl Creatinine (0.6-1.2) mg/dl Est Cr Clr Drug Dosing ml/min Est GFR ( Amer) Est GFR (Non-Af Amer) BUN/Creatinine Ratio (10-20) Glucose (70-99) mg/dl Calcium (8.5-10.1) mg/dl Magnesium (1.8-2.4) mg/dl C-Reactive Protein (0-0.29) mg/dl Vancomycin Trough 12.0 (See Comment) mcg/ml 10/02/19 Range/Units 06:30 WBC (4.8-10.8) K/uL RBC (4.2-5.4) M/uL Hgb (12.0-16.0) g/dL Hct (37-47) % MCV (80-100) fL MCH (25-34) pg MCHC (32-36) g/dL RDW Std Deviation (36.4-46.3) fL RDW Coeff of Elvi (11.5-14.5) % Plt Count (130-400) K/uL MPV (7.4-10.4) fL Immature Gran % (Auto) % Neut % (Auto) % Lymph % (Auto) % [place] % (Auto) % Eos % (Auto) % Baso % (Auto) % Immature Gran # (Auto) (0.00-0.02) K/uL Neut # (Auto) (1.4-6.5) K/uL Lymph # (Auto) (1.2-3.4) K/uL [place] # (Auto) (0.11-0.59) K/uL Eos # (Auto) (0-0.5) K/uL Baso # (Auto) (0-0.2) K/uL RBC Morphology ESR (0-21) mm/hr Sodium 141 (136-145) mmol/L Potassium 3.6 (3.5-5.1) mmol/L Chloride 112 H (98-107) mmol/L Carbon Dioxide 26 (21-32) mmol/L Anion Gap 4.0 (3-11) BUN 16 (7-18) mg/dl Creatinine 0.75 (0.6-1.2) mg/dl Est Cr Clr Drug Dosing 37.4 ml/min Est GFR ( Amer) 84.2 Est GFR (Non-Af Amer) 72.7 BUN/Creatinine Ratio 20.7 H (10-20) Glucose 84 (70-99) mg/dl Calcium 9.0 (8.5-10.1) mg/dl Magnesium 1.3 L (1.8-2.4) mg/dl C-Reactive Protein 7.43 H (0-0.29) mg/dl Vancomycin Trough (See Comment) mcg/ml PG Care Time/CCT Total # of Minutes Spent Total Time Spent with Patient: Total time spent is greater than 50% in coordination of care (as documented) at patient's floor/unit and/or counseling patient: Coding Level of Care Code 63337 Subseq Hosp Care Lvl 3 Diagnoses 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 Altered mental status R41.82 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 L89.622 Peripheral arterial occlusive disease I77.9 Chronic diastolic CHF (congestive heart failure) I50.32 A-fib I48.21 Atrial fibrillation type: permanent Anemia D64.89 Anemia type: other cause Other causes of anemia: other cause, not classified Hypertension I10 Hypertension type: essential hypertension Pleural effusion J90 CKD (chronic kidney disease) stage 3, GFR 30-59 ml/min N18.3 Diarrhea R19.7 Hypomagnesemia E83.42 Acute DVT (deep venous thrombosis) I82.409 DVT prophylaxis Z29.9 (1) A-fib Atrial fibrillation type: permanent Qualified Code(s): I48.21 - Permanent atrial fibrillation (2) Anemia Anemia type: other cause Other causes of anemia: other cause, not classified Qualified Code(s): D64.89 - Other specified anemias (3) Hypertension Hypertension type: essential hypertension Qualified Code(s): I10 - Essential (primary) hypertension
[2019-10-03] MEDS: ENOXAPARIN INJ 60 MG/0.6 ML SYR SQ SCH ×2 (00:59→11:50)
[2019-10-03] MEDS: VANCOMYCIN HCL 750 MG in SODIUM CHLORIDE 0.9% 250 ML IV SCH ×2 (04:48→20:30)
[2019-10-03 07:57] LABS: Basophils # (auto) 0.02 K/uL (0-0.2); Basophils % (auto) 0.2 %; Eosinophils # (auto) 0.14 K/uL (0-0.5); Eosinophils % (auto) 1.7 %; Hematocrit (blood only) 25.8 % (37-47); Immature Granulocytes # (auto) 0.02 K/uL (0.00-0.02); Immature Granulocytes % (auto) 0.2 %; Lymphocytes # (auto) 1.29 K/uL (1.2-3.4); Lymphocytes % (auto) 16.1 %; Mean Corpuscular Hemoglobin 29.7 pg (25-34); Mean Corpuscular Volume 95.9 fL (80-100); Monocytes # (auto) 0.51 K/uL (0.11-0.59); Monocytes % (auto) 6.4 %; Neutrophils # (auto) 6.05 K/uL (1.4-6.5); Neutrophils % (auto) 75.4 %; Platelet Count 397 K/uL (130-400); RDW Standard Deviation 51.1 fL (36.4-46.3); Red Blood Count 2.69 M/uL (4.2-5.4); White Blood Count 8.03 K/uL (4.8-10.8)
[2019-10-03 08:14] LABS: INR 1.1 (0.9-1.1); Prothrombin Time 11.6 Seconds (9.0-12.0)
[2019-10-03 08:28] LABS: BUN Creatinine Ratio 18.9 (10-20); Calcium 9.8 mg/dl (8.5-10.1); Est GFR (African American) 88.5; Est GFR (Non-African American) 76.4; Magnesium 1.9 mg/dl (1.8-2.4); Potassium 4.3 mmol/L (3.5-5.1)
[2019-10-03] MEDS: LACTOBACILLUS ACIDOPHILUS (FLORANEX) TAB PO SCH ×3 (08:39→18:50)
[2019-10-03] MEDS: CEFEPIME 2,000 MG in SYRINGE 7.5 ML IV SCH ×2 (08:40→20:30)
[2019-10-03] MEDS: FERROUS SULFATE 325 MG TAB PO SCH ×3 (08:42→20:30)
[2019-10-03] MEDS: DOCUSATE SODIUM 100 MG CAP PO SCH (08:42)
[2019-10-03] MEDS: FOLIC ACID 1 MG TAB PO SCH (08:42)
[2019-10-03] MEDS: CALCITONIN SALMON NA 200 IU/AC 3.7 ML BTL SCH (08:43)
[2019-10-03] MEDS: METOPROLOL TARTRATE 25 MG TAB PO SCH ×2 (08:44→20:29)
[2019-10-03] MEDS: CALCIUM CARBONATE 1250MG TAB PO SCH ×2 (08:45→20:29)
[2019-10-03] MEDS: CLOPIDOGREL BISULFATE 75 MG TAB PO SCH (08:46)
[2019-10-03] MEDS: QUETIAPINE FUMARATE 25 MG TABLET PO SCH ×2 (08:47→20:29)
[2019-10-03] MEDS: dilTIAZem ER 120 MG CAPCR PO SCH (08:48)
--- NOTE | 2019-10-03 10:10 | Vascular Medicine ProgressNote ---
Date of Service October 03, 2019 Assessment & Plan (1) Peripheral arterial occlusive disease: 2. Right lower extremity ulceration, osteomyelitis 3. Atrial fibrillation with RVR 4. Delirium 5. Anemia 6. Chronic diastolic heart failure 7. Prior pleural effusion - Post endovascular intervention 09/28/2019 with 4 overlapping stents from RT distal SFA to DAVID with resulting single vessel run-off to the foot. - Post repeat angiography revealing no apparent iliac perforation or dissection Right lower extremity appears well perfused. Distal DP pulses dopplerable. 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 No plans for additional vascular invention. -- Plan for clopidogrel plus anticoagulation for 3 months, then anticoagulation alone --On broad-spectrum antibiotics. Blood cultures unremarkable. Awaiting wound debridement per family wishes. Appreciate wound team, hospital medicine, orthopedics care From a cardiac standpoint remains in asymptomatic, persistent A. fib with intermittent RVR. Appears euvolemic on exam off diuretics. Renal function, hemoglobin stable. --Recommend continued rate controlagree with increase metoprolol, can increase diltiazem back to 180 mg daily --Continue to hold diuretics --Coumadin on hold, being bridged with Lovenox. Subjective Patient pleasant this morning. Still confused, thinks it is 1963. One-to-one sitter in place. Denies any significant pain. Denies shortness of breath. Telemetry reviewedfrequent artifact. Remains in A. fib overnight most often 90s to 110s. This morning 120s 130s Review of Systems Review of Systems: All systems reviewed & are unremarkable except as noted in HPI & below Physical Exam Physical Exam: General: Comfortable, no acute distress HEENT: Sclerae anicteric, mucous membranes moist Lungs: Clear to auscultation bilaterally anteriorly Cardiac: Tachycardic, irregular regular, no murmurs. Neck veins flat Abdomen: Soft, nontender Extremities: Warm, DP pulses dopplerable. Slight diminished capillary refill bilaterally. Dressings in place over ulcerations. Mild swelling of right lower extremity. No significant induration or drainage. Dressing still in place over bilateral femoral artery access site. Mild ecchymosis. Pulses intact. Psych: Alert to person. Results & Data Vital Signs (Past 12 Hours) Vital Signs Temp Pulse Resp BP Pulse Ox 10/03/19 07:48 97.7 F 123 H 18 144/87 H 95 10/03/19 05:14 97.7 F 118 H 24 121/83 93 01/28/20 23:56 97.3 F L 94 H 20 121/81 97 PG Care Time/CCT Total # of Minutes Spent Total Time Spent with Patient: Total time spent is greater than 50% in coordination of care (as documented) at patient's floor/unit and/or counseling patient: Coding Level of Care Code 92729 Subseq Hosp Care Lvl 3 Diagnoses Peripheral arterial occlusive disease I77.9
[2019-10-03] MEDS ORDERED: dilTIAZem HCL 30 MG TAB PO ONE (17:15)
--- NOTE | 2019-10-03 17:20 | Hospitalist Progress Note ---
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 Reginald Garland who already knows the patient. 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 - Post repeat angiography revealing no apparent iliac perforation or dissection - RT foot with improved perfusion on exam. - Extensive RLE ulceration and now suspected osteomyelitis on plain films as above -- Continue clopidogrel 75 mg daily x 3 months along with anticoagulation, then can dc Plavix and do coumadin alone --continue broad-spectrum antibiotics, cefepime, vancomycin --continue wound care Appreciate Vascular Cardio intervention Cesiliagerman Victoria is the patient's HCPOA and is adamant that the patient NOT have an amputation a this time and to perform other procedures to salvage the leg first. Appreciate ortho consult: Dr. Cruz is recommending amputation of the leg, unlikely to heal from resection of Achilles tendon, not enough skin for healing--> however as above,HCPOA hoping for salvage of limb -continue IV abx, wound care -plan for surgical debridement of leg on Tuesday-reconfirmed this again with Ortho PA on 10/03 (2) Altered mental status: Acute metabolic encephalopathy secondary to being s/p procedure on 09/28 and associated with mixed vascular/Alzheimer dementia as well as prolonged sedation with Versed and morphine during the procedure. very agitated on 09/30, received Haldol 1mg IV, took a few hours to work Has definitely improved since then with avoidance of opioids and giving scheduled Seroquel -continue Haldol 2mg IV q6 prn-has not needed this lately -infection is well controlled, no electrolyte abnormalities suspect that all of the agitation and confusion is hospital delirium on baseline dementia and with use of sedation for procedure -avoid OPIOIDS -make Seroquel only scheduled qhs, dc AM dose -continue 1:1 sitter as needed (3) 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: continue wound care, abx (4) Peripheral arterial occlusive disease: - as above, now with Doppler-able pulses (5) Chronic diastolic CHF (congestive heart failure): -not volume overloaded -continue holding home diuretics (6) A-fib: Rates remain elevated, even moreso today, may be worsened by anemia -continue holding coumadin for procedure -continue bridging therapeutic Lovenox 1mg/kg q12h until day before Ortho proc edure-HOLD Lovenox on -increase po diltiazem back to 180mg daily, give an extra dose of dilt 30mg po x 1 now -switched from atenolol to metoprolol this admission by Cardio--> increased metoprolol to 25mg po bid - transfuse PRBCs today in preparation for surgery on Tuesday -continue tele monitoring -appreciate Cardio recommendations (7) Anemia: Hgb down from previous baseline Was hgb 9 after hip fracture and repair 07/2019, has slowly trended downward since then due to chronic infection Also with folate low at 4 on old labs 07/2014 Normocytic B12 normal 07/2019 Folate now >24 -transfuse 2 units PRBCs today -follow CBC in AM -continue folic acid replacement -continue FeSO4 tid (8) Hypertension: BPs stable to low normal -holding home lisinopril and lasix -continue diltiazem, metoprolol as above, increasing doses for rate control (9) Pleural effusion: Chronic rt sided, ?loculated pleural effusion With concern by niece for worseing dyspnea on 10/02 and need for thoracentesis? CXR 10/02 improved from previous, small pleural effusion-no need for tap Oxygenating well -no thoracentesis for now but if needed, follows with Dr. 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 diff neg on 09/30 -started Floranex probiotic tid -follow (12) Hypomagnesemia: could be secondary to GI losses -resolved with replacement, goal >/= 2.0 -give Mag 1 gm IV x 1 today -follow Mag level in AM (13) Acute DVT (deep venous thrombosis): Has a known Right popliteal vein DVT from 07/25/19 after right hip ORIF -was on Eliquis at time DVT found and converted to warfarin -coumadin now on hold for procedure -continue Lovenox therapeutic dosing while awaiting surgery on right leg given h/o popliteal DVT and A-fib (14) DVT prophylaxis: Lovenox SQ as above Dispo-remain on PCU Discussed case at length with Corina HYLTON again today Discussed with Ortho PA today Subjective Pt remains confused but pleasant, has a 1:1 sitter in the room. Denies chest pain or SOB, denies abd pain. Is not moving her bowels as much today as per aide at bedside. Pt denies pain in her leg. Tele with Afib rates in 90s-130s Discussed her care with Corina HYLTON, on phone today and consented pt for PRBC transfusion Corina has concerns that pt appears SOB at times. Corina and the 1:1 sitter both reported pt has been making wet gurgling noises with eating/drinking. Corina reports she has never done this before and questions if it's from the Seroquel Review of Systems Review of Systems: Unobtainable due to cognitive status Physical Exam Constitutional: average body habitus; no acute distress Eyes: + anicteric sclerae Neck: trachea midline, no thyromegaly Respiratory: normal respiratory effort, lungs clear to auscultation Cardiovascular: Rate/Rhythm: + tachycardic and + irregularly irregular Heart Sounds: no murmur Extremities: + edema (rt leg and foot with 1+ pitting edema) Chest (Breasts): Chest: normal inspection of chest Gastrointestinal (Abdomen): normal bowel sounds, soft, nontender, no hepatosplenomegaly Musculoskeletal: Extremities: no cyanosis and no clubbing Skin: dressings not removed today from bilat leg wounds Neurologic: moves all extremities; no focal motor deficits Psychiatric: Orientation: alert, oriented to person, oriented to place and cooperative; + not oriented to time Eye Contact: good eye contact Speech: normal rate/rhythm/volume of speech Affect: euthymic affect Cognition: + recent memory not intact Lymphatic: no lymphedema Results & Data Vital Signs (Past 12 Hours) Vital Signs Temp Pulse Resp BP Pulse Ox 10/03/19 15:15 36.6 C 96 H 21 129/78 98 10/03/19 11:23 36.5 C 117 H 18 103/61 95 10/03/19 07:48 36.5 C 123 H 18 144/87 H 95 Laboratory Results 10/03/19 10/03/19 10/03/19 Range/Units 07:36 07:36 07:36 WBC 8.03 (4.8-10.8) K/uL RBC 2.69 L (4.2-5.4) M/uL Hgb 8.0 L (12.0-16.0) g/dL Hct 25.8 L (37-47) % MCV 95.9 (80-100) fL MCH 29.7 (25-34) pg MCHC 31.0 L (32-36) g/dL RDW Std Deviation 51.1 H (36.4-46.3) fL RDW Coeff of Elvi 15.0 H (11.5-14.5) % Plt Count 397 (130-400) K/uL MPV 9.0 (7.4-10.4) fL Immature Gran % (Auto) 0.2 % Neut % (Auto) 75.4 % Lymph % (Auto) 16.1 % [place]oshone % (Auto) 6.4 % Eos % (Auto) 1.7 % Baso % (Auto) 0.2 % Immature Gran # (Auto) 0.02 (0.00-0.02) K/uL Neut # (Auto) 6.05 (1.4-6.5) K/uL Lymph # (Auto) 1.29 (1.2-3.4) K/uL [place]oshone # (Auto) 0.51 (0.11-0.59) K/uL Eos # (Auto) 0.14 (0-0.5) K/uL Baso # (Auto) 0.02 (0-0.2) K/uL PT 11.6 (9.0-12.0) Seconds INR 1.1 (0.9-1.1) Sodium (136-145) mmol/L Potassium (3.5-5.1) mmol/L Chloride (98-107) mmol/L Carbon Dioxide (21-32) mmol/L Anion Gap (3-11) BUN (7-18) mg/dl Creatinine (0.6-1.2) mg/dl Est Cr Clr Drug Dosing ml/min Est GFR ( Amer) Est GFR (Non-Af Amer) BUN/Creatinine Ratio (10-20) Glucose (70-99) mg/dl Calcium (8.5-10.1) mg/dl Magnesium (1.8-2.4) mg/dl Folate > 24.00 (>5.38) ng/ml Blood Type Antibody Screen Crossmatch 10/03/19 10/03/19 Range/Units 07:36 07:36 WBC (4.8-10.8) K/uL RBC (4.2-5.4) M/uL Hgb (12.0-16.0) g/dL Hct (37-47) % MCV (80-100) fL MCH (25-34) pg MCHC (32-36) g/dL RDW Std Deviation (36.4-46.3) fL RDW Coeff of Elvi (11.5-14.5) % Plt Count (130-400) K/uL MPV (7.4-10.4) fL Immature Gran % (Auto) % Neut % (Auto) % Lymph % (Auto) % [place] % (Auto) % Eos % (Auto) % Baso % (Auto) % Immature Gran # (Auto) (0.00-0.02) K/uL Neut # (Auto) (1.4-6.5) K/uL Lymph # (Auto) (1.2-3.4) K/uL [place]oshone # (Auto) (0.11-0.59) K/uL Eos # (Auto) (0-0.5) K/uL Baso # (Auto) (0-0.2) K/uL PT (9.0-12.0) Seconds INR (0.9-1.1) Sodium 140 (136-145) mmol/L Potassium 4.3 D (3.5-5.1) mmol/L Chloride 110 H (98-107) mmol/L Carbon Dioxide 26 (21-32) mmol/L Anion Gap 3.0 (3-11) BUN 14 (7-18) mg/dl Creatinine 0.72 (0.6-1.2) mg/dl Est Cr Clr Drug Dosing 39.0 ml/min Est GFR ( Amer) 88.5 Est GFR (Non-Af Amer) 76.4 BUN/Creatinine Ratio 18.9 (10-20) Glucose 83 (70-99) mg/dl Calcium 9.8 (8.5-10.1) mg/dl Magnesium 1.9 (1.8-2.4) mg/dl Folate (>5.38) ng/ml Blood Type O Positive Antibody Screen NEGATIVE Crossmatch See Detail PG Care Time/CCT Total # of Minutes Spent Total Time Spent with Patient: Total time spent is greater than 50% in coordination of care (as documented) at patient's floor/unit and/or counseling patient: Coding Level of Care Code 63265 Subseq Hosp Care Lvl 3 Diagnoses 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 Altered mental status R41.82 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 L89.622 Peripheral arterial occlusive disease I77.9 Chronic diastolic CHF (congestive heart failure) I50.32 A-fib I48.21 Atrial fibrillation type: permanent Anemia D64.89 Anemia type: other cause Other causes of anemia: other cause, not classified Hypertension I10 Hypertension type: essential hypertension Pleural effusion J90 CKD (chronic kidney disease) stage 3, GFR 30-59 ml/min N18.3 Diarrhea R19.7 Hypomagnesemia E83.42 Acute DVT (deep venous thrombosis) I82.409 DVT prophylaxis Z29.9 (1) Anemia Anemia type: other cause Other causes of anemia: other cause, not classified Qualified Code(s): D64.89 - Other specified anemias (2) A-fib Atrial fibrillation type: permanent Qualified Code(s): I48.21 - Permanent atrial fibrillation (3) Hypertension Hypertension type: essential hypertension Qualified Code(s): I10 - Essential (primary) hypertension
[2019-10-03] MEDS ORDERED: SODIUM CHLORIDE 0.9% 250 ML IV PRN (17:54)
[2019-10-04] MEDS: ENOXAPARIN INJ 60 MG/0.6 ML SYR SQ SCH (01:31)
[2019-10-04] MEDS ORDERED: VANCOMYCIN TROUGH ONE (08:30)
[2019-10-04 08:57] LABS: Basophils # (auto) 0.03 K/uL (0-0.2); Basophils % (auto) 0.4 %; Eosinophils # (auto) 0.17 K/uL (0-0.5); Eosinophils % (auto) 2.1 %; Hematocrit (blood only) 34.8 % (37-47); Hemoglobin 11.2 g/dL (12.0-16.0); Immature Granulocytes # (auto) 0.04 K/uL (0.00-0.02); Immature Granulocytes % (auto) 0.5 %; Lymphocytes # (auto) 1.72 K/uL (1.2-3.4); Lymphocytes % (auto) 20.8 %; Mean Corpuscular Hgb Conc 32.2 g/dL (32-36); Mean Corpuscular Volume 96.4 fL (80-100); Mean Platelet Volume 9.2 fL (7.4-10.4); Monocytes # (auto) 0.61 K/uL (0.11-0.59); Monocytes % (auto) 7.4 %; Neutrophils # (auto) 5.69 K/uL (1.4-6.5); Neutrophils % (auto) 68.8 %; Platelet Count 390 K/uL (130-400); RDW Coefficient of Variation 15.3 % (11.5-14.5); RDW Standard Deviation 52.6 fL (36.4-46.3); Red Blood Count 3.61 M/uL (4.2-5.4); White Blood Count 8.26 K/uL (4.8-10.8)
[2019-10-04] MEDS: CEFEPIME 2,000 MG in SYRINGE 7.5 ML IV SCH ×2 (08:57→20:07)
[2019-10-04] MEDS: VANCOMYCIN HCL 750 MG in SODIUM CHLORIDE 0.9% 250 ML IV SCH (08:58)
[2019-10-04] MEDS: FERROUS SULFATE 325 MG TAB PO SCH ×3 (08:59→20:06)
[2019-10-04] MEDS: LACTOBACILLUS ACIDOPHILUS (FLORANEX) TAB PO SCH ×3 (09:00→16:49)
[2019-10-04] MEDS: METOPROLOL TARTRATE 25 MG TAB PO SCH ×2 (09:00→20:10)
[2019-10-04] MEDS: FOLIC ACID 1 MG TAB PO SCH (09:00)
[2019-10-04] MEDS: dilTIAZem ER 180 MG CAPCR PO SCH (09:00)
[2019-10-04] MEDS: CALCIUM CARBONATE 1250MG TAB PO SCH ×2 (09:01→20:10)
[2019-10-04] MEDS: CLOPIDOGREL BISULFATE 75 MG TAB PO SCH (09:02)
[2019-10-04] MEDS: DOCUSATE SODIUM 100 MG CAP PO SCH (09:02)
[2019-10-04] MEDS: CALCITONIN SALMON NA 200 IU/AC 3.7 ML BTL SCH (09:02)
[2019-10-04 09:14] LABS: BUN Creatinine Ratio 17.2 (10-20); Calcium 9.9 mg/dl (8.5-10.1); Creatinine Clr Calc Pharmacy 35.1 ml/min; Est GFR (African American) 77.9; Est GFR (Non-African American) 67.2; Magnesium 1.7 mg/dl (1.8-2.4); Potassium 4.1 mmol/L (3.5-5.1)
--- NOTE | 2019-10-04 13:51 | Pharmacy Report ---
Pharmacy Abx Dose Short Note - Date of Service October 04, 2019 - Assessment & Plan Assessment 84 year old F receiving VANCOMYCIN IV for treatment osteomyelitis of distal fibula, exposed Achilles; + h/o MRSA Day # 7 of antimicrobial therapy Renal fxn stable Plan Vancomycin * Trough level of 20 mcg/mL is therapeutic. Level was drawn at the appropriate time and prior doses hung on schedule. * Level may continue to climb w/ repeat dosing however - given we are at upper limit of goal range will change dose to 750mg IV Q 18 hrs * Goal trough level for bone/joint infxn : 15 to 20 mcg/mL * Trough level ordered for: 10/06/19 to confirm additional accumulation has not occurred Pharmacy will continue to follow and will adjust dose/frequency as necessary. Thank you.
--- NOTE | 2019-10-04 15:24 | Orthopedic Progress Note ---
Date of Service October 04, 2019 Assessment & Plan (1) Infection of right foot: 1. Possible osteomyelitis, right distal lateral fibula. 2. Exposed Achilles tendon with desiccation. 3. Massive right lower extremity skin loss. 4. Bilateral lower extremity severe peripheral vascular disease. Family requesting I/D Right foot before any further measures taken. Plan for OR tomorrow afternoon for I/D with Dr Cruz. Subjective Pt lying bed watching TV. Currently with one on one nursing. Pt pleasant without complaints. Discussed with her about pending surgery tomorrow for debridement of her foot/ankle. Pt states "I'm not sure what's going on". h/o dementia. Physical Exam Physical Exam: Dressings intact. No drainage noted. Foot with swelling and mild erythema. Results & Data ([facility]) Vital Signs (Past 12 Hours) Vital Signs Temp Pulse Resp BP Pulse Ox 10/04/19 14:45 36.9 C 82 18 119/77 92 10/04/19 11:12 94 10/04/19 11:02 36.6 C 127 H 16 135/89 10/04/19 07:50 36.3 C L 103 H 16 132/89 98 10/04/19 06:59 36.4 C L 87 20 138/84 100 10/04/19 04:21 36.3 C L 82 18 127/87 100
[2019-10-04] MEDS: MAGNESIUM SULFATE / D5W 1 GM/100 ML BAG IV SCH ×2 (16:46→17:52)
--- NOTE | 2019-10-04 19:16 | Hospitalist Progress Note ---
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 Reginald Garland who already knows the patient. 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 - Post repeat angiography revealing no apparent iliac perforation or dissection - RT foot with improved perfusion on exam. - Extensive RLE ulceration and now suspected osteomyelitis on plain films as above -- Continue clopidogrel 75 mg daily x 3 months along with anticoagulation, then can dc Plavix and do coumadin alone --continue broad-spectrum antibiotics, cefepime, vancomycin --continue wound care Appreciate Vascular Cardio intervention Cesiliagerman Victoria is the patient's HCPOA and is adamant that the patient NOT have an amputation a this time and to perform other procedures to salvage the leg first. Appreciate ortho consult: Dr. Cruz is recommending amputation of the leg, unlikely to heal from resection of Achilles tendon, not enough skin for healing--> however as above,HCPOA hoping for salvage of limb -continue IV abx, wound care -plan for surgical debridement of leg on Tuesday -N.p.o. after midnight and holding Lovenox for surgery (2) Altered mental status: Acute metabolic encephalopathy secondary to sedation given for procedure on 09/28 and associated with mixed vascular/Alzheimer dementia very agitated on 09/30, received Haldol 1mg IV, took a few hours to work Has definitely improved since then with avoidance of opioids and giving scheduled Seroquel -continue Haldol 2mg IV q6 prn-has not needed this lately -infection is well controlled, no electrolyte abnormalities suspect that all of the agitation and confusion is hospital delirium on baseline dementia and with use of sedation for procedure -avoid OPIOIDS -make Seroquel only scheduled qhs, dc AM dose -continue 1:1 sitter as needed-continues to need this as she pulled out her IV when she was taken off the sitter (3) 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: continue wound care, abx (4) Peripheral arterial occlusive disease: - as above, now with Doppler-able pulses (5) Chronic diastolic CHF (congestive heart failure): -not volume overloaded -continue holding home diuretics (6) A-fib: Rates now improved with increased doses of metoprolol, diltiazem, and with blood transfusion -continue holding coumadin for procedure -Now holding the bridging therapeutic Lovenox 1mg/kg q12h for Ortho procedure -Continue diltiazem 180mg daily -switched from atenolol to metoprolol this admission by Cardio--> increased metoprolol to 25mg po bid -continue tele monitoring -appreciate Cardio recommendations (7) Anemia: Hgb down from previous baseline before her hip fracture in 07/2018 Was hgb 9 after hip fracture and repair 07/2019, has slowly trended downward since then due to chronic infection Also with folate low at 4 on old labs 07/2014 Normocytic B12 normal 07/2019 Folate now >24 -transfused 2 units PRBCs on 10/03 and a hemoglobin now up to 11.2 -follow CBC in AM -continue folic acid replacement -continue FeSO4 tid (8) Hypertension: BPs acceptable and improved after blood transfusion -Continue holding home lisinopril and lasix -continue diltiazem, metoprolol as above (9) Pleural effusion: Chronic rt sided, ?loculated pleural effusion With concern by niece for worsening dyspnea on 10/02 and need for thoracentesis? CXR 10/02 improved from previous, small pleural effusion-no need for tap Oxygenating well -no thoracentesis for now but if needed, follows with Dr. 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 diff neg on 09/30 -Continue Floranex probiotic tid -follow (12) Hypomagnesemia: could be secondary to GI losses from previous loose stools -resolved with replacement, goal >/= 2.0 -give Mag 1 gm IV x 1 today -follow Mag level in AM (13) Acute DVT (deep venous thrombosis): Has a known Right popliteal vein DVT from 07/25/19 after right hip ORIF -was on Eliquis at time DVT found and converted to warfarin -coumadin now on hold for procedure -Now we will hold the Lovenox therapeutic bridging dosing for surgery on right leg (14) DVT prophylaxis: Lovenox SQ as above now on hold for surgery Dispo-remain on PCU Discussed case at length with WARNER Corina again today Will need PT/OT after surgery when okay with orthopedics Subjective Patient was taken off of her 1: 1 sitter today and pulled out an IV. Otherwise no agitation. She is pleasantly confused. I told her she is having surgery tomorrow and she said "okay." Denies chest pain or shortness of breath Telemetry with atrial fibrillation with improved rate control today in the 90s to low 100s mostly Review of Systems Review of Systems: Unobtainable due to cognitive status Physical Exam Constitutional: average body habitus; no acute distress Eyes: + anicteric sclerae Neck: trachea midline, no thyromegaly Respiratory: normal respiratory effort, lungs clear to auscultation Cardiovascular: Rate/Rhythm: regular rate and + irregularly irregular Heart Sounds: no murmur Extremities: + edema (rt leg and foot with 1+ pitting edema) Chest (Breasts): Chest: normal inspection of chest Gastrointestinal (Abdomen): normal bowel sounds, soft, nontender, no hepatosplenomegaly Musculoskeletal: Extremities: no cyanosis and no clubbing Skin: + erythema (surrounding rt medial leg wound) Neurologic: moves all extremities; no focal motor deficits Psychiatric: Orientation: alert, oriented to person, oriented to place and cooperative; + not oriented to time Eye Contact: good eye contact Speech: normal rate/rhythm/volume of speech Affect: euthymic affect Cognition: + recent memory not intact Lymphatic: no lymphedema Results & Data ([facility]) Vital Signs (Past 12 Hours) Vital Signs Temp Pulse Pulse Resp BP Pulse Ox 10/04/19 18:47 36.6 C 91 H 20 125/79 95 10/04/19 16:00 107 H 10/04/19 14:45 36.9 C 82 18 119/77 92 10/04/19 11:12 94 10/04/19 11:02 36.6 C 127 H 16 135/89 10/04/19 08:00 107 H 10/04/19 07:50 36.3 C L 103 H 16 132/89 98 Laboratory Results 10/04/19 10/04/19 10/04/19 Range/Units 08:21 08:21 08:21 WBC 8.26 (4.8-10.8) K/uL RBC 3.61 L (4.2-5.4) M/uL Hgb 11.2 L D (12.0-16.0) g/dL Hct 34.8 L (37-47) % MCV 96.4 (80-100) fL MCH 31.0 (25-34) pg MCHC 32.2 (32-36) g/dL RDW Std Deviation 52.6 H (36.4-46.3) fL RDW Coeff of Elvi 15.3 H (11.5-14.5) % Plt Count 390 (130-400) K/uL MPV 9.2 (7.4-10.4) fL Immature Gran % (Auto) 0.5 % Neut % (Auto) 68.8 % Lymph % (Auto) 20.8 % Wheeler % (Auto) 7.4 % Eos % (Auto) 2.1 % Baso % (Auto) 0.4 % Immature Gran # (Auto) 0.04 H (0.00-0.02) K/uL Neut # (Auto) 5.69 (1.4-6.5) K/uL Lymph # (Auto) 1.72 (1.2-3.4) K/uL Wheeler # (Auto) 0.61 H (0.11-0.59) K/uL Eos # (Auto) 0.17 (0-0.5) K/uL Baso # (Auto) 0.03 (0-0.2) K/uL Sodium 139 (136-145) mmol/L Potassium 4.1 (3.5-5.1) mmol/L Chloride 108 H (98-107) mmol/L Carbon Dioxide 29 (21-32) mmol/L Anion Gap 2.0 L (3-11) BUN 14 (7-18) mg/dl Creatinine 0.80 (0.6-1.2) mg/dl Est Cr Clr Drug Dosing 35.1 ml/min Est GFR ( Amer) 77.9 Est GFR (Non-Af Amer) 67.2 BUN/Creatinine Ratio 17.2 (10-20) Glucose 115 H (70-99) mg/dl Calcium 9.9 (8.5-10.1) mg/dl Magnesium 1.7 L (1.8-2.4) mg/dl Vancomycin Trough 20.0 (See Comment) mcg/ml Blood Type Antibody Screen Crossmatch 10/03/19 Range/Units 07:36 WBC (4.8-10.8) K/uL RBC (4.2-5.4) M/uL Hgb (12.0-16.0) g/dL Hct (37-47) % MCV (80-100) fL MCH (25-34) pg MCHC (32-36) g/dL RDW Std Deviation (36.4-46.3) fL RDW Coeff of Elvi (11.5-14.5) % Plt Count (130-400) K/uL MPV (7.4-10.4) fL Immature Gran % (Auto) % Neut % (Auto) % Lymph % (Auto) % Wheeler % (Auto) % Eos % (Auto) % Baso % (Auto) % Immature Gran # (Auto) (0.00-0.02) K/uL Neut # (Auto) (1.4-6.5) K/uL Lymph # (Auto) (1.2-3.4) K/uL Wheeler # (Auto) (0.11-0.59) K/uL Eos # (Auto) (0-0.5) K/uL Baso # (Auto) (0-0.2) K/uL Sodium (136-145) mmol/L Potassium (3.5-5.1) mmol/L Chloride (98-107) mmol/L Carbon Dioxide (21-32) mmol/L Anion Gap (3-11) BUN (7-18) mg/dl Creatinine (0.6-1.2) mg/dl Est Cr Clr Drug Dosing ml/min Est GFR ( Amer) Est GFR (Non-Af Amer) BUN/Creatinine Ratio (10-20) Glucose (70-99) mg/dl Calcium (8.5-10.1) mg/dl Magnesium (1.8-2.4) mg/dl Vancomycin Trough (See Comment) mcg/ml Blood Type O Positive Antibody Screen NEGATIVE Crossmatch See Detail PG Care Time/CCT Total # of Minutes Spent Total Time Spent with Patient: Total time spent is greater than 50% in coordination of care (as documented) at patient's floor/unit and/or counseling patient: Coding Level of Care Code 92245 Subseq Hosp Care Lvl 2 Diagnoses 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 Altered mental status R41.82 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 L89.622 Peripheral arterial occlusive disease I77.9 Chronic diastolic CHF (congestive heart failure) I50.32 A-fib I48.21 Atrial fibrillation type: permanent Anemia D64.89 Anemia type: other cause Other causes of anemia: other cause, not classified Hypertension I10 Hypertension type: essential hypertension Pleural effusion J90 CKD (chronic kidney disease) stage 3, GFR 30-59 ml/min N18.3 Diarrhea R19.7 Hypomagnesemia E83.42 Acute DVT (deep venous thrombosis) I82.409 DVT prophylaxis Z29.9 (1) Anemia Anemia type: other cause Other causes of anemia: other cause, not classified Qualified Code(s): D64.89 - Other specified anemias (2) A-fib Atrial fibrillation type: permanent Qualified Code(s): I48.21 - Permanent atrial fibrillation (3) Hypertension Hypertension type: essential hypertension Qualified Code(s): I10 - Essential (primary) hypertension
[2019-10-04] MEDS: QUETIAPINE FUMARATE 25 MG TABLET PO SCH (20:10)
[2019-10-05] MEDS: VANCOMYCIN HCL 750 MG in SODIUM CHLORIDE 0.9% 250 ML IV SCH ×2 (03:31→21:25)
[2019-10-05 06:46] LABS: Basophils # (auto) 0.03 K/uL (0-0.2); Basophils % (auto) 0.3 %; Eosinophils # (auto) 0.17 K/uL (0-0.5); Hematocrit (blood only) 32.1 % (37-47); Hemoglobin 10.2 g/dL (12.0-16.0); Immature Granulocytes # (auto) 0.04 K/uL (0.00-0.02); Immature Granulocytes % (auto) 0.5 %; Lymphocytes # (auto) 1.93 K/uL (1.2-3.4); Lymphocytes % (auto) 22.4 %; Mean Corpuscular Hemoglobin 30.5 pg (25-34); Mean Corpuscular Hgb Conc 31.8 g/dL (32-36); Mean Corpuscular Volume 96.1 fL (80-100); Mean Platelet Volume 9.1 fL (7.4-10.4); Monocytes # (auto) 0.76 K/uL (0.11-0.59); Monocytes % (auto) 8.8 %; Neutrophils # (auto) 5.69 K/uL (1.4-6.5); Platelet Count 353 K/uL (130-400); RDW Coefficient of Variation 15.4 % (11.5-14.5); RDW Standard Deviation 52.5 fL (36.4-46.3); Red Blood Count 3.34 M/uL (4.2-5.4); White Blood Count 8.62 K/uL (4.8-10.8)
[2019-10-05 07:17] LABS: C Reactive Protein 3.12 mg/dl (0-0.29); Calcium 9.7 mg/dl (8.5-10.1); Creatinine Clr Calc Pharmacy 38.4 ml/min; Est GFR (Non-African American) 75.1; Magnesium 2.1 mg/dl (1.8-2.4); Potassium 4.5 mmol/L (3.5-5.1)
[2019-10-05] MEDS: CEFEPIME 2,000 MG in SYRINGE 7.5 ML IV SCH ×2 (08:19→20:23)
[2019-10-05] MEDS: CALCITONIN SALMON NA 200 IU/AC 3.7 ML BTL SCH (08:20)
[2019-10-05] MEDS: CALCIUM CARBONATE 1250MG TAB PO SCH ×2 (08:20→20:22)
[2019-10-05] MEDS: DOCUSATE SODIUM 100 MG CAP PO SCH (08:20)
[2019-10-05] MEDS: LACTOBACILLUS ACIDOPHILUS (FLORANEX) TAB PO SCH ×3 (08:20→16:41)
[2019-10-05] MEDS: FOLIC ACID 1 MG TAB PO SCH (08:20)
[2019-10-05] MEDS: METOPROLOL TARTRATE 25 MG TAB PO SCH ×2 (08:20→20:22)
[2019-10-05] MEDS: FERROUS SULFATE 325 MG TAB PO SCH ×3 (08:21→20:22)
[2019-10-05] MEDS: CLOPIDOGREL BISULFATE 75 MG TAB PO SCH (08:21)
[2019-10-05] MEDS: dilTIAZem ER 180 MG CAPCR PO SCH (08:21)
--- NOTE | 2019-10-05 10:32 | Anesthesiology Consultation ---
Date of Service October 05, 2019 Assessment & Plan Chart Review Chart Review: Acceptable Risk for Surgery and Patient NOT seen in Pre Admission Testing Consults Requested none ASA ASA4 Proposed Anesthesia Anesthesia Type: General History Surgery Operation Date: 09/28/19 09:30 Proposed Procedures p Angiogram Lower Extremity Bilateral - Nehemias Reyes MD Operation Date: 10/05/19 08:45 Proposed Procedures p Incision and Drainage of Right Foot, Right Achilles and Right Ankle - Norman Cruz DO Height/Weight Height: 4 ft 11 in Weight: 50.6 kg Allergies Allergy/AdvReac Type Severity Reaction Status Date / Time morphine AdvReac Intermediate Severe Verified 10/01/19 12:15 agitation codeine AdvReac Verified 09/11/19 10:56 fentanyl AdvReac Verified 09/11/19 10:56 hydromorphone [From Dilaudid] AdvReac Verified 09/11/19 10:56 tramadol AdvReac Verified 09/11/19 10:56 Medications Home Medications Medication Instructions Recorded Confirmed Last Taken furosemide 20 mg tablet 20 mg PO BID tab 04/17/19 09/21/19 08/09/19 14:00 atenolol 25 mg tablet 12.5 mg PO HS #45 tab 07/09/19 09/21/19 08/08/19 MegaRed [place]-3 Krill Oil 1 cap PO QAM 07/10/19 09/21/19 Unknown acetaminophen [Tylenol Extra 1,000 mg PO Q6H PRN #30 tab 07/14/19 09/21/19 Unknown Strength] calcium carbonate [Calcium 500] 500 mg PO BID 08/09/19 09/21/19 08/09/19 ergocalciferol (vitamin D2) 50,000 unit PO MUIR 08/09/19 09/21/19 08/05/19 [Vitamin D2] ferrous sulfate 325 mg PO TID 08/09/19 09/21/19 08/09/19 14:00 folic acid 1 mg PO QAM 08/09/19 09/21/19 08/09/19 docusate sodium 100 mg capsule 100 mg PO DAILY 08/16/19 09/21/19 Unknown warfarin 1 mg tablet 1 mg PO .COMPLEX 08/16/19 09/21/19 Unknown warfarin 2 mg tablet 2 mg PO DAILY 08/16/19 09/21/19 Unknown doxycycline hyclate 100 mg tablet 100 mg PO bid #28 tab 08/23/19 09/21/19 Unknown diltiazem HCl 180 mg capsule,24 120 mg PO DAILY cap 09/11/19 09/21/19 Unknown hr,extended release lisinopril 20 mg tablet 10 mg PO QAM tab 09/20/19 09/21/19 Unknown Active Medications Generic Name Dose Route Start Last Admin Trade Name Freq PRN Reason Stop Dose Admin Acetaminophen 1,000 mg 09/28/19 15:23 09/29/19 21:33 Tylenol PO 10/28/19 15:22 1,000 mg Q6H PRN Administration pain Calcitonin [place] 1 sprays 09/29/19 11:45 10/05/19 08:20 Fortical NA 10/29/19 11:44 1 sprays DAILY ARI Administration Calcium Carbonate 1,250 mg 09/28/19 21:00 10/05/19 08:20 Os-Josué 500 PO 10/28/19 20:59 1,250 mg BID ARI Administration Clopidogrel Bisulfate 75 mg 09/29/19 09:00 10/05/19 08:21 Plavix PO 10/29/19 08:59 Not Given QAM ARI Diltiazem HCl 180 mg 10/04/19 09:00 10/05/19 08:21 Tiazac PO 11/03/19 08:59 180 mg DAILY ARI Administration Docusate Sodium 100 mg 09/29/19 09:00 10/05/19 08:20 Colace PO 10/29/19 08:59 100 mg DAILY ARI Administration Enoxaparin Sodium 50 mg 10/03/19 00:00 10/04/19 01:31 Lovenox SQ 11/02/19 00:00 50 mg Q12H ARI Administration Ferrous Sulfate 325 mg 09/28/19 21:00 10/05/19 08:21 Feosol PO 10/28/19 20:59 325 mg TID ARI Administration Folic Acid 1 mg 09/29/19 09:00 10/05/19 08:20 Folvite PO 10/29/19 08:59 1 mg QAM ARI Administration Gadobutrol 4.4 ml 10/01/19 20:15 10/01/19 20:15 Gadavist 65ml IV 10/05/19 20:14 4.4 ml ONCE PRN Administration Interaction Checking Haloperidol Lactate 2 mg 09/30/19 14:15 10/01/19 06:52 Haldol IV 10/29/19 17:59 2 mg Q6H PRN Administration Agitation Cefepime HCl 2,000 mg/ Syringe 20 mls @ 5 mls/min 09/30/19 08:15 10/05/19 08:19 IV 11/11/19 08:14 5 mls/min Q12@0800,2000 ARI Administration Protocol Vancomycin HCl 750 mg/ Sodium 265 mls @ 125 mls/hr 10/05/19 04:00 10/05/19 06:39 Chloride IV 11/14/19 04:59 Infused Q18H ARI Infusion Protocol Lactobacillus Acidophilus 4 tab 10/02/19 12:00 10/05/19 08:20 Floranex PO 11/01/19 11:59 4 tab TIDM ARI Administration Metoprolol Tartrate 2.5 mg 09/29/19 09:57 09/30/19 09:01 Lopressor IV 10/29/19 09:56 2.5 mg Q4 PRN Administration Tachycardia Metoprolol Tartrate 25 mg 10/03/19 09:00 10/05/19 08:20 Lopressor PO 11/02/19 08:59 25 mg BID ARI Administration Quetiapine Fumarate 25 mg 10/03/19 21:00 10/04/19 20:10 Seroquel PO 11/02/19 20:59 25 mg HS ARI Administration Warfarin Sodium 2 mg 09/28/19 16:30 09/29/19 17:31 Coumadin PO 10/28/19 16:29 Not Given DAILY@1600 [facility] NPO Date Last Intake of Fluids: 10/05/19 Time Last Intake of Fluids: 08:00 Last Intake of Fluids Comment: sips with medications Date Last Intake of Solids: 10/04/19 Time Last Intake of Solids: 20:00 Past Medical History Medical History A-fib (Chronic) Acute DVT (deep venous thrombosis) Anemia (Chronic) Arrhythmia (Acute) Atrial fibrillation (Acute) Chronic diastolic CHF (congestive heart failure) (Chronic) CKD (chronic kidney disease) stage 3, GFR 30-59 ml/min CKD (chronic kidney disease), stage III Compression fracture of thoracic vertebra (Acute) Fall (Acute) HTN (hypertension) (Acute) Hypertension (Chronic) Hypertension (Acute) Pericardial effusion (Acute) Peripheral arterial occlusive disease Pleural effusion (Acute) Pleural effusion on right (Acute) 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 Vitamin D deficiency (Chronic) Exercise / Class Metabolic Activity III < 4 Walking/Shop/Light housework Past Family History Family History Other Family history non-contributory Past Surgical History Surgical History History of colon resection (Acute) Hx laparoscopic cholecystectomy (Acute) Past Anesthesia History No Hx of Anesthesia Complications and No Family Hx of Anesthesia Complications History of PONV No Hx of PONV and No Hx of Motion Sickness Social History Smoking Status: Never smoker Hx Alcohol Use: Yes Alcohol type: wine alcohol intake frequency: a few times a week Hx Substance Use: No substance use type: does not use Physical Exam Vital Signs Last Vital Signs Temp 36.7 C 10/05/19 07:11 Pulse 127 H 10/05/19 07:11 Resp 16 10/05/19 07:11 BP 130/84 10/05/19 07:11 Pulse Ox 93 10/05/19 07:11 Testing Laboratory Results 10/05/19 06:27 10/05/19 06:27 PT 11.6 Seconds (9.0-12.0) 10/03/19 07:36 INR 1.1 (0.9-1.1) 10/03/19 07:36 APTT 49.0 Seconds (21.0-31.0) H* 09/28/19 14:38 Blood Type O Positive 10/03/19 07:36 Antibody Screen NEGATIVE 10/03/19 07:36 09/29/19 11:22 Aerobic Blood Culture - Final Blood No growth in Aerobic bottle after 5 days. Anaerobic Blood Culture - Final No growth in Anaerobic bottle after 5 days. 09/29/19 11:28 Aerobic Blood Culture - Final Blood No growth in Aerobic bottle after 5 days. Anaerobic Blood Culture - Final No growth in Anaerobic bottle after 5 days. Electrocardiogram Date: 08/09/19 Findings: + AFIB @ (at 67;low voltage QRS;? old anter. infarct) Chest X-Ray Date: 10/02/19 Findings: + pulmonary vascular congestion, + pleural effusion (small right pleural effusion;no change in small left pleural effusion w/ left basilar opacity;) and + atherosclerosis of thoracic aorta Echocardiogram Date: 01/12/19 EF: 60 LV Function: normal RWMA: + none Other Findings: + diastolic dysfunction (grade 2) Valvular Disease: + MR (mild) Other Testing 03/28/2018-Carotid U/S-atheromatous changes;no h/d sig. stenoses
--- NOTE | 2019-10-05 11:07 | Hospitalist Progress Note ---
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 Reginald Garland who already knows the patient. 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 - Post repeat angiography revealing no apparent iliac perforation or dissection - RT foot with improved perfusion on exam. - Extensive RLE ulceration and now suspected osteomyelitis on plain films as above -- Continue clopidogrel 75 mg daily x 3 months along with anticoagulation, then can dc Plavix and do coumadin alone --continue broad-spectrum antibiotics, cefepime, vancomycin --continue wound care Appreciate Vascular Cardio intervention Cesiliagerman Victoria is the patient's HCPOA and is adamant that the patient NOT have an amputation a this time and to perform other procedures to salvage the leg first. Appreciate ortho consult: Dr. Cruz is recommending amputation of the leg, unlikely to heal from resection of Achilles tendon, not enough skin for healing--> however as above,HCPOA hoping for salvage of limb -continue IV abx, wound care -plan for surgical debridement of leg today - holding Lovenox for surgery -watch for post-op delirium (2) Altered mental status: Acute metabolic encephalopathy secondary to sedation given for procedure on 09/28 and associated with mixed vascular/Alzheimer dementia very agitated on 09/30, received Haldol 1mg IV, took a few hours to work Has definitely improved since then with avoidance of opioids and giving scheduled Seroquel -continue Haldol 2mg IV q6 prn-has not needed this lately -infection is well controlled, no electrolyte abnormalities suspect that all of the agitation and confusion is hospital delirium on baseline dementia and with use of sedation for procedure -avoid OPIOIDS -continue Seroquel scheduled qhs -continue 1:1 sitter as needed-continues to need this as she pulled out her IV when she was taken off the sitter (3) 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: continue wound care, abx (4) Peripheral arterial occlusive disease: - as above, now with Doppler-able pulses (5) Chronic diastolic CHF (congestive heart failure): -not volume overloaded, not hypoxic, has chronic stable to improved right pleural effusion/loculated -continue holding home diuretics -giving gentle IVFs while NPO all day waiting for surgery (6) A-fib: Rates now improved with increased doses of metoprolol, diltiazem, and with blood transfusion, however remains 90-100s -continue holding coumadin for procedure -Now holding the bridging therapeutic Lovenox 1mg/kg q12h for Ortho procedure -Continue diltiazem 180mg daily -switched from atenolol to metoprolol this admission by Cardio--> increase metoprolol to 50mg po bid for in the AM -continue tele monitoring -appreciate Cardio recommendations (7) Anemia: Hgb down from previous baseline before her hip fracture in 07/2018 Was hgb 9 after hip fracture and repair 07/2019, has slowly trended downward since then due to chronic infection Also with folate low at 4 on old labs 07/2014 Normocytic B12 normal 07/2019 Folate now >24 -transfused 2 units PRBCs on 10/03 and a hemoglobin up and stable at 10 -follow CBC in AM -continue folic acid replacement -continue FeSO4 tid (8) Hypertension: BPs acceptable and improved after blood transfusion, were low previously -Continue holding home lisinopril and lasix -continue diltiazem, metoprolol as above mostly for rate control (9) Pleural effusion: Chronic rt sided, ?loculated pleural effusion With concern by niece for worsening dyspnea on 10/02 and need for thoracentesis? CXR 10/02 improved from previous, small pleural effusion-no need for tap Oxygenating well -no thoracentesis for now but if needed, follows with Dr. Odonnell (10) CKD (chronic kidney disease) stage 3, GFR 30-59 ml/min: GFR typically between 30-60 Avoid nephrotoxins, will renally dose meds as apprioriate -plaster caster at baseline right now -follow BMP (11) Diarrhea: loose stools now resolved after starting probiotics C. diff neg on 09/30 -Continue Floranex probiotic tid -follow (12) Hypomagnesemia: could be secondary to GI losses from previous loose stools -resolved with replacement, goal >/= 2.0 -follow Mag level in AM (13) Acute DVT (deep venous thrombosis): Has a known Right popliteal vein DVT from 07/25/19 US after right hip ORIF -was on Eliquis at time DVT found and converted to warfarin -coumadin now on hold for procedure -Now we will hold the Lovenox therapeutic bridging dosing for surgery on right leg and restart tomorrow (14) Nonsustained ventricular tachycardia: Had a 25 beat run of VT on 10/05, asymptomatic Discussed with Cardio -increase metoprolol dose if BP can tolerate (15) DVT prophylaxis: Lovenox SQ as above now on hold for surgery Dispo-remain on PCU Will need PT/OT after surgery when okay with orthopedics Subjective Pt seen prior to her surgery, has no complaints. No chest pain or SOB. Is pleasantly confused. Tele with afib rates 90s-100s Review of Systems Review of Systems: All systems reviewed & are unremarkable except as noted in HPI & below Physical Exam Constitutional: average body habitus; no acute distress Eyes: + anicteric sclerae Neck: trachea midline, no thyromegaly Respiratory: normal respiratory effort, lungs clear to auscultation Cardiovascular: Rate/Rhythm: regular rate and + irregularly irregular Heart Sounds: no murmur Extremities: + edema (rt leg and foot with 1+ pitting edema) Chest (Breasts): Chest: normal inspection of chest Gastrointestinal (Abdomen): normal bowel sounds, soft, nontender, no hepatosplenomegaly Musculoskeletal: Extremities: no cyanosis and no clubbing Skin: + wound (right leg with large open wound distal lateral post leg w/ exposed Achilles) and + erythema (surrounding rt medial leg wound) Neurologic: moves all extremities; no focal motor deficits Psychiatric: Orientation: alert, oriented to person, oriented to place and cooperative; + not oriented to time Eye Contact: good eye contact Speech: normal rate/rhythm/volume of speech Affect: euthymic affect Cognition: + recent memory not intact Lymphatic: no lymphedema Results & Data ([facility]) Vital Signs (Past 12 Hours) Vital Signs Temp Pulse Resp BP Pulse Ox 10/05/19 07:11 36.7 C 127 H 16 130/84 93 10/05/19 03:16 36.6 C 100 H 18 137/88 93 10/04/19 23:08 36.6 C 90 20 129/84 95 Laboratory Results labs reviewed PG Care Time/CCT Total # of Minutes Spent Total Time Spent with Patient: Total time spent is greater than 50% in coordination of care (as documented) at patient's floor/unit and/or counseling patient: Coding Level of Care Code 89562 Subseq Hosp Care Lvl 3 Diagnoses 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 Altered mental status R41.82 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 L89.622 Peripheral arterial occlusive disease I77.9 Chronic diastolic CHF (congestive heart failure) I50.32 A-fib I48.21 Atrial fibrillation type: permanent Anemia D64.89 Anemia type: other cause Other causes of anemia: other cause, not classified Hypertension I10 Hypertension type: essential hypertension Pleural effusion J90 CKD (chronic kidney disease) stage 3, GFR 30-59 ml/min N18.3 Diarrhea R19.7 Hypomagnesemia E83.42 Acute DVT (deep venous thrombosis) I82.409 Nonsustained ventricular tachycardia I47.2 DVT prophylaxis Z29.9 (1) Anemia Anemia type: other cause Other causes of anemia: other cause, not classified Qualified Code(s): D64.89 - Other specified anemias (2) A-fib Atrial fibrillation type: permanent Qualified Code(s): I48.21 - Permanent atrial fibrillation (3) Hypertension Hypertension type: essential hypertension Qualified Code(s): I10 - Essential (primary) hypertension
[2019-10-05] MEDS: SODIUM CHLORIDE 0.9% 1000ML 1,000 ML IV SCH ×2 (11:45→20:20)
[2019-10-05] MEDS ORDERED: fentaNYL citrate 100 MCG/2 ML VIAL IV PRN (17:12)
[2019-10-05] MEDS ORDERED: ePHEDrine sulfate 50 MG/ML AMP IV PRN (17:12)
[2019-10-05] MEDS ORDERED: ATROPINE SULFATE 0.1 MG/ML 10ML SYR IV PRN (17:12)
--- NOTE | 2019-10-05 17:12 | Anesthesiology Consultation ---
Date of Service October 05, 2019 Assessment & Plan ASA ASA3 Proposed Anesthesia Anesthesia Type: General Risk / Benefits Reviewed With: PT / POA / Parent / Guardian, Accepts Plan and Informed Consent Obtained History Surgery Operation Date: 09/28/19 09:30 Proposed Procedures p Angiogram Lower Extremity Bilateral - Nehemias Reyes MD Operation Date: 10/05/19 08:45 Proposed Procedures p Incision and Drainage of Right Foot, Right Achilles and Right Ankle - Norman Cruz DO Height/Weight Height: 4 ft 11 in Weight: 50.6 kg Allergies Allergy/AdvReac Type Severity Reaction Status Date / Time morphine AdvReac Intermediate Severe Verified 10/01/19 12:15 agitation codeine AdvReac Verified 09/11/19 10:56 fentanyl AdvReac Verified 09/11/19 10:56 hydromorphone [From Dilaudid] AdvReac Verified 09/11/19 10:56 tramadol AdvReac Verified 09/11/19 10:56 Medications Home Medications Medication Instructions Recorded Confirmed Last Taken furosemide 20 mg tablet 20 mg PO BID tab 04/17/19 09/21/19 08/09/19 14:00 atenolol 25 mg tablet 12.5 mg PO HS #45 tab 07/09/19 09/21/19 08/08/19 MegaRed [place]-3 Krill Oil 1 cap PO QAM 07/10/19 09/21/19 Unknown acetaminophen [Tylenol Extra 1,000 mg PO Q6H PRN #30 tab 07/14/19 09/21/19 Unknown Strength] calcium carbonate [Calcium 500] 500 mg PO BID 08/09/19 09/21/19 08/09/19 ergocalciferol (vitamin D2) 50,000 unit PO MUIR 08/09/19 09/21/19 08/05/19 [Vitamin D2] ferrous sulfate 325 mg PO TID 08/09/19 09/21/19 08/09/19 14:00 folic acid 1 mg PO QAM 08/09/19 09/21/19 08/09/19 docusate sodium 100 mg capsule 100 mg PO DAILY 08/16/19 09/21/19 Unknown warfarin 1 mg tablet 1 mg PO .COMPLEX 08/16/19 09/21/19 Unknown warfarin 2 mg tablet 2 mg PO DAILY 08/16/19 09/21/19 Unknown doxycycline hyclate 100 mg tablet 100 mg PO bid #28 tab 08/23/19 09/21/19 Unknown diltiazem HCl 180 mg capsule,24 120 mg PO DAILY cap 09/11/19 09/21/19 Unknown hr,extended release lisinopril 20 mg tablet 10 mg PO QAM tab 09/20/19 09/21/19 Unknown Active Medications Generic Name Dose Route Start Last Admin Trade Name Freq PRN Reason Stop Dose Admin Acetaminophen 1,000 mg 09/28/19 15:23 09/29/19 21:33 Tylenol PO 10/28/19 15:22 1,000 mg Q6H PRN Administration pain Calcitonin [place] 1 sprays 09/29/19 11:45 10/05/19 08:20 Fortical NA 10/29/19 11:44 1 sprays DAILY ARI Administration Calcium Carbonate 1,250 mg 09/28/19 21:00 10/05/19 08:20 Os-Josué 500 PO 10/28/19 20:59 1,250 mg BID ARI Administration Clopidogrel Bisulfate 75 mg 09/29/19 09:00 10/05/19 08:21 Plavix PO 10/29/19 08:59 Not Given QAM ARI Diltiazem HCl 180 mg 10/04/19 09:00 10/05/19 08:21 Tiazac PO 11/03/19 08:59 180 mg DAILY ARI Administration Docusate Sodium 100 mg 09/29/19 09:00 10/05/19 08:20 Colace PO 10/29/19 08:59 100 mg DAILY ARI Administration Enoxaparin Sodium 50 mg 10/03/19 00:00 10/04/19 01:31 Lovenox SQ 11/02/19 00:00 50 mg Q12H ARI Administration Ferrous Sulfate 325 mg 09/28/19 21:00 10/05/19 12:34 Feosol PO 10/28/19 20:59 Not Given TID ARI Folic Acid 1 mg 09/29/19 09:00 10/05/19 08:20 Folvite PO 10/29/19 08:59 1 mg QAM ARI Administration Gadobutrol 4.4 ml 10/01/19 20:15 10/01/19 20:15 Gadavist 65ml IV 10/05/19 20:14 4.4 ml ONCE PRN Administration Interaction Checking Haloperidol Lactate 2 mg 09/30/19 14:15 10/01/19 06:52 Haldol IV 10/29/19 17:59 2 mg Q6H PRN Administration Agitation Cefepime HCl 2,000 mg/ Syringe 20 mls @ 5 mls/min 09/30/19 08:15 10/05/19 08:19 IV 11/11/19 08:14 5 mls/min Q12@0800,2000 ARI Administration Protocol Vancomycin HCl 750 mg/ Sodium 265 mls @ 125 mls/hr 10/05/19 04:00 10/05/19 06:39 Chloride IV 11/14/19 04:59 Infused Q18H ARI Infusion Protocol Sodium Chloride 1,000 mls @ 70 mls/hr 10/05/19 11:15 10/05/19 11:45 Nss 1000ml IV 11/04/19 11:14 70 mls/hr .[id number] ARI Administration Lactobacillus Acidophilus 4 tab 10/02/19 12:00 10/05/19 16:41 Floranex PO 11/01/19 11:59 Not Given TIDM ARI Metoprolol Tartrate 2.5 mg 09/29/19 09:57 09/30/19 09:01 Lopressor IV 10/29/19 09:56 2.5 mg Q4 PRN Administration Tachycardia Metoprolol Tartrate 25 mg 10/03/19 09:00 10/05/19 08:20 Lopressor PO 11/02/19 08:59 25 mg BID ARI Administration Quetiapine Fumarate 25 mg 10/03/19 21:00 10/04/19 20:10 Seroquel PO 11/02/19 20:59 25 mg HS ARI Administration Warfarin Sodium 2 mg 09/28/19 16:30 09/29/19 17:31 Coumadin PO 10/28/19 16:29 Not Given DAILY@1600 ARI NPO Date Last Intake of Fluids: 10/04/19 Time Last Intake of Fluids: 23:00 Last Intake of Fluids Comment: sip at 0800 w/med Date Last Intake of Solids: 10/04/19 Time Last Intake of Solids: 20:00 Past Medical History Medical History A-fib (Chronic) Acute DVT (deep venous thrombosis) Anemia (Chronic) Arrhythmia (Acute) Atrial fibrillation (Acute) Chronic diastolic CHF (congestive heart failure) (Chronic) CKD (chronic kidney disease) stage 3, GFR 30-59 ml/min CKD (chronic kidney disease), stage III Compression fracture of thoracic vertebra (Acute) Fall (Acute) HTN (hypertension) (Acute) Hypertension (Chronic) Hypertension (Acute) Pericardial effusion (Acute) Peripheral arterial occlusive disease Pleural effusion (Acute) Pleural effusion on right (Acute) 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 Vitamin D deficiency (Chronic) Exercise / Class Metabolic Activity II 4-5 Yardwork/Stairs/Walk up hill Past Family History Family History Other Family history non-contributory Past Surgical History Surgical History History of colon resection (Acute) Hx laparoscopic cholecystectomy (Acute) Past Anesthesia History No Hx of Anesthesia Complications and No Family Hx of Anesthesia Complications History of PONV No Hx of PONV and No Hx of Motion Sickness Social History Smoking Status: Never smoker Hx Alcohol Use: Yes Alcohol type: wine alcohol intake frequency: a few times a week Hx Substance Use: No substance use type: does not use Review of Systems ROS Unobtainable: Unobtainable due to cognitive status Physical Exam Vital Signs Last Vital Signs Temp 36.9 C 10/05/19 16:55 Pulse 83 10/05/19 16:55 Resp 18 10/05/19 16:55 BP 131/82 10/05/19 16:55 Pulse Ox 94 10/05/19 16:55 ENMT Mouth: + dentition abnormality (VEneers) and + poor dentition; no TMJ abnormality Thyromental Distance: > or= 3.5 Finger Breadths Mallampati Class: Other (Unable to assess) Neck neck extension not limited Respiratory normal respiratory effort; no respiratory distress Auscultation: lungs clear to auscultation bilaterally Cardiovascular Rate/Rhythm: regular rate and regular rhythm Neurologic moves all extremities Psychiatric Orientation: alert and oriented x 3 Testing Laboratory Results 10/05/19 06:27 10/05/19 06:27 PT 11.6 Seconds (9.0-12.0) 10/03/19 07:36 INR 1.1 (0.9-1.1) 10/03/19 07:36 APTT 49.0 Seconds (21.0-31.0) H* 09/28/19 14:38 Blood Type O Positive 10/03/19 07:36 Antibody Screen NEGATIVE 10/03/19 07:36 09/29/19 11:22 Aerobic Blood Culture - Final Blood No growth in Aerobic bottle after 5 days. Anaerobic Blood Culture - Final No growth in Anaerobic bottle after 5 days. 09/29/19 11:28 Aerobic Blood Culture - Final Blood No growth in Aerobic bottle after 5 days. Anaerobic Blood Culture - Final No growth in Anaerobic bottle after 5 days.
[2019-10-05] MEDS ORDERED: BACITRACIN INJ 50,000 UNIT VIAL ONE (17:15)
[2019-10-05] MEDS ORDERED: fentaNYL citrate 100 MCG/2 ML VIAL ONE (17:21)
[2019-10-05] MEDS ORDERED: PROPOFOL IV EMULSION 10 MG/ML 20 ML VIAL IV ONE (17:22)
[2019-10-05] MEDS ORDERED: LIDOCAINE HCL 2% 2 ML VIAL/AMP(20MG/ML) INFIL ONE (17:22)
[2019-10-05] MEDS ORDERED: ROCURONIUM BROMIDE 10 MG/ML 5 ML VIAL ONE (17:27)
--- NOTE | 2019-10-05 17:38 | History & Physical Bridge Note ---
Date of Service October 05, 2019 History & Physical Bridge Note I have examined the patient, reviewed the History & Physical and in the interval since the performance of the History & Physical I have noted the following changes of clinical significance: Patient will require tenotomy and debridement of the Achilles tendon, extensive debridement right lower extremity and saucerization of the lateral malleolus right lower extremity.
[2019-10-05] MEDS ORDERED: PHENYLEPHRINE HCL 10 MG/ML VIAL ONE (18:12)
[2019-10-05] MEDS ORDERED: PHENYLEPHRINE 100MCG/ML 5ML SYR ONE (18:12)
[2019-10-05] MEDS ORDERED: GLYCOPYRROLATE 0.2 MG/ML VIAL ONE (18:53)
[2019-10-05] MEDS ORDERED: NEOSTIGMINE METHYLSULFATE 5 MG/5 ML SYR ONE (18:53)
--- NOTE | 2019-10-05 19:18 | Post Operative Brief Note ---
Immediate Post Op Note v1 Date of Surgery October 05, 2019 Pre & Post Diagnosis Operation Date: 09/28/19 09:30 <No data on this case meets the specified criteria> Operation Date: 10/05/19 08:45 Pre-Op Diagnosis: Infected exposed Achilles tendon, infected exposed plantaris tendon, extensive soft tissue ulceration and skin loss (13 x 26.2 x 0.5cm), heel ulcer (2.5 x 3.5 x 0.5cm), peripheral Arterial Disease Post-Op Diagnosis: Infected exposed Achilles tendon, infected exposed plantaris tendon, extensive soft tissue ulceration and skin loss (13 x 26.2 x 0.5cm), heel ulcer (2.5 x 3.5 x 0.5 cm), infected exposed sural nerve, peripheral Arterial Disease I identified the patient and participated in the time-out.: Yes Procedure Operation Date: 09/28/19 09:30 Actual Procedures s SC Select Cath ALEP 3rd Order - Nehemias Reyes MD p Angio Extremity Bilateral - Nehemias Reyes MD s Fem Pop Stent Balloon - Nehemias Reyes MD s Tibioperoneal Balloon Stent - Nehemias Reyes MD s Placement Art Occlusive Device - Nehemias Reyes MD s Ultrasound Vascular Access - Nehemias Reyes MD Operation Date: 10/05/19 08:45 Actual Procedures p irrigation and debridement of Right lower leg, Right Achilles Tenotomy, de bridement and excision Achilles tendon, tenotomy, debridement and excision Plantaris tendon, resection sural nerve, Debridement of heel Ulcer measuring 2.5x3.5 x 0.5 cm, Debridement of Leg Wound measuring 13x26.2x 0.5cm(Right) - Norman Cruz DO Surgeon Norman Cruz DO Worm Farmer None Estimated Blood Loss 10 Findings Consistent with Post-Op Diagnosis Specimens Achilles tendon, plantaris tendon, sural nerve Anesthesia Type General Complications none Disposition Accompanied Patient To Recovery: Yes Disposition: Recovery Room
--- NOTE | 2019-10-05 19:41 | Anesthesiology Progress Note ---
Date of Service October 05, 2019 Anesthesia Post Procedure Vital Signs Vital Signs: Temp Pulse Pulse Pulse Resp BP BP 10/05/19 19:35 88 14 133/88 10/05/19 19:25 102 H 20 132/85 10/05/19 19:16 36.3 C L 103 H 12 139/100 10/05/19 16:55 36.9 C 83 18 131/82 10/05/19 15:30 75 10/05/19 15:15 36.6 C 89 17 133/78 10/05/19 11:25 36.6 C 74 16 126/81 10/05/19 09:35 83 14 133/88 10/05/19 07:11 36.7 C 127 H 16 130/84 10/05/19 03:16 36.6 C 100 H 18 137/88 10/04/19 23:08 36.6 C 90 20 129/84 Pulse Ox 10/05/19 19:35 95 10/05/19 19:25 98 10/05/19 19:16 100 10/05/19 16:55 94 10/05/19 15:30 10/05/19 15:15 98 10/05/19 11:25 93 10/05/19 09:35 100 10/05/19 07:11 93 10/05/19 03:16 93 10/04/19 23:08 95 Pain Intensity Right Lower Calf: Pain Intensity: 4 Transfer of Care Handoff Completed per policy Notes Mental Status: alert / awake / arousable and participated in evaluation Patient Amnestic to Procedure: Yes Nausea / Vomiting: adequately controlled Pain: adequately controlled Airway Patency, RR, SpO2: stable & adequate BP & HR: stable & adequate Hydration State: stable & adequate Anesthetic Complications: no major complications apparent and Pt Satisfied with anesthetic care
[2019-10-05] MEDS: QUETIAPINE FUMARATE 25 MG TABLET PO SCH (20:22)
[2019-10-05] MEDS ORDERED: SODIUM CHLORIDE 0.9% 1000ML 500 ML IV ONE (22:58)
[2019-10-06] MEDS ORDERED: FUROSEMIDE 40 MG in SYRINGE 0 ML IV ONE (00:17)
--- NOTE | 2019-10-06 00:17 | Operative Report ---
DATE OF OPERATION: 10/05/2019 PREOPERATIVE DIAGNOSES: 1. Right infected and exposed Achilles tendon. 2. Infected and exposed plantaris tendon. 3. Extensive soft tissue ulceration and skin loss, right lower extremity, measuring 13 x 26.2 x 0.5 cm. 4. Heel ulcer, right heel, 2.5 x 3.5 x 0.5 cm and infected exposed sural nerve and severe peripheral artery disease. POSTOPERATIVE DIAGNOSES: 1. Right infected and exposed Achilles tendon. 2. Infected and exposed plantaris tendon. 3. Extensive soft tissue ulceration and skin loss, right lower extremity, measuring 13 x 26.2 x 0.5 cm. 4. Heel ulcer, right heel, 2.5 x 3.5 x 0.5 cm and infected exposed sural nerve and severe peripheral artery disease. PROCEDURE: 1. Right lower extremity debridement, tenotomy, and resection, Achilles tendon. 2. Debridement, tenotomy, and resection, plantaris tendon. 3. Resection, sural nerve. 4. Extensive debridement, right lower leg, soft tissue loss and ulceration measuring 13 x 26.2 x 0.5 cm. 5. Irrigation and debridement, full thickness heel ulcer, measuring 2.5 x 3.5 x 0.5 cm. SURGEON: Norman Cruz DO FIRE FIGHTING EQUIPMENT SPECIALIST: None. ANESTHESIA: General endotracheal tube. SPECIMENS: Achilles tendon, sural nerve, and plantaris tendon. DRAINS: None. COMPLICATIONS: None. BLOOD LOSS: 10 mL. PERTINENT HISTORY: This is an 84-year-old female who has suffered with peripheral artery disease. She had a procedure attempted by Dr. Fernie Reyes this past week. He had difficulty with revascularization due to the nature and extent of her disease. She had been admitted to the hospital related to multiple factors. Orthopedics was asked to consult due to the patient's extensive right lower extremity leg wound involvement with exposed tendons and nerve. The patient had been under the care of multiple providers attempting to salvage her limb with conservative management including the wound care center. Initial recommendation was made for below knee amputation due to the extensive nature of the patient's disease and limitations available to provide revascularization. The patient's power of information specialist requested at least one final attempt at debridement and limb sparing, which we discussed at length and she understands that there is extensive difficulty and risk associated with this including likely need for eventual amputation of the right lower limb. She understands these risks and decided to proceed with procedure as indicated. All potential risks, benefits, complications, alternatives, rehab, potential for incomplete relief of symptoms, need for further surgery, DVT, PE, , persistent pain, swelling, scarring, weakness, neurovascular injury, wound complications, bone fracture, need for further debridement or amputation was discussed with the power of information specialist. The power of information specialist decided to proceed with procedure as indicated. DESCRIPTION OF PROCEDURE: The patient was taken to the operative suite, placed supine on the operating table. After review of consent and identification of proper operative site, the patient was anesthetized, endotracheal tube was placed. The patient was then rolled on to the left lateral side in the left lateral decubitus position over a beanbag. The beanbag was suctioned and stable position was achieved. All bony prominences were properly padded and protected. Tourniquet was applied high on the right thigh over cast padding. Right lower extremity was then sterilely prepped and draped in usual fashion. There was no tourniquet used due to the patient's extensive vascular disease. After surgical timeout was performed, the large surface area skin loss and ulceration was debrided sharply with a 15-blade scalpel and a curette. This measured 26.2 x 13 x 0.5 cm. Granulation tissue was evident. Some fibrinous exudate was then debrided sharply and removed. The necrotic-appearing and exposed Achilles tendon was debrided with a 15-blade scalpel. The tendon was from the deeper soft tissue as this was completely exposed all the way down to its insertion. This was debrided and tenotomized distally and retracted proximally. The muscular tissue which was viable was then off of the tendon which was exposed, desiccated, and devitalized. This was then sharply excised. This tendon was placed on stretch. A small incision was made on the lateral aspect of the limb extending proximally to gain greater access to the proximal portion of the Achilles fascia as a transition to the gastrocnemius fascia. This was sharply excised from the deeper muscular layer. The muscles were preserved and left as soft tissue coverage as this would likely epithelialize. The Achilles tendon was then resected and then passed off as specimen. The adjacent plantaris tendon was also exposed with desiccation. There is no chance of viability. This was then debrided, tenotomized distally, and then resected under tension to allow the residual muscular tendinous junction to retract into the soft tissue flap. Also noted was desiccated, devitalized, necrotic, and exposed sural nerve. This was then placed on stretch both proximally and distally as sural nerve resection was then performed and the viable portions of the nerve were allowed to be placed on stretch and then retracted into the proximal and distal skin flaps. Next, the heel ulcer was then sharply debrided with a 15-blade scalpel. This full thickness skin wound measures 2.5 x 3.5 x 0.5 cm. It was sharply debrided back to bleeding tissue and granulation tissue. There was no exposed bone present. The fat pad appeared viable. Next pulsatile lavage 3 liters with bacitracin was then used to cleanse all surfaces involved of the right lower extremity and the heel and then a wet to dry dressing was applied consisting of Adaptic, sterile saline moistened 4 x 4 gauze and then dry 4 x 4 sterile gauze covered with ABD pads, 4-inch cast padding, and then 4-inch Cedric wraps x2. The patient was awakened. Toes were pink and somewhat warm and she was rolled supine after extubation and then taken to recovery in stable condition. I attest to the content of the Intraoperative Record and any orders documented therein. Any exception s are noted below.
[2019-10-06] MEDS ORDERED: FUROSEMIDE 20 MG in SYRINGE 0 ML IV ONE (00:21)
[2019-10-06] MEDS ORDERED: FUROSEMIDE 40 MG/4 ML VIAL IV ONE (00:25)
--- NOTE | 2019-10-06 01:37 | Communication Note ---
Date of Service: October 06, 2019 Called to bedside overnight for concerns of hypotension to 85/42. Patient seen at bedside, comfortable in no acute distress. 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 Patient developed crackles following 500 cc bolus, on bedside assessment soft crackles developed in lungs bilaterally with an increase in oxygen by nasal cannula. Patient was given Lasix 20 mg IV and Dumas was placed for diuretic treatment in the setting of ambulatory dysfunction and dementia. Patient pressures improved following Lasix administration to 106/69. PAINT COATING MACHINE OPERATOR Lasix continued, further management to primary team. Resident Activity Tracking Resident Involvement: Resident Care Provided Care Provided: Adult Hospital Medicine
[2019-10-06 07:34] LABS: Creatinine Clr Calc Pharmacy 31.9 ml/min; Est GFR (African American) 69.4; Est GFR (Non-African American) 59.9
[2019-10-06 08:19] LABS: Basophils # (auto) 0.03 K/uL (0-0.2); Basophils % (auto) 0.3 %; Eosinophils # (auto) 0.12 K/uL (0-0.5); Eosinophils % (auto) 1.1 %; Hematocrit (blood only) 30.2 % (37-47); Hemoglobin 9.5 g/dL (12.0-16.0); Immature Granulocytes # (auto) 0.05 K/uL (0.00-0.02); Immature Granulocytes % (auto) 0.5 %; Lymphocytes # (auto) 1.65 K/uL (1.2-3.4); Lymphocytes % (auto) 15.6 %; Mean Corpuscular Hemoglobin 30.7 pg (25-34); Mean Corpuscular Hgb Conc 31.5 g/dL (32-36); Mean Corpuscular Volume 97.7 fL (80-100); Mean Platelet Volume 9.3 fL (7.4-10.4); Monocytes # (auto) 0.93 K/uL (0.11-0.59); Monocytes % (auto) 8.8 %; Neutrophils # (auto) 7.83 K/uL (1.4-6.5); Neutrophils % (auto) 73.7 %; Platelet Count 341 K/uL (130-400); RDW Coefficient of Variation 15.5 % (11.5-14.5); RDW Standard Deviation 53.4 fL (36.4-46.3); Red Blood Count 3.09 M/uL (4.2-5.4); White Blood Count 10.61 K/uL (4.8-10.8)
[2019-10-06 08:27] LABS: BUN Creatinine Ratio 21.9 (10-20); Creatinine Clr Calc Pharmacy 33.8 ml/min; Est GFR (African American) 74.5; Est GFR (Non-African American) 64.3; Magnesium 1.8 mg/dl (1.8-2.4); Potassium 4.4 mmol/L (3.5-5.1)
[2019-10-06] MEDS ORDERED: METOPROLOL TARTRATE 50 MG TAB PO SCH (09:00)
[2019-10-06] MEDS: CEFEPIME 2,000 MG in SYRINGE 7.5 ML IV SCH ×2 (09:34→19:56)
[2019-10-06] MEDS: LACTOBACILLUS ACIDOPHILUS (FLORANEX) TAB PO SCH ×3 (09:35→16:38)
[2019-10-06] MEDS: METOPROLOL TARTRATE 25 MG TAB PO SCH ×2 (09:35→19:56)
[2019-10-06] MEDS: DOCUSATE SODIUM 100 MG CAP PO SCH (09:36)
[2019-10-06] MEDS: CALCIUM CARBONATE 1250MG TAB PO SCH ×2 (09:36→19:56)
[2019-10-06] MEDS: CLOPIDOGREL BISULFATE 75 MG TAB PO SCH (09:36)
[2019-10-06] MEDS: FOLIC ACID 1 MG TAB PO SCH (09:36)
[2019-10-06] MEDS: dilTIAZem ER 180 MG CAPCR PO SCH (09:36)
[2019-10-06] MEDS: FERROUS SULFATE 325 MG TAB PO SCH ×3 (09:36→19:56)
[2019-10-06] MEDS: CALCITONIN SALMON NA 200 IU/AC 3.7 ML BTL SCH (09:37)
--- NOTE | 2019-10-06 11:13 | Orthopedic Progress Note ---
Date of Service October 06, 2019 Assessment & Plan (1) Infection of right foot: s/p . Right lower extremity debridement, tenotomy, and resection, Achilles tendon. 2. Debridement, tenotomy, and resection, plantaris tendon. 3. Resection, sural nerve. 4. Extensive debridement, right lower leg, soft tissue loss and ulceration measuring 13 x 26.2 x 0.5 cm. 5. Irrigation and debridement, full thickness heel ulcer, measuring 2.5 x 3.5 x 0.5 cm. Continue IV Vanco: cultures MRSA Wound care and dressing change tomorrow. Subjective pod #1 right lower leg I &D. Resting comfortably curled up in bed. No complaints today but pleasantly confused. Physical Exam Physical Exam: Dressing in place, right lower leg. NVI. Toes mobile Results & Data ([facility]) Vital Signs (Past 12 Hours) Vital Signs Temp Pulse Pulse Resp BP Pulse Ox 10/06/19 10:54 36.5 C 111 H 16 98/61 L 93 10/06/19 07:06 36.3 C L 100 H 18 121/80 94 10/06/19 04:06 36.7 C 90 17 111/82 98 10/06/19 01:30 76 106/69 10/06/19 01:00 88 91/47 L
--- NOTE | 2019-10-06 13:19 | Hospitalist Progress Note ---
Date of Service October 06, 2019 Assessment & Plan (1) 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: Wound of right ankle, secondary to pressure ulcer since being at rehab for Rt hip ORIF Consulted inpatient wound care and wound care provider Dr. 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 - Post repeat angiography revealing no apparent iliac perforation or dissection - RT foot with improved perfusion on exam. - Extensive RLE ulceration and now suspected osteomyelitis on plain films as above -- Continue clopidogrel 75 mg daily x 3 months along with anticoagulation, then can dc Plavix and do coumadin alone --continue broad-spectrum antibiotics, cefepime, vancomycin --continue wound care Appreciate Vascular Cardio intervention Haydee Victoria is the patient's HCPOA and is adamant that the patient NOT have an amputation a this time and to perform other procedures to salvage the leg first. Appreciate ortho consult: Dr. Cruz is recommending amputation of the leg, unlikely to heal from resection of Achilles tendon, not enough skin for healing--> however as above,HCPOA hoping for salvage of limb Now s/p surgical debridement of leg on 10/05: 1. Right lower extremity debridement, tenotomy, and resection, Achilles tendon. 2. Debridement, tenotomy, and resection, plantaris tendon. 3. Resection, sural nerve. 4. Extensive debridement, right lower leg, soft tissue loss and ulceration measuring 13 x 26.2 x 0.5 cm. 5. Irrigation and debridement, full thickness heel ulcer, measuring 2.5 x 3.5 x 0.5 cm. -restart Lovenox -watch for post-op delirium-having some but not severe (2) Altered mental status: Acute metabolic encephalopathy secondary to sedation given for procedure on 09/28 and associated with mixed vascular/Alzheimer dementia very agitated on 09/30, received Haldol 1mg IV, took a few hours to work She improved since then with avoidance of opioids and giving scheduled Seroquel, however now slightly worse again since anesthesia for Ortho procedure -continue Haldol 2mg IV q6 prn-has not needed this lately -infection is well controlled, no electrolyte abnormalities suspect that all of the agitation and confusion is hospital delirium on baseline dementia and with use of sedation for procedure -avoid OPIOIDS -continue Seroquel scheduled qhs -continue 1:1 sitter as needed-continues to need this as she pulled out her IV when she was taken off the sitter (3) 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: continue wound care, abx (4) Peripheral arterial occlusive disease: - as above, now with Doppler-able pulses -continue Plavix x 3 months -would add statin but will wait on this for now (5) Chronic diastolic CHF (congestive heart failure): -not volume overloaded, has chronic stable to improved right pleural effusion/loculated Had episode of acute resp distress and crackles night after surgery 10/05--> improved with IV lasix x 1 and stopping maintenance IVFs she received for < 24 hrs Now resolved -continue holding home diuretics (6) A-fib: Rates now improved with increased doses of metoprolol, diltiazem, and with blood transfusion, however remains 90-110s -continue holding coumadin for procedure -ok now to restart bridging therapeutic Lovenox 1mg/kg q12h which was held for surgery-discussed with Ortho PA -Continue diltiazem 180mg daily -switched from atenolol to metoprolol this admission by Cardio--> continue metoprolol but back down to 25mg po bid due to hypotension overnight 10/05 after surgery -may need to increase metoprolol further if BP can tolerate -continue tele monitoring -appreciate Cardio recommendations (7) Anemia: Hgb down from previous baseline before her hip fracture in 07/2018 Was hgb 9 after hip fracture and repair 07/2019, has slowly trended downward since then due to chronic infection Also with folate low at 4 on old labs 07/2014 Normocytic B12 normal 07/2019 Folate now >24 -transfused 2 units PRBCs on 10/03 and a hemoglobin up to 10--> now down to 9.2 again after surgery, EBL only 10mL though -follow CBC in AM -continue folic acid replacement -continue FeSO4 tid (8) Hypertension: BPs low and improved after blood transfusion, then low again after surgery, now stable -Continue holding home lisinopril and lasix -continue diltiazem, metoprolol as above mostly for rate control (9) Pleural effusion: Chronic rt sided, ?loculated pleural effusion Has had multiple thoracenteses in the past CXR 10/02 improved from previous, small pleural effusion-no need for tap Oxygenating well -no thoracentesis for now but if needed, follows with Dr. 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 diff neg on 09/30 -Continue Floranex probiotic tid -follow (12) Hypomagnesemia: could be secondary to GI losses from previous loose stools -resolved with replacement, goal >/= 2.0 -follow Mag level in AM (13) Acute DVT (deep venous thrombosis): Has a known Right popliteal vein DVT from 07/25/19 after right hip ORIF -was on Eliquis at time DVT found and converted to warfarin -coumadin now on hold for procedure -restart Lovenox therapeutic bridging dosing (14) Nonsustained ventricular tachycardia: Had a 25 beat run of VT on 10/05, asymptomatic Discussed with Cardio -increase metoprolol dose if BP can tolerate-not today (15) DVT prophylaxis: Lovenox SQ Dispo-remain on PCU Will need PT/OT after surgery when okay with orthopedics-discussed with Ortho and will await removal of dressing tomorrow and attending Ortho recs for activity level Subjective Pt is confused today more than she had been before her surgery. Denies any pain. When asked where she is, she says "[place]." She is able to perfectly recite her own name, but cannot tell me her niece's name. She is eating a little bit more for lunch but did not wake up for breakfast as per 1:1 sitter. Overnight she was hypotensive and started to receive a bolus of NS and then became hypoxic and SOB. Fluids were stopped and IV lasix was given after which she improved. Now off O2, appears comfortable. Tele with Afib- rates 70s-100 Review of Systems Review of Systems: All systems reviewed & are unremarkable except as noted in HPI & below Physical Exam Constitutional: average body habitus; no acute distress Eyes: + anicteric sclerae Neck: trachea midline, no thyromegaly Respiratory: normal respiratory effort Auscultation: + crackles (right base); no rhonchi and no wheezes Cardiovascular: Rate/Rhythm: regular rate and + irregularly irregular Heart Sounds: no murmur Extremities: + edema (right foot, leg now covered with large dressing from surgery) Chest (Breasts): Chest: normal inspection of chest Gastrointestinal (Abdomen): normal bowel sounds, soft, nontender, no hepatosplenomegaly Musculoskeletal: Extremities: no cyanosis and no clubbing Skin: + wound (Rt leg now in large dressing with THEA wrap not removed) Neurologic: moves all extremities; no focal motor deficits Psychiatric: Orientation: alert, oriented to person and cooperative; + not oriented to place and + not oriented to time Eye Contact: good eye contact Speech: normal rate/rhythm/volume of speech Affect: euthymic affect Cognition: + recent memory not intact Lymphatic: no lymphedema Results & Data ([facility]) Vital Signs (Past 12 Hours) Vital Signs Temp Pulse Pulse Resp BP Pulse Ox 10/06/19 10:54 36.5 C 111 H 16 98/61 L 93 10/06/19 07:06 36.3 C L 100 H 18 121/80 94 10/06/19 04:06 36.7 C 90 17 111/82 98 10/06/19 01:30 76 106/69 Laboratory Results 10/06/19 10/06/19 10/06/19 Range/Units 06:53 06:53 06:25 WBC 10.61 (4.8-10.8) K/uL RBC 3.09 L (4.2-5.4) M/uL Hgb 9.5 L (12.0-16.0) g/dL Hct 30.2 L (37-47) % MCV 97.7 (80-100) fL MCH 30.7 (25-34) pg MCHC 31.5 L (32-36) g/dL RDW Std Deviation 53.4 H (36.4-46.3) fL RDW Coeff of Elvi 15.5 H (11.5-14.5) % Plt Count 341 (130-400) K/uL MPV 9.3 (7.4-10.4) fL Immature Gran % (Auto) 0.5 % Neut % (Auto) 73.7 % Lymph % (Auto) 15.6 % Florence % (Auto) 8.8 % Eos % (Auto) 1.1 % Baso % (Auto) 0.3 % Immature Gran # (Auto) 0.05 H (0.00-0.02) K/uL Neut # (Auto) 7.83 H (1.4-6.5) K/uL Lymph # (Auto) 1.65 (1.2-3.4) K/uL Florence # (Auto) 0.93 H (0.11-0.59) K/uL Eos # (Auto) 0.12 (0-0.5) K/uL Baso # (Auto) 0.03 (0-0.2) K/uL Sodium 140 (136-145) mmol/L Potassium 4.4 (3.5-5.1) mmol/L Chloride 107 (98-107) mmol/L Carbon Dioxide 29 (21-32) mmol/L Anion Gap 4.0 (3-11) BUN 18 (7-18) mg/dl Creatinine 0.83 0.88 (0.6-1.2) mg/dl Est Cr Clr Drug Dosing 33.8 31.9 ml/min Est GFR ( Amer) 74.5 69.4 Est GFR (Non-Af Amer) 64.3 59.9 BUN/Creatinine Ratio 21.9 H (10-20) Glucose 71 (70-99) mg/dl Calcium 9.0 (8.5-10.1) mg/dl Magnesium 1.8 (1.8-2.4) mg/dl PG Care Time/CCT Total # of Minutes Spent Total Time Spent with Patient: Total time spent is greater than 50% in coordination of care (as documented) at patient's floor/unit and/or counseling patient: Coding Level of Care Code 19792 Subseq Hosp Care Lvl 3 Diagnoses 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 Altered mental status R41.82 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 L89.622 Peripheral arterial occlusive disease I77.9 Chronic diastolic CHF (congestive heart failure) I50.32 A-fib I48.21 Atrial fibrillation type: permanent Anemia D64.89 Anemia type: other cause Other causes of anemia: other cause, not classified Hypertension I10 Hypertension type: essential hypertension Pleural effusion J90 CKD (chronic kidney disease) stage 3, GFR 30-59 ml/min N18.3 Diarrhea R19.7 Hypomagnesemia E83.42 Acute DVT (deep venous thrombosis) I82.409 Nonsustained ventricular tachycardia I47.2 DVT prophylaxis Z29.9 (1) A-fib Atrial fibrillation type: permanent Qualified Code(s): I48.21 - Permanent atrial fibrillation (2) Anemia Anemia type: other cause Other causes of anemia: other cause, not classified Qualified Code(s): D64.89 - Other specified anemias (3) Hypertension Hypertension type: essential hypertension Qualified Code(s): I10 - Essential (primary) hypertension
[2019-10-06] MEDS ORDERED: MAGNESIUM SULFATE / D5W 1 GM/100 ML BAG IV ONE (13:45)
[2019-10-06] MEDS ORDERED: VANCOMYCIN TROUGH ONE (15:30)
--- NOTE | 2019-10-06 16:11 | Pharmacy Report ---
Pharmacy Abx Dose Short Note - Date of Service October 06, 2019 - Assessment & Plan Assessment 84 year old F receiving vancomycin and cefepime for treatment of osteomyelitis of distal fibula, exposed Achilles * Day # 8 of antimicrobial therapy * Renal function stable * R leg cx from 08/16/19 grew MRSA with Vanc BRANDI = 2 Plan Vancomycin * Trough level of 20.4 mcg/mL is supratherapeutic * Change to 750 mg IV every 20 hours - slight extension in interval to allow tro ugh to drop just below 20 mcg/mL * Goal trough level: ~ 20 mcg/mL given Vanc BRANDI = 2 * Trough level ordered for: 10/08/2019 @ 0830 Pharmacy will continue to follow and will adjust dose/frequency as necessary. Thank you.
[2019-10-06] MEDS: VANCOMYCIN HCL 750 MG in SODIUM CHLORIDE 0.9% 250 ML IV SCH (16:38)
[2019-10-06] MEDS ORDERED: VANCOMYCIN HCL 750 MG in SODIUM CHLORIDE 0.9% 250 ML IV SCH (17:00)
[2019-10-06] MEDS: QUETIAPINE FUMARATE 25 MG TABLET PO SCH (19:56)
[2019-10-07] MEDS: ENOXAPARIN INJ 60 MG/0.6 ML SYR SQ SCH ×2 (00:37→12:10)
[2019-10-07 07:16] LABS: Basophils # (auto) 0.02 K/uL (0-0.2); Basophils % (auto) 0.2 %; Eosinophils # (auto) 0.15 K/uL (0-0.5); Eosinophils % (auto) 1.6 %; Hematocrit (blood only) 28.8 % (37-47); Hemoglobin 9.1 g/dL (12.0-16.0); Immature Granulocytes # (auto) 0.04 K/uL (0.00-0.02); Immature Granulocytes % (auto) 0.4 %; Lymphocytes # (auto) 1.92 K/uL (1.2-3.4); Lymphocytes % (auto) 19.9 %; Mean Corpuscular Hemoglobin 30.5 pg (25-34); Mean Corpuscular Hgb Conc 31.6 g/dL (32-36); Mean Corpuscular Volume 96.6 fL (80-100); Mean Platelet Volume 9.2 fL (7.4-10.4); Monocytes % (auto) 9.3 %; Neutrophils # (auto) 6.62 K/uL (1.4-6.5); Neutrophils % (auto) 68.6 %; Platelet Count 327 K/uL (130-400); RDW Coefficient of Variation 15.5 % (11.5-14.5); Red Blood Count 2.98 M/uL (4.2-5.4); White Blood Count 9.65 K/uL (4.8-10.8)
[2019-10-07 07:51] LABS: BUN Creatinine Ratio 21.6 (10-20); Calcium 9.4 mg/dl (8.5-10.1); Creatinine Clr Calc Pharmacy 33.4 ml/min; Est GFR (African American) 73.5; Est GFR (Non-African American) 63.4; Potassium 3.7 mmol/L (3.5-5.1)
[2019-10-07] MEDS: LACTOBACILLUS ACIDOPHILUS (FLORANEX) TAB PO SCH ×3 (09:08→16:49)
[2019-10-07] MEDS: FOLIC ACID 1 MG TAB PO SCH (09:08)
[2019-10-07] MEDS: CALCIUM CARBONATE 1250MG TAB PO SCH ×2 (09:08→20:12)
[2019-10-07] MEDS: FERROUS SULFATE 325 MG TAB PO SCH ×3 (09:08→20:11)
[2019-10-07] MEDS: DOCUSATE SODIUM 100 MG CAP PO SCH (09:08)
[2019-10-07] MEDS: CALCITONIN SALMON NA 200 IU/AC 3.7 ML BTL SCH (09:08)
[2019-10-07] MEDS: CEFEPIME 2,000 MG in SYRINGE 7.5 ML IV SCH ×2 (11:09→20:11)
[2019-10-07] MEDS: CLOPIDOGREL BISULFATE 75 MG TAB PO SCH ×2 (11:09→12:10)
[2019-10-07] MEDS: METOPROLOL TARTRATE 25 MG TAB PO SCH ×3 (11:09→20:12)
[2019-10-07] MEDS: dilTIAZem ER 180 MG CAPCR PO SCH ×2 (11:09→12:09)
--- NOTE | 2019-10-07 11:45 | Orthopedic Progress Note ---
Date of Service October 07, 2019 Assessment & Plan (1) Infection of right foot: s/p . Right lower extremity debridement, tenotomy, and resection, Achilles tendon. 2. Debridement, tenotomy, and resection, plantaris tendon. 3. Resection, sural nerve. 4. Extensive debridement, right lower leg, soft tissue loss and ulceration measuring 13 x 26.2 x 0.5 cm. 5. Irrigation and debridement, full thickness heel ulcer, measuring 2.5 x 3.5 x 0.5 cm. Continue IV Vanco: cultures MRSA Wound care and dressing changed today. NWB to TTWB as needed right lower extremity Subjective pod #2 right lower leg I &D. Resting comfortably curled up in bed. No complaints today but pleasantly confused, she notes some mild pain while changing dressing. Physical Exam Physical Exam: dressing removed today. Healing ulcerated wounds and incision. some new granulation tissue seen. no gross infection. Results & Data ([facility]) Vital Signs (Past 12 Hours) Vital Signs Temp Pulse Pulse Resp BP Pulse Ox 10/07/19 09:14 102/75 10/07/19 06:59 36.9 C 104 H 18 97/52 L 93 10/07/19 03:03 36.7 C 78 17 93/50 L 93
[2019-10-07] MEDS ORDERED: POTASSIUM CHLORIDE 20 MEQ TABCR PO STA (12:30)
--- NOTE | 2019-10-07 12:39 | Hospitalist Progress Note ---
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 Post repeat angiography revealing no apparent iliac perforation or dissection- appreciate vascular cardio intervention RT foot with improved perfusion on exam. -- Continue clopidogrel 75 mg daily x 3 months along with anticoagulation, then can dc Plavix and do coumadin alone Nigerman Victoria is the patient's HCPOA and is adamant that the patient NOT have an amputation a this time and to perform other procedures to salvage the leg first. Appreciate ortho consult: Dr. Cruz is recommending amputation of the leg, unlikely to heal from resection of Achilles tendon, not enough skin for healing--> however as above,HCPOA hoping for salvage of limb Now s/p surgical extensive debridement of leg with resection of Achilles tendon, plantaris tendon, sural nerve, and debridement of full-thickness heel ulcer on 10/05: Blood cultures show no growth Wound cultures from the past grew MRSA which was sensitive to vancomycin but with an BRANDI of 2 noted by pharmacy today-we will DC vancomycin and start daptomycin -Continue cefepime for now -Awaiting ID consultation on Tuesday-appreciate recommendations for length of course of treatment and choice of antibiotics for large open wound at high risk for infection Again had an extensive conversation with the patient's niece/HCPOA regarding long-term prognosis-she is at high risk for sepsis with the continued open wound which will take many months to heal if it ever does at all. She cannot ambulate as per orthopedics as she has no Achilles tendon and there is a large open wound-she cannot wear a brace on the leg at this time. If she were to have an amputation, she could at least be at less risk for sepsis and still would not likely ever ambulate again. Her niece is thinking this over and would like to talk to the orthopedic surgeon more about future options (2) Altered mental status: Acute metabolic encephalopathy secondary to sedation given for procedure on 09/28 and associated with mixed vascular/Alzheimer dementia very agitated on 09/30, received Haldol 1mg IV, took a few hours to work She improved since then with avoidance of opioids and giving scheduled Seroquel, however now worse again since anesthesia for Ortho procedure Remains confused and not oriented at all but not severely agitated on 10/07 -continue Haldol 2mg IV q6 prn-has not needed this lately -infection is well controlled, no electrolyte abnormalities suspect that all of the agitation and confusion is hospital delirium on baseline dementia and with use of sedation for procedure -avoid OPIOIDS -continue Seroquel scheduled qhs -continue 1:1 sitter as needed-continues to need this as she pulled out her IV when she was taken off the sitter (3) 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: continue wound care, abx (4) Peripheral arterial occlusive disease: - as above, now with Doppler-able pulses -continue Plavix and anticoagulation x 3 months and then continue on anticoagulation alone at that point -would add statin but will wait on this for now (5) Chronic diastolic CHF (congestive heart failure): -not volume overloaded, has chronic stable to improved right pleural effusion/loculated Had episode of acute resp distress and crackles the night after surgery 10/05--> improved with IV lasix x 1 and stopping maintenance IVFs she received for < 24 hrs Now resolved -continue holding home diuretics for very poor p.o. intake (6) A-fib: Rates now improved with increased doses of metoprolol, diltiazem, and with blood transfusion -If no further procedures planned at this point i.e. niece does not opt for amputation-then can restart Coumadin -Continue bridging therapeutic Lovenox 1mg/kg q12h -Continue diltiazem 180mg daily -switched from atenolol to metoprolol this admission by Cardio--> continue metoprolol 25mg po bid -may need to increase metoprolol further if BP can tolerate for intermittent tachycardia -continue tele monitoring -appreciate Cardio recommendations (7) Anemia: Hgb down from previous baseline before her hip fracture in 07/2018 Was hgb 9 after hip fracture and repair 07/2019, then slowly trended downward due to chronic infection Also with folate low at 4 on old labs 07/2014 Normocytic B12 normal 07/2019 Folate now >24 -transfused 2 units PRBCs on 10/03 and a hemoglobin up to 10--> now down to 9.1 and stable after surgery -follow CBC in AM -continue folic acid replacement -continue FeSO4 tid (8) Hypertension: BPs low and improved after blood transfusion, then low again after surgery, now stable to low normal -Continue holding home lisinopril and lasix -continue diltiazem, metoprolol as above mostly for rate control (9) Pleural effusion: Chronic rt sided, ?loculated pleural effusion Has had multiple thoracenteses in the past CXR 10/02 improved from previous, small pleural effusion-no need for tap Oxygenating well -no thoracentesis for now but if needed, follows with Dr. 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 diff neg on 09/30 -Continue Floranex probiotic tid -follow (12) Hypomagnesemia: could be secondary to GI losses from previous loose stools -resolved with replacement, goal >/= 2.0 -follow Mag level in AM (13) Acute DVT (deep venous thrombosis): Has a known Right popliteal vein DVT from 07/25/19 after right hip ORIF -was on Eliquis at time DVT found and converted to warfarin due to presumed failure of Eliquis -coumadin now on hold for procedure-can restart if final decision made by family to not pursue amputation -Continue Lovenox therapeutic bridging dosing (14) Nonsustained ventricular tachycardia: Had a 25 beat run of VT on 10/05, asymptomatic None further since then Discussed with Cardio -increase metoprolol dose if BP can tolerate-blood pressures have been too low to tolerate-continue 25 mg twice daily (15) DVT prophylaxis: Lovenox SQ Dispo-remain on PCU, will need intermediate placement with likely IV antibiotics and PT/OT Okay to consult PT/OT now status post surgery-should remain nonweightbearing on the right foot DNR/DNI Subjective Patient was drowsy this morning did not take her pills until that morning and was tachycardic. When I saw her, she was still drowsy but would answer some simple questions but remains confused. When asked about pain, she just stared at me. Telemetry with atrial fibrillation with rates in the 90s to 120s. I discussed the case with pharmacy today. Review of Systems Review of Systems: Unobtainable due to cognitive status Physical Exam Constitutional: average body habitus and + lethargic; no acute distress Eyes: + anicteric sclerae ENMT: external ear and nose normal, oropharynx normal Neck: trachea midline, no thyromegaly Respiratory: normal respiratory effort, lungs clear to auscultation normal respiratory effort Cardiovascular: Rate/Rhythm: + tachycardic and + irregularly irregular Heart Sounds: no murmur Extremities: + edema (right foot, leg now covered with large dressing from surgery) Chest (Breasts): Chest: normal inspection of chest Gastrointestinal (Abdomen): normal bowel sounds, soft, nontender, no hepatosplenomegaly Musculoskeletal: Extremities: no cyanosis and no clubbing Skin: + wound (Rt leg now in large dressing with THEA wrap not removed) Neurologic: moves all extremities; no focal motor deficits Psychiatric: Orientation: + not alert, + not oriented to person, + not oriented to place and + not oriented to time Eye Contact: + not good eye contact Lymphatic: no lymphedema Results & Data ([facility]) Vital Signs (Past 12 Hours) Vital Signs Temp Pulse Pulse Resp BP Pulse Ox 10/07/19 12:02 112 H 18 125/96 93 10/07/19 09:14 102/75 10/07/19 06:59 36.9 C 104 H 18 97/52 L 93 10/07/19 03:03 36.7 C 78 17 93/50 L 93 Laboratory Results 10/07/19 10/07/19 Range/Units 06:40 06:40 WBC 9.65 (4.8-10.8) K/uL RBC 2.98 L (4.2-5.4) M/uL Hgb 9.1 L (12.0-16.0) g/dL Hct 28.8 L (37-47) % MCV 96.6 (80-100) fL MCH 30.5 (25-34) pg MCHC 31.6 L (32-36) g/dL RDW Std Deviation 53.0 H (36.4-46.3) fL RDW Coeff of Elvi 15.5 H (11.5-14.5) % Plt Count 327 (130-400) K/uL MPV 9.2 (7.4-10.4) fL Immature Gran % (Auto) 0.4 % Neut % (Auto) 68.6 % Lymph % (Auto) 19.9 % [place] % (Auto) 9.3 % Eos % (Auto) 1.6 % Baso % (Auto) 0.2 % Immature Gran # (Auto) 0.04 H (0.00-0.02) K/uL Neut # (Auto) 6.62 H (1.4-6.5) K/uL Lymph # (Auto) 1.92 (1.2-3.4) K/uL [place] # (Auto) 0.90 H (0.11-0.59) K/uL Eos # (Auto) 0.15 (0-0.5) K/uL Baso # (Auto) 0.02 (0-0.2) K/uL Sodium 140 (136-145) mmol/L Potassium 3.7 D (3.5-5.1) mmol/L Chloride 106 (98-107) mmol/L Carbon Dioxide 29 (21-32) mmol/L Anion Gap 5.0 (3-11) BUN 18 (7-18) mg/dl Creatinine 0.84 (0.6-1.2) mg/dl Est Cr Clr Drug Dosing 33.4 ml/min Est GFR ( Amer) 73.5 Est GFR (Non-Af Amer) 63.4 BUN/Creatinine Ratio 21.6 H (10-20) Glucose 82 (70-99) mg/dl Calcium 9.4 (8.5-10.1) mg/dl Magnesium 2.0 (1.8-2.4) mg/dl Blood cultures no growth to date-final PG Care Time/CCT Total # of Minutes Spent Total Time Spent with Patient: Total time spent is greater than 50% in coordination of care (as documented) at patient's floor/unit and/or counseling patient: Coding Level of Care Code 04949 Subseq Hosp Care Lvl 3 Diagnoses 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 Altered mental status R41.82 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 L89.622 Peripheral arterial occlusive disease I77.9 Chronic diastolic CHF (congestive heart failure) I50.32 A-fib I48.21 Atrial fibrillation type: permanent Anemia D64.89 Anemia type: other cause Other causes of anemia: other cause, not classified Hypertension I10 Hypertension type: essential hypertension Pleural effusion J90 CKD (chronic kidney disease) stage 3, GFR 30-59 ml/min N18.3 Diarrhea R19.7 Hypomagnesemia E83.42 Acute DVT (deep venous thrombosis) I82.409 Nonsustained ventricular tachycardia I47.2 DVT prophylaxis Z29.9 (1) Anemia Anemia type: other cause Other causes of anemia: other cause, not classified Qualified Code(s): D64.89 - Other specified anemias (2) A-fib Atrial fibrillation type: permanent Qualified Code(s): I48.21 - Permanent atrial fibrillation (3) Hypertension Hypertension type: essential hypertension Qualified Code(s): I10 - Essential (primary) hypertension
[2019-10-07] MEDS: VANCOMYCIN HCL 750 MG in SODIUM CHLORIDE 0.9% 250 ML IV SCH (13:24)
[2019-10-07] MEDS ORDERED: DAPTOMYCIN CONSULT ACTIVE PRN (14:54)
[2019-10-07] MEDS: QUETIAPINE FUMARATE 25 MG TABLET PO SCH (20:12)
[2019-10-08] MEDS: ENOXAPARIN INJ 60 MG/0.6 ML SYR SQ SCH ×2 (00:35→16:55)
[2019-10-08 05:53] LABS: Basophils # (auto) 0.03 K/uL (0-0.2); Basophils % (auto) 0.3 %; Eosinophils # (auto) 0.19 K/uL (0-0.5); Eosinophils % (auto) 2.2 %; Hematocrit (blood only) 30.5 % (37-47); Hemoglobin 9.7 g/dL (12.0-16.0); Immature Granulocytes # (auto) 0.04 K/uL (0.00-0.02); Immature Granulocytes % (auto) 0.5 %; Lymphocytes # (auto) 2.26 K/uL (1.2-3.4); Lymphocytes % (auto) 26.3 %; Mean Corpuscular Hemoglobin 30.4 pg (25-34); Mean Corpuscular Hgb Conc 31.8 g/dL (32-36); Mean Corpuscular Volume 95.6 fL (80-100); Mean Platelet Volume 8.9 fL (7.4-10.4); Monocytes # (auto) 0.83 K/uL (0.11-0.59); Monocytes % (auto) 9.7 %; Neutrophils # (auto) 5.23 K/uL (1.4-6.5); Platelet Count 365 K/uL (130-400); RDW Coefficient of Variation 15.5 % (11.5-14.5); RDW Standard Deviation 53.1 fL (36.4-46.3); Red Blood Count 3.19 M/uL (4.2-5.4); White Blood Count 8.58 K/uL (4.8-10.8)
[2019-10-08 06:23] LABS: BUN Creatinine Ratio 17.2 (10-20); Calcium 9.4 mg/dl (8.5-10.1); Creatinine Clr Calc Pharmacy 33.4 ml/min; Est GFR (African American) 73.5; Est GFR (Non-African American) 63.4; Magnesium 1.8 mg/dl (1.8-2.4); Potassium 3.9 mmol/L (3.5-5.1)
[2019-10-08 06:24] LABS: C Reactive Protein 5.63 mg/dl (0-0.29)
[2019-10-08] MEDS: CALCITONIN SALMON NA 200 IU/AC 3.7 ML BTL SCH (08:04)
[2019-10-08] MEDS: CEFEPIME 2,000 MG in SYRINGE 7.5 ML IV SCH ×2 (08:04→20:14)
[2019-10-08] MEDS: CALCIUM CARBONATE 1250MG TAB PO SCH ×2 (08:05→20:16)
[2019-10-08] MEDS: DOCUSATE SODIUM 100 MG CAP PO SCH (08:05)
[2019-10-08] MEDS: dilTIAZem ER 180 MG CAPCR PO SCH (08:05)
[2019-10-08] MEDS: CLOPIDOGREL BISULFATE 75 MG TAB PO SCH (08:05)
[2019-10-08] MEDS: METOPROLOL TARTRATE 25 MG TAB PO SCH ×2 (08:05→20:16)
[2019-10-08] MEDS: LACTOBACILLUS ACIDOPHILUS (FLORANEX) TAB PO SCH ×3 (08:05→16:55)
[2019-10-08] MEDS: FERROUS SULFATE 325 MG TAB PO SCH ×3 (08:05→20:16)
[2019-10-08] MEDS: FOLIC ACID 1 MG TAB PO SCH (08:05)
[2019-10-08] MEDS: DAPTOmycin 450 MG in SYRINGE 0 ML IV SCH (08:06)
[2019-10-08] MEDS ORDERED: VANCOMYCIN TROUGH ONE (08:30)
--- NOTE | 2019-10-08 08:34 | Orthopedic Progress Note ---
Date of Service October 08, 2019 Assessment & Plan (1) Infection of right foot: POD #3 s/p . Right lower extremity debridement, tenotomy, and resection, Achilles tendon. 2. Debridement, tenotomy, and resection, plantaris tendon. 3. Resection, sural nerve. 4. Extensive debridement, right lower leg, soft tissue loss and ulceration measuring 13 x 26.2 x 0.5 cm. 5. Irrigation and debridement, full thickness heel ulcer, measuring 2.5 x 3.5 x 0.5 cm. IV Cefepime and Daptomycin: cultures MRSA Continue Wound care. Dressing changed today with adaptic over the ulcerations, gauze, ABD, kerlix wrap. Will monitor wound progress at this time. NWB to TTWB as needed right lower extremity Subjective pod #3 right lower leg I &D. Resting comfortably curled up in bed. Finishing eating with nursing. No complaints today but pleasantly confused. Cooperative with dressing change and no complaints of pain throughout dressing change. Physical Exam Constitutional: + thin, + altered mental status (Confused but pleasant. No complaints made during dressing change.), + frail appearing, cooperative and comfortable; no acute distress Musculoskeletal: Ankle: + ankle abnormal to inspection (Right: Good granulation tissue posterior lower leg. Moderate foot swelling.) and + surgical incision (Well approximated at proximal achilles s/p resection.); no skin erythema Results & Data ([facility]) Vital Signs (Past 12 Hours) Vital Signs Temp Pulse Resp BP Pulse Ox 10/08/19 08:22 36.3 C L 92 H 14 125/75 96 10/08/19 03:16 36.7 C 83 18 116/77 93 10/08/19 00:18 36.4 C L 83 18 106/58 L 93
--- NOTE | 2019-10-08 08:56 | Vascular Medicine ProgressNote ---
Date of Service October 08, 2019 Assessment & Plan (1) Peripheral arterial occlusive disease: 2. Right lower extremity ulceration, osteomyelitis 3. Atrial fibrillation with RVR 4. Delirium 5. Anemia 6. Chronic diastolic heart failure 7. Nonsustained VT, 20+ beat run 10/05 - Post endovascular intervention 09/28/2019 with 4 overlapping stents from RT distal SFA to DAVID with resulting single vessel run-off to the foot. Now post extensive right lower extremity wound debridement. Palpable DP pulse on exam Pleased with distal perfusion of right lower extremity, no plans for additional vascular invention. --Continue clopidogrel plus anticoagulation for 3 months, then anticoagulat ion alone --Continued broad-spectrum antibiotics, ongoing wound care --Well rate controlled on current diltiazem, metoprolol Euvolemic on exam, continue to hold diuretics. Subjective Pleasantly confused this morning. Denies any chest pain or shortness of breath. Denies significant pain in right leg. Dressing being changed by orthopedics at time of interview. Per orthopedics team please with the parents. Telemetryatrial fibrillation primarily in the 80s to 90s. Review of Systems Review of Systems: Unobtainable due to cognitive status Physical Exam Physical Exam: General: Comfortable, no acute distress HEENT: Sclerae anicteric, mucous membranes moist Lungs: Clear to auscultation bilaterally Cardiac: Irregularly irregular, no murmurs Abdomen: Soft, nontender Extremities: Bilateral lower extremities warm. Right lower extremity dressing in place from midfoot to upper calf. Distal foot appears well-perfused, sluggish cap refill but 2+ DP pulse. 1+ pedal edema on right. Diminished left DP pulse. Cap refill intact. Small superficial ulceration on left dressed without surrounding erythema Psych: Alert to person Results & Data Vital Signs (Past 12 Hours) Vital Signs Temp Pulse Resp BP Pulse Ox 10/08/19 08:22 97.4 F L 92 H 14 125/75 96 10/08/19 03:16 98.1 F 83 18 116/77 93 10/08/19 00:18 97.5 F L 83 18 106/58 L 93 PG Care Time/CCT Total # of Minutes Spent Total Time Spent with Patient: Total time spent is greater than 50% in coordination of care (as documented) at patient's floor/unit and/or counseling patient: Coding Level of Care Code 28536 Subseq Hosp Care Lvl 3 Diagnoses Peripheral arterial occlusive disease I77.9
--- NOTE | 2019-10-08 09:07 | Infectious Disease Consult ---
Date of Consultation October 08, 2019 Assessment & Plan (1) Infection of right foot: agree that amputation wound be curative, however, family declining. no new micro, agree with ongoing treatment with Dapto for previous MRSA infection. would give 6 weeks dapto with weekly cbc, cmp, esr, cpk. can stop cefepime from ID standpoint. will need continued f/u at wound center. 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 had vascular surgery in 09/2019, had critical ischemia, brought to hospital for surgery, had I&D, no cultures done, blood cultures 09/29 negative and final. Previous wound culture from 08/2019 grew MRSA. she is now on cefepime and dapto, tolerating well. ortho suggesting amputation however POA refusing, ID consulted for duration of abx, attempt to salvage limb. pt tolerating abx, denies pain, no n/v/d. no cp. Allergies Allergy/AdvReac Type Severity Reaction Status Date / Time morphine AdvReac Intermediate Severe Verified 10/01/19 12:15 agitation codeine AdvReac Verified 09/11/19 10:56 fentanyl AdvReac Verified 09/11/19 10:56 hydromorphone [From Dilaudid] AdvReac Verified 09/11/19 10:56 tramadol AdvReac Verified 09/11/19 10:56 Home Medications Home Medications Medication Instructions Recorded Confirmed Type furosemide 20 mg tablet 20 mg PO BID tab 04/17/19 09/21/19 History atenolol 25 mg tablet 12.5 mg PO HS #45 tab 07/09/19 09/21/19 Rx MegaRed [place]-3 Krill Oil 1 cap PO QAM 07/10/19 09/21/19 History acetaminophen [Tylenol Extra 1,000 mg PO Q6H PRN #30 tab 07/14/19 09/21/19 Rx Strength] calcium carbonate [Calcium 500] 500 mg PO BID 08/09/19 09/21/19 History ergocalciferol (vitamin D2) 50,000 unit PO MUIR 08/09/19 09/21/19 History [Vitamin D2] ferrous sulfate 325 mg PO TID 08/09/19 09/21/19 History folic acid 1 mg PO QAM 08/09/19 09/21/19 History docusate sodium 100 mg capsule 100 mg PO DAILY 08/16/19 09/21/19 History warfarin 1 mg tablet 1 mg PO .COMPLEX 08/16/19 09/21/19 History warfarin 2 mg tablet 2 mg PO DAILY 08/16/19 09/21/19 History doxycycline hyclate 100 mg tablet 100 mg PO bid #28 tab 08/23/19 09/21/19 Rx diltiazem HCl 180 mg capsule,24 120 mg PO DAILY cap 09/11/19 09/21/19 History hr,extended release lisinopril 20 mg tablet 10 mg PO QAM tab 09/20/19 09/21/19 History Patient History Medical History A-fib (Chronic) Acute DVT (deep venous thrombosis) Anemia (Chronic) Arrhythmia (Acute) Atrial fibrillation (Acute) Chronic diastolic CHF (congestive heart failure) (Chronic) CKD (chronic kidney disease) stage 3, GFR 30-59 ml/min CKD (chronic kidney disease), stage III Compression fracture of thoracic vertebra (Acute) Fall (Acute) HTN (hypertension) (Acute) Hypertension (Chronic) Hypertension (Acute) Pericardial effusion (Acute) Peripheral arterial occlusive disease Pleural effusion (Acute) Pleural effusion on right (Acute) 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 Vitamin D deficiency (Chronic) Surgical History History of colon resection (Acute) Hx laparoscopic cholecystectomy (Acute) Family History Other Family history non-contributory Social History Preferred Language: Slovenian Communication Ability: Effective Technical Aide Required: No Beliefs That Will Affect Care: None marital status: / Current Living Situation: Senior Care Current Living Situation Comment: currently at [facility] for rehab due to hip replacement in Jul 2019 current occupational status: retired Other Information That Helps Us Care for You: No Feels Safe at Home: Yes Safety Concerns: Feels Safe At This Time Smoking Status: Never smoker Hx Alcohol Use: Yes Alcohol type: wine Alcohol type Comment: stated "some" Hx Substance Use: No during the past year weight has: remained stable Review of Systems Review of Systems: All systems reviewed & are unremarkable except as noted in HPI & below Physical Exam Constitutional: WD/WN, vitals as above Eyes: PERRL, conjunctivae normal, anicteric sclerae ENMT: external ear and nose normal, oropharynx normal Neck: normal visual inspection Respiratory: normal respiratory effort, lungs clear to auscultation Cardiovascular: RRR, no murmur, no edema Gastrointestinal (Abdomen): normal bowel sounds, soft, nontender, no hepatosplenomegaly Musculoskeletal: no cyanosis or clubbing, extremities motor strength 5/5 Skin: no rashes, warm and dry dressing c/d/i Psychiatric: A+Ox3, euthymic affect Results & Data Vital Signs (Past 12 Hours) Vital Signs Temp Pulse Resp BP Pulse Ox 10/08/19 08:22 36.3 C L 92 H 14 125/75 96 10/08/19 03:16 36.7 C 83 18 116/77 93 10/08/19 00:18 36.4 C L 83 18 106/58 L 93 Laboratory Results Microbiology 09/29/19 11:22 Blood Aerobic Blood Culture - Final No growth in Aerobic bottle after 5 days. 09/29/19 11:22 Blood Anaerobic Blood Culture - Final No growth in Anaerobic bottle after 5 days. 09/29/19 11:28 Blood Aerobic Blood Culture - Final No growth in Aerobic bottle after 5 days. 09/29/19 11:28 Blood Anaerobic Blood Culture - Final No growth in Anaerobic bottle after 5 days. PG Care Time/CCT Total # of Minutes Spent Total Time Spent with Patient: Total time spent is greater than 50% in coordination of care (as documented) at patient's floor/unit and/or counseling patient: Coding Level of Care Code 12136 Inpt Consult Level 4 Diagnoses Infection of right foot L08.9
--- NOTE | 2019-10-08 11:04 | Hospitalist Progress Note ---
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 Post repeat angiography revealing no apparent iliac perforation or dissection- appreciate vascular cardio intervention RT foot with improved perfusion on exam. -- Continue clopidogrel 75 mg daily x 3 months along with anticoagulation, then can dc Plavix and do coumadin alone Appreciate ortho consult: Dr. Cruz is recommending amputation of the leg, unlikely to heal from resection of Achilles tendon, not enough skin for healing--> however as above,HCPOA hoping for salvage of limb Now s/p surgical extensive debridement of leg with resection of Achilles tendon, plantaris tendon, sural nerve, and debridement of full-thickness heel ulcer on 10/05: Blood cultures show no growth Wound cultures from the past grew MRSA which was sensitive to vancomycin but with an BRANDI of 2 noted by pharmacy appreciate ID consult today, would prefer to use Daptomycin for 6 weeks discussed with CM, Chrissy cannot take patient on Daptomycin, will need to use Vancomycin attempted PICC on 10/08, could not find a vein, will ask to check again tomorrow, may need to consider alternative access I talked with Corina Victoria on 10/08, she understands that the patient will not walk again, that she will likely continue to have infection and will likely need an amputation in the future (2) Altered mental status: Acute metabolic encephalopathy secondary to sedation given for procedure on 09/28 and associated with mixed vascular/Alzheimer dementia very agitated on 09/30, received Haldol 1mg IV, took a few hours to work She improved since then with avoidance of opioids and giving scheduled Seroquel, however now worse again since anesthesia for Ortho procedure Remains confused and not oriented at all but not severely agitated on 10/07 -continue Haldol 2mg IV q6 prn-has not needed this lately -infection is well controlled, no electrolyte abnormalities suspect that all of the agitation and confusion is hospital delirium on baseline dementia and with use of sedation for procedure -avoid OPIOIDS -continue Seroquel scheduled qhs - off 1:1 sitter (3) 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: continue wound care, abx (4) Peripheral arterial occlusive disease: - as above, now with Doppler-able pulses -continue Plavix and anticoagulation x 3 months and then continue on anticoagulation alone at that point -would add statin but will wait on this for now (5) Chronic diastolic CHF (congestive heart failure): -not volume overloaded, has chronic stable to improved right pleural effusion/loculated Had episode of acute resp distress and crackles the night after surgery 10/05--> improved with IV lasix x 1 and stopping maintenance IVFs she received for < 24 hrs Now resolved -continue holding home diuretics for very poor p.o. intake (6) A-fib: Rates now improved with increased doses of metoprolol, diltiazem, and with blood transfusion -Continue bridging therapeutic Lovenox 1mg/kg q12h -Continue diltiazem 180mg daily -switched from atenolol to metoprolol this admission by Cardio--> continue metoprolol 25mg po bid - rates acceptable today -continue tele monitoring (7) Anemia: Hgb down from previous baseline before her hip fracture in 07/2018 Was hgb 9 after hip fracture and repair 07/2019, then slowly trended downward due to chronic infection Also with folate low at 4 on old labs 07/2014 Normocytic B12 normal 07/2019 Folate now >24 -transfused 2 units PRBCs on 10/03 and a hemoglobin up to 10--> now down to 9.1 and stable after surgery -follow CBC in AM -continue folic acid replacement -continue FeSO4 tid (8) Hypertension: BPs low and improved after blood transfusion, then low again after surgery, now stable to low normal -Continue holding home lisinopril and lasix -continue diltiazem, metoprolol as above mostly for rate control (9) Pleural effusion: Chronic rt sided, ?loculated pleural effusion Has had multiple thoracenteses in the past CXR 10/02 improved from previous, small pleural effusion-no need for tap Oxygenating well -no thoracentesis for now but if needed, follows with Dr. 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 diff neg on 09/30 -Continue Floranex probiotic tid -follow (12) Hypomagnesemia: could be secondary to GI losses from previous loose stools -resolved with replacement, goal >/= 2.0 -follow Mag level in AM (13) Acute DVT (deep venous thrombosis): Has a known Right popliteal vein DVT from 07/25/19 after right hip ORIF -was on Eliquis at time DVT found and converted to warfarin due to presumed failure of Eliquis -coumadin now on hold for procedure-can restart if final decision made by family to not pursue amputation -Continue Lovenox therapeutic bridging dosing (14) Nonsustained ventricular tachycardia: Had a 25 beat run of VT on 10/05, asymptomatic None further since then Discussed with Cardio -increase metoprolol dose if BP can tolerate-blood pressures have been too low to tolerate-continue 25 mg twice daily (15) DVT prophylaxis: Lovenox SQ Dispo-remain on PCU, will need care home placement with likely IV antibiotics and PT/OT Okay to consult PT/OT now status post surgery-should remain nonweightbearing on the right foot DNR/DNI Subjective patient is calm and pleasant today, no acute issues she answers 'okay' to every question I have, so true ROS not possible she is eating okay according to RN discussed situation with patient's RIYA Corina over the phone explained that the Samara's was infected and needed to be removed discussed that she will likely require amputation in the future discussed that she will need PICC line for 6 weeks of IV antibiotics IV team tried to find a vein for PICC, unsuccessful Review of Systems Review of Systems: Unobtainable due to cognitive status Physical Exam Constitutional: WD/WN, vitals as above + thin Eyes: PERRL, conjunctivae normal, anicteric sclerae ENMT: external ear and nose normal, oropharynx normal Neck: trachea midline, no thyromegaly Respiratory: normal respiratory effort, lungs clear to auscultation Cardiovascular: Rate/Rhythm: regular rate and + irregularly irregular Heart Sounds: normal S1 and normal S2; no murmur Vessels: no JVD Extremities: + abnormal capillary refill (delayed refill) and no edema Gastrointestinal (Abdomen): normal bowel sounds, soft, nontender, no hepatosplenomegaly Musculoskeletal: Head/Neck/Chest: normocephalic and head atraumatic Extremities: + abnormal strength (generalized weakness); no cyanosis and no clubbing Neurologic: patellar DTR's 2+ bilat, sensation intact and PERRL, EOMI, accommodation nl, no face palsy, no dysarthria Psychiatric: Orientation: alert, oriented to person and + guarded; + not oriented to place and + not oriented to time Lymphatic: no cervical or axillary lymphadenopathy Results & Data ([facility]) Vital Signs (Past 12 Hours) Vital Signs Temp Pulse Resp BP BP Pulse Ox 10/08/19 10:56 36.7 C 90 20 105/56 L 94 10/08/19 08:22 36.3 C L 92 H 14 125/75 96 10/08/19 03:16 36.7 C 83 18 116/77 93 10/08/19 00:18 36.4 C L 83 18 106/58 L 93 Laboratory Results Laboratory Results - last 24 hr 10/08/19 10/08/19 10/08/19 05:20 05:20 05:20 WBC 8.58 RBC 3.19 L Hgb 9.7 L Hct 30.5 L MCV 95.6 MCH 30.4 MCHC 31.8 L RDW Std Deviation 53.1 H RDW Coeff of Elvi 15.5 H Plt Count 365 MPV 8.9 Immature Gran % (Auto) 0.5 Neut % (Auto) 61.0 Lymph % (Auto) 26.3 Riley % (Auto) 9.7 Eos % (Auto) 2.2 Baso % (Auto) 0.3 Immature Gran # (Auto) 0.04 H Neut # (Auto) 5.23 Lymph # (Auto) 2.26 Riley # (Auto) 0.83 H Eos # (Auto) 0.19 Baso # (Auto) 0.03 ESR 89 H Sodium 141 Potassium 3.9 Chloride 109 H Carbon Dioxide 30 Anion Gap 2.0 L BUN 14 Creatinine 0.84 Est Cr Clr Drug Dosing 33.4 Est GFR ( Amer) 73.5 Est GFR (Non-Af Amer) 63.4 BUN/Creatinine Ratio 17.2 Glucose 78 Calcium 9.4 Magnesium 1.8 C-Reactive Protein 5.63 H Medications Administered Current Inpatient Medications Acetaminophen (Tylenol) 1,000 mg PO Q6H PRN PRN Reason: pain Stop: 10/28/19 15:22 Last Admin: 09/29/19 21:33 Dose: 1,000 mg Documented by: Calcitonin [place] (Fortical) 1 sprays NA DAILY [facility] Stop: 10/29/19 11:44 Last Admin: 10/08/19 08:04 Dose: 1 sprays Documented by: Calcium Carbonate (Os-Josué 500) 1,250 mg PO BID [facility] Stop: 10/28/19 20:59 Last Admin: 10/08/19 08:05 Dose: 1,250 mg Documented by: Clopidogrel Bisulfate (Plavix) 75 mg PO QAM [facility] Stop: 10/29/19 08:59 Last Admin: 10/08/19 08:05 Dose: 75 mg Documented by: Diltiazem HCl (Tiazac) 180 mg PO DAILY [facility] Stop: 11/03/19 08:59 Last Admin: 10/08/19 08:05 Dose: 180 mg Documented by: Docusate Sodium (Colace) 100 mg PO DAILY [facility] Stop: 10/29/19 08:59 Last Admin: 10/08/19 08:05 Dose: 100 mg Documented by: Enoxaparin Sodium (Lovenox) 50 mg SQ Q12H [facility] Stop: 11/02/19 00:00 Last Admin: 10/08/19 00:35 Dose: 50 mg Documented by: Ferrous Sulfate (Feosol) 325 mg PO TID [facility] Stop: 10/28/19 20:59 Last Admin: 10/08/19 08:05 Dose: 325 mg Documented by: Folic Acid (Folvite) 1 mg PO QAM [facility] Stop: 10/29/19 08:59 Last Admin: 10/08/19 08:05 Dose: 1 mg Documented by: Haloperidol Lactate (Haldol) 2 mg IV Q6H PRN PRN Reason: Agitation Stop: 10/29/19 17:59 Last Admin: 10/01/19 06:52 Dose: 2 mg Documented by: Cefepime HCl 2,000 mg/ Syringe 20 mls @ 5 mls/min IV Q12@0800,2000 [facility]; Protocol Stop: 11/11/19 08:14 Last Admin: 10/08/19 08:04 Dose: 5 mls/min Documented by: Daptomycin 450 mg/ Syringe 9 mls @ 0 mls/min IV DAILY [facility]; Protocol Stop: 11/19/19 08:59 Last Admin: 10/08/19 08:06 Dose: 1 mls/min Documented by: Lactobacillus Acidophilus (Floranex) 4 tab PO TIDM [facility] Stop: 11/01/19 11:59 Last Admin: 10/08/19 08:05 Dose: 4 tab Documented by: Metoprolol Tartrate (Lopressor) 2.5 mg IV Q4 PRN PRN Reason: Tachycardia Stop: 10/29/19 09:56 Last Admin: 09/30/19 09:01 Dose: 2.5 mg Documented by: Metoprolol Tartrate (Lopressor) 25 mg PO BID [facility] Stop: 11/05/19 08:59 Last Admin: 10/08/19 08:05 Dose: 25 mg Documented by: Miscellaneous Information (Cefepime Consult Active) 1 ea N/A UD PRN PRN Reason: Consult Stop: 10/29/19 12:02 Miscellaneous Information (Consult) 1 ea N/A UD PRN PRN Reason: Consult Stop: 11/06/19 14:53 Ondansetron HCl (Zofran) 4 mg IV Q6H PRN PRN Reason: Nausea And Vomiting Stop: 10/28/19 15:20 Quetiapine Fumarate (Seroquel) 25 mg PO HS [facility] Stop: 11/02/19 20:59 Last Admin: 10/07/19 20:12 Dose: 25 mg Documented by: Warfarin Sodium (Coumadin) 2 mg PO DAILY@1600 [facility] Stop: 10/28/19 16:29 Last Admin: 09/29/19 17:31 Dose: Not Given Documented by: PG Care Time/CCT Total # of Minutes Spent Total Time Spent with Patient: Total time spent is greater than 50% in coordination of care (as documented) at patient's floor/unit and/or counseling patient: Coding Level of Care Code 77654 Subseq Hosp Care Lvl 3 Diagnoses 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 Altered mental status R41.82 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 L89.622 Peripheral arterial occlusive disease I77.9 Chronic diastolic CHF (congestive heart failure) I50.32 A-fib I48.21 Atrial fibrillation type: permanent Anemia D64.89 Anemia type: other cause Other causes of anemia: other cause, not classified Hypertension I10 Hypertension type: essential hypertension Pleural effusion J90 CKD (chronic kidney disease) stage 3, GFR 30-59 ml/min N18.3 Diarrhea R19.7 Hypomagnesemia E83.42 Acute DVT (deep venous thrombosis) I82.409 Nonsustained ventricular tachycardia I47.2 DVT prophylaxis Z29.9 (1) Anemia Anemia type: other cause Other causes of anemia: other cause, not classified Qualified Code(s): D64.89 - Other specified anemias (2) A-fib Atrial fibrillation type: permanent Qualified Code(s): I48.21 - Permanent at rial fibrillation (3) Hypertension Hypertension type: essential hypertension Qualified Code(s): I10 - Essential (primary) hypertension
[2019-10-08] MEDS: QUETIAPINE FUMARATE 25 MG TABLET PO SCH (20:16)
--- NOTE | 2019-10-08 20:45 | Wound Consultation ---
Date of Consultation October 01, 2019 Assessment & Plan (1) Peripheral arterial occlusive disease: Patient still with significant altered mental status. Wounds visualized and appear stable as compared to last office visit. No debridement was required at this time. Wounds will be dressed conservatively with Aquacel Ag. Agree with Ortho that amputation will be curative. Patient's healthcare power of employment law attorney has against amputation at this time. Would recommend further imaging to delineate the extent of infection. I did speak with Dr. Rubio today about this patient. 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 She has a history of significant peripheral arterial occlusive disease, atrial fibrillation, hypertension, diastolic heart failure, CKD stage III, compression fractures of thoracic vertebrae, recurrent pleural effusions and vitamin D deficiency. Patient's mental status is altered and is difficult to obtain history from her. Patient was admitted to the hospital secondary to altered mental status following scheduled angiogram. Allergies Allergy/AdvReac Type Severity Reaction Status Date / Time morphine AdvReac Intermediate Severe Verified 10/01/19 12:15 agitation codeine AdvReac Verified 09/11/19 10:56 fentanyl AdvReac Verified 09/11/19 10:56 hydromorphone [From Dilaudid] AdvReac Verified 09/11/19 10:56 tramadol AdvReac Verified 09/11/19 10:56 Home Medications Home Medications Medication Instructions Recorded Confirmed Type furosemide 20 mg tablet 20 mg PO BID tab 04/17/19 09/21/19 History atenolol 25 mg tablet 12.5 mg PO HS #45 tab 07/09/19 09/21/19 Rx [employer] 1 cap PO QAM 07/10/19 09/21/19 History acetaminophen [Tylenol Extra 1,000 mg PO Q6H PRN #30 tab 07/14/19 09/21/19 Rx Strength] calcium carbonate [Calcium 500] 500 mg PO BID 08/09/19 09/21/19 History ergocalciferol (vitamin D2) 50,000 unit PO MUIR 08/09/19 09/21/19 History [Vitamin D2] ferrous sulfate 325 mg PO TID 08/09/19 09/21/19 History folic acid 1 mg PO QAM 08/09/19 09/21/19 History docusate sodium 100 mg capsule 100 mg PO DAILY 08/16/19 09/21/19 History warfarin 1 mg tablet 1 mg PO .COMPLEX 08/16/19 09/21/19 History warfarin 2 mg tablet 2 mg PO DAILY 08/16/19 09/21/19 History doxycycline hyclate 100 mg tablet 100 mg PO bid #28 tab 08/23/19 09/21/19 Rx diltiazem HCl 180 mg capsule,24 120 mg PO DAILY cap 09/11/19 09/21/19 History hr,extended release lisinopril 20 mg tablet 10 mg PO QAM tab 09/20/19 09/21/19 History Patient History Medical History A-fib (Chronic) Acute DVT (deep venous thrombosis) Anemia (Chronic) Arrhythmia (Acute) Atrial fibrillation (Acute) Chronic diastolic CHF (congestive heart failure) (Chronic) CKD (chronic kidney disease) stage 3, GFR 30-59 ml/min CKD (chronic kidney disease), stage III Compression fracture of thoracic vertebra (Acute) Fall (Acute) HTN (hypertension) (Acute) Hypertension (Chronic) Hypertension (Acute) Pericardial effusion (Acute) Peripheral arterial occlusive disease Pleural effusion (Acute) Pleural effusion on right (Acute) 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 Vitamin D deficiency (Chronic) Surgical History History of colon resection (Acute) Hx laparoscopic cholecystectomy (Acute) Family History Other Family history non-contributory Social History Preferred Language: Maori Communication Ability: Effective Fashion Photographer Required: No Beliefs That Will Affect Care: None marital status: / Current Living Situation: Alf Current Living Situation Comment: currently at [facility] for rehab due to hip replacement in Jul 2019 current occupational status: retired Other Information That Helps Us Care for You: No Feels Safe at Home: Yes Safety Concerns: Feels Safe At This Time Smoking Status: Never smoker Hx Alcohol Use: Yes Alcohol type: wine Alcohol type Comment: stated "some" Hx Substance Use: No during the past year weight has: remained stable Review of Systems Review of Systems: Unobtainable due to cognitive status Physical Exam Constitutional: + ill appearing Eyes: PERRL, conjunctivae normal, anicteric sclerae Skin: Left heel wound measuring 0.4 x 0.4 cm. Right heel wound measuring 2.3 x 2 cm. Right lower posterior leg wound measuring 14.2 x 26.1 x 1.4 cm. Wound is covered with fibrin, slough and necrotic tissue. Periwound is intact and erythematous. There is large amount of drainage no foul odor. Neurologic: awake and + confused Psychiatric: Orientation: oriented to person; + uncooperative Results & Data Vital Signs (Past 12 Hours) Vital Signs Temp Pulse Pulse Resp BP BP Pulse Ox 10/08/19 19:21 37.0 C 76 18 115/61 94 10/08/19 15:43 36.8 C 83 16 110/60 95 10/08/19 14:27 74 10/08/19 10:56 36.7 C 90 20 105/56 L 94 PG Care Time/CCT Total # of Minutes Spent Total Time Spent with Patient: Total time spent is greater than 50% in coordination of care (as documented) at patient's floor/unit and/or counseling patient: Coding Level of Care Code 13102 Inpt Consult Level 3 Diagnoses Peripheral arterial occlusive disease I77.9 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
[2019-10-09] MEDS: ENOXAPARIN INJ 60 MG/0.6 ML SYR SQ SCH ×2 (01:20→11:50)
[2019-10-09 07:20] LABS: Creatinine Clr Calc Pharmacy 34.2 ml/min; Est GFR (African American) 75.6; Est GFR (Non-African American) 65.3
[2019-10-09] MEDS: LACTOBACILLUS ACIDOPHILUS (FLORANEX) TAB PO SCH ×3 (08:57→17:03)
[2019-10-09] MEDS: CEFEPIME 2,000 MG in SYRINGE 7.5 ML IV SCH (08:58)
[2019-10-09] MEDS: DOCUSATE SODIUM 100 MG CAP PO SCH (08:59)
[2019-10-09] MEDS: DAPTOmycin 450 MG in SYRINGE 0 ML IV SCH (08:59)
[2019-10-09] MEDS: CALCITONIN SALMON NA 200 IU/AC 3.7 ML BTL SCH (09:00)
[2019-10-09] MEDS: FERROUS SULFATE 325 MG TAB PO SCH ×3 (09:00→19:54)
[2019-10-09] MEDS: FOLIC ACID 1 MG TAB PO SCH (09:00)
[2019-10-09] MEDS: CALCIUM CARBONATE 1250MG TAB PO SCH ×2 (09:01→19:54)
[2019-10-09] MEDS: METOPROLOL TARTRATE 25 MG TAB PO SCH ×2 (09:01→19:54)
[2019-10-09] MEDS: CLOPIDOGREL BISULFATE 75 MG TAB PO SCH (09:02)
[2019-10-09] MEDS: dilTIAZem ER 180 MG CAPCR PO SCH (09:02)
[2019-10-09] MEDS ORDERED: VANCOMYCIN CONSULT ACTIVE PRN (15:39)
--- NOTE | 2019-10-09 15:41 | Hospitalist Progress Note ---
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 Post repeat angiography revealing no apparent iliac perforation or dissection- appreciate vascular cardio intervention RT foot with improved perfusion on exam. -- Continue clopidogrel 75 mg daily x 3 months along with anticoagulation, then can dc Plavix and do coumadin alone Appreciate ortho consult: Dr. Cruz is recommending amputation of the leg, unlikely to heal from resection of Achilles tendon, not enough skin for healing--> however as above,HCPOA hoping for salvage of limb Now s/p surgical extensive debridement of leg with resection of Achilles tendon, plantaris tendon, sural nerve, and debridement of full-thickness heel ulcer on 10/05: Blood cultures show no growth Wound cultures from the past grew MRSA which was sensitive to vancomycin but with an BRANDI of 2 noted by pharmacy appreciate ID consult today, would prefer to use Daptomycin for 6 weeks discussed with CM, Chrissy cannot take patient on Daptomycin, will need to use Vancomycin attempted PICC on 10/08, could not find a vein, will ask to check again tomorrow, may need to consider alternative access will need to ask production assembly operator to look at patient tomorrow I talked with Corina Victoria on 10/08, she understands that the patient will not walk again, that she will likely continue to have infection and will likely need an amputation in the future (2) Altered mental status: Acute metabolic encephalopathy secondary to sedation given for procedure on 09/28 and associated with mixed vascular/Alzheimer dementia very agitated on 09/30, received Haldol 1mg IV, took a few hours to work She improved since then with avoidance of opioids and giving scheduled Seroquel, however now worse again since anesthesia for Ortho procedure Remains confused and not oriented at all but not severely agitated on 2/2 -continue Haldol 2mg IV q6 prn-has not needed this lately -infection is well controlled, no electrolyte abnormalities suspect that all of the agitation and confusion is hospital delirium on baseline dementia and with use of sedation for procedure -avoid OPIOIDS -continue Seroquel scheduled qhs - off 1:1 sitter (3) 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: continue wound care, abx (4) Peripheral arterial occlusive disease: - as above, now with Doppler-able pulses -continue Plavix and anticoagulation x 3 months and then continue on anticoagulation alone at that point (5) Chronic diastolic CHF (congestive heart failure): -not volume overloaded, has chronic stable to improved right pleural effusion/loculated Had episode of acute resp distress and crackles the night after surgery 10/05--> improved with IV lasix x 1 and stopping maintenance IVFs she received for < 24 hrs Now resolved -continue holding home diuretics for very poor p.o. intake (6) A-fib: Rates now improved with increased doses of metoprolol, diltiazem, and with blood transfusion -Continue bridging therapeutic Lovenox 1mg/kg q12h -Continue diltiazem 180mg daily -switched from atenolol to metoprolol this admission by Cardio--> continue metoprolol 25mg po bid - rates acceptable today -continue tele monitoring (7) Anemia: Hgb down from previous baseline before her hip fracture in 07/2018 Was hgb 9 after hip fracture and repair 07/2019, then slowly trended downward due to chronic infection Also with folate low at 4 on old labs 07/2014 Normocytic B12 normal 07/2019 Folate now >24 -transfused 2 units PRBCs on 10/03 and a hemoglobin up to 10--> now down to 9.1 and stable after surgery -follow CBC in AM -continue folic acid replacement -continue FeSO4 tid (8) Hypertension: BPs low and improved after blood transfusion, then low again after surgery, now stable to low normal -Continue holding home lisinopril and lasix -continue diltiazem, metoprolol as above mostly for rate control (9) Pleural effusion: Chronic rt sided, ?loculated pleural effusion Has had multiple thoracenteses in the past CXR 10/02 improved from previous, small pleural effusion-no need for tap Oxygenating well -no thoracentesis for now but if needed, follows with Dr. 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 diff neg on 09/30 -Continue Floranex probiotic tid -follow (12) Hypomagnesemia: could be secondary to GI losses from previous loose stools -resolved with replacement, goal >/= 2.0 (13) Acute DVT (deep venous thrombosis): Has a known Right popliteal vein DVT from 07/25/19 after right hip ORIF -was on Eliquis at time DVT found and converted to warfarin due to presumed failure of Eliquis -Continue Lovenox therapeutic bridging dosing, start Coumadin tomorrow (14) Nonsustained ventricular tachycardia: Had a 25 beat run of VT on 10/05, asymptomatic None further since then Discussed with Cardio -increase metoprolol dose if BP can tolerate-blood pressures have been too low to tolerate-continue 25 mg twice daily (15) DVT prophylaxis: Lovenox SQ Dispo-remain on PCU, will need intermediate placement with likely IV antibiotics and PT/OT Okay to consult PT/OT now status post surgery-should remain nonweightbearing on the right foot DNR/DNI Subjective patient very pleasant today, no distress at all, denies any pain eating fairly well asked IV team about access again, no success, no veins that can be found updated Corina Victoria, her niece, at the bedside discussed with director of casework department, will look into [facility], apply for auth Review of Systems Review of Systems: Unobtainable due to mental health condition Physical Exam Constitutional: WD/WN, vitals as above + thin Eyes: PERRL, conjunctivae normal, anicteric sclerae ENMT: external ear and nose normal, oropharynx normal Neck: trachea midline, no thyromegaly Respiratory: normal respiratory effort, lungs clear to auscultation Cardiovascular: Rate/Rhythm: regular rate and + irregularly irregular Heart Sounds: normal S1 and normal S2; no murmur Vessels: no JVD Extremities: + abnormal capillary refill (delayed refill) and no edema Gastrointestinal (Abdomen): normal bowel sounds, soft, nontender, no hepatosplenomegaly Musculoskeletal: Head/Neck/Chest: normocephalic and head atraumatic Extremities: + abnormal strength (generalized weakness); no cyanosis and no clubbing Neurologic: patellar DTR's 2+ bilat, sensation intact and PERRL, EOMI, accommodation nl, no face palsy, no dysarthria Psychiatric: Orientation: alert, oriented to person and + guarded; + not oriented to place and + not oriented to time Lymphatic: no cervical or axillary lymphadenopathy Results & Data ([facility]) Vital Signs (Past 12 Hours) Vital Signs Temp Pulse Resp BP Pulse Ox 10/09/19 12:05 36.6 C 100 H 18 120/68 96 10/09/19 07:39 36.8 C 108 H 18 114/81 96 Laboratory Results Laboratory Results - last 24 hr 10/09/19 06:20 Creatinine 0.82 Est Cr Clr Drug Dosing 34.2 Est GFR ( Amer) 75.6 Est GFR (Non-Af Amer) 65.3 Medications Administered Current Inpatient Medications Acetaminophen (Tylenol) 1,000 mg PO Q6H PRN PRN Reason: pain Stop: 10/28/19 15:22 Last Admin: 09/29/19 21:33 Dose: 1,000 mg Documented by: Calcitonin Oran (Fortical) 1 sprays NA DAILY [facility] Stop: 10/29/19 11:44 Last Admin: 10/09/19 09:00 Dose: 1 sprays Documented by: Calcium Carbonate (Os-Josué 500) 1,250 mg PO BID [facility] Stop: 10/28/19 20:59 Last Admin: 10/09/19 09:01 Dose: 1,250 mg Documented by: Clopidogrel Bisulfate (Plavix) 75 mg PO QAM [facility] Stop: 10/29/19 08:59 Last Admin: 10/09/19 09:02 Dose: 75 mg Documented by: Diltiazem HCl (Tiazac) 180 mg PO DAILY [facility] Stop: 11/03/19 08:59 Last Admin: 10/09/19 09:02 Dose: 180 mg Documented by: Docusate Sodium (Colace) 100 mg PO DAILY [facility] Stop: 10/29/19 08:59 Last Admin: 10/09/19 08:59 Dose: Not Given Documented by: Enoxaparin Sodium (Lovenox) 50 mg SQ Q12H [facility] Stop: 11/02/19 00:00 Last Admin: 10/09/19 11:50 Dose: 50 mg Documented by: Ferrous Sulfate (Feosol) 325 mg PO TID [facility] Stop: 10/28/19 20:59 Last Admin: 10/09/19 13:24 Dose: 325 mg Documented by: Folic Acid (Folvite) 1 mg PO QAM [facility] Stop: 10/29/19 08:59 Last Admin: 10/09/19 09:00 Dose: 1 mg Documented by: Haloperidol Lactate (Haldol) 2 mg IV Q6H PRN PRN Reason: Agitation Stop: 10/29/19 17:59 Last Admin: 10/01/19 06:52 Dose: 2 mg Documented by: Vancomycin HCl 1,000 mg/ (Sodium Chloride) 270 mls @ 125 mls/hr IV Q24H [facility]; Protocol Stop: 10/20/19 08:59 Lactobacillus Acidophilus (Floranex) 4 tab PO TIDM [facility] Stop: 11/01/19 11:59 Last Admin: 10/09/19 11:50 Dose: 4 tab Documented by: Metoprolol Tartrate (Lopressor) 2.5 mg IV Q4 PRN PRN Reason: Tachycardia Stop: 10/29/19 09:56 Last Admin: 09/30/19 09:01 Dose: 2.5 mg Documented by: Metoprolol Tartrate (Lopressor) 25 mg PO BID [facility] Stop: 11/05/19 08:59 Last Admin: 10/09/19 09:01 Dose: 25 mg Documented by: Miscellaneous Information (Cefepime Consult Active) 1 ea N/A UD PRN PRN Reason: Consult Stop: 10/29/19 12:02 Miscellaneous Information (Consult) 1 ea N/A UD PRN PRN Reason: Consult Stop: 11/06/19 14:53 Miscellaneous Information (Consult) 1 ea N/A UD PRN PRN Reason: Consult Stop: 11/08/19 15:38 Ondansetron HCl (Zofran) 4 mg IV Q6H PRN PRN Reason: Nausea And Vomiting Stop: 10/28/19 15:20 Quetiapine Fumarate (Seroquel) 25 mg PO HS [facility] Stop: 11/02/19 20:59 Last Admin: 10/08/19 20:16 Dose: 25 mg Documented by: Warfarin Sodium (Coumadin) 2 mg PO DAILY@1600 [facility] Stop: 10/28/19 16:29 Last Admin: 09/29/19 17:31 Dose: Not Given Documented by: PG Care Time/CCT Total # of Minutes Spent Total Time Spent with Patient: Total time spent is greater than 50% in coordination of care (as documented) at patient's floor/unit and/or counseling patient: Coding Level of Care Code 95126 Subseq Hosp Care Lvl 2 Diagnoses 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 Altered mental status R41.82 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 L89.622 Peripheral arterial occlusive disease I77.9 Chronic diastolic CHF (congestive heart failure) I50.32 A-fib I48.21 Atrial fibrillation type: permanent Anemia D64.89 Anemia type: other cause Other causes of anemia: other cause, not classified Hypertension I10 Hypertension type: essential hypertension Pleural effusion J90 CKD (chronic kidney disease) stage 3, GFR 30-59 ml/min N18.3 Diarrhea R19.7 Hypomagnesemia E83.42 Acute DVT (deep venous thrombosis) I82.409 Nonsustained ventricular tachycardia I47.2 DVT prophylaxis Z29.9 (1) Anemia Anemia type: other cause Other causes of anemia: other cause, not classified Qualified Code(s): D64.89 - Other specified anemias (2) A-fib Atrial fibrillation type: permanent Qualified Code(s): I48.21 - Permanent atrial fibrillation (3) Hypertension Hypertension type: essential hypertension Qualified Code(s): I10 - Essential (primary) hypertension
[2019-10-09] MEDS ORDERED: VANCOMYCIN HCL 1,000 MG in SODIUM CHLORIDE 0.9% 250 ML IV STA (16:24)
[2019-10-09] MEDS: QUETIAPINE FUMARATE 25 MG TABLET PO SCH (19:54)
--- NOTE | 2019-10-09 20:31 | Pharmacy Report ---
Pharmacy Abx Dose Short Note - Date of Service October 09, 2019 - Assessment & Plan Assessment 84 year old F receiving IV Vancomycin for treatment of MRSA osteomyelitis Day # 12 of antimicrobial therapy. * Patient was on Daptomycin, but unfortunately long-term ([facility]) would not accept patients on Daptomycin. Therefore, Vancomycin is being restarted tonight. * Previously received a loading dose of Vancomycin 1000mg followed by maintenance regimen of 750mg IV q14-18... these resulted in variable trough levels between 8.9-20.4 mg/dL... Renal function appears stable. Will retry q20 dosing. Plan Vancomycin * Give Vancomycin 1000mg (~21 mg/kg) IV x 1 as loading dose * Initiate Vancomycin 750mg (~16 mg/kg) IV q20 as maintenance regimen * Goal trough level for osteomyelitis : 15 to 20 mcg/mL * Trough level ordered for: 10/11/19 @ 0730 (early level not reflective of steady state, but need to assess dosing regimen early to assist with discharge) Pharmacy will continue to follow and will adjust dose/frequency as necessary. Thank you.
[2019-10-10] MEDS: ENOXAPARIN INJ 60 MG/0.6 ML SYR SQ SCH ×2 (00:26→14:09)
[2019-10-10 07:50] LABS: Est GFR (African American) 76.8; Est GFR (Non-African American) 66.2
[2019-10-10 07:51] LABS: Creatinine Clr Calc Pharmacy 34.6 ml/min
[2019-10-10] MEDS: CALCIUM CARBONATE 1250MG TAB PO SCH ×3 (08:23→21:32)
[2019-10-10] MEDS: DOCUSATE SODIUM 100 MG CAP PO SCH (08:23)
[2019-10-10] MEDS: CLOPIDOGREL BISULFATE 75 MG TAB PO SCH (08:23)
[2019-10-10] MEDS: METOPROLOL TARTRATE 25 MG TAB PO SCH ×3 (08:23→21:32)
[2019-10-10] MEDS: LACTOBACILLUS ACIDOPHILUS (FLORANEX) TAB PO SCH ×4 (08:24→16:40)
[2019-10-10] MEDS: dilTIAZem ER 180 MG CAPCR PO SCH (08:24)
[2019-10-10] MEDS: FOLIC ACID 1 MG TAB PO SCH (08:24)
[2019-10-10] MEDS: CALCITONIN SALMON NA 200 IU/AC 3.7 ML BTL SCH (08:25)
[2019-10-10] MEDS: FERROUS SULFATE 325 MG TAB PO SCH ×3 (08:25→20:11)
--- NOTE | 2019-10-10 09:45 | Orthopedic Progress Note ---
Date of Service October 10, 2019 Assessment & Plan (1) Infection of right foot: POD #5 s/p . Right lower extremity debridement, tenotomy, and resection, Achilles tendon. 2. Debridement, tenotomy, and resection, plantaris tendon. 3. Resection, sural nerve. 4. Extensive debridement, right lower leg, soft tissue loss and ulceration measuring 13 x 26.2 x 0.5 cm. 5. Irrigation and debridement, full thickness heel ulcer, measuring 2.5 x 3.5 x 0.5 cm. IV Cefepime and Daptomycin: cultures MRSA Continue Wound care. Dressing changed today with adaptic over the ulcerations, gauze, ABD, kerlix wrap. Heel maceration to be dressed with Aquacel. Will monitor wound progress at this time. Ortho to sign off and may be reconsulted if surgical intervention needed. Wound nursing consult for daily wound care. NWB to TTWB as needed right lower extremity Subjective No hx today secondary to dementia. Patient is pleasant. Complaints of pain with removing Adaptic from the wound during dressing change. Physical Exam Constitutional: + thin, + altered mental status (Confused but pleasant. No complaints made during dressing change.), + frail appearing, cooperative and comfortable; no acute distress Musculoskeletal: Ankle: + ankle abnormal to inspection (Right: Good granulation tissue posterior lower leg. Moderate foot swelling.) and + surgical incision (Well approximated at proximal achilles s/p resection.); no skin erythema Results & Data ([facility]) Vital Signs (Past 12 Hours) Vital Signs Temp Pulse Pulse Resp BP BP Pulse Ox 10/10/19 07:00 36.2 C L 104 H 16 149/108 H 97 10/10/19 04:25 36.4 C L 102 H 18 159/81 H 96 10/10/19 00:00 80 10/09/19 23:49 36.7 C 83 17 121/67 95
[2019-10-10] MEDS: VANCOMYCIN HCL 750 MG in SODIUM CHLORIDE 0.9% 250 ML IV SCH ×2 (12:35→13:19)
[2019-10-10] MEDS: WARFARIN SOD 2 MG TAB PO SCH (16:40)
--- NOTE | 2019-10-10 17:55 | Hospitalist Progress Note ---
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 Post repeat angiography revealing no apparent iliac perforation or dissection- appreciate vascular cardio intervention RT foot with improved perfusion on exam. -- Continue clopidogrel 75 mg daily x 3 months along with anticoagulation, then can dc Plavix and do coumadin alone Appreciate ortho consult: Dr. Cruz is recommending amputation of the leg, unlikely to heal from resection of Achilles tendon, not enough skin for healing--> however as above,HCPOA hoping for salvage of limb Now s/p surgical extensive debridement of leg with resection of Achilles tendon, plantaris tendon, sural nerve, and debridement of full-thickness heel ulcer on 10/05: Blood cultures show no growth Wound cultures from the past grew MRSA which was sensitive to vancomycin but with an BRANDI of 2 noted by pharmacy appreciate ID consult on 10/08, would prefer to use Daptomycin for 6 weeks discussed with CM, Chrissy cannot take patient on Daptomycin, will need to use Vancomycin attempted PICC on 10/08, could not find a vein after numerous tries we will hydrate tomorrow AM and take another look at veins, hopeful for PICC I talked with Corina Victoria on 10/08 and 10/09, she understands that the patient will not walk again, that she will likely continue to have infection and will likely need an amputation in the future (2) Altered mental status: Acute metabolic encephalopathy secondary to sedation given for procedure on 09/28 and associated with mixed vascular/Alzheimer dementia very agitated on 09/30, received Haldol 1mg IV, took a few hours to work She improved since then with avoidance of opioids and giving scheduled Seroquel, however now worse again since anesthesia for Ortho procedure Remains confused and not oriented at all but not severely agitated on 2/2 -continue Haldol 2mg IV q6 prn-has not needed this lately -infection is well controlled, no electrolyte abnormalities suspect that all of the agitation and confusion is hospital delirium on baseline dementia and with use of sedation for procedure -avoid OPIOIDS -continue Seroquel scheduled qhs - off 1:1 sitter (3) 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: continue wound care, abx (4) Peripheral arterial occlusive disease: - as above, now with Doppler-able pulses -continue Plavix and anticoagulation x 3 months and then continue on anticoagulation alone at that point (5) Chronic diastolic CHF (congestive heart failure): -not volume overloaded, has chronic stable to improved right pleural effusion/loculated Had episode of acute resp distress and crackles the night after surgery 10/05--> improved with IV lasix x 1 and stopping maintenance IVFs she received for < 24 hrs Now resolved -continue holding home diuretics for very poor p.o. intake (6) A-fib: Rates now improved with increased doses of metoprolol, diltiazem, and with blood transfusion -Continue bridging therapeutic Lovenox 1mg/kg q12h -Continue diltiazem 180mg daily -switched from atenolol to metoprolol this admission by Cardio--> continue metoprolol 25mg po bid - rates acceptable today -continue tele monitoring (7) Anemia: Hgb down from previous baseline before her hip fracture in 07/2018 Was hgb 9 after hip fracture and repair 07/2019, then slowly trended downward due to chronic infection Also with folate low at 4 on old labs 07/2014 Normocytic B12 normal 07/2019 Folate now >24 -transfused 2 units PRBCs on 10/03 and a hemoglobin up to 10--> now down to 9.1 and stable after surgery -follow CBC in AM -continue folic acid replacement -continue FeSO4 tid (8) Hypertension: BPs low and improved after blood transfusion, then low again after surge ry, now stable to low normal -Continue holding home lisinopril and lasix -continue diltiazem, metoprolol as above mostly for rate control (9) Pleural effusion: Chronic rt sided, ?loculated pleural effusion Has had multiple thoracenteses in the past CXR 10/02 improved from previous, small pleural effusion-no need for tap Oxygenating well -no thoracentesis for now but if needed, follows with Dr. Odonnell (10) CKD (chronic kidney disease) stage 3, GFR 30-59 ml/min: GFR typically between 30-60 Avoid nephrotoxins, will renally dose meds as apprioriate -hand bender continues to be at baseline, follow while on Vanco (11) Diarrhea: loose stools now resolved after starting probiotics C. diff neg on 09/30 -Continue Floranex probiotic tid -follow (12) Hypomagnesemia: could be secondary to GI losses from previous loose stools -resolved with replacement, goal >/= 2.0 (13) Acute DVT (deep venous thrombosis): Has a known Right popliteal vein DVT from 07/25/19 after right hip ORIF -was on Eliquis at time DVT found and converted to warfarin due to presumed failure of Eliquis -Continue Lovenox therapeutic bridging dosing, start Coumadin today (14) Nonsustained ventricular tachycardia: Had a 25 beat run of VT on 10/05, asymptomatic None further since then Discussed with Cardio -increase metoprolol dose if BP can tolerate-blood pressures have been too low to tolerate-continue 25 mg twice daily (15) DVT prophylaxis: Lovenox SQ Dispo-remain on PCU, will need jail placement with likely IV antibiotics and PT/OT Okay to consult PT/OT now status post surgery-should remain nonweightbearing on the right foot DNR/DNI Subjective no major issues today awaiting placement at [facility] discussed possible Aren line with regional facilities manager today, he recommends trying some IV fluids and looking for appropriate PICC line vein tomorrow discussed with RN and with IV team will start IV fluids tomorrow AM and will try for PICC again updated case management Review of Systems Review of Systems: Unobtainable due to cognitive status Physical Exam Constitutional: WD/WN, vitals as above + thin Eyes: PERRL, conjunctivae normal, anicteric sclerae ENMT: external ear and nose normal, oropharynx normal Neck: trachea midline, no thyromegaly Respiratory: normal respiratory effort, lungs clear to auscultation Cardiovascular: Rate/Rhythm: regular rate and + irregularly irregular Heart Sounds: normal S1 and normal S2; no murmur Vessels: no JVD Extremities: + abnormal capillary refill (delayed refill) and no edema Gastrointestinal (Abdomen): normal bowel sounds, soft, nontender, no hepato splenomegaly Musculoskeletal: Head/Neck/Chest: normocephalic and head atraumatic Extremities: + abnormal strength (generalized weakness); no cyanosis and no clubbing Neurologic: patellar DTR's 2+ bilat, sensation intact and PERRL, EOMI, accommodation nl, no face palsy, no dysarthria Psychiatric: Orientation: alert and oriented to person; + not oriented to place and + not oriented to time Lymphatic: no cervical or axillary lymphadenopathy Results & Data ([facility]) Vital Signs (Past 12 Hours) Vital Signs Temp Pulse Pulse Resp BP Pulse Ox 10/10/19 16:00 80 10/10/19 15:42 36.8 C 73 20 143/93 H 90 10/10/19 11:41 36.8 C 86 16 126/96 94 10/10/19 07:30 87 10/10/19 07:00 36.2 C L 104 H 16 149/108 H 97 Laboratory Results Laboratory Results - last 24 hr 10/10/19 06:47 Creatinine 0.81 Est Cr Clr Drug Dosing 34.6 Est GFR ( Amer) 76.8 Est GFR (Non-Af Amer) 66.2 Medications Administered Current Inpatient Medications Acetaminophen (Tylenol) 1,000 mg PO Q6H PRN PRN Reason: pain Stop: 10/28/19 15:22 Last Admin: 09/29/19 21:33 Dose: 1,000 mg Documented by: Calcitonin [place] (Fortical) 1 sprays NA DAILY [facility] Stop: 10/29/19 11:44 Last Admin: 10/10/19 08:25 Dose: 1 sprays Documented by: Calcium Carbonate (Os-Josué 500) 1,250 mg PO BID [facility] Stop: 10/28/19 20:59 Last Admin: 10/10/19 08:23 Dose: 1,250 mg Documented by: Clopidogrel Bisulfate (Plavix) 75 mg PO QAM [facility] Stop: 10/29/19 08:59 Last Admin: 10/10/19 08:23 Dose: 75 mg Documented by: Diltiazem HCl (Tiazac) 180 mg PO DAILY [facility] Stop: 11/03/19 08:59 Last Admin: 10/10/19 08:24 Dose: 180 mg Documented by: Docusate Sodium (Colace) 100 mg PO DAILY [facility] Stop: 10/29/19 08:59 Last Admin: 10/10/19 08:23 Dose: 100 mg Documented by: Enoxaparin Sodium (Lovenox) 50 mg SQ Q12H [facility] Stop: 11/02/19 00:00 Last Admin: 10/10/19 14:09 Dose: Not Given Documented by: Ferrous Sulfate (Feosol) 325 mg PO TID [facility] Stop: 10/28/19 20:59 Last Admin: 10/10/19 13:24 Dose: Not Given Documented by: Folic Acid (Folvite) 1 mg PO QAM [facility] Stop: 10/29/19 08:59 Last Admin: 10/10/19 08:24 Dose: 1 mg Documented by: Haloperidol Lactate (Haldol) 2 mg IV Q6H PRN PRN Reason: Agitation Stop: 10/29/19 17:59 Last Admin: 10/01/19 06:52 Dose: 2 mg Documented by: Vancomycin HCl 750 mg/ Sodium (Chloride) 265 mls @ 125 mls/hr IV Q20H [facility]; Protocol Stop: 11/21/19 11:59 Last Infusion: 10/10/19 15:42 Dose: Infused Documented by: Lactobacillus Acidophilus (Floranex) 4 tab PO TIDM [facility] Stop: 11/01/19 11:59 Last Admin: 10/10/19 16:40 Dose: 4 tab Documented by: Metoprolol Tartrate (Lopressor) 2.5 mg IV Q4 PRN PRN Reason: Tachycardia Stop: 10/29/19 09:56 Last Admin: 09/30/19 09:01 Dose: 2.5 mg Documented by: Metoprolol Tartrate (Lopressor) 25 mg PO BID [facility] Stop: 11/05/19 08:59 Last Admin: 10/10/19 08:23 Dose: 25 mg Documented by: Miscellaneous Information (Consult) 1 ea N/A UD PRN PRN Reason: Consult Stop: 11/08/19 15:38 Ondansetron HCl (Zofran) 4 mg IV Q6H PRN PRN Reason: Nausea And Vomiting Stop: 10/28/19 15:20 Quetiapine Fumarate (Seroquel) 25 mg PO HS [facility] Stop: 11/02/19 20:59 Last Admin: 10/09/19 19:54 Dose: 25 mg Documented by: Warfarin Sodium (Coumadin) 2 mg PO DAILY@1600 [facility] Stop: 10/28/19 16:29 Last Admin: 10/10/19 16:40 Dose: 2 mg Documented by: PG Care Time/CCT Total # of Minutes Spent Total Time Spent with Patient: Total time spent is greater than 50% in c oordination of care (as documented) at patient's floor/unit and/or counseling patient: Coding Level of Care Code 32561 Subseq Hosp Care Lvl 2 Diagnoses 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 Altered mental status R41.82 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 L89.622 Peripheral arterial occlusive disease I77.9 Chronic diastolic CHF (congestive heart failure) I50.32 A-fib I48.21 Atrial fibrillation type: permanent Anemia D64.89 Anemia type: other cause Other causes of anemia: other cause, not classified Hypertension I10 Hypertension type: essential hypertension Pleural effusion J90 CKD (chronic kidney disease) stage 3, GFR 30-59 ml/min N18.3 Diarrhea R19.7 Hypomagnesemia E83.42 Acute DVT (deep venous thrombosis) I82.409 Nonsustained ventricular tachycardia I47.2 DVT prophylaxis Z29.9 (1) A-fib Atrial fibrillation type: permanent Qualified Code(s): I48.21 - Permanent atrial fibrillation (2) Anemia Anemia type: other cause Other causes of anemia: other cause, not classified Qualified Code(s): D64.89 - Other specified anemias (3) Hypertension Hypertension type: essential hypertension Qualified Code(s): I10 - Essential (primary) hypertension
[2019-10-10] MEDS: QUETIAPINE FUMARATE 25 MG TABLET PO SCH ×2 (20:11→21:32)
[2019-10-11] MEDS: ENOXAPARIN INJ 60 MG/0.6 ML SYR SQ SCH ×2 (00:04→12:04)
[2019-10-11] MEDS ORDERED: VANCOMYCIN TROUGH ONE ×2 (03:30→07:30)
[2019-10-11] MEDS: SODIUM CHLORIDE 0.9% 500 ML IV SCH ×5 (05:35→21:50)
[2019-10-11 06:06] LABS: INR 1.1 (0.9-1.1); Prothrombin Time 10.9 Seconds (9.0-12.0)
[2019-10-11] MEDS: METOPROLOL TARTRATE 25 MG TAB PO SCH ×2 (08:23→21:49)
[2019-10-11] MEDS: CLOPIDOGREL BISULFATE 75 MG TAB PO SCH (08:23)
[2019-10-11] MEDS: CALCIUM CARBONATE 1250MG TAB PO SCH ×2 (08:23→21:49)
[2019-10-11] MEDS: LACTOBACILLUS ACIDOPHILUS (FLORANEX) TAB PO SCH ×3 (08:23→16:24)
[2019-10-11] MEDS: DOCUSATE SODIUM 100 MG CAP PO SCH (08:23)
[2019-10-11] MEDS: CALCITONIN SALMON NA 200 IU/AC 3.7 ML BTL SCH (08:24)
[2019-10-11] MEDS: FERROUS SULFATE 325 MG TAB PO SCH ×3 (08:24→21:49)
[2019-10-11] MEDS: dilTIAZem ER 180 MG CAPCR PO SCH (08:24)
[2019-10-11] MEDS: VANCOMYCIN HCL 750 MG in SODIUM CHLORIDE 0.9% 250 ML IV SCH (08:25)
[2019-10-11] MEDS: FOLIC ACID 1 MG TAB PO SCH (08:25)
--- NOTE | 2019-10-11 13:38 | Hospitalist Progress Note ---
Date of Service October 11, 2019 Results & Data ([facility]) Vital Signs (Past 12 Hours) Vital Signs Temp Pulse Resp BP BP Pulse Ox 10/11/19 11:18 36.7 C 95 H 18 156/79 H 96 10/11/19 07:48 36.8 C 98 H 18 146/82 H 96 10/11/19 03:14 36.8 C 113 H 18 149/84 H 98 PG Care Time/CCT Total # of Minutes Spent Total Time Spent with Patient: Total time spent is greater than 50% in coordination of care (as documented) at patient's floor/unit and/or counseling patient: Coding
--- NOTE | 2019-10-11 15:52 | Hospitalist Progress Note ---
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 Post repeat angiography revealing no apparent iliac perforation or dissection- appreciate vascular cardio intervention RT foot with improved perfusion on exam. -- Continue clopidogrel 75 mg daily x 3 months along with anticoagulation, then can dc Plavix and do coumadin alone Appreciate ortho consult: Dr. Cruz is recommending amputation of the leg, unlikely to heal from resection of Achilles tendon, not enough skin for healing--> however as above,HCPOA hoping for salvage of limb Now s/p surgical extensive debridement of leg with resection of Achilles tendon, plantaris tendon, sural nerve, and debridement of full-thickness heel ulcer on 10/05: Blood cultures show no growth Wound cultures from the past grew MRSA which was sensitive to vancomycin but with an BRANDI of 2 noted by pharmacy appreciate ID consult on 10/08, would prefer to use Daptomycin for 6 weeks discussed with CM, Chrissy cannot take patient on Daptomycin, will need to use Vancomycin attempted PICC on 10/08, could not find a vein after numerous tries provided IV fluids this morning, IV team tried a third time for PICC but no success discussed with manager of corporate, would prefer not to place a central line for 6 weeks, also, patient prone to pulling at line will consult general surgery for consideration of port as a last resort as she needs the access for vanco will make NPO after midnight, hold Coumadin, hold further Lovenox I talked with Corina Victoria on 10/08 and 10/09, she understands that the patient will not walk again, that she will likely continue to have infection and will likely need an amputation in the future (2) Altered mental status: Acute metabolic encephalopathy secondary to sedation given for procedure on 09/28 and associated with mixed vascular/Alzheimer dementia very agitated on 09/30, received Haldol 1mg IV, took a few hours to work She improved since then with avoidance of opioids and giving scheduled Seroquel, however now worse again since anesthesia for Ortho procedure Remains confused and not oriented at all but not severely agitated on 10/07 -continue Haldol 2mg IV q6 prn-has not needed this lately -infection is well controlled, no electrolyte abnormalities suspect that all of the agitation and confusion is hospital delirium on baseline dementia and with use of sedation for procedure -avoid OPIOIDS -continue Seroquel scheduled qhs - off 1:1 sitter (3) 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: continue wound care, abx (4) Peripheral arterial occlusive disease: - as above, now with Doppler-able pulses -continue Plavix and anticoagulation x 3 months and then continue on anticoagulation alone at that point cool, purple toes on left foot, checked pulses with RN and found them with doppler, both DP and PT (5) Chronic diastolic CHF (congestive heart failure): -not volume overloaded, has chronic stable to improved right pleural effusion/loculated Had episode of acute resp distress and crackles the night after surgery 10/05--> improved with IV lasix x 1 and stopping maintenance IVFs she received for < 24 hrs Now resolved -continue holding home diuretics for very poor p.o. intake (6) A-fib: Rates now improved with increased doses of metoprolol, diltiazem, and with blood transfusion -Continue bridging therapeutic Lovenox 1mg/kg q12h , HOLD today -Continue diltiazem 180mg daily -switched from atenolol to metoprolol this admission by Cardio--> continue metoprolol 25mg po bid - rates acceptable today -continue tele monitoring (7) Anemia: Hgb down from previous baseline before her hip fracture in 07/2018 Was hgb 9 after hip fracture and repair 07/2019, then slowly trended downward due to chronic infection Also with folate low at 4 on old labs 07/2014 Normocytic B12 normal 07/2019 Folate now >24 -transfused 2 units PRBCs on 10/03 and a hemoglobin up to 10--> now down to 9.1 and stable after surgery -follow CBC in AM -continue folic acid replacement -continue FeSO4 tid (8) Hypertension: BPs low and improved after blood transfusion, then low again after surgery, now stable to low normal -Continue holding home lisinopril and lasix -continue diltiazem, metoprolol as above mostly for rate control (9) Pleural effusion: Chronic rt sided, ?loculated pleural effusion Has had multiple thoracenteses in the past CXR 10/02 improved from previous, small pleural effusion-no need for tap Oxygenating well -no thoracentesis for now but if needed, follows with Dr. 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 diff neg on 09/30 -Continue Floranex probiotic tid -follow (12) Hypomagnesemia: could be secondary to GI losses from previous loose stools -resolved with replacement, goal >/= 2.0 (13) Acute DVT (deep venous thrombosis): Has a known Right popliteal vein DVT from 07/25/19 US after right hip ORIF -was on Eliquis at time DVT found and converted to warfarin due to presumed failure of Eliquis hold Lovenox and Coumadin for possible port placement (14) Nonsustained ventricular tachycardia: Had a 25 beat run of VT on 10/05, asymptomatic None further since then Discussed with Cardio -increase metoprolol dose if BP can tolerate-blood pressures have been too low to tolerate-continue 25 mg twice daily transfer to medical floor (15) DVT prophylaxis: Lovenox SQ (on hold) Dispo-remain on PCU, will need alf placement with likely IV antibiotics and PT/OT Okay to consult PT/OT now status post surgery-should remain nonweightbearing on the right foot DNR/DNI Subjective patient stable today, confused at times but cooperative updated her niece at the bedside, discussed that she cannot get a PICC would not want a central line as patient prone to pulling at lines, fear she would pull it out at a SNF only option would be a port port would be reasonable because she will need 6 weeks of antibiotics she will likely be back to the hospital in the near future, will need repeat surgeries, this will provide permanent access the niece wants the port placed will consult general surgery, make her NPO after midnight noted to have purple toes on left food, cool pulse found with doppler at the bedside, both DP and PT Review of Systems Review of Systems: Unobtainable due to cognitive status Physical Exam Constitutional: WD/WN, vitals as above + thin Eyes: PERRL, conjunctivae normal, anicteric sclerae ENMT: external ear and nose normal, oropharynx normal Neck: trachea midline, no thyromegaly Respiratory: normal respiratory effort, lungs clear to auscultation Cardiovascular: Rate/Rhythm: regular rate and + irregularly irregular Heart Sounds: normal S1 and normal S2; no murmur Vessels: posterior tibial pulses present (doppler) and dorsalis pedis pulses present (with doppler); no JVD Extremities: + abnormal capillary refill (delayed refill) and no edema Gastrointestinal (Abdomen): normal bowel sounds, soft, nontender, no hepatosplenomegaly Musculoskeletal: Head/Neck/Chest: normocephalic and head atraumatic Extremities: + abnormal strength (generalized weakness); no cyanosis and no clubbing Neurologic: patellar DTR's 2+ bilat, sensation intact and PERRL, EOMI, accommodation nl, no face palsy, no dysarthria Psychiatric: Orientation: alert and oriented to person; + not oriented to place and + not oriented to time Lymphatic: no cervical or axillary lymphadenopathy Results & Data ([facility]) Vital Signs (Past 12 Hours) Vital Signs Temp Pulse Resp BP BP Pulse Ox 10/11/19 15:41 36.7 C 60 18 125/75 92 10/11/19 11:18 36.7 C 95 H 18 156/79 H 96 10/11/19 07:48 36.8 C 98 H 18 146/82 H 96 Laboratory Results Laboratory Results - last 24 hr 10/11/19 05:32 PT 10.9 INR 1.1 Medications Administered Current Inpatient Medications Acetaminophen (Tylenol) 1,000 mg PO Q6H PRN PRN Reason: pain Stop: 10/28/19 15:22 Last Admin: 09/29/19 21:33 Dose: 1,000 mg Documented by: Calcitonin Yoder (Fortical) 1 sprays NA DAILY ARI Stop: 10/29/19 11:44 Last Admin: 10/11/19 08:24 Dose: 1 sprays Documented by: Calcium Carbonate (Os-Josué 500) 1,250 mg PO BID ARI Stop: 10/28/19 20:59 Last Admin: 10/11/19 08:23 Dose: 1,250 mg Documented by: Clopidogrel Bisulfate (Plavix) 75 mg PO QAM [facility] Stop: 10/29/19 08:59 Last Admin: 10/11/19 08:23 Dose: 75 mg Documented by: Diltiazem HCl (Tiazac) 180 mg PO DAILY [facility] Stop: 11/03/19 08:59 Last Admin: 10/11/19 08:24 Dose: 180 mg Documented by: Docusate Sodium (Colace) 100 mg PO DAILY [facility] Stop: 10/29/19 08:59 Last Admin: 10/11/19 08:23 Dose: 100 mg Documented by: Enoxaparin Sodium (Lovenox) 50 mg SQ Q12H [facility] Stop: 11/02/19 00:00 Last Admin: 10/11/19 12:04 Dose: 50 mg Documented by: Ferrous Sulfate (Feosol) 325 mg PO TID [facility] Stop: 10/28/19 20:59 Last Admin: 10/11/19 14:39 Dose: 325 mg Documented by: Folic Acid (Folvite) 1 mg PO QAM [facility] Stop: 10/29/19 08:59 Last Admin: 10/11/19 08:25 Dose: 1 mg Documented by: Haloperidol Lactate (Haldol) 2 mg IV Q6H PRN PRN Reason: Agitation Stop: 10/29/19 17:59 Last Admin: 10/01/19 06:52 Dose: 2 mg Documented by: Vancomycin HCl 750 mg/ Sodium (Chloride) 265 mls @ 125 mls/hr IV Q20H [facility]; Protocol Stop: 11/21/19 11:59 Last Infusion: 10/11/19 10:56 Dose: Infused Documented by: Sodium Chloride (Nss) 500 mls @ 125 mls/hr IV .Q4H [facility] Stop: 11/10/19 05:59 Last Admin: 10/11/19 14:40 Dose: Not Given Documented by: Lactobacillus Acidophilus (Floranex) 4 tab PO TIDM [facility] Stop: 11/01/19 11:59 Last Admin: 10/11/19 12:04 Dose: 4 tab Documented by: Metoprolol Tartrate (Lopressor) 2.5 mg IV Q4 PRN PRN Reason: Tachycardia Stop: 10/29/19 09:56 Last Admin: 09/30/19 09:01 Dose: 2.5 mg Documented by: Metoprolol Tartrate (Lopressor) 25 mg PO BID [facility] Stop: 11/05/19 08:59 Last Admin: 10/11/19 08:23 Dose: 25 mg Documented by: Miscellaneous Information (Consult) 1 ea N/A UD PRN PRN Reason: Consult Stop: 11/08/19 15:38 Ondansetron HCl (Zofran) 4 mg IV Q6H PRN PRN Reason: Nausea And Vomiting Stop: 10/28/19 15:20 Quetiapine Fumarate (Seroquel) 25 mg PO HS [facility] Stop: 11/02/19 20:59 Last Admin: 10/10/19 21:32 Dose: Not Given Documented by: Warfarin Sodium (Coumadin) 2 mg PO DAILY@1600 [facility] Stop: 10/28/19 16:29 Last Admin: 10/10/19 16:40 Dose: 2 mg Documented by: PG Care Time/CCT Total # of Minutes Spent Total Time Spent with Patient: Total time spent is greater than 50% in coordination of care (as documented) at patient's floor/unit and/or counseling patient: Coding Level of Care Code 80701 Subseq Hosp Care Lvl 2 Diagnoses 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 Altered mental status R41.82 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 L89.622 Peripheral arterial occlusive disease I77.9 Chronic diastolic CHF (congestive heart failure) I50.32 A-fib I48.21 Atrial fibrillation type: permanent Anemia D64.89 Anemia type: other cause Other causes of anemia: other cause, not classified Hypertension I10 Hypertension type: essential hypertension Pleural effusion J90 CKD (chronic kidney disease) stage 3, GFR 30-59 ml/min N18.3 Diarrhea R19.7 Hypomagnesemia E83.42 Acute DVT (deep venous thrombosis) I82.409 Nonsustained ventricular tachycardia I47.2 DVT prophylaxis Z29.9 (1) A-fib Atrial fibrillation type: permanent Qualified Code(s): I48.21 - Permanent atrial fibrillation (2) Anemia Anemia type: other cause Other causes of anemia: other cause, not classified Qualified Code(s): D64.89 - Other specified anemias (3) Hypertension Hypertension type: essential hypertension Qualified Code(s): I10 - Essential (primary) hypertension
--- NOTE | 2019-10-11 17:19 | Surgery Consultation ---
Date of Consultation October 11, 2019 Assessment & Plan (1) Infection of right foot: pt is a 84 year-old female who was admitted to hospital for infected foot, pt has difficulty IV access, I got a call for consult port insertion, IMP: infected foot, I recommend to do port insertion under sedation + local, D/W pt's managed care coordinator, Corina Victoria, benefits, risks and alternatives of the surgery, the risks - infection, bleeding, blood delia, dysfunction of catheter, she understood, she agrees with the surgery, I answered all questions, History of Present Illness Attending Physician: Franc Cho DO History of Present Illness Attending Physician: Franc Cho DO pt with longstanding right leg wound, follows at wound center, 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 had vascular surgery in 09/2019, had critical ischemia, brought to hospital for surgery, had I&D, no cultures done, blood cultures 09/29 negative and final. Previous wound culture from 08/2019 grew MRSA. she is now on cefepime and dapto, tolerating well. ortho suggesting amputation however POA refusing, ID consulted for duration of abx, attempt to salvage limb. pt tolerating abx, denies pain, no n/v/d. no cp. I( paresh Carmichael MD )got a call for consult port insertion, I reviewed pt's H/P, labs, with pt and nurse at bedside, pt had [address] PICC which were unsuccessful. Allergies Allergy/AdvReac Type Severity Reaction Status Date / Time morphine AdvReac Intermediate Severe Verified 10/01/19 12:15 agitation codeine AdvReac Verified 09/11/19 10:56 fentanyl AdvReac Verified 09/11/19 10:56 hydromorphone [From Dilaudid] AdvReac Verified 09/11/19 10:56 tramadol AdvReac Verified 09/11/19 10:56 Home Medications Home Medications Medication Instructions Recorded Confirmed Type furosemide 20 mg tablet 20 mg PO BID tab 04/17/19 09/21/19 History atenolol 25 mg tablet 12.5 mg PO HS #45 tab 07/09/19 09/21/19 Rx MegaRed Brigantine-3 Krill Oil 1 cap PO QAM 07/10/19 09/21/19 History acetaminophen [Tylenol Extra 1,000 mg PO Q6H PRN #30 tab 07/14/19 09/21/19 Rx Strength] calcium carbonate [Calcium 500] 500 mg PO BID 08/09/19 09/21/19 History ergocalciferol (vitamin D2) 50,000 unit PO MUIR 08/09/19 09/21/19 History [Vitamin D2] ferrous sulfate 325 mg PO TID 08/09/19 09/21/19 History folic acid 1 mg PO QAM 08/09/19 09/21/19 History docusate sodium 100 mg capsule 100 mg PO DAILY 08/16/19 09/21/19 History warfarin 1 mg tablet 1 mg PO .COMPLEX 08/16/19 09/21/19 History warfarin 2 mg tablet 2 mg PO DAILY 08/16/19 09/21/19 History doxycycline hyclate 100 mg tablet 100 mg PO bid #28 tab 08/23/19 09/21/19 Rx diltiazem HCl 180 mg capsule,24 120 mg PO DAILY cap 09/11/19 09/21/19 History hr,extended release lisinopril 20 mg tablet 10 mg PO QAM tab 09/20/19 09/21/19 History Patient History Medical History A-fib (Chronic) Acute DVT (deep venous thrombosis) Anemia (Chronic) Arrhythmia (Acute) Atrial fibrillation (Acute) Chronic diastolic CHF (congestive heart failure) (Chronic) CKD (chronic kidney disease) stage 3, GFR 30-59 ml/min CKD (chronic kidney disease), stage III Compression fracture of thoracic vertebra (Acute) Fall (Acute) HTN (hypertension) (Acute) Hypertension (Chronic) Hypertension (Acute) Pericardial effusion (Acute) Peripheral arterial occlusive disease Pleural effusion (Acute) Pleural effusion on right (Acute) 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 Vitamin D deficiency (Chronic) Surgical History History of colon resection (Acute) Hx laparoscopic cholecystectomy (Acute) Family History Other Family history non-contributory Social History Preferred Language: Bruneian Communication Ability: Effective Scourer Required: No Beliefs That Will Affect Care: None marital status: / Current Living Situation: Assisted Current Living Situation Comment: currently at [facility] for rehab due to hip replacement in Jul 2019 current occupational status: retired Other Information That Helps Us Care for You: No Feels Safe at Home: Yes Safety Concerns: Feels Safe At This Time Smoking Status: Never smoker Hx Alcohol Use: Yes Alcohol type: wine Alcohol type Comment: stated "some" Hx Substance Use: No during the past year weight has: remained stable Review of Systems Review of Systems: All systems reviewed & are unremarkable except as noted in HPI & below Physical Exam T 36.7, RR 18, HR 60, BP 125/75, O2sat 92% Constitutional: WD/WN, vitals as above Eyes: PERRL, conjunctivae normal, anicteric sclerae ENMT: external ear and nose normal, oropharynx normal Neck: normal visual inspection Respiratory: normal respiratory effort, lungs clear to auscultation Cardiovascular: RRR, no murmur, no edema Gastrointestinal (Abdomen): normal bowel sounds, soft, nontender, no hepatosplenomegaly Musculoskeletal: no cyanosis or clubbing, extremities motor strength 5/5 Skin: no rashes, warm and dry dressing c/d/i Psychiatric: A+Ox3, euthymic affect Allergies Allergy/AdvReac Type Severity Reaction Status Date / Time morphine AdvReac Intermediate Severe Verified 10/01/19 12:15 agitation codeine AdvReac Verified 09/11/19 10:56 fentanyl AdvReac Verified 09/11/19 10:56 hydromorphone [From Dilaudid] AdvReac Verified 09/11/19 10:56 tramadol AdvReac Verified 09/11/19 10:56 Home Medications Home Medications Medication Instructions Recorded Confirmed Type furosemide 20 mg tablet 20 mg PO BID tab 04/17/19 09/21/19 History atenolol 25 mg tablet 12.5 mg PO HS #45 tab 07/09/19 09/21/19 Rx MegaRed Brigantine-3 Krill Oil 1 cap PO QAM 07/10/19 09/21/19 History acetaminophen [Tylenol Extra 1,000 mg PO Q6H PRN #30 tab 07/14/19 09/21/19 Rx Strength] calcium carbonate [Calcium 500] 500 mg PO BID 08/09/19 09/21/19 History ergocalciferol (vitamin D2) 50,000 unit PO MUIR 08/09/19 09/21/19 History [Vitamin D2] ferrous sulfate 325 mg PO TID 08/09/19 09/21/19 History folic acid 1 mg PO QAM 08/09/19 09/21/19 History docusate sodium 100 mg capsule 100 mg PO DAILY 08/16/19 09/21/19 History warfarin 1 mg tablet 1 mg PO .COMPLEX 08/16/19 09/21/19 History warfarin 2 mg tablet 2 mg PO DAILY 08/16/19 09/21/19 History doxycycline hyclate 100 mg tablet 100 mg PO bid #28 tab 08/23/19 09/21/19 Rx diltiazem HCl 180 mg capsule,24 120 mg PO DAILY cap 09/11/19 09/21/19 History hr,extended release lisinopril 20 mg tablet 10 mg PO QAM tab 09/20/19 09/21/19 History Patient History Medical History A-fib (Chronic) Acute DVT (deep venous thrombosis) Anemia (Chronic) Arrhythmia (Acute) Atrial fibrillation (Acute) Chronic diastolic CHF (congestive heart failure) (Chronic) CKD (chronic kidney disease) stage 3, GFR 30-59 ml/min CKD (chronic kidney disease), stage III Compression fracture of thoracic vertebra (Acute) Fall (Acute) HTN (hypertension) (Acute) Hypertension (Chronic) Hypertension (Acute) Pericardial effusion (Acute) Peripheral arterial occlusive disease Pleural effusion (Acute) Pleural effusion on right (Acute) 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 Vitamin D deficiency (Chronic) Surgical History History of colon resection (Acute) Hx laparoscopic cholecystectomy (Acute) Family History Other Family history non-contributory Social History Preferred Language: Bruneian Communication Ability: Effective Scourer Required: No Beliefs That Will Affect Care: None marital status: / Current Living Situation: Assisted Current Living Situation Comment: currently at [facility] for rehab due to hip replacement in Jul 2019 current occupational status: retired Feels Safe at Home: Yes Smoking Status: Never smoker Hx Alcohol Use: Yes Alcohol type: wine Alcohol type Comment: stated "some" Hx Substance Use: No during the past year weight has: remained stable Results & Data Vital Signs (Past 12 Hours) Vital Signs Temp Pulse Resp BP BP Pulse Ox 10/11/19 15:41 36.7 C 60 18 125/75 92 10/11/19 11:18 36.7 C 95 H 18 156/79 H 96 10/11/19 07:48 36.8 C 98 H 18 146/82 H 96
[2019-10-11] MEDS: QUETIAPINE FUMARATE 25 MG TABLET PO SCH (21:49)
[2019-10-12] MEDS: SODIUM CHLORIDE 0.9% 500 ML IV SCH ×6 (03:09→21:34)
[2019-10-12] MEDS ORDERED: VANCOMYCIN TROUGH ONE (03:30)
[2019-10-12 03:52] LABS: INR 1.1 (0.9-1.1); Prothrombin Time 11.2 Seconds (9.0-12.0)
[2019-10-12 03:55] LABS: Creatinine Clr Calc Pharmacy 40.1 ml/min; Est GFR (African American) 91.6
[2019-10-12] MEDS: VANCOMYCIN HCL 750 MG in SODIUM CHLORIDE 0.9% 250 ML IV SCH ×2 (04:37→23:49)
[2019-10-12] MEDS: DOCUSATE SODIUM 100 MG CAP PO SCH (09:30)
[2019-10-12] MEDS: CALCIUM CARBONATE 1250MG TAB PO SCH ×2 (09:30→21:34)
[2019-10-12] MEDS: CLOPIDOGREL BISULFATE 75 MG TAB PO SCH (09:30)
[2019-10-12] MEDS: LACTOBACILLUS ACIDOPHILUS (FLORANEX) TAB PO SCH ×3 (09:30→16:56)
[2019-10-12] MEDS: dilTIAZem ER 180 MG CAPCR PO SCH (09:31)
[2019-10-12] MEDS: METOPROLOL TARTRATE 25 MG TAB PO SCH ×2 (09:31→21:34)
[2019-10-12] MEDS: FERROUS SULFATE 325 MG TAB PO SCH ×3 (09:31→21:34)
[2019-10-12] MEDS: FOLIC ACID 1 MG TAB PO SCH (09:31)
[2019-10-12] MEDS: CALCITONIN SALMON NA 200 IU/AC 3.7 ML BTL SCH (09:32)
[2019-10-12] MEDS ORDERED: ONDANSETRON INJ 2 MG/ML 2 ML VIAL ONE (10:19)
[2019-10-12] MEDS ORDERED: PROPOFOL IV EMULSION 10 MG/ML 20 ML VIAL IV ONE (10:19)
[2019-10-12] MEDS ORDERED: MIDAZOLAM HCL 1 MG/ML 2ML VIAL ONE (10:19)
[2019-10-12] MEDS ORDERED: LIDOCAINE HCL 2% 2 ML VIAL/AMP(20MG/ML) INFIL ONE (10:19)
[2019-10-12] MEDS ORDERED: DEXAMETHASONE SOD INJ 4 MG/ML VIAL ONE (10:19)
--- NOTE | 2019-10-12 11:02 | Anesthesiology Consultation ---
Date of Service October 12, 2019 Assessment & Plan (1) Encounter for pre-operative examination: Chart Review Chart Review: Acceptable Risk for Surgery and Patient NOT seen in Pre Admission Testing Consults Requested none ASA ASA4 Proposed Anesthesia Anesthesia Type: MAC History Surgery Operation Date: 09/28/19 09:30 Proposed Procedures p Angiogram Lower Extremity Bilateral - Nehemias Reyes MD Operation Date: 10/05/19 08:45 Proposed Procedures p Incision and Drainage of Right Foot, Right Achilles and Right Ankle - Norman Cruz DO Operation Date: 10/12/19 11:35 Proposed Procedures p Infusaport Insertion - Ngozi Carmichael MD Height/Weight Height: 4 ft 11 in Weight: 46.3 kg Allergies Allergy/AdvReac Type Severity Reaction Status Date / Time morphine AdvReac Intermediate Severe Verified 10/01/19 12:15 agitation codeine AdvReac Verified 09/11/19 10:56 fentanyl AdvReac Verified 09/11/19 10:56 hydromorphone [From Dilaudid] AdvReac Verified 09/11/19 10:56 tramadol AdvReac Verified 09/11/19 10:56 Medications Home Medications Medication Instructions Recorded Confirmed Last Taken furosemide 20 mg tablet 20 mg PO BID tab 04/17/19 09/21/19 08/09/19 14:00 atenolol 25 mg tablet 12.5 mg PO HS #45 tab 07/09/19 09/21/19 08/08/19 MegaRed [place]-3 Krill Oil 1 cap PO QAM 07/10/19 09/21/19 Unknown acetaminophen [Tylenol Extra 1,000 mg PO Q6H PRN #30 tab 07/14/19 09/21/19 Unknown Strength] calcium carbonate [Calcium 500] 500 mg PO BID 08/09/19 09/21/19 08/09/19 ergocalciferol (vitamin D2) 50,000 unit PO MUIR 08/09/19 09/21/19 08/05/19 [Vitamin D2] ferrous sulfate 325 mg PO TID 08/09/19 09/21/19 08/09/19 14:00 folic acid 1 mg PO QAM 08/09/19 09/21/19 08/09/19 docusate sodium 100 mg capsule 100 mg PO DAILY 08/16/19 09/21/19 Unknown warfarin 1 mg tablet 1 mg PO .COMPLEX 08/16/19 09/21/19 Unknown warfarin 2 mg tablet 2 mg PO DAILY 08/16/19 09/21/19 Unknown doxycycline hyclate 100 mg tablet 100 mg PO bid #28 tab 08/23/19 09/21/19 Unknown diltiazem HCl 180 mg capsule,24 120 mg PO DAILY cap 09/11/19 09/21/19 Unknown hr,extended release lisinopril 20 mg tablet 10 mg PO QAM tab 09/20/19 09/21/19 Unknown Active Medications Generic Name Dose Route Start Last Admin Trade Name Freq PRN Reason Stop Dose Admin Acetaminophen 1,000 mg 09/28/19 15:23 09/29/19 21:33 Tylenol PO 10/28/19 15:22 1,000 mg Q6H PRN Administration pain Calcitonin Brule 1 sprays 09/29/19 11:45 10/12/19 09:32 Fortical NA 10/29/19 11:44 1 sprays DAILY ARI Administration Calcium Carbonate 1,250 mg 09/28/19 21:00 10/12/19 09:30 Os-Josué 500 PO 10/28/19 20:59 1,250 mg BID ARI Administration Clopidogrel Bisulfate 75 mg 09/29/19 09:00 10/12/19 09:30 Plavix PO 10/29/19 08:59 75 mg QAM ARI Administration Diltiazem HCl 180 mg 10/04/19 09:00 10/12/19 09:31 Tiazac PO 11/03/19 08:59 180 mg DAILY ARI Administration Docusate Sodium 100 mg 09/29/19 09:00 10/12/19 09:30 Colace PO 10/29/19 08:59 100 mg DAILY ARI Administration Enoxaparin Sodium 50 mg 10/03/19 00:00 10/11/19 12:04 Lovenox SQ 11/02/19 00:00 50 mg Q12H ARI Administration Ferrous Sulfate 325 mg 09/28/19 21:00 10/12/19 09:31 Feosol PO 10/28/19 20:59 325 mg TID ARI Administration Folic Acid 1 mg 09/29/19 09:00 10/12/19 09:31 Folvite PO 10/29/19 08:59 1 mg QAM ARI Administration Haloperidol Lactate 2 mg 09/30/19 14:15 10/01/19 06:52 Haldol IV 10/29/19 17:59 2 mg Q6H PRN Administration Agitation Vancomycin HCl 750 mg/ Sodium 265 mls @ 125 mls/hr 10/10/19 12:00 10/12/19 06:45 Chloride IV 11/21/19 11:59 Infused Q20H ARI Infusion Protocol Sodium Chloride 500 mls @ 125 mls/hr 10/11/19 06:00 10/12/19 11:14 Nss IV 11/10/19 05:59 125 mls/hr .Q4H ARI Administration Lactobacillus Acidophilus 4 tab 10/02/19 12:00 10/12/19 09:30 Floranex PO 11/01/19 11:59 4 tab TIDM ARI Administration Metoprolol Tartrate 2.5 mg 09/29/19 09:57 09/30/19 09:01 Lopressor IV 10/29/19 09:56 2.5 mg Q4 PRN Administration Tachycardia Metoprolol Tartrate 25 mg 10/06/19 09:00 10/12/19 09:31 Lopressor PO 11/05/19 08:59 25 mg BID ARI Administration Quetiapine Fumarate 25 mg 10/03/19 21:00 10/11/19 21:49 Seroquel PO 11/02/19 20:59 25 mg HS ARI Administration Warfarin Sodium 2 mg 09/28/19 16:30 10/10/19 16:40 Coumadin PO 10/28/19 16:29 2 mg DAILY@1600 ARI Administration NPO Date Last Intake of Fluids: 10/04/19 Time Last Intake of Fluids: 23:00 Last Intake of Fluids Comment: sip at 0800 w/med Date Last Intake of Solids: 10/04/19 Time Last Intake of Solids: 20:00 Past Medical History Medical History A-fib (Chronic) Acute DVT (deep venous thrombosis) Anemia (Chronic) Arrhythmia (Acute) Atrial fibrillation (Acute) Chronic diastolic CHF (congestive heart failure) (Chronic) CKD (chronic kidney disease) stage 3, GFR 30-59 ml/min CKD (chronic kidney disease), stage III Compression fracture of thoracic vertebra (Acute) Fall (Acute) HTN (hypertension) (Acute) Hypertension (Chronic) Hypertension (Acute) Pericardial effusion (Acute) Peripheral arterial occlusive disease Pleural effusion (Acute) Pleural effusion on right (Acute) 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 Vitamin D deficiency (Chronic) Exercise / Class Metabolic Activity IV < 2 Limit ADL/Bedbound (previously ambulatory - more recently limited due to illness/delerium) Past Family History Family History Other Family history non-contributory Past Surgical History Surgical History History of colon resection (Acute) Hx laparoscopic cholecystectomy (Acute) Past Anesthesia History No Hx of Anesthesia Complications and No Family Hx of Anesthesia Complications History of PONV No Hx of PONV and No Hx of Motion Sickness Social History Smoking Status: Never smoker Hx Alcohol Use: Yes Alcohol type: wine alcohol intake frequency: a few times a week Hx Substance Use: No substance use type: does not use Review of Systems Limited due to delerium/dementia Physical Exam Vital Signs Last Vital Signs Temp 36.5 C 10/12/19 12:14 Pulse 101 H 10/12/19 12:14 Resp 18 10/12/19 12:14 BP 163/97 H 10/12/19 12:14 Pulse Ox 97 10/12/19 12:14 Testing Laboratory Results 10/08/19 05:20 10/12/19 03:28 PT 11.2 Seconds (9.0-12.0) 10/12/19 03:28 INR 1.1 (0.9-1.1) 10/12/19 03:28 APTT 49.0 Seconds (21.0-31.0) H* 09/28/19 14:38 Blood Type O Positive 10/03/19 07:36 Antibody Screen NEGATIVE 10/03/19 07:36 09/29/19 11:22 Aerobic Blood Culture - Final Blood No growth in Aerobic bottle after 5 days. Anaerobic Blood Culture - Final No growth in Anaerobic bottle after 5 days. 09/29/19 11:28 Aerobic Blood Culture - Final Blood No growth in Aerobic bottle after 5 days. Anaerobic Blood Culture - Final No growth in Anaerobic bottle after 5 days. Electrocardiogram Date: 08/09/19 Findings: + AFIB @ (at 67;low voltage QRS;? old anter. infarct) Chest X-Ray Date: 10/02/19 Findings: + pulmonary vascular congestion, + pleural effusion (small right pleural effusion;no change in small left pleural effusion w/ left basilar opacity;) and + atherosclerosis of thoracic aorta Echocardiogram Date: 01/12/19 EF: 60 LV Function: normal RWMA: + none Other Findings: + diastolic dysfunction (grade 2) Valvular Disease: + MR (mild) Other Testing 03/28/2018-Carotid U/S-atheromatous changes;no h/d sig. stenoses
[2019-10-12] MEDS ORDERED: HEPARIN 100 UNIT/ML 5ML FLUSH ONE (11:55)
[2019-10-12] MEDS ORDERED: BACITRACIN OINT 15 GM TUBE ONE (11:55)
[2019-10-12] MEDS ORDERED: LIDOCAINE HCL 1% 20 ML VIAL ONE (11:55)
[2019-10-12] MEDS ORDERED: BUPIVACAINE 0.5 % 5 MG/1 ML MPF 30ML VIAL ONE (11:55)
[2019-10-12] MEDS ORDERED: ATROPINE SULFATE 0.1 MG/ML 10ML SYR IV PRN (12:21)
[2019-10-12] MEDS ORDERED: ePHEDrine sulfate 50 MG/ML AMP IV PRN (12:21)
--- NOTE | 2019-10-12 12:41 | Pharmacy Report ---
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 Level was drawn at the appropriate time. Prior doses also hung on schedule. * Continue dose of 750 mg IV every 20 hours * Goal trough level for presumed osteomyelitis: 15 to 20 mcg/mL (ideally as close to 2 as possible due to BRANDI of organism) * Will repeat trough level in 2-3 days if therapy is to continue Pharmacy will continue to follow and will adjust dose/frequency as necessary. Thank you.
--- NOTE | 2019-10-12 13:14 | History & Physical Bridge Note ---
Date of Service October 12, 2019 History & Physical Bridge Note I have examined the patient, reviewed the History & Physical and in the interval since the performance of the History & Physical I have noted the following changes of clinical significance: no changes noted
--- NOTE | 2019-10-12 13:18 | Post Operative Brief Note ---
Immediate Post Op Note v1 Date of Surgery October 12, 2019 Pre & Post Diagnosis Operation Date: 09/28/19 09:30 <No data on this case meets the specified criteria> Operation Date: 10/05/19 08:45 Pre-Op Diagnosis: Peripheral Arterial Disease Post-Op Diagnosis: Peripheral Arterial Disease, Right Achillies Ulcer, Right Heal Ulcer Operation Date: 10/12/19 11:35 <No data on this case meets the specified criteria> I identified the patient and participated in the time-out.: Yes Procedure Operation Date: 09/28/19 09:30 Actual Procedures s SC Select Cath ALEP 3rd Order - Nehemias Reyes MD p Angio Extremity Bilateral - Nehemias Reyes MD s Fem Pop Stent Balloon - Nehemias Reyes MD s Tibioperoneal Balloon Stent - Nehemias Reyes MD s Placement Art Occlusive Device - MD juan r Hernandez Ultrasound Vascular Access - Nehemias Reyes MD Operation Date: 10/05/19 08:45 Actual Procedures p Incision and Drainage of Right Foot, Right Achilles and Right Ankle,Tenotomy excision Achillies tendon and Plantaris tendon, sural neurectomy, Debridement of heal Ulcer measuring 2.5x3.5 cm, Debridement of Leg Wound measuring 13x26.2cm(Right) - Norman Cruz DO Operation Date: 10/12/19 11:35 pre-op diagnosis- right foot infection post-op diagnosis: right foot infection procedure: insertion tunneled port- catheter on right internal jugular vein Surgeon Ngozi Carmichael MD Patient Resource Coordinator rn surgical pcu Estimated Blood Loss 5 Findings Consistent with Post-Op Diagnosis patent right internal jugular vein Fluids 500ml Anesthesia Type General Regional Complications none Disposition Accompanied Patient To Recovery: Yes Disposition: Recovery Room Overlapping Procedure I was immediately available: during the entire case.
--- NOTE | 2019-10-12 13:45 | XRay Report ---
XR chest 1V portable CLINICAL HISTORY: 84 years-old Female presenting with S/P port insertion. TECHNIQUE: Portable upright AP view of the chest was obtained. COMPARISON: 10/02/2019. FINDINGS: Right internal jugular Mediport terminates in the upper SVC. This is new from prior exam. Atheroscler osis of the aortic arch. Cardiac silhouette markedly enlarged. Pulmonary vasculature is significantly engorged, worsened from prior exam. Added density in the right midlung may potentially be due to ove rlapping soft tissue density in the setting of postsurgical change status post Mediport placement. Th ere is also greater bibasilar opacities. Persistent small bilateral pleural effusions. No pneumothora x. Underlying osteopenia Upper abdomen normal. IMPRESSION: 1. Right IJ Mediport terminates in the upper SVC, which is acceptable positioning. No pneumothorax. 2. Apparent added density in the right midlung may relate to overlapping soft tissue density in the setting of postsurgical change status post Mediport placement. Attention on follow-up. 3. Cardiomegaly with significant volume overload and congestive change, worsened from prior exam. 4. No marisela pulmonary edema at this time. 5. Small bilateral pleural effusions. ACT 112: Negative or not required by law. Electronically signed by: Roger Forde M.D. 10/12/2019 1:43 PM
--- NOTE | 2019-10-12 14:10 | Anesthesiology Progress Note ---
Date of Service October 12, 2019 Anesthesia Post Procedure Vital Signs Vital Signs: Temp Pulse Resp BP Pulse Ox 10/12/19 14:05 65 18 139/82 97 10/12/19 13:55 36.8 C 67 18 126/78 97 10/12/19 13:45 36.8 C 71 18 119/69 97 10/12/19 13:35 71 18 122/77 100 10/12/19 13:28 36.7 C 76 18 136/92 100 10/12/19 12:14 36.5 C 101 H 18 163/97 H 97 10/12/19 11:37 36.7 C 106 H 18 156/110 H 98 10/12/19 07:45 36.7 C 95 H 20 158/99 H 96 10/12/19 03:34 36.8 C 112 H 16 133/72 94 10/11/19 23:34 36.8 C 88 21 133/83 94 10/11/19 19:35 36.7 C 85 18 129/76 92 10/11/19 15:41 36.7 C 60 18 125/75 92 Pain Intensity Right Lower Calf: Pain Intensity: 0 Transfer of Care Handoff Completed per policy Notes Mental Status: alert / awake / arousable and participated in evaluation Patient Amnestic to Procedure: Yes Nausea / Vomiting: adequately controlled Pain: adequately controlled Airway Patency, RR, SpO2: stable & adequate BP & HR: stable & adequate Hydration State: stable & adequate Anesthetic Complications: no major complications apparent and Pt Satisfied with anesthetic care
--- NOTE | 2019-10-12 16:10 | Hospitalist Progress Note ---
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: Large wound of right lateral ankle and distal leg, secondary to pressure ulcer since being at rehab for Rt hip ORIF Extensive RLE ulceration and with suspected osteomyelitis on plain films as ab ove, however during orthopedic surgery there was no significant osteomyelitis found With severe PAD and 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 Post repeat angiography revealing no apparent iliac perforation or dissection- appreciate vascular cardio intervention RT foot with improved perfusion on exam. -- Continue clopidogrel 75 mg daily x 3 months along with anticoagulation, then can dc Plavix and do coumadin alone Appreciate ortho consult: Dr. Cruz is recommending amputation of the leg, unlikely to heal from resection of Achilles tendon, not enough skin for healing--> however as above,HCPOA hoping for salvage of limb Now s/p surgical extensive debridement of leg with resection of Achilles tendon, plantaris tendon, sural nerve, and debridement of full-thickness heel ulcer on 10/05: Blood cultures show no growth Wound cultures from the past grew MRSA which was sensitive to vancomycin but with an BRANDI of 2 noted by pharmacy appreciate ID consult on 10/08, would prefer to use Daptomycin for 6 weeks discussed with CM, Chrissy cannot take patient on Daptomycin, will need to use Vancomycin attempted PICC on 10/08, could not find a vein after numerous tries provided IV fluids this morning, IV team tried a third time for PICC but no success discussed with finish mixer, would prefer not to place a central line for 6 weeks, also, patient prone to pulling at line Port placed on 10/12 will resume Lovenox this evening, can have Coumadin today I talked with Corina Victoria on 10/08 and 10/09, she understands that the patient will not walk again, that she will likely continue to have infection and will likely need an amputation in the future (2) Altered mental status: Acute metabolic encephalopathy secondary to sedation given for procedure on 09/28 and associated with mixed vascular/Alzheimer dementia very agitated on 09/30, received Haldol 1mg IV, took a few hours to work She improved since then with avoidance of opioids and giving scheduled Seroquel, however now worse again since anesthesia for Ortho procedure Remains confused and not oriented at all but not severely agitated on 10/07 -continue Haldol 2mg IV q6 prn-has not needed this lately -infection is well controlled, no electrolyte abnormalities suspect that all of the agitation and confusion is hospital delirium on baseline dementia and with use of sedation for procedure -avoid OPIOIDS -continue Seroquel scheduled qhs - off 1:1 sitter (3) 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: continue wound care, abx (4) Peripheral arterial occlusive disease: - as above, now with Doppler-able pulses -continue Plavix and anticoagulation x 3 months and then continue on anticoagulation alone at that point toes on left foot normal today (5) Chronic diastolic CHF (congestive heart failure): -not volume overloaded, has chronic stable to improved right pleural effusion/loculated Had episode of acute resp distress and crackles the night after surgery 10/05--> improved with IV lasix x 1 and stopping maintenance IVFs she received for < 24 hrs Now resolved -continue holding home diuretics for very poor p.o. intake (6) A-fib: Rates now improved with increased doses of metoprolol, diltiazem, and with blood transfusion -resume Lovenox 1mg/kg q12h this evening -Continue diltiazem 180mg daily -switched from atenolol to metoprolol this admission by Cardio--> continue metoprolol 25mg po bid - rates acceptable today -continue tele monitoring Coumadin today, 4mg (7) Anemia: Hgb down from previous baseline before her hip fracture in 07/2018 Was hgb 9 after hip fracture and repair 07/2019, then slowly trended downward due to chronic infection Also with folate low at 4 on old labs 07/2014 Normocytic B12 normal 07/2019 Folate now >24 -transfused 2 units PRBCs on 10/03 and a hemoglobin up to 10--> now down to 9.1 and stable after surgery -follow CBC in AM -continue folic acid replacement -continue FeSO4 tid (8) Hypertension: BPs low and improved after blood transfusion, then low again after surgery, now stable to low normal -Continue holding home lisinopril and lasix -continue diltiazem, metoprolol as above mostly for rate control (9) Pleural effusion: Chronic rt sided, ?loculated pleural effusion Has had multiple thoracenteses in the past CXR 10/02 improved from previous, small pleural effusion-no need for tap Oxygenating well -no thoracentesis for now but if needed, follows with Dr. Odonnell (10) CKD (chronic kidney disease) stage 3, GFR 30-59 ml/min: GFR typically between 30-60 Avoid nephrotoxins, will renally dose meds as apprioriate -learning facilitator continues to be at baseline, 0.7 today (11) Diarrhea: loose stools now resolved after starting probiotics C. diff neg on 09/30 -Continue Floranex probiotic tid -follow (12) Hypomagnesemia: could be secondary to GI losses from previous loose stools -resolved with replacement, goal >/= 2.0 (13) Acute DVT (deep venous thrombosis): Has a known Right popliteal vein DVT from 07/25/19 after right hip ORIF -was on Eliquis at time DVT found and converted to warfarin due to presumed failure of Eliquis resume Lovenox and Coumadin since port placed 10/12 (14) Nonsustained ventricular tachycardia: Had a 25 beat run of VT on 10/05, asymptomatic None further since then Discussed with Cardio -increase metoprolol dose if BP can tolerate-blood pressures have been too low to tolerate-continue 25 mg twice daily (15) DVT prophylaxis: Lovenox SQ Dispo-remain on PCU, will need correction placement with likely IV antibiotics and PT/OT Okay to consult PT/OT now status post surgery-should remain nonweightbearing on the right foot DNR/DNI Subjective patient doing okay after port placed today, no new issues drinking some liquids, appetite still not great vitals stable labs show INR 1.1, Cr 0.7 discussed with CM, they say that [facility] will take patient tomorrow needs to work with PT and we need to access port will determine Vanco dosing Review of Systems Review of Systems: Unobtainable due to cognitive status (pleasantly demented) Physical Exam Constitutional: WD/WN, vitals as above + thin Eyes: PERRL, conjunctivae normal, anicteric sclerae ENMT: external ear and nose normal, oropharynx normal Neck: trachea midline, no thyromegaly Respiratory: normal respiratory effort, lungs clear to auscultation Cardiovascular: Rate/Rhythm: regular rate and + irregularly irregular Heart Sounds: normal S1 and normal S2; no murmur Vessels: posterior tibial pulses present (doppler) and dorsalis pedis pulses present (with doppler); no JVD Extremities: + abnormal capillary refill (delayed refill) and no edema Gastrointestinal (Abdomen): normal bowel sounds, soft, nontender, no hepatosplenomegaly Musculoskeletal: Head/Neck/Chest: normocephalic and head atraumatic Extremities: + abnormal strength (generalized weakness); no cyanosis and no clubbing Neurologic: patellar DTR's 2+ bilat, sensation intact and PERRL, EOMI, accommodation nl, no face palsy, no dysarthria Psychiatric: Orientation: alert and oriented to person; + not oriented to place and + not oriented to time Lymphatic: no cervical or axillary lymphadenopathy Results & Data ([facility]) Vital Signs (Past 12 Hours) Vital Signs Temp Pulse Pulse Resp BP Pulse Ox 10/12/19 15:30 79 13 133/79 10/12/19 15:15 81 20 130/80 10/12/19 15:00 83 14 142/79 H 10/12/19 14:45 74 14 125/74 93 10/12/19 14:29 36.3 C L 71 14 119/84 94 10/12/19 14:05 65 18 139/82 97 10/12/19 13:55 36.8 C 67 18 126/78 97 10/12/19 13:45 36.8 C 71 18 119/69 97 10/12/19 13:35 71 18 122/77 100 10/12/19 13:28 36.7 C 76 18 136/92 100 10/12/19 12:14 36.5 C 101 H 18 163/97 H 97 10/12/19 11:37 36.7 C 106 H 18 156/110 H 98 10/12/19 07:45 36.7 C 95 H 20 158/99 H 96 PG Care Time/CCT Total # of Minutes Spent Total Time Spent with Patient: Total time spent is greater than 50% in coordination of care (as documented) at patient's floor/unit and/or counseling patient: Coding Level of Care Code 75163 Subseq Hosp Care Lvl 2 Diagnoses 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 Altered mental status R41.82 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 L89.622 Peripheral arterial occlusive disease I77.9 Chronic diastolic CHF (congestive heart failure) I50.32 A-fib I48.21 Atrial fibrillation type: permanent Anemia D64.89 Anemia type: other cause Other causes of anemia: other cause, not classified Hypertension I10 Hypertension type: essential hypertension Pleural effusion J90 CKD (chronic kidney disease) stage 3, GFR 30-59 ml/min N18.3 Diarrhea R19.7 Hypomagnesemia E83.42 Acute DVT (deep venous thrombosis) I82.409 Nonsustained ventricular tachycardia I47.2 DVT prophylaxis Z29.9 (1) A-fib Atrial fibrillation type: permanent Qualified Code(s): I48.21 - Permanent atrial fibrillation (2) Anemia Anemia type: other cause Other causes of anemia: other cause, not classified Qualified Code(s): D64.89 - Other specified anemias (3) Hypertension Hypertension type: essential hypertension Qualified Code(s): I10 - Essential (primary) hypertension
[2019-10-12] MEDS ORDERED: WARFARIN SOD 4 MG TAB PO ONE (16:32)
[2019-10-12] MEDS: QUETIAPINE FUMARATE 25 MG TABLET PO SCH (21:34)
[2019-10-12] MEDS: ENOXAPARIN INJ 60 MG/0.6 ML SYR SQ SCH (23:50)
--- NOTE | 2019-10-13 00:24 | Operative Report ---
DATE OF OPERATION: 10/12/2019 PREOPERATIVE DIAGNOSIS: Right foot infection. POSTOPERATIVE DIAGNOSIS: Right foot infection. PROCEDURE: Insertion of tunneled port catheter on right internal jugular vein. SURGEON: Ngozi Carmichael MD ANESTHESIA: Conscious sedation plus local. ESTIMATED BLOOD LOSS: About 5 mL. FINDINGS: Patent right internal jugular vein. COMPLICATIONS: None. INDICATIONS FOR THE PROCEDURE: This is an 84-year-old female who was admitted to hospital for infected right foot and patient has difficult IV access and they already 3 times tried to put the PICC line, it was unsuccessful. So they consulted me for this port insertion. I did talk to the patient and patient's caregiver about the benefits, risks, and alternatives to procedure. I indicated the risks may include, but not limited, such as bleeding, infection, blood clot, dysfunction of catheter. They understand. The patient's caregiver, Corina, who signed consent on the phone. She agreed to proceed with procedure. I answered all questions. DETAILS OF PROCEDURE: We brought in the patient to the OR, put the patient in the supine position. The patient received SCDs on bilateral legs to prevent DVT. Also patient received 1 gram of vancomycin IV for prophylactic antibiotic and patient received conscious sedation by the anesthesiology. The patient's right side of the neck and the right upper chest was appropriately prepped in routine sterile fashion. After timeout, I injected the local anesthesia by using 1% lidocaine mixed with 0.5% Marcaine on the right side of neck and then right upper chest. Then I used ultrasound guide, then I used a 16-gauge needle to puncture the right internal jugular vein, easy blood return. Then we passed the wire and removed the needle and then I used fluoro to confirm the wire located in the superior vena cava. Then I made about 2.5 cm incision on the right upper chest, created a pouch. Hemostasis was obtained. Then I tunneled the catheter towards the right upper chest towards the right neck. The end of the catheter connected to the port. Then I used a dilator with sheath, passed the wire. Then I removed the dilator with the wire and left the sheath in. Then we passed the catheter towards the sheath, then I removed the sheath. Then I used fluoro to confirm again the tip of catheter was located at the junction between the right atrium and superior vena cava. Then hemostasis was obtained using 2-0 Prolene and fixed the port at 3 points and then I used 2-0 Vicryl to close subcutaneous layer in continuous running, closed skin by using 4-0 Vicryl continuous running. Then we put the dressing on. Before we put the dressing, we used 10 mL heparin with saline, injecting the port as well as the skin, easy blood return, and injected 10 mL heparin with saline injection. Then we put the dressing on. The patient tolerated the procedure well. All instrument, needle, and sponge count were correct x2 at the end of the case. The patient transferred to recovery room in stable condition. After procedure, I did talk to the patient's caregiver Corina. I informed about the OR finding and procedure we did, she understands. I attest to the content of the Intraoperative Record and any orders documented therein. Any exception s are noted below.
[2019-10-13] MEDS: SODIUM CHLORIDE 0.9% 500 ML IV SCH ×2 (01:53→05:49)
[2019-10-13 07:12] LABS: INR 1.2 (0.9-1.1); Prothrombin Time 11.8 Seconds (9.0-12.0)
[2019-10-13] MEDS ORDERED: FUROSEMIDE 20 MG in SYRINGE 0 ML IV ONE (09:00)
--- NOTE | 2019-10-13 09:27 | Surgery Progress Note ---
Date of Service October 13, 2019 Assessment & Plan (1) Infection of right foot: pod 1. doing well will sign off. call if needed. Subjective pt seen. no new complaints. no pain at port site Physical Exam Physical Exam: alert. nad port in good position. no drainage. Results & Data Vital Signs (Past 12 Hours) Vital Signs Temp Pulse Resp BP BP Pulse Ox 10/13/19 07:52 36.3 C L 112 H 19 119/88 95 10/13/19 04:50 36.3 C L 115 H 18 144/104 H 96 10/12/19 23:32 36.5 C 93 H 18 152/97 H 95 PG Care Time/CCT Total # of Minutes Spent Total Time Spent with Patient: Total time spent is greater than 50% in coordination of care (as documented) at patient's floor/unit and/or counseling patient: Coding Level of Care Code None Diagnoses Infection of right foot L08.9
[2019-10-13] MEDS: LACTOBACILLUS ACIDOPHILUS (FLORANEX) TAB PO SCH ×2 (09:29→12:17)
[2019-10-13] MEDS: FERROUS SULFATE 325 MG TAB PO SCH ×2 (09:30→14:54)
[2019-10-13] MEDS: dilTIAZem ER 180 MG CAPCR PO SCH (09:30)
[2019-10-13] MEDS: CALCIUM CARBONATE 1250MG TAB PO SCH (09:30)
[2019-10-13] MEDS: DOCUSATE SODIUM 100 MG CAP PO SCH (09:30)
[2019-10-13] MEDS: CALCITONIN SALMON NA 200 IU/AC 3.7 ML BTL SCH (09:30)
[2019-10-13] MEDS: METOPROLOL TARTRATE 25 MG TAB PO SCH (09:30)
[2019-10-13] MEDS: FOLIC ACID 1 MG TAB PO SCH (09:30)
[2019-10-13] MEDS ORDERED: HEPARIN 100 UNIT/ML 5ML FLUSH FLUSH PRN (11:04)
[2019-10-13] MEDS: ENOXAPARIN INJ 60 MG/0.6 ML SYR SQ SCH (12:17)
[2019-10-13] MEDS ORDERED: VANCOMYCIN HCL 750 MG in SODIUM CHLORIDE 0.9% 250 ML IV SCH (14:00)
[2019-10-13] MEDS ORDERED: WARFARIN SOD 4 MG TAB PO ONE (14:37)
--- NOTE | 2019-10-13 15:15 | Discharge Summary ---
Date of Service October 13, 2019 Admission HPI Per Admitting Provider The patient is an 84 years old female who has past medical history of atrial fibrillation on warfarin, iron deficiency anemia, chronic diastolic CHF who underwent cineradiography with routine exam for peripheral vascular disease of right SFA, popliteal, anterior tibial artery, and left popliteal and tibial vessels by Dr. Wasserman yesterday. This morning patient was confused and intermittently combative and medicine is consulted for patient's altered mental status. Around 11 AM when we saw the patient patient was oriented in person and place but still mildly confused. She was more cooperative and willing to follow the RNs directions. Patient was not combative anymore. Patient is poor historian but she denied fever, chills, chest pain, shortness of breath, abdominal pain, frequency or urgency. Patient has bilateral lower extremity wounds all which are measuring 13.2 x 26.2 x 0.2 cm , right heel wound 2.3 x 3.3 x 0.1 cm, left posterior leg wound 5 x 10 x 0.1 cm and wound for is located on the left facial and scalp. Patient sees Dr. Reginald Garland for wound care. Labs are reviewed: WBC is 14.08, hemoglobin 8.2, hematocrit 26.1, platelets 364. INR 1.3, PT 12.7, APTT 49. Sodium 139, potassium 3.9, chloride 108, BUN 23, creatinine 0.87, GFR 60.7, Albumin 1.7. TSH pending. X-rays of the right lower extremity pending. Principal Diagnosis Right lower extremity wound, MRSA Discharge Exam Constitutional WD/WN, vitals as above + thin Eyes PERRL, conjunctivae normal, anicteric sclerae ENMT external ear and nose normal, oropharynx normal Neck trachea midline, no thyromegaly Respiratory normal respiratory effort, lungs clear to auscultation Cardiovascular Rate/Rhythm: regular rate and + irregularly irregular Heart Sounds: normal S1 and normal S2; no murmur Vessels: posterior tibial pulses present (doppler) and dorsalis pedis pulses present (with doppler); no JVD Extremities: + abnormal capillary refill (delayed refill) and no edema Gastrointestinal (Abdomen) normal bowel sounds, soft, nontender, no hepatosplenomegaly Musculoskeletal Head/Neck/Chest: normocephalic and head atraumatic Extremities: + abnormal strength (generalized weakness); no cyanosis and no clubbing Neurologic patellar DTR's 2+ bilat, sensation intact and PERRL, EOMI, accommodation nl, no face palsy, no dysarthria Psychiatric Orientation: alert and oriented to person; + not oriented to place and + not oriented to time Lymphatic no cervical or axillary lymphadenopathy Discharge Data Allergies Allergy/AdvReac Type Severity Reaction Status Date / Time morphine AdvReac Intermediate Severe Verified 10/01/19 12:15 agitation codeine AdvReac Verified 09/11/19 10:56 fentanyl AdvReac Verified 09/11/19 10:56 hydromorphone [From Dilaudid] AdvReac Verified 09/11/19 10:56 tramadol AdvReac Verified 09/11/19 10:56 Consultations 09/29/19 10:00 Consult Hospitalist Routine 09/29/19 10:04 Consult Case Management - Discharge Planning Routine 09/29/19 10:54 Consult Wound Care Provider Routine 09/29/19 17:57 Consult Orthopedic Surgery Routine 10/07/19 12:43 Consult Infectious Diseases Routine 10/11/19 15:17 Consult General Surgery Routine Procedures Performed Operation Date: 09/28/19 09:30 Actual Procedures s SC Select Cath ALEP 3rd Order - Nehemias Reyes MD p Angio Extremity Bilateral - Nehemias Reyes MD s Fem Pop Stent Balloon - Nehemias Reyes MD s Tibioperoneal Balloon Stent - Nehemias Reyes MD s Placement Art Occlusive Device - Nehemias Reyes MD s Ultrasound Vascular Access - Nehemias Reyes MD Operation Date: 10/05/19 08:45 Actual Procedures p Incision and Drainage of Right Foot, Right Achilles and Right Ankle,Tenotomy excision Achillies tendon and Plantaris tendon, sural neurectomy, Debridement of heal Ulcer measuring 2.5x3.5 cm, Debridement of Leg Wound measuring 13x26.2cm(Right) - Norman Roldan DO Operation Date: 10/12/19 11:35 Actual Procedures p Infusaport Insertion into Right Internal Jugular Vein(Right) - Ngozi Carmichael MD Ordered Studies 09/28/19 US guide vascular access Routine 09/28/19 06:38 CL Cath Imgs for PACS use only Routine 09/28/19 13:57 CL Cath Imgs for PACS use only Stat 09/29/19 11:03 CT head/brain wo con Stat 10/01/19 04:28 MR lower leg RT wo/w con Routine 10/12/19 12:00 FL fluoro (infusaport) to 1 hr Routine Hospital Course (1) 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: Large wound of right lateral ankle and distal leg, secondary to pressure ulcer since being at rehab for Rt hip ORIF Extensive RLE ulceration and with suspected osteomyelitis on plain films as above, however during orthopedic surgery there was no significant osteomyelitis found With severe PAD and 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 Post repeat angiography revealing no apparent iliac perforation or dissection- appreciate vascular cardio intervention RT foot with improved perfusion on exam. -- Continue clopidogrel 75 mg daily x 3 months along with anticoagulation, then can dc Plavix and do coumadin alone Appreciate ortho consult: Dr. Roldan is recommending amputation of the leg, unlikely to heal from resection of Achilles tendon, not enough skin for healing--> however as above,HCPOA hoping for salvage of limb Now s/p surgical extensive debridement of leg with resection of Achilles tendon, plantaris tendon, sural nerve, and debridement of full-thickness heel ulcer on 10/05: Blood cultures show no growth Wound cultures from the past grew MRSA which was sensitive to vancomycin but with an BRANDI of 2 noted by pharmacy appreciate ID consult on 10/08, would prefer to use Daptomycin for 6 weeks discussed with Chrissy ROBERT cannot take patient on Daptomycin, will need to use Vancomycin attempted PICC on 10/08, could not find a vein after numerous tries Port placed on 10/12, accessed on 10/13, Vancomycin infused will be on Vancomycin 750mg IV q24 x 5 more weeks, dose may need adjusted going forward I talked with Corina Victoria (RIYA) on 10/08 and 10/09, she understands that the patient will not walk again, that she will likely continue to have infection and will likely need an amputation in the future (2) Altered mental status: Acute metabolic encephalopathy secondary to sedation given for procedure on 09/28 and associated with mixed vascular/Alzheimer dementia very agitated on 09/30, received Haldol 1mg IV, took a few hours to work She improved since then with avoidance of opioids and giving scheduled Seroquel, however now worse again since anesthesia for Ortho procedure Remains confused and not oriented at all but not severely agitated on 10/07 -continue Haldol 2mg IV q6 prn-has not needed this lately -infection is well controlled, no electrolyte abnormalities suspect that all of the agitation and confusion is hospital delirium on baseline dementia and with use of sedation for procedure -avoid OPIOIDS -continue Seroquel scheduled qhs - off 1:1 sitter for days (3) 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: continue wound care, abx (4) Peripheral arterial occlusive disease: - as above, now with Doppler-able pulses -continue Plavix and anticoagulation x 3 months and then continue on anticoagulation alone at that point toes on left foot normal today (5) Chronic diastolic CHF (congestive heart failure): -not volume overloaded, has chronic stable to improved right pleural effusion/loculated Had episode of acute resp distress and crackles the night after surgery 10/05--> improved with IV lasix x 1 and stopping maintenance IVFs she received for < 24 hrs Now resolved -continue Lasix BID (6) A-fib: Rates now improved with increased doses of metoprolol, diltiazem, and with blood transfusion shortly after admission -Continue diltiazem 180mg daily -switched from atenolol to metoprolol this admission by Cardio--> continue metoprolol 25mg po bid - rates acceptable for over a week INR 1.2 Received Coumadin 4mg on 10/12 and 10/13, resume prior dosing of 2mg and 1mg check INR on 10/15 was fully anticoagulated on Lovenox during admission, stopped a few times for sugical procedures (7) Anemia: Hgb down from previous baseline before her hip fracture in 07/2018 Was hgb 9 after hip fracture and repair 07/2019, then slowly trended downward due to chronic infection Also with folate low at 4 on old labs 07/2014 Normocytic B12 normal 07/2019 Folate now >24 -transfused 2 units PRBCs on 10/03 and a hemoglobin up to 10--> Hb 9.7 when last checked check a CBC on 10/15 (8) Hypertension: BPs low and improved after blood transfusion, then low again after surgery, now stable for days -Continue lisinopril and lasix -continue diltiazem, metoprolol as above mostly for rate control (9) Pleural effusion: Chronic rt sided, ?loculated pleural effusion Has had multiple thoracenteses in the past CXR 10/02 improved from previous, small pleural effusion-no need for tap Oxygenating well -no thoracentesis for now but if needed, follows with Dr. Odonnell (10) CKD (chronic kidney disease) stage 3, GFR 30-59 ml/min: GFR typically between 30-60 Avoid nephrotoxins, will renally dose meds as apprioriate -boot turner continues to be at baseline (11) Diarrhea: loose stools now resolved after starting probiotics C. diff neg on 09/30 -Continue Floranex probiotic tid -follow (12) Hypomagnesemia: could be secondary to GI losses from previous loose stools -resolved with replacement, goal >/= 2.0 (13) Acute DVT (deep venous thrombosis): Has a known Right popliteal vein DVT from 07/25/19 after right hip ORIF -was on Eliquis at time DVT found and converted to warfarin due to presumed failure of Eliquis treated with Lovenox q12 during admission INR 1.2 after Coumadin 4mg on 10/12, Coumadin 4mg given on 10/13 resume prior dosing of 2mg and 1mg check INR on 10/15 (14) Nonsustained ventricular tachycardia: Had a 25 beat run of VT on 10/05, asymptomatic None further since then Discussed with Cardio -increase metoprolol dose if BP can tolerate-blood pressures have been too low to tolerate-continue 25 mg twice daily (15) DVT prophylaxis: Lovenox SQ Dispo-remain on PCU, will need mcfp placement with likely IV antibiotics and PT/OT DNR/DNI Total Time Total Time Spent Total Time Spent (In Minutes): 33 minutes Total Time Includes: Examination of the Patient, Discharge Planning, Medication Reconciliation and Communication With Other Providers Discharge Plan Discharge Items Patient Disposition[facility] Reason For Visit: Peripheral Arterial Disease Discharge Diagnosis: Severe peripheral artery disease Right infected Achilles tendon, s/p excision, wound culture MRSA positive Dementia with behavioral disturbances DVT Atrial fibrillation Condition on Discharge: Fair Goals: complete 6 weeks of Vancomycin IV for treatment of wound improve nutrition to help wound heal improve strength Activity: Per Instructions section Bathing: Keep incision dry Weightbearing: Right non-weightbearing Non-emergency contact: Primary Care Provider and Surgeon Call non-emergency contact if: you have any medication questions, your symptoms worsen and you have a fever Follow-up/Referrals: Kanchan Andrade CRNP [Nurse Practitioner] - (week of 10/15) Yaneth Robertson DO [Physician] - (3-4 weeks) Norman Roldan DO [Surgeon] - (Follow up at the [facility] office 1 week after discharge.) Elida Lowe at [facility] [Primary Care Provider] - Diet: Regular Addtl Attending Provider Instructions: WOUND CARE INSTRUCTIONS: Bilateral heels and left lower leg - apply calcium alginate or plain aquacel then cover with optifoam, change QOD and PRN Right lower extremity - apply adaptic as contact layer to wound bed, cover with plain aquacel, ABD and Kerlix, change daily please avoid pressure to right leg wound at all times MEDICATIONS: - VANCOMYCIN: 750mg IV daily via port, plan for Vanco trough level Tuesday, pharmacy can adjust dose as needed - DILTIAZEM: dose increased to 180mg by cardiology - METOPROLOL: 25mg twice a day - SEROQUEL: 25mg in the evening, helping with sleep and mental status Right lower extremity wound Dr. Roldan recommended amputation of the leg, unlikely to heal from resection of Achilles tendon, not enough skin for healing--> however as [facility] for [facility] of limb Now s/p surgical extensive debridement of leg with resection of Achilles tendon, plantaris tendon, sural nerve, and debridement of full-thickness heel ulcer on 10/05: Blood cultures show no growth Wound cultures from the past grew MRSA which was sensitive to vancomycin appreciate ID consult on 10/08, would prefer to use Daptomycin for 6 weeks discussed with CM, Chrissy cannot take patient on Daptomycin, will need to use Vancomycin Port placed on 10/12, accessed on 10/13, working well I talked with Corina Esme, patient's niece and POA on 10/08 and 10/09, she understands that the patient will not walk again, that she will likely continue to have infection and will likely need an amputation in the future as the only possible cure LABS recommend checking INR, vanco trough, BMP, CBC on 10/15 [place]: staying in place for some diuresis, can likely come out in 2-[address] [facility] Physician Provider Instructions: ACTIVITY RECOMMENDATIONS: Limitations: No weight bearing or partial weightbearing to affected limb at all times. SPECIAL CARE INSTRUCTIONS: * Some drainage onto the dressing is normal and is no cause for alarm. * Some swelling is natural especially after walking. * When resting, keep your foot elevated above the level of your heart. * Call [facility] if you notice: -Increased drainage -Fever over 101 degrees F -Severe constant pain BANDAGE: * Daily dressing changes to the right lower extremity ulceration. FOLLOW UP VISIT WITH DR. ROLDAN If appointment is not already scheduled: Please call [facility] after you get home today to schedule a follow-up appointment for 1 week after discharge with Dr. Roldan at . Pending Studies at Discharge: No Stand-Alone Forms: My [facility] Skilled Items Patient informed of condition?: Yes DNR: Yes Discharge Level of Care: Skilled Communicable Disease: No Discharge Prognosis: Stable Lines: Subcutaneous Infusion Urinary Catheter: Yes Medications and DC Order Prescriptions: New quetiapine 25 mg Tablet 25 mg PO HS 30 Days Qty: 30 RF: 0 diltiazem HCl [Tiazac] 180 mg Capsule,Extended Release 24 Hr 180 mg PO DAILY 30 Days Qty: 30 RF: 1 metoprolol tartrate 25 mg Tablet 25 mg PO BID 30 Days Qty: 60 RF: 1 vancomycin 750 mg recon soln 750 mg IV Q24H 35 Days Qty: 42 RF: 0 Continued docusate sodium 100 mg capsule 100 mg PO DAILY RF: 0 warfarin [Coumadin] 1 mg tablet 1 mg PO .COMPLEX RF: 0 warfarin [Coumadin] 2 mg tablet 2 mg PO DAILY RF: 0 furosemide 20 mg tablet 20 mg PO BID RF: 0 MegaRed [place]-3 Krill Oil [id number] mg Capsule 1 cap PO QAM RF: 0 acetaminophen [Tylenol Extra Strength] 500 mg Tablet 1,000 mg PO Q6H PRN (Reason: pain) Qty: 30 RF: 0 calcium carbonate [Calcium 500] 500 mg calcium (1,250 mg) Tablet 500 mg PO BID RF: 0 ferrous sulfate 325 mg (65 mg iron) tablet,delayed release (DR/EC) 325 mg PO TID RF: 0 folic acid 1 mg tablet 1 mg PO QAM RF: 0 ergocalciferol (vitamin D2) [Vitamin D2] 50,000 unit capsule 50,000 unit PO MUIR RF: 0 Discontinued doxycycline hyclate 100 mg tablet 100 mg PO bid Qty: 28 RF: 0 atenolol 25 mg tablet 12.5 mg PO HS Qty: 45 RF: 3 diltiazem HCl 180 mg capsule,extended release 24 hr 120 mg PO DAILY RF: 0 lisinopril 20 mg tablet 10 mg PO QAM RF: 0 Discharge Orders: Discharge Order (Routine); Ordered 10/13/19 Ordered By: Franc Cho Admission Data Admit Date/Time: 09/29/19 10:04 Attending Provider: Franc Cho Admit Provider: Nehemias Reyes Primary Care Provider: Elida Lowe [facility] Other Providers: Reginald Garland ; Elida Lowe [facility] ; Bj Farfan ; Genevieve Slaughter ; Kanchan Andrade ; Doc Bassett Robert R. ; Bethany Kennedy ; Marquis Arteaga ; Marvin Leon ; Franc Cho ; Kary Rubio ; Shahla Cruz ; Jaylin Rice ; Navarro Leon ; Macy Jane ; Wong Wells ; Alexey Caballero ; Genevieve Carson ; Alphonso Sanchez ; Liza Wan ; Miguel Burrell ; Nehemias Patel Jonathan M. 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 Altered mental status R41.82 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 L89.622 Peripheral arterial occlusive disease I77.9 Chronic diastolic CHF (congestive heart failure) I50.32 A-fib I48.21 Atrial fibrillation type: permanent Anemia D64.89 Anemia type: other cause Other causes of anemia: other cause, not classified Hypertension I10 Hypertension type: essential hypertension Pleural effusion J90 CKD (chronic kidney disease) stage 3, GFR 30-59 ml/min N18.3 Diarrhea R19.7 Hypomagnesemia E83.42 Acute DVT (deep venous thrombosis) I82.409 Nonsustained ventricular tachycardia I47.2 DVT prophylaxis Z29.9
== END 2019-10-13 15:38 | DRG 252 ==
LOC: 2E 08:24 → CC 08:24 → SUATTDRO 09-29 10:04
PROC: CLB.AEB (2019-09-28 09:30)

== ENCOUNTER 2023-02-11 08:51 | Inpatient (IN) ==
[2023-02-11] MEDS ORDERED: ONDANSETRON INJ 2 MG/ML 2 ML VIAL IV STA (09:07)
[2023-02-11] MEDS ORDERED: SODIUM CHLORIDE 0.9% 500 ML IV ONE ×2 (09:07→10:06)
[2023-02-11] MEDS ORDERED: FAMOTIDINE 20MG IV PUSH 20 MG/5 ML SYR IV STA (09:07)
[2023-02-11 09:28] LABS: Basophils # (auto) 0.07 K/uL (0-0.2); Basophils % (auto) 0.9 %; Eosinophils # (auto) 0.22 K/uL (0-0.50); Eosinophils % (auto) 2.9 %; Hematocrit (blood only) 36.9 % (37.0-47.0); Hemoglobin 11.7 g/dl (12.0-16.0); Immature Granulocytes # (auto) 0.03 K/uL (0.01-0.20); Immature Granulocytes % (auto) 0.4 %; Lymphocytes # (auto) 2.23 K/uL (1.2-3.4); Lymphocytes % (auto) 29.2 %; Mean Corpuscular Hemoglobin 28.1 pg (25.0-34.0); Mean Corpuscular Hgb Conc 31.7 g/dL (32.0-36.0); Mean Corpuscular Volume 88.7 fL (80.0-100.0); Mean Platelet Volume 10.7 fL (9.4-12.4); Monocytes # (auto) 0.54 K/uL (0.11-0.59); Monocytes % (auto) 7.1 %; Neutrophils # (auto) 4.55 K/uL (1.40-6.50); Neutrophils % (auto) 59.5 %; Platelet Count 271 K/uL (130-400); RDW Coefficient of Variation 14.4 % (11.5-14.5); RDW Standard Deviation 46.3 fL (36.4-46.3); Red Blood Count 4.16 M/uL (4.20-5.40); White Blood Count 7.64 K/ul (4.8-10.8)
[2023-02-11 09:42] LABS: Alanine Aminotransferase 8 U/L (7-52); Albumin Level 3.7 gm/dl (3.4-5.0); Alkaline Phosphatase 64 U/L (34-104); Anion Gap 9 (3-11); Aspartate Aminotransferase 20 U/L (13-39); Bilirubin Direct 0.2 mg/dl (0-0.2); Bilirubin,Total 1.1 mg/dl (0.2-1.0); Blood Urea Nitrogen 19 mg/dl (6-23); Calcium 9.6 mg/dl (8.6-10.3); Carbon Dioxide 26 mmol/L (21-32); Chloride 106 mmol/L (98-107); Est GFR (Non-African American) 53.5 ml/min; Glucose 129 mg/dl (70-99(Fasting)); Lipase 19 U/L (11-82); Magnesium 1.6 mg/dl (1.7-2.4); Phosphorus 3.3 mg/dl (2.5-4.9); Potassium 3.4 mmol/L (3.5-5.1); Sodium 141 mmol/L (136-145); Total Protein 7.2 gm/dl (6.0-8.3)
[2023-02-11 09:43] LABS: Appearance Urine Clear (Clear); Bacteria Urine Automated Negative (Negative); Bilirubin Urine Negative (Negative); Blood Urine Negative (Negative); Color Urine Yellow; Epithelial Cell Urine Auto >30 /lpf (0-5); Glucose Urine UA Negative (Negative); Ketones Urine Negative (Negative); Leukocyte Esterase Urine Negative (Negative); Nitrite Urine Negative (Negative); Protein Urine 1+ (Negative); RBC Urine Automated 0-4 /hpf (0-4); Specific Gravity Urine 1.017 (1.000-1.030); Urobilinogen Urine Negative (Negative)
[2023-02-11 09:48] LABS: Troponin I High Sensitivity 13.5 pg/ml (0-14)
[2023-02-11 10:14] LABS: Adenovirus PCR Not Detected (NotDetected); Bordetella parapertussis PCR Not Detected (NotDetected); Bordetella pertussis PCR Not Detected (NotDetected); Chlamydia pneumoniae PCR Not Detected (NotDetected); Coronavirus 229E PCR Not Detected (NotDetected); Coronavirus CoV-2 (COVID19)PCR Not Detected (NotDetected); Coronavirus HKU1 PCR Not Detected (NotDetected); Coronavirus NL63 PCR Not Detected (NotDetected); Coronavirus OC43PCR Not Detected (NotDetected); Human Metapneumovirus PCR Not Detected (NotDetected); Influenza A PCR Not Detected (NotDetected); Influenza B PCR Not Detected (NotDetected); Mycoplasma pneumoniae PCR Not Detected (NotDetected); Parainfluenza Virus 1 PCR Not Detected (NotDetected); Parainfluenza Virus 2 PCR Not Detected (NotDetected); Parainfluenza Virus 3 PCR Not Detected (NotDetected); Parainfluenza Virus 4 PCR Not Detected (NotDetected); Respiratory Syncytial VirusPCR Not Detected (NotDetected)
[2023-02-11] MEDS ORDERED: OPTIRAY 320 500ml IV ONE (10:31)
[2023-02-11 10:35] LABS: Prothrombin Time 11.2 Seconds (9.0-12.0)
--- NOTE | 2023-02-11 10:35 | CT Scan Report ---
CT head/brain wo con CLINICAL HISTORY: 87 years-old Female with ams, vomiting. Acutely altered mental status TECHNIQUE: Multiple axial CT images of the head were obtained without contrast. A dose lowering tech nique was utilized adhering to the principles of ALARA. COMPARISON: 09/29/2019. FINDINGS: No acute intracranial hemorrhage, midline shift, intracranial mass, hydrocephalus, territorial ischem ia or abnormal extra-axial collection. Involutional changes with chronic microvascular ischemic disea se. Cerebral vascular calcifications. The calvarium is intact. Small left and trace right mastoid effusions. The paranasal sinuses are tao ar. Unremarkable soft tissues. Prior bilateral lens repair. IMPRESSION: No acute intracranial abnormality. ACT 112: Negative or not required by law. The above report was generated using voice recognition software. It may contain grammatical, syntax o r spelling errors. Electronically signed by: Sonny Mcfarland M.D. 02/11/2023 10:34 AM
--- NOTE | 2023-02-11 10:39 | CT Scan Report ---
CT SCAN OF THE ABDOMEN AND PELVIS WITH IV CONTRAST CLINICAL HISTORY: Change in mental status. Urinary tract infection. COMPARISON STUDY: Abdominal CT dated 07/10/2019. TECHNIQUE: Following the IV administration of 115 cc of Optiray 320, CT scan of the abdomen and pelv is is performed from the lung bases to the proximal femora. Images are reviewed in the axial, sagitta l, and coronal planes. IV contrast was administered without complication. A dose lowering technique w as utilized adhering to the principles of ALARA. FINDINGS: Lung bases: The heart is enlarged noting a moderate pericardial effusion. The coronary arteries and m itral annulus are densely calcified. There are trace pleural effusions with dependent atelectasis. In tralobular septal thickening is noted at the lung bases. There is a moderate to large hiatal hernia. Liver: The contrast-enhanced liver is normal in size, contour, and attenuation. There is no intrahepa tic biliary ductal dilatation. The hepatic veins and portal veins are patent. Gallbladder: Unremarkable. Spleen: Normal in size and attenuation. There are scattered calcified granulomas. Pancreas: Moderately atrophic and grossly unremarkable. Adrenal glands: Unremarkable. Kidneys: The contrast enhanced kidneys demonstrate cortical atrophy and are without hydronephrosis. T he kidneys enhance symmetrically. Abdominal vasculature: There is advanced atherosclerotic calcification and ectasia of the abdominal a anne-marie. Bowel: There is postsurgical change from sigmoid colon resection with colocolic anastomosis. No bowel obstruction is seen. A small bowel anastomosis is seen in the right lower quadrant. There are scatte red colonic diverticula without CT evidence of acute diverticulitis. The appendix is well-visualized and normal. Peritoneum: There is no intraperitoneal free air or abdominal ascites. Lymphadenopathy: None. Pelvic viscera: The bladder, uterus, and adnexa are normal as visualized. Skeletal structures: The skeletal structures are osteopenic. There is moderate to advanced cervical s pondylosis. There is a chronic compression deformity of T10. No lytic or blastic lesions are seen. Ch ronic deformity and postsurgical change is noted in the right proximal femur. IMPRESSION: 1. No acute infectious or inflammatory findings are identified in the abdomen or pelvis. 2. Cardiomegaly and pericardial effusion. There is evidence of congestive failure and trace pleural e ffusions. 3. Moderate to large hiatal hernia. 4. Additional findings as above. ACT 112: Negative or not required by law. Electronically signed by: Rodolfo Oliveira M.D. 02/11/2023 10:38 AM
[2023-02-11 10:41] LABS: Thyroid Stimulating Hormone 5.335 uIu/ml (0.300-4.500)
[2023-02-11 10:49] LABS: Rhinovirus/Enterovirus PCR DETECTED (NotDetected)
--- NOTE | 2023-02-11 10:54 | CT Scan Report ---
CT angio chest PE protocol CLINICAL HISTORY: ams, hypoxia, r/o PE TECHNIQUE: Multidetector row helical CT of the chest was performed with angiographic protocol. Rodriguez l and sagittal reformations were obtained. Coronal and sagittal MIPS were obtained from the axial hanh a set and were submitted for review. Automated dose lowering techniques and/or adjustment according to patient size were utilized for this exam. CT DOSE: 1742.73 mGy.cm Comparison: Comparison is made to CT chest 07/10/2019 FINDINGS: Lungs and pleura: Small bilateral pleural effusions are seen with underlying atelectasis. No suspicio us pulmonary nodules are seen. Heart and pericardium: There is a small pericardial effusion. Vessels: No evidence of pulmonary embolism. Pulmonary trunk measures 32 mm. Mediastinum and meena: Subcentimeter lymph nodes are seen, some which are calcified. Chest wall and lower neck: Incidentally noted is gas in the bilateral subclavian veins which may be d ue to venous injection. Abdomen: There is a moderate hiatal hernia. Bones: Multilevel compression deformities are essentially unchanged from prior exams. Degenerative ch anges are seen. Old healed left rib fractures are seen. IMPRESSION: 1. No pulmonary embolus is seen. 2. Small bilateral pleural effusions with underlying atelectasis. 3. Small pericardial effusion. 4. Calcified mediastinal lymph nodes may represent prior granulomatous disease. ACT 112: Negative or not required by law. Electronically signed by: Franc Mejia M.D. 02/11/2023 10:53 AM
[2023-02-11] MEDS: MAGNESIUM SULFATE / D5W 1 GM/100 ML BAG IV SCH ×2 (11:12→12:06)
--- NOTE | 2023-02-11 11:15 | Emergency Department Note ---
Impression & Plan Enterovirus infection, Rhinovirus infection, Hypomagnesemia, Hypokalemia, Change in mental status, Weakness generalized ED Provider Note NAME: LEON DOWNS AGE: 87 SEX: F ARRIVES VIA: Ambulance INFORMANT: Patient ED PROVIDER(S): Pawan Pavon MD CHIEF COMPLAINT: Weakness, nausea and vomiting. PLAN: Disposition: Admit MEDICAL DECISION MAKING: The patient is a pleasant 87-year-old woman with a past medical history of A- fib, hypertension, hyperlipidemia, CKD, diastolic heart failure, pericardial effusion, PAD who presents to the emergency department via EMS from her personal fdc at [facility] for evaluation of cute onset nausea and vomitin g with change in mental status that was abruptly noted this morning. The patient's son did arrive to the bedside reports her baseline is typically nonverbal where she may attempt to speak but cannot be understood. He reports though that normally she is awake and ambulatory and currently she appears sleepy. On arrival the patient is uncomfortable but no acute distress, afebrile with with blood pressure 180s/130s with heart rate in the 90s and vital signs otherwise stable. O2 saturation was noted to go down to the mid 80s and so was placed on 2 L nasal cannula. She appears clinically dry with a dry-cracked mucous membranes and mild skin tenting. She appears mildly somnolent but opens eyes to voice and did recognize her son at the bedside. She follows commands. EKG demonstrates atrial fibrillation without overt acute ischemia. Chest x-ray with question of pulmonary vascular congestion and small pleural effusions with likely atelectasis. WBC and platelets within normal limits. H/H similar to prior values. Chemistry without metabolic acidosis. Potassium 3.4 and magnesium 1.6 with repletion provided. LFTs are unremarkable. High-sensitivity troponin 13.5, within normal limits. Procalcitonin is undetectable. TSH 5.3 with free T4 within normal limits. UA without convincing evidence of infection. Respiratory viral panel/bio fire was positive for enterovirus/rhinovirus. CT of the head was negative for acute abnormalities. CTA of the chest was negative for PE or focal infiltrates. Small bilateral pleural effusions are noted with likely atelectasis. Note is made of small pericardial effusion which the patient does have a history of. CT of the abdomen pelvis demonstrates large hiatal hernia and otherwise no acute intra-abdominal process. Given the patient's generalized weakness in the setting of viral illness the patient's son does agree with plan for admission. He does indicate that the patient would be DNR/DNI. Case was d/w Dr. Greer, [facility] hospitalist who will evaluate the patient for admission. Further management per admitting team. Triage Nursing notes reviewed and agree them. Prior/outside medical records reviewed Vital Signs: reviewed Differential diagnosis: Infection, dehydration, metabolic abnormality, hypo/hyperglycemia, electrolyte disturbance, anemia, hypoxia, cardiac sources, intracerebral event, toxicologic, neurologic, as well as other pathologies. ER treatment provided: See below. Diagnostics interpreted by me: ECG: Atrial fibrillation, 82 bpm, no ectopy, nonspecific T wave abnormality, no overt ST elevation or depression, QTc 427, QRS 78. Cardiac Monitoring: An order for continuous cardiac monitoring was placed and demonstrated atrial fibrillation, 82, no ectopy. Laboratory studies: See below Imaging studies: See below Consultation(s): Case was discussed with Dr. Greer, [facility] hospitalist, who will evaluate the patient for admission. HPI: The patient is a pleasant 87-year-old woman with a past medical history of A-fib, hypertension, hyperlipidemia, CKD, diastolic heart failure, pericardial effusion, PAD who presents to the emergency department via EMS from her personal fdc at [facility] for evaluation of cute onset nausea and vomiting with change in mental status that was abruptly noted this morning. The patient's son did arrive to the bedside reports her baseline is typically nonverbal where she may attempt to speak but cannot be understood. He reports though that normally she is awake and ambulatory and currently she appears sleepy. ROS: See above HPI for pertinent positives & negatives. A total of 10 systems reviewed and were otherwise negative. VITALS:See Below PHYSICAL EXAMINATION: GENERAL: Awake, alert, fatigued-appearing, in no distress HENT: Normocephalic, atraumatic. Oropharynx with dry mucous membranes and o therwise unremarkable. EYES: Normal conjunctiva. Sclera non-icteric. 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 NECK: Supple. No nuchal rigidity. FROM. No JVD. RESPIRATORY: Clear to auscultation. CARDIAC: Regular rate, irregular rhythm. Extremities warm and well perfused. Pulses equal. ABDOMEN: Soft, non-distended. No tenderness to palpation. No rebound or guarding. No masses. RECTAL: Deferred. MUSCULOSKELETAL: Chest examination reveals no tenderness. The back is symmetrical on inspection without obvious abnormality. There is no CVA tenderness to palpation. No joint edema. LOWER EXTREMITIES: Calves are equal size bilaterally and non-tender. No edema. No discoloration. NEURO: Mildly somnolent but opens eyes to voice and did recognize her son at the bedside. She follows commands. Generalized weakness, moving all extremities equally without focal motor deficits. SKIN: Dry with mild skin tenting. No rash or jaundice noted. Pawan Pavon MD Past Med/Surg History Medical History A-fib Acute DVT (deep venous thrombosis) Anemia Arrhythmia Atrial fibrillation Chronic diastolic CHF (congestive heart failure) CKD (chronic kidney disease) stage 3, GFR 30-59 ml/min CKD (chronic kidney disease), stage III Closed fracture of right hip Compression fracture of thoracic vertebra Fall HTN (hypertension) Hypertension Hypertension Intramuscular hematoma Leukocytosis Pericardial effusion Peripheral arterial occlusive disease Pleural effusion Pleural effusion on right 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 Vitamin D deficiency Surgical History History of colon resection History of intestinal surgery Hx laparoscopic cholecystectomy Status post-operative repair of hip fracture Family History Family/Other Cardiac disorder Stroke Myocardial infarction Other Family history non-contributory Social History Smoking Status: Never smoker Hx Alcohol Use: No Hx Substance Use: No Preferred Language: Chinese Communication Ability: Effective Communication Ability Comment: Patient disoriented. Unable to answer at this time. Hspt Tutor Required: No Beliefs That Will Affect Care: None marital status: / Current Living Situation: Personal Care Facility Current Living Situation Comment: currently at [facility] for rehab due to hip replacement in Jul 2019 current occupational status: retired Feels Safe at Home: Yes during the past year weight has: remained stable Assistive Devices: Walker Allergies Allergies Allergy/AdvReac Type Severity Reaction Status Date / Time morphine AdvReac Intermediate Severe Verified 05/14/20 13:43 agitation codeine AdvReac Verified 05/14/20 13:43 fentanyl AdvReac Verified 05/14/20 13:43 hydromorphone [From Dilaudid] AdvReac Verified 05/14/20 13:43 tramadol AdvReac Verified 05/14/20 13:43 Home Meds Home Medications Medication Instructions Recorded Confirmed Milk of Magnesia 30 ml PO DAILY PRN Constipation 02/11/23 02/11/23 aspirin 81 mg chewable tablet 81 mg PO DAILY 02/11/23 02/11/23 guaifenesin 600 mg tablet,extended 600 mg PO Q12H PRN Cough 02/11/23 02/11/23 release metoprolol tartrate 25 mg tablet 12.5 mg PO BID 02/11/23 02/11/23 sennosides 8.6 mg tablet (senna) 8.6 mg PO DAILY 02/11/23 02/11/23 Previous Rx's Medication Instructions Recorded Wheeled Walker #1 ea 04/25/20 Results & Data (ED) Vital Signs Vital Signs - 24 hr 02/11/23 09:09 02/11/23 09:15 02/11/23 09:26 Temperature 36.5 C Temperature Source Rectal Pulse Rate 97 H 87 Pulse Rate from SpO2 Sensor Respiratory Rate 18 Blood Pressure 182/139 H Blood Pressure Mean 153 Pulse Oximetry 94 86 L Oxygen Delivery Method Room Air Room Air Nasal Cannula Oxygen Flow Rate Sepsis Recent Fever Within 48 Hours No Sepsis New/Unexplained Change in Mental Status Yes Sepsis Action Taken by Nursing No Action Required Oxygen Flow Rate - Titration 3 Pulse Oximetry Post Tiitration 92 02/11/23 09:07 02/11/23 09:08 02/11/23 09:08 Temperature Temperature Source Pulse Rate 95 H Pulse Rate from SpO2 Sensor 102 H Respiratory Rate 22 12 Blood Pressure 182/139 H Blood Pressure Mean 145 Pulse Oximetry 92 Oxygen Delivery Method Oxygen Flow Rate Sepsis Recent Fever Within 48 Hours Sepsis New/Unexplained Change in Mental Status Sepsis Action Taken by Nursing Oxygen Flow Rate - Titration Pulse Oximetry Post Tiitration 02/11/23 09:30 02/11/23 09:30 02/11/23 10:00 Temperature Temperature Source Pulse Rate 83 Pulse Rate from SpO2 Sensor 79 Respiratory Rate 21 Blood Pressure 194/108 H 157/126 H Blood Pressure Mean 132 145 Pulse Oximetry 93 Oxygen Delivery Method Oxygen Flow Rate 3 Sepsis Recent Fever Within 48 Hours Sepsis New/Unexplained Change in Mental Status Sepsis Action Taken by Nursing Oxygen Flow Rate - Titration Pulse Oximetry Post Tiitration 02/11/23 10:00 02/11/23 10:26 02/11/23 10:30 Temperature Temperature Source Pulse Rate 88 92 H Pulse Rate from SpO2 Sensor 80 87 Respiratory Rate 18 19 Blood Pressure 178/142 H Blood Pressure Mean 147 Pulse Oximetry 98 100 Oxygen Delivery Method Oxygen Flow Rate 3 3 Sepsis Recent Fever Within 48 Hours Sepsis New/Unexplained Change in Mental Status Sepsis Action Taken by Nursing Oxygen Flow Rate - Titration Pulse Oximetry Post Tiitration 02/11/23 11:00 02/11/23 11:12 02/11/23 11:12 Temperature Temperature Source Pulse Rate 88 86 Pulse Rate from SpO2 Sensor 78 84 Respiratory Rate 13 13 Blood Pressure 189/109 H Blood Pressure Mean 163 Pulse Oximetry 96 98 Oxygen Delivery Method Oxygen Flow Rate 3 3 Sepsis Recent Fever Within 48 Hours Sepsis New/Unexplained Change in Mental Status Sepsis Action Taken by Nursing Oxygen Flow Rate - Titration Pulse Oximetry Post Tiitration 02/11/23 12:43 02/11/23 11:30 02/11/23 11:30 Temperature 36.6 C Temperature Source Rectal Pulse Rate 91 H Pulse Rate from SpO2 Sensor 87 Respiratory Rate 17 Blood Pressure 188/135 H Blood Pressure Mean 143 Pulse Oximetry 93 Oxygen Delivery Method Oxygen Flow Rate 3 Sepsis Recent Fever Within 48 Hours Sepsis New/Unexplained Change in Mental Status Sepsis Action Taken by Nursing Oxygen Flow Rate - Titration Pulse Oximetry Post Tiitration 02/11/23 12:00 02/11/23 12:00 02/11/23 12:30 Temperature Temperature Source Pulse Rate 81 94 H Pulse Rate from SpO2 Sensor 82 72 Respiratory Rate 17 16 Blood Pressure 164/111 H Blood Pressure Mean 132 Pulse Oximetry 99 94 Oxygen Delivery Method Oxygen Flow Rate 3 3 Sepsis Recent Fever Within 48 Hours Sepsis New/Unexplained Change in Mental Status Sepsis Action Taken by Nursing Oxygen Flow Rate - Titration Pulse Oximetry Post Tiitration 02/11/23 12:42 02/11/23 12:42 02/11/23 13:01 Temperature Temperature Source Pulse Rate 119 H 82 Pulse Rate from SpO2 Sensor 90 Respiratory Rate 21 Blood Pressure 210/130 H Blood Pressure Mean 133 Pulse Oximetry 100 Oxygen Delivery Method Oxygen Flow Rate Sepsis Recent Fever Within 48 Hours Sepsis New/Unexplained Change in Mental Status Sepsis Action Taken by Nursing Oxygen Flow Rate - Titration Pulse Oximetry Post Tiitration 02/11/23 13:00 02/11/23 13:01 02/11/23 13:01 Temperature Temperature Source Pulse Rate 87 108 H Pulse Rate from SpO2 Sensor 93 H 112 H Respiratory Rate 17 21 Blood Pressure 194/141 H Blood Pressure Mean 168 Pulse Oximetry 96 93 Oxygen Delivery Method Oxygen Flow Rate 3 3 Sepsis Recent Fever Within 48 Hours Sepsis New/Unexplained Change in Mental Status Sepsis Action Taken by Nursing Oxygen Flow Rate - Titration Pulse Oximetry Post Tiitration 02/11/23 13:30 Temperature Temperature Source Pulse Rate 104 H Pulse Rate from SpO2 Sensor 102 H Respiratory Rate 24 Blood Pressure Blood Pressure Mean Pulse Oximetry 96 Oxygen Delivery Method Oxygen Flow Rate 3 Sepsis Recent Fever Within 48 Hours Sepsis New/Unexplained Change in Mental Status Sepsis Action Taken by Nursing Oxygen Flow Rate - Titration Pulse Oximetry Post Tiitration Laboratory Data Attestation: I reviewed the patient's lab results. 02/11/23 09:04 02/11/23 09:04 Lab Results 02/11/23 02/11/23 02/11/23 Range/Units 09:04 09:04 09:04 WBC 7.64 (4.8-10.8) K/ul RBC 4.16 L (4.20-5.40) M/uL Hgb 11.7 L (12.0-16.0) g/dl Hct 36.9 L (37.0-47.0) % MCV 88.7 (80.0-100.0) fL MCH 28.1 (25.0-34.0) pg MCHC 31.7 L (32.0-36.0) g/dL RDW Std Deviation 46.3 (36.4-46.3) fL RDW Coeff of Elvi 14.4 (11.5-14.5) % Plt Count 271 (130-400) K/uL MPV 10.7 (9.4-12.4) fL Immature Gran % (Auto) 0.4 % Neut % (Auto) 59.5 % Lymph % (Auto) 29.2 % [place] % (Auto) 7.1 % Eos % (Auto) 2.9 % Baso % (Auto) 0.9 % Neut # (Auto) 4.55 (1.40-6.50) K/uL Lymph # (Auto) 2.23 (1.2-3.4) K/uL [place] # (Auto) 0.54 (0.11-0.59) K/uL Eos # (Auto) 0.22 (0-0.50) K/uL Baso # (Auto) 0.07 (0-0.2) K/uL Immature Gran # (Auto) 0.03 (0.01-0.20) K/uL PT (9.0-12.0) Seconds INR (0.9-1.1) Sodium 141 (136-145) mmol/L Potassium 3.4 L (3.5-5.1) mmol/L Chloride 106 (98-107) mmol/L Carbon Dioxide 26 (21-32) mmol/L Anion Gap 9 (3-11) BUN 19 (6-23) mg/dl Creatinine 0.95 (0.6-1.2) mg/dl Est Cr Clr Drug Dosing Not Reportable Est GFR ( Amer) 62.0 ml/min Est GFR (Non-Af Amer) 53.5 ml/min BUN/Creatinine Ratio 20.0 (10-20) Glucose 129 H (70-99(Fasting)) mg/dl POC Glucose (70-99) mg/dl Lactate (0.4-2.0) mmol/L Calcium 9.6 (8.6-10.3) mg/dl Phosphorus 3.3 (2.5-4.9) mg/dl Magnesium 1.6 L (1.7-2.4) mg/dl Total Bilirubin 1.1 H (0.2-1.0) mg/dl Direct Bilirubin 0.2 (0-0.2) mg/dl AST 20 (13-39) U/L ALT 8 (7-52) U/L Alkaline Phosphatase 64 (34-104) U/L Troponin I High Sens 13.5 (0-14) pg/ml Total Protein 7.2 (6.0-8.3) gm/dl Albumin 3.7 (3.4-5.0) gm/dl Lipase 19 (11-82) U/L Procalcitonin < 0.05 (0-0.5) ng/ml TSH (0.300-4.500) uIu/ml Free T4 (0.61-1.60) ng/dl Urine Color Urine Appearance (Clear) Urine pH (4.5-7.5) Ur Specific Cunningham (1.000-1.030) Urine Protein (Negative) Urine Glucose (UA) (Negative) Urine Ketones (Negative) Urine Blood (Negative) Urine Nitrite (Negative) Urine Bilirubin (Negative) Urine Urobilinogen (Negative) Ur Leukocyte Esterase (Negative) Urine WBC (Auto) (0-5) /hpf Urine RBC (Auto) (0-4) /hpf U Hyaline Cast (Auto) (0-5) /lpf U Epithel Cells (Auto) (0-5) /lpf Urine Bacteria (Auto) (Negative) Adenovirus (PCR) (NotDetected) B. pertussis DNA (PCR) (NotDetected) B.parapertussis DNA PCR (NotDetected) C. pneumoniae DNA (PCR) (NotDetected) Coronavirus OC43 (PCR) (NotDetected) Coronavirus HKU1 (PCR) (NotDetected) Coronavirus 229E (PCR) (NotDetected) SARS-CoV-2 (PCR) (NotDetected) Coronavirus NL63 (PCR) (NotDetected) Human Metapneumovir PCR (NotDetected) Influenza Type A (PCR) (NotDetected) Influenza Type B (PCR) (NotDetected) M. pneumoniae (PCR) (NotDetected) Parainfluenza 1 (PCR) (NotDetected) Parainfluenza 2 (PCR) (NotDetected) Parainfluenza 3 (PCR) (NotDetected) Parainfluenza 4 (PCR) (NotDetected) RSV (PCR) (NotDetected) Entero/Rhino (PCR) (NotDetected) 02/11/23 02/11/23 02/11/23 Range/Units 09:04 09:04 09:04 WBC (4.8-10.8) K/ul RBC (4.20-5.40) M/uL Hgb (12.0-16.0) g/dl Hct (37.0-47.0) % MCV (80.0-100.0) fL MCH (25.0-34.0) pg MCHC (32.0-36.0) g/dL RDW Std Deviation (36.4-46.3) fL RDW Coeff of Elvi (11.5-14.5) % Plt Count (130-400) K/uL MPV (9.4-12.4) fL Immature Gran % (Auto) % Neut % (Auto) % Lymph % (Auto) % [place] % (Auto) % Eos % (Auto) % Baso % (Auto) % Neut # (Auto) (1.40-6.50) K/uL Lymph # (Auto) (1.2-3.4) K/uL [place] # (Auto) (0.11-0.59) K/uL Eos # (Auto) (0-0.50) K/uL Baso # (Auto) (0-0.2) K/uL Immature Gran # (Auto) (0.01-0.20) K/uL PT (9.0-12.0) Seconds INR (0.9-1.1) Sodium (136-145) mmol/L Potassium (3.5-5.1) mmol/L Chloride (98-107) mmol/L Carbon Dioxide (21-32) mmol/L Anion Gap (3-11) BUN (6-23) mg/dl Creatinine (0.6-1.2) mg/dl Est Cr Clr Drug Dosing Est GFR ( Amer) ml/min Est GFR (Non-Af Amer) ml/min BUN/Creatinine Ratio (10-20) Glucose (70-99(Fasting)) mg/dl POC Glucose (70-99) mg/dl Lactate (0.4-2.0) mmol/L Calcium (8.6-10.3) mg/dl Phosphorus (2.5-4.9) mg/dl Magnesium (1.7-2.4) mg/dl Total Bilirubin (0.2-1.0) mg/dl Direct Bilirubin (0-0.2) mg/dl AST (13-39) U/L ALT (7-52) U/L Alkaline Phosphatase (34-104) U/L Troponin I High Sens (0-14) pg/ml Total Protein (6.0-8.3) gm/dl Albumin (3.4-5.0) gm/dl Lipase (11-82) U/L Procalcitonin (0-0.5) ng/ml TSH 5.335 H (0.300-4.500) uIu/ml Free T4 1.05 (0.61-1.60) ng/dl Urine Color Yellow Urine Appearance Clear (Clear) Urine pH 7.0 (4.5-7.5) Ur Specific Cunningham 1.017 (1.000-1.030) Urine Protein 1+ H (Negative) Urine Glucose (UA) Negative (Negative) Urine Ketones Negative (Negative) Urine Blood Negative (Negative) Urine Nitrite Negative (Negative) Urine Bilirubin Negative (Negative) Urine Urobilinogen Negative (Negative) Ur Leukocyte Esterase Negative (Negative) Urine WBC (Auto) 1-5 (0-5) /hpf Urine RBC (Auto) 0-4 (0-4) /hpf U Hyaline Cast (Auto) 1-5 (0-5) /lpf U Epithel Cells (Auto) >30 H (0-5) /lpf Urine Bacteria (Auto) Negative (Negative) Adenovirus (PCR) Not Detected (NotDetected) B. pertussis DNA (PCR) Not Detected (NotDetected) B.parapertussis DNA PCR Not Detected (NotDetected) C. pneumoniae DNA (PCR) Not Detected (NotDetected) Coronavirus OC43 (PCR) Not Detected (NotDetected) Coronavirus HKU1 (PCR) Not Detected (NotDetected) Coronavirus 229E (PCR) Not Detected (NotDetected) SARS-CoV-2 (PCR) Not Detected (NotDetected) Coronavirus NL63 (PCR) Not Detected (NotDetected) Human Metapneumovir PCR Not Detected (NotDetected) Influenza Type A (PCR) Not Detected (NotDetected) Influenza Type B (PCR) Not Detected (NotDetected) M. pneumoniae (PCR) Not Detected (NotDetected) Parainfluenza 1 (PCR) Not Detected (NotDetected) Parainfluenza 2 (PCR) Not Detected (NotDetected) Parainfluenza 3 (PCR) Not Detected (NotDetected) Parainfluenza 4 (PCR) Not Detected (NotDetected) RSV (PCR) Not Detected (NotDetected) Entero/Rhino (PCR) DETECTED A* (NotDetected) 02/11/23 02/11/23 02/11/23 Range/Units 09:16 09:25 09:42 WBC (4.8-10.8) K/ul RBC (4.20-5.40) M/uL Hgb (12.0-16.0) g/dl Hct (37.0-47.0) % MCV (80.0-100.0) fL MCH (25.0-34.0) pg MCHC (32.0-36.0) g/dL RDW Std Deviation (36.4-46.3) fL RDW Coeff of Elvi (11.5-14.5) % Plt Count (130-400) K/uL MPV (9.4-12.4) fL Immature Gran % (Auto) % Neut % (Auto) % Lymph % (Auto) % [place] % (Auto) % Eos % (Auto) % Baso % (Auto) % Neut # (Auto) (1.40-6.50) K/uL Lymph # (Auto) (1.2-3.4) K/uL [place] # (Auto) (0.11-0.59) K/uL Eos # (Auto) (0-0.50) K/uL Baso # (Auto) (0-0.2) K/uL Immature Gran # (Auto) (0.01-0.20) K/uL PT 11.2 (9.0-12.0) Seconds INR 1.0 (0.9-1.1) Sodium (136-145) mmol/L Potassium (3.5-5.1) mmol/L Chloride (98-107) mmol/L Carbon Dioxide (21-32) mmol/L Anion Gap (3-11) BUN (6-23) mg/dl Creatinine (0.6-1.2) mg/dl Est Cr Clr Drug Dosing Est GFR ( Amer) ml/min Est GFR (Non-Af Amer) ml/min BUN/Creatinine Ratio (10-20) Glucose (70-99(Fasting)) mg/dl POC Glucose 129 H (70-99) mg/dl Lactate 1.4 (0.4-2.0) mmol/L Calcium (8.6-10.3) mg/dl Phosphorus (2.5-4.9) mg/dl Magnesium (1.7-2.4) mg/dl Total Bilirubin (0.2-1.0) mg/dl Direct Bilirubin (0-0.2) mg/dl AST (13-39) U/L ALT (7-52) U/L Alkaline Phosphatase (34-104) U/L Troponin I High Sens (0-14) pg/ml Total Protein (6.0-8.3) gm/dl Albumin (3.4-5.0) gm/dl Lipase (11-82) U/L Procalcitonin (0-0.5) ng/ml TSH (0.300-4.500) uIu/ml Free T4 (0.61-1.60) ng/dl Urine Color Urine Appearance (Clear) Urine pH (4.5-7.5) Ur Specific [place] (1.000-1.030) Urine Protein (Negative) Urine Glucose (UA) (Negative) Urine Ketones (Negative) Urine Blood (Negative) Urine Nitrite (Negative) Urine Bilirubin (Negative) Urine Urobilinogen (Negative) Ur Leukocyte Esterase (Negative) Urine WBC (Auto) (0-5) /hpf Urine RBC (Auto) (0-4) /hpf U Hyaline Cast (Auto) (0-5) /lpf U Epithel Cells (Auto) (0-5) /lpf Urine Bacteria (Auto) (Negative) Adenovirus (PCR) (NotDetected) B. pertussis DNA (PCR) (NotDetected) B.parapertussis DNA PCR (NotDetected) C. pneumoniae DNA (PCR) (NotDetected) Coronavirus OC43 (PCR) (NotDetected) Coronavirus HKU1 (PCR) (NotDetected) Coronavirus 229E (PCR) (NotDetected) SARS-CoV-2 (PCR) (NotDetected) Coronavirus NL63 (PCR) (NotDetected) Human Metapneumovir PCR (NotDetected) Influenza Type A (PCR) (NotDetected) Influenza Type B (PCR) (NotDetected) M. pneumoniae (PCR) (NotDetected) Parainfluenza 1 (PCR) (NotDetected) Parainfluenza 2 (PCR) (NotDetected) Parainfluenza 3 (PCR) (NotDetected) Parainfluenza 4 (PCR) (NotDetected) RSV (PCR) (NotDetected) Entero/Rhino (PCR) (NotDetected) Administered Medications Metoprolol Tartrate (Metoprolol Tartrate 1 Mg/Ml Vial) 2.5 mg IV Q6H ARI Stop: 03/13/23 13:59 Last Admin: 02/11/23 19:41 Dose: 2.5 mg Documented By: Admin: 02/11/23 14:12 Dose: 2.5 mg Documented By: Discontinued Medications Artificial Tears (Artificial Tears) 1 drops OP NOW STA Stop: 02/11/23 12:58 Last Admin: 02/11/23 13:22 Dose: 1 drops Documented By: MIRIAN Furosemide (Furosemide 40 Mg/4 Ml Vial) 40 mg IV ONE ONE Stop: 02/11/23 14:01 Last Admin: 02/11/23 15:00 Dose: 40 mg Documented By: GEORGES Sodium Chloride (Nss) 500 mls @ 999 mls/hr IV .Q31M ONE Stop: 02/11/23 09:37 Last Infusion: 02/11/23 09:54 Dose: 0 mls/hr Documented By: Admin: 02/11/23 09:22 Dose: 999 mls/hr Documented By: MIRIAN Famotidine (Pepcid 20mg Iv Push) 20 mg in 5 mls @ 2.5 mls/min IV NOW STA Stop: 02/11/23 09:08 Last Admin: 02/11/23 09:22 Dose: 2.5 mls/min Documented By: MIRIAN Sodium Chloride (Nss) 500 mls @ 999 mls/hr IV .Q31M ONE Stop: 02/11/23 10:36 Last Infusion: 02/11/23 10:50 Dose: 0 mls/hr Documented By: Admin: 02/11/23 10:11 Dose: 999 mls/hr Documented By: MIRIAN Magnesium Sulfate/Dextrose (Magnesium Sulfate / D5w) 1 gm in 100 mls @ 100 mls/hr IV Q1H ARI Stop: 02/11/23 13:06 Last Infusion: 02/11/23 13:34 Dose: 0 mls/hr Documented By: Admin: 02/11/23 12:06 Dose: 100 mls/hr Documented By: RSFanta Infusion: 02/11/23 12:05 Dose: 0 mls/hr Documented By: Admin: 02/11/23 11:12 Dose: 100 mls/hr Documented By: MIRIAN Potassium Chloride (K Cyril / Wtr) 10 meq in 100 mls @ 100 mls/hr IV Q1H ARI Stop: 02/11/23 14:44 Last Infusion: 02/11/23 16:52 Dose: 0 mls/hr Documented By: Admin: 02/11/23 14:28 Dose: 100 mls/hr Documented By: Infusion: 02/11/23 14:23 Dose: 100 mls/hr Documented By: Admin: 02/11/23 13:23 Dose: 100 mls/hr Documented By: MIRIAN Acetaminophen (Ofirmev) 1,000 mg in 100 mls @ 400 mls/hr IV NOW STA Stop: 02/11/23 13:21 Last Infusion: 02/11/23 13:38 Dose: 0 mls/hr Documented By: Admin: 02/11/23 13:21 Dose: 400 mls/hr Documented By: MIRIAN Potassium Chloride (K [place] / Wtr) 10 meq in 100 mls @ 100 mls/hr IV Q1H ARI Stop: 02/11/23 17:29 Last Infusion: 02/11/23 18:26 Dose: 0 mls/hr Documented By: Admin: 02/11/23 17:20 Dose: 100 mls/hr Documented By: Infusion: 02/11/23 16:15 Dose: 100 mls/hr Documented By: Admin: 02/11/23 15:15 Dose: 100 mls/hr Documented By: GEORGES Ioversol (Optiray 320 500ml) 115 ml IV ONCE ONE Stop: 02/11/23 10:32 Last Admin: 02/11/23 10:31 Dose: 115 ml Documented By: KARIME Ondansetron HCl (Ondansetron Inj 2 Mg/Ml 2 Ml Vial) 4 mg IV NOW STA Stop: 02/11/23 09:08 Last Admin: 02/11/23 09:51 Dose: Not Given Documented By: MIRIAN Imaging Data Radiologist's Impression: Chest X-Ray 02/11/23 09:05 XR chest 1V portable HISTORY: 87 years-old Female Sepsis COMPARISON: Chest radiograph 10/12/2019 TECHNIQUE: AP view of the chest FINDINGS: Cardiac silhouette is enlarged. Large hiatal hernia. Right IJ [id number] catheter is noted with distal tip in expected location of the brachiocephalic SVC confluence. Atherosclerosis of the aorta. No pneumothorax. Small pleural effusions with bibasilar opacities. Pulmonary vascular congestion. Density noted posterior to the right chest wall port correlates with fissural fluid. Degenerative changes of the shoulders and spine. IMPRESSION: 1. Cardiomegaly with pulmonary vascular congestion. 2. Small pleural effusions with bibasilar opacities favoring atelectasis. 3. Hiatal hernia. ACT 112: Negative or not required by law. The above report was generated using voice recognition software. It may contain grammatical, syntax or spelling errors. Electronically signed by: Sonny Mcfarland M.D. 02/11/2023 11:30 AM Abdomen/Pelvis CT 02/11/23 10:04 CT SCAN OF THE ABDOMEN AND PELVIS WITH IV CONTRAST CLINICAL HISTORY: Change in mental status. Urinary tract infection. COMPARISON STUDY: Abdominal CT dated 07/10/2019. TECHNIQUE: Following the IV administration of 115 cc of Optiray 320, CT scan of the abdomen and pelvis is performed from the lung bases to the proximal femora. Images are reviewed in the axial, sagittal, and coronal planes. IV contrast was administered without complication. A dose lowering technique was utilized adhering to the principles of ALARA. FINDINGS: Lung bases: The heart is enlarged noting a moderate pericardial effusion. The coronary arteries and mitral annulus are densely calcified. There are trace pleural effusions with dependent atelectasis. Intralobular septal thickening is noted at the lung bases. There is a moderate to large hiatal hernia. Liver: The contrast-enhanced liver is normal in size, contour, and attenuation. There is no intrahepatic biliary ductal dilatation. The hepatic veins and portal veins are patent. Gallbladder: Unremarkable. Spleen: Normal in size and attenuation. There are scattered calcified granulomas. Pancreas: Moderately atrophic and grossly unremarkable. Adrenal glands: Unremarkable. Kidneys: The contrast enhanced kidneys demonstrate cortical atrophy and are without hydronephrosis. The kidneys enhance symmetrically. Abdominal vasculature: There is advanced atherosclerotic calcification and ectasia of the abdominal aorta. Bowel: There is postsurgical change from sigmoid colon resection with colocolic anastomosis. No bowel obstruction is seen. A small bowel anastomosis is seen in the right lower quadrant. There are scattered colonic diverticula without CT evidence of acute diverticulitis. The appendix is well-visualized and normal. Peritoneum: There is no intraperitoneal free air or abdominal ascites. Lymphadenopathy: None. Pelvic viscera: The bladder, uterus, and adnexa are normal as visualized. Skeletal structures: The skeletal structures are osteopenic. There is moderate to advanced cervical spondylosis. There is a chronic compression deformity of T10. No lytic or blastic lesions are seen. Chronic deformity and postsurgical change is noted in the right proximal femur. IMPRESSION: 1. No acute infectious or inflammatory findings are identified in the abdomen or pelvis. 2. Cardiomegaly and pericardial effusion. There is evidence of congestive failure and trace pleural effusions. 3. Moderate to large hiatal hernia. 4. Additional findings as above. ACT 112: Negative or not required by law. Electronically signed by: Rodolfo Oliveira M.D. 02/11/2023 10:38 AM Chest CTA 02/11/23 10:04 CT angio chest PE protocol CLINICAL HISTORY: ams, hypoxia, r/o PE TECHNIQUE: Multidetector row helical CT of the chest was performed with angiogr aphic protocol. Coronal and sagittal reformations were obtained. Coronal and sagittal MIPS were obtained from the axial data set and were submitted for review. Automated dose lowering techniques and/or adjustment according to patient size were utilized for this exam. CT DOSE: 1742.73 mGy.cm Comparison: Comparison is made to CT chest 07/10/2019 FINDINGS: Lungs and pleura: Small bilateral pleural effusions are seen with underlying atelectasis. No suspicious pulmonary nodules are seen. Heart and pericardium: There is a small pericardial effusion. Vessels: No evidence of pulmonary embolism. Pulmonary trunk measures 32 mm. Mediastinum and meena: Subcentimeter lymph nodes are seen, some which are calcified. Chest wall and lower neck: Incidentally noted is gas in the bilateral subclavian veins which may be due to venous injection. Abdomen: There is a moderate hiatal hernia. Bones: Multilevel compression deformities are essentially unchanged from prior exams. Degenerative changes are seen. Old healed left rib fractures are seen. IMPRESSION: 1. No pulmonary embolus is seen. 2. Small bilateral pleural effusions with underlying atelectasis. 3. Small pericardial effusion. 4. Calcified mediastinal lymph nodes may represent prior granulomatous disease. ACT 112: Negative or not required by law. Electronically signed by: Franc Mejia M.D. 02/11/2023 10:[address] 02/11/23 10:04 CT head/brain wo con CLINICAL HISTORY: 87 years-old Female with ams, vomiting. Acutely altered mental status TECHNIQUE: Multiple axial CT images of the head were obtained without contrast. A dose lowering technique was utilized adhering to the principles of ALARA. COMPARISON: 09/29/2019. FINDINGS: No acute intracranial hemorrhage, midline shift, intracranial mass, hydrocephalus, territorial ischemia or abnormal extra-axial collection. Involutional changes with chronic microvascular ischemic disease. Cerebral vascular calcifications. The calvarium is intact. Small left and trace right mastoid effusions. The paranasal sinuses are clear. Unremarkable soft tissues. Prior bilateral lens repair. IMPRESSION: No acute intracranial abnormality. ACT 112: Negative or not required by law. The above report was generated using voice recognition software. It may contain grammatical, syntax or spelling errors. Electronically signed by: Sonny Mcfarland M.D. 02/11/2023 10:34 AM Discharge Plan Visit Data Chief Complaint: Lethargic ED Provider: Pawan Pavon Discharge Problem: Enterovirus infection, Rhinovirus infection, Hypomagnesemia, Hypokalemia, Change in mental status, Weakness generalized Patient Disposition: Admitted As Inpatient Discharge Instructions Interventions: ED Discharge Assessment Last Done: 02/11/23 16:46
--- NOTE | 2023-02-11 11:32 | XRay Report ---
XR chest 1V portable HISTORY: 87 years-old Female Sepsis COMPARISON: Chest radiograph 10/12/2019 TECHNIQUE: AP view of the chest FINDINGS: Cardiac silhouette is enlarged. Large hiatal hernia. Right IJ Ikhoof-z-[id number] catheter is noted with di stal tip in expected location of the brachiocephalic SVC confluence. Atherosclerosis of the aorta. No pneumothorax. Small pleural effusions with bibasilar opacities. Pulmonary vascular congestion. Densi ty noted posterior to the right chest wall port correlates with fissural fluid. Degenerative changes of the shoulders and spine. IMPRESSION: 1. Cardiomegaly with pulmonary vascular congestion. 2. Small pleural effusions with bibasilar opacities favoring atelectasis. 3. Hiatal hernia. ACT 112: Negative or not required by law. The above report was generated using voice recognition software. It may contain grammatical, syntax o r spelling errors. Electronically signed by: Sonny Mcfarland M.D. 02/11/2023 11:30 AM
[2023-02-11 11:35] LABS: T4 Free Thyroxine 1.05 ng/dl (0.61-1.60)
[2023-02-11] MEDS ORDERED: ARTIFICIAL TEARS OP STA (12:57)
[2023-02-11] MEDS ORDERED: ACETAMINOPHEN 1,000 MG/100 ML VIAL IV STA (13:07)
[2023-02-11] MEDS: POTASSIUM CHLORIDE / WTR 10 MEQ/100 ML PLCT IV SCH ×4 (13:23→17:20)
--- NOTE | 2023-02-11 13:51 | History & Physical Report ---
Date of Service February 11, 2023 Assessment & Plan (1) Diastolic CHF: Plan: Altered Mental Status, history of severe progressive dementia. Acute on chronic Baseline is generally nonverbal does not have coherent speech but will walk independently and engage in some activities. - Suspect acute worsening due to viral illness versus CHF exacerbation Supportive care for rhino/enterovirus, patient currently is not vomiting or having any diarrhea. 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 She was referred to [facility] on 02/11 when she was having some foaming at the mouth. This was initially reported vomiting, on discussion with their staff she did not have any vomiting but did have some dry heaving Hypertensive, mildly tachycardic with A-fib on admission Metoprolol converted to IV as noted Patient is mildly hypokalemic, with history of poor p.o. intake per discussion with family/staff. 40 mEq potassium repletion ordered concurrently with Lasix. Do not give additional IV fluids at this time Mucous membranes are dry and cracked, however patient does sleep with her mouth slightly open and does have JVD with HJR on admission BNP pending Rhino/enterovirus, acute Noted on admission. Patient has not had significant GI symptoms, respiratory symptoms worsen following fluid and clinically appears more consistent with pulmonary congestion and diastolic heart failure on admission. We will provide supportive care for this and treat conservatively for concurrent CHF Afebrile, may use Tylenol IV every 8 hours as needed if febrile Afib, chronic with acute rate elevation -On metoprolol for rate control, which she did not receive morning of presentation Metoprolol converted to IV every 6 hour IV dosing, 1 dose given in ER Metoprolol 2.5 mg additional up to 2 doses every 6 hours as needed for acute rate control for rate greater than 130 No longer on anticoagulation. This appears to have been stopped around 2019, reportedly this was due to falls. Did have risk/benefit discussion of stopping anticoagulation especially given her history of A-fib and underlying vascular disease. Son understands there is a risk of cardioembolic stroke, given her baseline and risk/benefits of anticoagulating in the setting of severe dementia with falls okay with continuing to defer anticoagulation at this time. Appreciative of conversation. Hypertension, acute on chronic Initially normotensive on arrival,wrosened w/ signs of discomfort on automatic cuff and after fluid Lasix ordered Morning metoprolol was missed, this was given Continue to trend, goal <180. If remaining high may trial hydralazine x1, caution precip drop and rebound tachycardia Past right heel wound, chronic, stable Well-healed, PT pulse palpable bilaterally No evidence of superimposed cellulitis History of CKD, chronic stable without exacerbation Creatinine 0.95 on admission Trend daily Treat conservatively for diastolic CHF Renally dose medications as appropriate Hypomagnesemia, hypokalemia, acute No vomiting/diarrhea. With poor p.o. intake and chronic dementia Repletion ordered IV, not able to tolerate p.o. due to somnolence at time of admission DVT prophylaxis: Lovenox Disposition: PCU for availability of IV rate control/blood pressure control agents CODE STATUS: DNR/DNI Diet: N.p.o. until alertness/mentation improves. No IV fluids in the setting of suspected diastolic CHF (2) Hypertension: (3) CKD (chronic kidney disease) stage 3, GFR 30-59 ml/min: (4) A-fib: (5) Peripheral arterial occlusive disease: (6) 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: History of Present Illness Primary Care Provider: [facility] Nya is an 84-year-old female with a past medical history of severe progressive dementia, peripheral artery disease, CKD, A-fib, chronic diastolic CHF with pleural effusions, chronic mild pericardial effusion who is a resident of [facility] who has had 2 days of somnolence and altered mentation and who the morning of 02/11 was found to be slightly foaming at the mouth and more tired and was referred to the ER for care. While she had some dry heaves she did not have any episodes of vomiting or diarrhea per discussion with their staff. She had not been hypoxic. She is generally nonverbal, and when she does speak does not form coherent sentences at baseline. She does however walk around and engage in some activities. Last 2 days she has been very somnolent falling back asleep easily. She is not able to offer any meaningful history at time of bedside, awakens her eyes transiently and smiles to her son who is at bedside before falling back asleep. She does withdraw to blood pressure cuff and tactile stimuli. Per her son at bedside he reports that he lives nearby but does not with her all of the time, reports that the baseline and history described above by Elsi marin is the same understanding that he has about her presentation to the hospital. On chart review she has had a history of DVT and vascular disease and has been anticoagulated initially on Eliquis and then switched to warfarin with additional benefit for her A-fib. This was discontinued at some point which remains unclear from notes, did discuss with [facility] isidro however their Internet is currently down and are unable to clarify the records of this. We are pending callback for additional collateral. No tobacco use. Intermittent glass of wine and evenings. No recreational drug use. Family history reviewed, unable to be obtained from patient. Allergies reviewed. DNR/DNI. Contact information is incorrect, reviewed with son at bedside. POA and primary contact would be son Alfredo Odom available at [phone] who lives in [place] Secondary contact who is local is her son Rodney Odom available at [phone] Allergies Allergy/AdvReac Type Severity Reaction Status Date / Time morphine AdvReac Intermediate Severe Verified 05/14/20 13:43 agitation codeine AdvReac Verified 05/14/20 13:43 fentanyl AdvReac Verified 05/14/20 13:43 hydromorphone [From Dilaudid] AdvReac Verified 05/14/20 13:43 tramadol AdvReac Verified 05/14/20 13:43 Home Medications Medication Instructions Recorded Confirmed Type Wheeled Walker #1 ea 04/25/20 05/14/20 Rx Milk of Magnesia 30 ml PO DAILY PRN Constipation 02/11/23 02/11/23 History aspirin 81 mg chewable tablet 81 mg PO DAILY 02/11/23 02/11/23 History guaifenesin 600 mg tablet,extended 600 mg PO Q12H PRN Cough 02/11/23 02/11/23 History release metoprolol tartrate 25 mg tablet 12.5 mg PO BID 02/11/23 02/11/23 History sennosides 8.6 mg tablet (senna) 8.6 mg PO DAILY 02/11/23 02/11/23 History Past Med/Surg History Medical History (Updated 02/11/23 @ 14:00 by Roger Greer MD) A-fib Acute DVT (deep venous thrombosis) Anemia Arrhythmia Atrial fibrillation Chronic diastolic CHF (congestive heart failure) CKD (chronic kidney disease) stage 3, GFR 30-59 ml/min CKD (chronic kidney disease), stage III Closed fracture of right hip Compression fracture of thoracic vertebra Fall HTN (hypertension) Hypertension Hypertension Intramuscular hematoma Leukocytosis Pericardial effusion Peripheral arterial occlusive disease Pleural effusion Pleural effusion on right 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 Vitamin D deficiency Surgical History (Updated 04/03/20 @ 15:40 by YUMIKO Rendon) History of colon resection History of intestinal surgery Hx laparoscopic cholecystectomy Status post-operative repair of hip fracture Family History (Updated 11/26/19 @ 10:44 by Justine Hartley) Family/Other Cardiac disorder Stroke Myocardial infarction Other Family history non-contributory Social History Smoking Status: Never smoker Hx Alcohol Use: Yes Alcohol type: wine Alcohol type Comment: stated "some" Hx Substance Use: No Preferred Language: Indonesian Communication Ability: Effective Communication Ability Comment: Patient disoriented. Unable to answer at this time. 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 Nonverbal at baseline due to dementia. Awakens transiently does not offer speech or follow commands before going back to HEENT: Atraumatic, normocephalic. Lips/tongue dry, resting with mouth open. Pulm: Diminished in the bases with additional bibasilar crackles, trace rale on the right. No wheezing. Not on O2 Cardiac: Irregularly irregular, intermittently tachycardic, soft systolic murmur radial pulses intact and symmetrical. JVD difficult to assess as patient is laying in bed and noncompliant however does have some appreciable JVD at the angle of the clavicle which increases by at least 2 cm on abdominal palpation Abdominal: Nontender, nondistended, soft. BS present. Extremities: Does not follow commands to assess strength. Withdraws to soft touch of the hands and feet bilaterally. Right heel and Achilles ulcer healed without overlying erythema/discharge. Results & Data Results & Data Vital Signs (Past 12 Hours) Vital Signs Temp Pulse Resp BP Pulse Ox O2 Del Method O2 Flow Rate 02/11/23 13:30 104 H 24 96 3 02/11/23 13:01 194/141 H 02/11/23 13:01 108 H 21 93 3 02/11/23 13:00 87 17 96 3 02/11/23 13:01 82 02/11/23 12:42 119 H 21 100 02/11/23 12:42 210/130 H 02/11/23 12:30 94 H 16 94 3 02/11/23 12:00 81 17 99 3 02/11/23 12:00 164/111 H 02/11/23 11:30 91 H 17 93 3 02/11/23 11:30 188/135 H 02/11/23 12:43 36.6 C 02/11/23 11:12 189/109 H 02/11/23 11:12 86 13 98 3 02/11/23 11:00 88 13 96 3 02/11/23 10:30 92 H 19 100 3 02/11/23 10:26 178/142 H 02/11/23 10:00 88 18 98 3 02/11/23 10:00 157/126 H 02/11/23 09:30 83 21 93 3 02/11/23 09:30 194/108 H 02/11/23 09:08 95 H 12 92 02/11/23 09:08 182/139 H 02/11/23 09:07 22 02/11/23 09:26 86 L Room Air, Nasal Cannula 02/11/23 09:15 36.5 C 87 18 182/139 H 94 Room Air 02/11/23 09:09 97 H PG Care Time/CCT Total # of Minutes Spent Total Time Spent with Patient: Total time spent is greater than 50% in coordination of care (as documented) at patient's floor/unit and/or counseling patient: Coding Level of Care Code 31507 INT INP/OBS CARE 3/75MIN Diagnoses Diastolic CHF I50.30 Hypertension I10 Hypertension type: essential hypertension CKD (chronic kidney disease) stage 3, GFR 30-59 ml/min N18.3 A-fib I48.21 Atrial fibrillation type: permanent Peripheral arterial occlusive disease I77.9 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 L89.622 (2) Hypertension Hypertension type: essential hypertension Qualified Code(s): I10 - Essential (primary) hypertension (4) A-fib Atrial fibrillation type: permanent Qualified Code(s): I48.21 - Permanent atrial fibrillation
[2023-02-11] MEDS ORDERED: FUROSEMIDE 40 MG/4 ML VIAL IV ONE (14:00)
[2023-02-11] MEDS: METOPROLOL TARTRATE 1 MG/ML VIAL IV SCH ×2 (14:12→19:41)
[2023-02-11 19:01] LABS: BUN Creatinine Ratio 15.5 (10-20); Calcium 9.5 mg/dl (8.6-10.3); Creatinine Clr Calc Pharmacy 31.2 ml/min; Est GFR (African American) 56.2 ml/min; Est GFR (Non-African American) 48.5 ml/min
[2023-02-11 23:42] LABS: BUN Creatinine Ratio 15.4 (10-20); Calcium 9.3 mg/dl (8.6-10.3); Creatinine Clr Calc Pharmacy 30.9 ml/min; Est GFR (African American) 55.6 ml/min; Est GFR (Non-African American) 47.9 ml/min; Potassium 4.5 mmol/L (3.5-5.1)
[2023-02-12] MEDS: METOPROLOL TARTRATE 1 MG/ML VIAL IV SCH ×3 (01:59→13:41)
[2023-02-12 07:31] LABS: Basophils # (auto) 0.05 K/uL (0-0.2); Basophils % (auto) 0.6 %; Eosinophils # (auto) 0.03 K/uL (0-0.50); Eosinophils % (auto) 0.4 %; Hematocrit (blood only) 35.4 % (37.0-47.0); Hemoglobin 11.1 g/dl (12.0-16.0); Immature Granulocytes # (auto) 0.01 K/uL (0.01-0.20); Immature Granulocytes % (auto) 0.1 %; Lymphocytes # (auto) 0.76 K/uL (1.2-3.4); Lymphocytes % (auto) 9.1 %; Mean Corpuscular Hemoglobin 27.9 pg (25.0-34.0); Mean Corpuscular Hgb Conc 31.4 g/dL (32.0-36.0); Mean Corpuscular Volume 88.9 fL (80.0-100.0); Mean Platelet Volume 10.8 fL (9.4-12.4); Monocytes # (auto) 0.41 K/uL (0.11-0.59); Monocytes % (auto) 4.9 %; Neutrophils # (auto) 7.08 K/uL (1.40-6.50); Neutrophils % (auto) 84.9 %; Platelet Count 243 K/uL (130-400); RDW Coefficient of Variation 14.1 % (11.5-14.5); RDW Standard Deviation 45.5 fL (36.4-46.3); Red Blood Count 3.98 M/uL (4.20-5.40); White Blood Count 8.34 K/ul (4.8-10.8)
[2023-02-12 07:46] LABS: BUN Creatinine Ratio 14.8 (10-20); Calcium 9.4 mg/dl (8.6-10.3); Creatinine Clr Calc Pharmacy 29.8 ml/min; Est GFR (African American) 53.1 ml/min; Est GFR (Non-African American) 45.8 ml/min; Potassium 3.9 mmol/L (3.5-5.1)
--- NOTE | 2023-02-12 08:06 | Hospitalist Progress Note ---
Date of Service February 12, 2023 Assessment & Plan (1) Diastolic CHF: Plan: Altered Mental Status, eval for metabolic encephalopathy history of severe progressive dementia. Acute on chronic Baseline is generally nonverbal does not have coherent speech but will walk i ndependently and engage in some activities. - Suspect acute worsening due to viral illness versus diastolic heart failure exacerbation Supportive care for rhino/enterovirus, patient currently is not vomiting or having any diarrhea. No signs of acute pathology on CT of chest, abdomen/pelvis, CThead is normal Acute on chronic congestive heart failure with preserved ejection fraction, unstable History of diastolic grade 2 heart failure, EF approximately 60% A-fib on admission(afib is chronic) Metoprolol converted to IV as noted Replete hypokalemia as continue to diurese with IV Lasix Rhino/enterovirus, acute although without GI or pulmonary symptomatology supportive care No longer on anticoagulation. This appears to have been stopped around 2019, reportedly this was due to falls. Did have risk/benefit discussion of stopping anticoagulation especially given her history of A-fib and underlying vascular disease. Son understands there is a risk of cardioembolic stroke, given her baseline and risk/benefits of anticoagulating in the setting of severe dementia with falls okay with continuing to defer anticoagulation at this time. Appreciative of conversation. Hypertension, acute on chronic HCC metoprolol being used Past right heel wound, chronic, stable Well-healed, PT pulse palpable bilaterally No evidence of superimposed cellulitis History of CKD 3, chronic stable without exacerbation Creatinine 0.95 on admission Repeat low electrolytes of magnesium and potassium DVT prophylaxis: Lovenox CODE STATUS: DNR/DNI Diet: N.p.o. until alertness/mentation improves. No IV fluids in the setting of suspected diastolic CHF (2) Hypertension: (3) CKD (chronic kidney disease) stage 3, GFR 30-59 ml/min: (4) A-fib: (5) Peripheral arterial occlusive disease: Admission and Anticipated Discharge Date Admission Date: February 11, 2023 Subjective Patient is pleasantly confused focal complaints or problems Physical Exam Physical Exam: Patient awake alert decreased breath sounds at the bases some mild rales above Results & Data Results & Data Vital Signs (Past 12 Hours) Vital Signs Temp Pulse Pulse Resp BP BP Pulse Ox 02/12/23 07:47 73 02/12/23 07:05 97.5 F L 78 18 145/87 H 94 02/12/23 04:58 79 173/94 H 94 02/12/23 03:13 94 02/12/23 02:53 97.9 F 74 17 171/107 H 100 02/12/23 01:59 81 183/82 H 02/11/23 22:00 103 H 02/11/23 23:22 157/92 H 02/11/23 23:02 98.4 F 89 16 100 02/11/23 21:35 161/101 H 02/11/23 20:18 69 180/102 H O2 Del Method O2 Flow Rate 02/12/23 07:47 02/12/23 07:05 Room Air 02/12/23 04:58 Room Air 02/12/23 03:13 Room Air 02/12/23 02:53 Nasal Cannula 1 02/12/23 01:59 02/11/23 22:00 02/11/23 23:22 02/11/23 23:02 Nasal Cannula 2 02/11/23 21:35 02/11/23 20:18 Laboratory Results Reviewed CBC reviewed chemistry MRSA nasal screen positive PG Care Time/CCT Total # of Minutes Spent Total Time Spent with Patient: Total time spent is greater than 50% in coordination of care (as documented) at patient's floor/unit and/or counseling patient: Coding Level of Care Code 84731 SUB INP/OBS CARE 2MIN Diagnoses Diastolic CHF I50.30 Hypertension I10 Hypertension type: essential hypertension CKD (chronic kidney disease) stage 3, GFR 30-59 ml/min N18.3 A-fib I48.21 Atrial fibrillation type: permanent Peripheral arterial occlusive disease I77.9 (2) Hypertension Hypertension type: essential hypertension Qualified Code(s): I10 - Essential (primary) hypertension (4) A-fib Atrial fibrillation type: permanent Qualified Code(s): I48.21 - Permanent atrial fibrillation
[2023-02-12] MEDS: ASPIRIN 81 MG ECTAB PO SCH (08:30)
[2023-02-12] MEDS: FUROSEMIDE 40 MG/4 ML VIAL IV SCH ×2 (08:33→17:26)
[2023-02-12] MEDS: ENOXAPARIN INJ 30 MG/0.3 ML SYR SQ SCH (08:34)
[2023-02-12] MEDS: METOPROLOL TARTRATE 1 MG/ML VIAL IV PRN ×2 (17:22→20:15)
[2023-02-12] MEDS: METOPROLOL TARTRATE 25 MG TAB PO SCH (20:19)
--- NOTE | 2023-02-13 06:05 | Electrocardiogram Report ---
Test Reason : Blood Pressure : / mmHG Vent. Rate : 082 BPM Atrial Rate : 000 BPM P-R Int : 000 ms QRS Dur : 078 ms QT Int : 366 ms P-R-T Axes : 000 -20 -68 degrees QTc Int : 427 ms Atrial fibrillation Nonspecific T wave abnormality Abnormal ECG When compared with ECG of 09-AUG-2019 13:40, Nonspecific T wave abnormality, worse in Inferior leads Nonspecific T wave abnormality now evident in Lateral leads Confirmed by Brody Telles ([id number]) on 02/13/2023 6:05:16 AM Referred By: Marni Rutledge Confirmed By:Brody Telles
[2023-02-13 07:18] LABS: Basophils # (auto) 0.02 K/uL (0-0.2); Basophils % (auto) 0.3 %; Eosinophils # (auto) 0.01 K/uL (0-0.50); Eosinophils % (auto) 0.1 %; Hematocrit (blood only) 36.9 % (37.0-47.0); Hemoglobin 11.8 g/dl (12.0-16.0); Immature Granulocytes # (auto) 0.02 K/uL (0.01-0.20); Immature Granulocytes % (auto) 0.3 %; Lymphocytes # (auto) 0.88 K/uL (1.2-3.4); Lymphocytes % (auto) 11.8 %; Mean Corpuscular Volume 87.4 fL (80.0-100.0); Mean Platelet Volume 10.7 fL (9.4-12.4); Monocytes # (auto) 0.52 K/uL (0.11-0.59); Neutrophils # (auto) 6.03 K/uL (1.40-6.50); Neutrophils % (auto) 80.5 %; Platelet Count 273 K/uL (130-400); RDW Coefficient of Variation 14.1 % (11.5-14.5); RDW Standard Deviation 45.1 fL (36.4-46.3); Red Blood Count 4.22 M/uL (4.20-5.40); White Blood Count 7.48 K/ul (4.8-10.8)
[2023-02-13] MEDS: METOPROLOL TARTRATE 25 MG TAB PO SCH ×2 (07:21→22:23)
[2023-02-13] MEDS: FUROSEMIDE 40 MG/4 ML VIAL IV SCH (07:24)
[2023-02-13] MEDS: ASPIRIN 81 MG ECTAB PO SCH (07:24)
[2023-02-13] MEDS: ENOXAPARIN INJ 30 MG/0.3 ML SYR SQ SCH (07:24)
[2023-02-13 07:39] LABS: BUN Creatinine Ratio 18.7 (10-20); Calcium 9.6 mg/dl (8.6-10.3); Creatinine Clr Calc Pharmacy 21.4 ml/min; Est GFR (African American) 39.1 ml/min; Est GFR (Non-African American) 33.8 ml/min; Potassium 3.4 mmol/L (3.5-5.1)
[2023-02-13] MEDS ORDERED: hydrALAZINE HCL 20 MG/ML VIAL IV PRN (07:42)
[2023-02-13] MEDS: POTASSIUM CHLORIDE CRTAB 20 MEQ TABCR PO SCH ×2 (09:42→22:23)
--- NOTE | 2023-02-13 16:47 | Hospitalist Progress Note ---
Date of Service February 13, 2023 Assessment & Plan (1) Diastolic CHF: Plan: Altered Mental Status, eval for metabolic encephalopathy history of severe progressive dementia. Acute on chronic Baseline is generally nonverbal does not have coherent speech but will walk i ndependently and engage in some activities. - Suspect acute worsening due to viral illness versus diastolic heart failure exacerbation Supportive care for rhino/enterovirus, patient currently is not vomiting or having any diarrhea. No signs of acute pathology on CT of chest, abdomen/pelvis, CThead is normal Acute on chronic congestive heart failure with preserved ejection fraction, unstable History of diastolic grade 2 heart failure, EF approximately 60% A-fib on admission(afib is chronic) Metoprolol converted to p.o. is now taking oral Replete hypokalemia as continue to diurese with IV Lasix transition to oral Lasix on Rhino/enterovirus, acute although without GI or pulmonary symptomatology supportive care No longer on anticoagulation. This appears to have been stopped around 2019, reportedly this was due to falls. Did have risk/benefit discussion of stopping anticoagulation especially given her history of A-fib and underlying vascular disease. Son understands there is a risk of cardioembolic stroke, given her baseline and risk/benefits of anticoagulating in the setting of severe dementia with falls okay with continuing to defer anticoagulation at this time. Appreciative of conversation. Hypertension, acute on chronic HCC metoprolol being used Past right heel wound, chronic, stable Well-healed, PT pulse palpable bilaterally No evidence of superimposed cellulitis History of CKD 3, chronic stable without exacerbation Slight JORGE from overdiuresis Repeat low electrolytes of magnesium and potassium DVT prophylaxis: Lovenox CODE STATUS: DNR/DNI Diet: N.p.o. until alertness/mentation improves. No IV fluids in the setting of suspected diastolic CHF (2) Hypertension: (3) CKD (chronic kidney disease) stage 3, GFR 30-59 ml/min: (4) A-fib: (5) Peripheral arterial occlusive disease: Admission and Anticipated Discharge Date Admission Date: February 11, 2023 Subjective Patient is much more improved awake alert and conversant she still is not quite completely mentally clear her family members at the bedside now and endorses that this is near her usual state she is not very conversant Physical Exam Physical Exam: Patient awake alert very conversant but does make eye contact and respond appropriate to commands decreased breath sounds at the bases rales have cleared Card exam is regular with a systolic murmur Results & Data Results & Data Vital Signs (Past 12 Hours) Vital Signs Temp Pulse Pulse Pulse Pulse Resp BP 02/13/23 16:00 97.5 F L 79 16 157/82 H 02/13/23 15:05 85 02/13/23 11:51 98.1 F 102 H 19 02/13/23 11:48 96 H 168/112 H 02/13/23 07:40 97.9 F 96 H 20 163/99 H BP Pulse Ox O2 Del Method 02/13/23 16:00 93 Room Air 02/13/23 15:05 02/13/23 11:51 161/112 H 94 Room Air 02/13/23 11:48 02/13/23 07:40 94 Room Air Laboratory Results Reviewed chemistry reviewed CBC PG Care Time/CCT Total # of Minutes Spent Total Time Spent with Patient: Total time spent is greater than 50% in coordination of care (as documented) at patient's floor/unit and/or counseling patient: Coding Level of Care Code 14336 SUB INP/OBS CARE 2/35MIN Diagnoses Diastolic CHF I50.30 Hypertension I10 Hypertension type: essential hypertension CKD (chronic kidney disease) stage 3, GFR 30-59 ml/min N18.3 A-fib I48.21 Atrial fibrillation type: permanent Peripheral arterial occlusive disease I77.9 (2) Hypertension Hypertension type: essential hypertension Qualified Code(s): I10 - Essential (primary) hypertension (4) A-fib Atrial fibrillation type: permanent Qualified Code(s): I48.21 - Permanent atrial fibrillation
[2023-02-13] MEDS ORDERED: METOPROLOL TARTRATE 1 MG/ML VIAL IV STA (22:26)
[2023-02-13] MEDS: POTASSIUM CHLORIDE / WTR 10 MEQ/100 ML PLCT IV SCH (23:00)
[2023-02-14] MEDS: POTASSIUM CHLORIDE / WTR 10 MEQ/100 ML PLCT IV SCH (01:22)
[2023-02-14 07:54] LABS: Basophils # (auto) 0.04 K/uL (0-0.2); Basophils % (auto) 0.5 %; Eosinophils # (auto) 0.06 K/uL (0-0.50); Eosinophils % (auto) 0.8 %; Hemoglobin 12.7 g/dl (12.0-16.0); Immature Granulocytes # (auto) 0.02 K/uL (0.01-0.20); Immature Granulocytes % (auto) 0.3 %; Lymphocytes # (auto) 1.12 K/uL (1.2-3.4); Lymphocytes % (auto) 15.3 %; Mean Corpuscular Hemoglobin 27.9 pg (25.0-34.0); Mean Corpuscular Hgb Conc 31.8 g/dL (32.0-36.0); Mean Corpuscular Volume 87.9 fL (80.0-100.0); Mean Platelet Volume 10.6 fL (9.4-12.4); Monocytes # (auto) 0.65 K/uL (0.11-0.59); Monocytes % (auto) 8.9 %; Neutrophils # (auto) 5.42 K/uL (1.40-6.50); Neutrophils % (auto) 74.2 %; Platelet Count 261 K/uL (130-400); RDW Coefficient of Variation 14.1 % (11.5-14.5); RDW Standard Deviation 45.4 fL (36.4-46.3); Red Blood Count 4.55 M/uL (4.20-5.40); White Blood Count 7.31 K/ul (4.8-10.8)
[2023-02-14 08:05] LABS: Est GFR (African American) 40.9 ml/min; Est GFR (Non-African American) 35.3 ml/min; Potassium 3.5 mmol/L (3.5-5.1)
[2023-02-14 08:06] LABS: BUN Creatinine Ratio 24.6 (10-20); Calcium 9.7 mg/dl (8.6-10.3); Creatinine Clr Calc Pharmacy 23.4 ml/min
[2023-02-14] MEDS: ENOXAPARIN INJ 30 MG/0.3 ML SYR SQ SCH (08:24)
[2023-02-14] MEDS: METOPROLOL TARTRATE 25 MG TAB PO SCH ×2 (08:24→19:05)
[2023-02-14] MEDS: POTASSIUM CHLORIDE CRTAB 20 MEQ TABCR PO SCH (08:24)
[2023-02-14] MEDS: ASPIRIN 81 MG ECTAB PO SCH (08:24)
[2023-02-14] MEDS ORDERED: FUROSEMIDE 40 MG TAB PO SCH (09:00)
[2023-02-14] MEDS ORDERED: FUROSEMIDE 40 MG/4 ML VIAL IV SCH (09:00)
[2023-02-14] MEDS: FUROSEMIDE 20 MG TAB PO SCH (09:44)
--- NOTE | 2023-02-14 18:21 | Hospitalist Progress Note ---
Date of Service February 14, 2023 Assessment & Plan (1) Diastolic CHF: Plan: Altered Mental Status, eval for metabolic encephalopathy secondary to rhino enterovirus history of severe progressive dementia. Acute on chronic Baseline is generally nonverbal does not have coherent speech but will walk independently and engage in some activities. - Suspect acute worsening due to viral illness versus diastolic heart failure exacerbation Supportive care for rhino/enterovirus, patient currently is not vomiting or having any diarrhea. No signs of acute pathology on CT of chest, abdomen/pelvis, CThead is normal Acute on chronic congestive heart failure with preserved ejection fraction, now resolved and stable History of diastolic grade 2 heart failure, EF approximately 60% A-fib on admission(afib is chronic) Metoprolol plus daily Lasix dosing Rhino/enterovirus, acute although without GI or pulmonary symptomatology supportive care No longer on anticoagulation. This appears to have been stopped around 2019, reportedly this was due to falls. Did have risk/benefit discussion of stopping anticoagulation especially given her history of A-fib and underlying vascular disease. Son understands there is a risk of cardioembolic stroke, given her baseline and risk/benefits of anticoagulating in the setting of severe dementia with falls okay with continuing to defer anticoagulation at this time. Appreciative of conversation. Hypertension, acute on chronic Diuretic and metoprolol being used Past right heel wound, chronic, stable Well-healed, PT pulse palpable bilaterally No evidence of superimposed cellulitis History of CKD 3, chronic stable without exacerbation Slight JORGE from overdiuresis Repeat low electrolytes of magnesium and potassium DVT prophylaxis: Lovenox CODE STATUS: DNR/DNI Diet: N.p.o. until alertness/mentation improves. No IV fluids in the setting of suspected diastolic CHF (2) Hypertension: (3) CKD (chronic kidney disease) stage 3, GFR 30-59 ml/min: (4) A-fib: (5) Peripheral arterial occlusive disease: Plan Patient is medical slightly stable hopefully will transfer to her residence in the next day or 2 Admission and Anticipated Discharge Date Admission Date: February 11, 2023 Subjective Patient is much more improved awake alert and reportedly she is typically nonverbal she had refused medications this morning we will try to get them back in later in the day Physical Exam Physical Exam: Patient awake alert typically is nonverbal does seem to respond at this moment I will follows me across the room does not appear to be in distress decreased breath sounds at the bases rales have cleared Card exam is regular with a systolic murmur Results & Data Results & Data Vital Signs (Past 12 Hours) Vital Signs Temp Pulse Resp BP Pulse Ox O2 Del Method 02/14/23 08:00 172/88 H 02/14/23 15:33 97.9 F 109 H 17 141/92 H 94 Room Air 02/14/23 07:58 97.3 F L 98 H 16 179/125 H 96 Room Air PG Care Time/CCT Total # of Minutes Spent Total Time Spent with Patient: Total time spent is greater than 50% in coordination of care (as documented) at patient's floor/unit and/or counseling patient: Coding Level of Care Code 75104 SUB INP/OBS CARE 2/35MIN Diagnoses Diastolic CHF I50.30 Hypertension I10 Hypertension type: essential hypertension CKD (chronic kidney disease) stage 3, GFR 30-59 ml/min N18.3 A-fib I48.21 Atrial fibrillation type: permanent Peripheral arterial occlusive disease I77.9 (2) Hypertension Hypertension type: essential hypertension Qualified Code(s): I10 - Essential (primary) hypertension (4) A-fib Atrial fibrillation type: permanent Qualified Code(s): I48.21 - Permanent atrial fibrillation
[2023-02-15] MEDS: METOPROLOL TARTRATE 25 MG TAB PO SCH (08:50)
[2023-02-15] MEDS: FUROSEMIDE 20 MG TAB PO SCH (08:50)
[2023-02-15] MEDS: ASPIRIN 81 MG ECTAB PO SCH (08:50)
--- NOTE | 2023-02-15 13:02 | Discharge Summary ---
Date of Service February 15, 2023 Admission HPI Per Admitting Provider Nya is an 84-year-old female with a past medical history of severe progressive dementia, peripheral artery disease, CKD, A-fib, chronic diastolic CHF with pleural effusions, chronic mild pericardial effusion [facility] who has had 2 days of somnolence and altered mentation and who the morning of 02/11 was found to be slightly foaming at the mouth and more tired and was referred to the ER for care. While she had some dry heaves she did not have any episodes of vomiting or diarrhea per discussion with their staff. She had not been hypoxic. She is generally nonverbal, and w buddy she does speak does not form coherent sentences at baseline. She does however walk around and engage in some activities. Last 2 days she has been very somnolent falling back asleep easily. She is not able to offer any meaningful history at time of bedside, awakens her eyes transiently and smiles to her son who is at bedside before falling back asleep. She does withdraw to blood pressure cuff and tactile stimuli. Per her son at bedside he reports that he lives nearby but does not with her all of the time, reports that the baseline and history described above by [facility] is the same understanding that he has about her presentation to the hospital. On chart review she has had a history of DVT and vascular disease and has been anticoagulated initially on Eliquis and then switched to warfarin with additional benefit for her A-fib. This was discontinued at some point which remains unclear from notes, did discuss with [facility] care however their Internet is currently down and are unable to clarify the records of this. We are pending callback for additional collateral. No tobacco use. Intermittent glass of wine and evenings. No recreational drug use. Family history reviewed, unable to be obtained from patient. Allergies reviewed. DNR/DNI. Contact information is incorrect, reviewed with son at bedside. POA and primary contact would be son Alfredo Odom available at [phone] who lives in [place] Secondary contact who is local is her son Rodney Odom available at [phone] Principal Diagnosis rhinovirus encephalopathy acute diastolic HF resolved Discharge Exam Patient is nonverbal she is in no respiratory distress her lungs are clear her heart is regular Discharge Data Allergies Allergy/AdvReac Type Severity Reaction Status Date / Time morphine AdvReac Intermediate Severe Verified 05/14/20 13:43 agitation codeine AdvReac Verified 05/14/20 13:43 fentanyl AdvReac Verified 05/14/20 13:43 hydromorphone [From Dilaudid] AdvReac Verified 05/14/20 13:43 tramadol AdvReac Verified 05/14/20 13:43 Consultations 02/11/23 12:57 ED Decision to Admit Stat Ordered Studies Chest X-Ray 02/11/23 09:05 XR chest 1V portable HISTORY: 87 years-old Female Sepsis COMPARISON: Chest radiograph 10/12/2019 TECHNIQUE: AP view of the chest FINDINGS: Cardiac silhouette is enlarged. Large hiatal hernia. Right IJ Lobese-q-Apsx catheter is noted with distal tip in expected location of the brachiocephalic SVC confluence. Atherosclerosis of the aorta. No pneumothorax. Small pleural effusions with bibasilar opacities. Pulmonary vascular congestion. Density noted posterior to the right chest wall port correlates with fissural fluid. Degenerative changes of the shoulders and spine. IMPRESSION: 1. Cardiomegaly with pulmonary vascular congestion. 2. Small pleural effusions with bibasilar opacities favoring atelectasis. 3. Hiatal hernia. ACT 112: Negative or not required by law. The above report was generated using voice recognition software. It may contain grammatical, syntax or spelling errors. Electronically signed by: Sonny Mcfarland M.D. 02/11/2023 11:30 AM Abdomen/Pelvis CT 02/11/23 10:04 CT SCAN OF THE ABDOMEN AND PELVIS WITH IV CONTRAST CLINICAL HISTORY: Change in mental status. Urinary tract infection. COMPARISON STUDY: Abdominal CT dated 07/10/2019. TECHNIQUE: Following the IV administration of 115 cc of Optiray 320, CT scan of the abdomen and pelvis is performed from the lung bases to the proximal femora. Images are reviewed in the axial, sagittal, and coronal planes. IV contrast was administered without complication. A dose lowering technique was utilized adhering to the principles of ALARA. FINDINGS: Lung bases: The heart is enlarged noting a moderate pericardial effusion. The coronary arteries and mitral annulus are densely calcified. There are trace pleural effusions with dependent atelectasis. Intralobular septal thickening is noted at the lung bases. There is a moderate to large hiatal hernia. Liver: The contrast-enhanced liver is normal in size, contour, and attenuation. There is no intrahepatic biliary ductal dilatation. The hepatic veins and portal veins are patent. Gallbladder: Unremarkable. Spleen: Normal in size and attenuation. There are scattered calcified granulomas. Pancreas: Moderately atrophic and grossly unremarkable. Adrenal glands: Unremarkable. Kidneys: The contrast enhanced kidneys demonstrate cortical atrophy and are without hydronephrosis. The kidneys enhance symmetrically. Abdominal vasculature: There is advanced atherosclerotic calcification and ectasia of the abdominal aorta. Bowel: There is postsurgical change from sigmoid colon resection with colocolic anastomosis. No bowel obstruction is seen. A small bowel anastomosis is seen in the right lower quadrant. There are scattered colonic diverticula without CT evidence of acute diverticulitis. The appendix is well-visualized and normal. Peritoneum: There is no intraperitoneal free air or abdominal ascites. Lymphadenopathy: None. Pelvic viscera: The bladder, uterus, and adnexa are normal as visualized. Skeletal structures: The skeletal structures are osteopenic. There is moderate to advanced cervical spondylosis. There is a chronic compression deformity of T10. No lytic or blastic lesions are seen. Chronic deformity and postsurgical change is noted in the right proximal femur. IMPRESSION: 1. No acute infectious or inflammatory findings are identified in the abdomen or pelvis. 2. Cardiomegaly and pericardial effusion. There is evidence of congestive failure and trace pleural effusions. 3. Moderate to large hiatal hernia. 4. Additional findings as above. ACT 112: Negative or not required by law. Electronically signed by: Rodolfo Oliveira M.D. 02/11/2023 10:38 AM Chest CTA 02/11/23 10:04 CT angio chest PE protocol CLINICAL HISTORY: ams, hypoxia, r/o PE TECHNIQUE: Multidetector row helical CT of the chest was performed with angiographic protocol. Coronal and sagittal reformations were obtained. Coronal and sagittal MIPS were obtained from the axial data set and were submitted for review. Automated dose lowering techniques and/or adjustment according to patient size were utilized for this exam. CT DOSE: 1742.73 mGy.cm Comparison: Comparison is made to CT chest 07/10/2019 FINDINGS: Lungs and pleura: Small bilateral pleural effusions are seen with underlying atelectasis. No suspicious pulmonary nodules are seen. Heart and pericardium: There is a small pericardial effusion. Vessels: No evidence of pulmonary embolism. Pulmonary trunk measures 32 mm. Mediastinum and meena: Subcentimeter lymph nodes are seen, some which are calcified. Chest wall and lower neck: Incidentally noted is gas in the bilateral subclavian veins which may be due to venous injection. Abdomen: There is a moderate hiatal hernia. Bones: Multilevel compression deformities are essentially unchanged from prior exams. Degenerative changes are seen. Old healed left rib fractures are seen. IMPRESSION: 1. No pulmonary embolus is seen. 2. Small bilateral pleural effusions with underlying atelectasis. 3. Small pericardial effusion. 4. Calcified mediastinal lymph nodes may represent prior granulomatous disease. ACT 112: Negative or not required by law. Electronically signed by: Franc Mejia M.D. 02/11/2023 10:[address] 02/11/23 10:04 CT head/brain wo con CLINICAL HISTORY: 87 years-old Female with ams, vomiting. Acutely altered mental status TECHNIQUE: Multiple axial CT images of the head were obtained without contrast. A dose lowering technique was utilized adhering to the principles of ALARA. COMPARISON: 09/29/2019. FINDINGS: No acute intracranial hemorrhage, midline shift, intracranial mass, hydrocephalus, territorial ischemia or abnormal extra-axial collection. Involutional changes with chronic microvascular ischemic disease. Cerebral vascu lar calcifications. The calvarium is intact. Small left and trace right mastoid effusions. The paranasal sinuses are clear. Unremarkable soft tissues. Prior bilateral lens repair. IMPRESSION: No acute intracranial abnormality. ACT 112: Negative or not required by law. The above report was generated using voice recognition software. It may contain grammatical, syntax or spelling errors. Electronically signed by: Sonny Mcfarland M.D. 02/11/2023 10:34 AM Hospital Course (1) Diastolic CHF: Altered Mental Status, eval for metabolic encephalopathy secondary to rhino enterovirus history of severe progressive dementia. Acute on chronic Baseline is generally nonverbal does not have coherent speech but will walk independently and engage in some activities. - Suspect acute worsening due to viral illness versus diastolic heart failure exacerbation Supportive care for rhino/enterovirus, patient currently is not vomiting or having any diarrhea. No signs of acute pathology on CT of chest, abdomen/pelvis, CThead is normal Acute on chronic congestive heart failure with preserved ejection fraction, now resolved and stable History of diastolic grade 2 heart failure, EF approximately 60% A-fib on admission(afib is chronic) Metoprolol plus daily Lasix dosing Rhino/enterovirus, acute although without GI or pulmonary symptomatology supportive care No longer on anticoagulation. This appears to have been stopped around 2019, reportedly this was due to falls. Did have risk/benefit discussion of stopping anticoagulation especially given her history of A-fib and underlying vascular disease. Son understands there is a risk of cardioembolic stroke, given her baseline and risk/benefits of anticoagulating in the setting of severe dementia with falls okay with continuing to defer anticoagulation at this time. Appreciative of conversation. Hypertension, acute on chronic Diuretic and metoprolol being used Past right heel wound, chronic, stable Well-healed, PT pulse palpable bilaterally No evidence of superimposed cellulitis History of CKD 3, chronic stable without exacerbation Slight JORGE from overdiuresis Repeat low electrolytes of magnesium and potassium CODE STATUS: DNR/DNI (2) Hypertension: (3) CKD (chronic kidney disease) stage 3, GFR 30-59 ml/min: (4) A-fib: (5) Peripheral arterial occlusive disease: Plan Patient is medical slightly stable hopefully will transfer to her residence in the next day or 2 Total Time Total Time Spent Total Time Spent (In Minutes): It required greater than 30 minutes to prepare this patient for discharge Discharge Plan Discharge Items Patient Disposition: Personal Assisted Reason For Visit: AHRFRADHA. RHINOVIRUS + ?AOC-HFpEF Discharge Diagnosis: encephalopathy secondary to rhinovirus elevated Bp secondary to refusal of medication Activity: Per Instructions section Activity Comment: as per unit restrictions , PT/OT Non-emergency contact: Primary Care Provider Call non-emergency contact if: your symptoms worsen Follow-up/Referrals: Isaiah Fernández [Primary Care Provider] - Diet: Regular Addtl Attending Provider Instructions: This patient is intermittently refusing antihypertensive medications is hopeful that she returns to a more familiar surroundings with regard to her dementia she will be more compliant with her medications. With regard to her rhinovirus infection she had no pulmonary symptoms thus would not consider her infectious With regard to her heart failure she will be discharged on a low-dose diuretic it be recommended to check renal function a few days after she returns to be sure it stable when she is transition to her outpatient diet and fluid intake Pending Studies at Discharge: No Stand-Alone Forms: My [facility], Smoking Cessation Skilled Items Patient informed of condition?: Yes DNR: Yes Discharge Level of Care: Skilled Communicable Disease: No Discharge Prognosis: Stable Lines: None Urinary Catheter: No Medications and DC Order Prescriptions: New furosemide [Lasix] 20 mg tablet 20 mg PO DAILY Qty: 30 3RF Continued (DME) Wheeled Walker Misc See Rx Instructions .ROUTE .MEDSUPPLY Qty: 1 0RF Rx Instructions: As directed sennosides [senna] 8.6 mg Tablet 8.6 mg PO DAILY Rx Instructions: @9 AM guaifenesin 600 mg Tablet Extended Release 600 mg PO Q12H PRN (Reason: Cough) aspirin 81 mg Tablet,Chewable 81 mg PO DAILY Rx Instructions: @ 9 AM Milk of Magnesia 30 ml PO DAILY PRN (Reason: Constipation) Rx Instructions: 1200/5ML CAROLYN metoprolol tartrate 25 mg tablet 25 mg PO BID Qty: 60 0RF Rx Instructions: @ 9AM, 8PM Discharge Orders: Discharge Order (Routine); Ordered 02/15/23 Ordered By: Marquis Arteaga Discharge Order- CHF (Routine); Ordered 02/15/23 Ordered By: Marquis Arteaga Admission Data Admit Date/Time: 02/11/23 13:33 Attending Provider: Marquis Arteaga Admit Provider: Roger Greer Primary Care Provider: Isaiah Fernández Other Providers: Roger Greer Other Interventions: Discharge Summary Assessment (RN) Last Done: 02/15/23 11:31 Coding Level of Care Code 18911 INP/OBS DISCH >30 MIN Diagnoses Diastolic CHF I50.30 Hypertension I10 Hypertension type: essential hypertension CKD (chronic kidney disease) stage 3, GFR 30-59 ml/min N18.3 A-fib I48.21 Atrial fibrillation type: permanent Peripheral arterial occlusive disease I77.9
== END 2023-02-15 14:34 | disposition home or self-care (01) | DRG 291 ==
LOC: ED 08:51 → SUATTDRO 13:33 → 2S 13:33 → 3W 02-13 23:55

== ENCOUNTER 2023-11-29 10:28 | Observation (INO) ==
--- NOTE | 2023-11-29 11:01 | Emergency Department Note ---
Impression & Plan Fall from standing, Non-ST elevation [place] (NSTEMI), Traumatic ecchymosis of face ED Provider Note HISTORY OF PRESENT ILLNESS: Patient is an 88-year-old female presenting after a fall from standing. Patient is unable to provide any meaningful history and history is obtained via EMS. Patient reportedly was found down on the ground at her [facility] today. Her fall was unwitnessed. Patient is not on any anticoagulation. She has a history of dementia. When asked if anything is hurting she shakes her head no. No reported vomiting or nausea. ROS: as above PHYSICAL EXAM: Constitutional: Patient appears in no acute distress. HENT: Head: Normocephalic. Hematoma to right upper forehead region Eyes: EOMI, PERRL Mouth/Throat: Mucous membranes moist. Neck: Trachea midline. Neck supple. No midline cervical spine tenderness to palpation. Cardiovascular: Irregular rhythm. No murmurs, rubs or gallops. Intact distal pulses. Pulmonary/Chest: No respiratory distress. Breath sounds clear and equal bilaterally. No wheezes or rales. No chest wall tenderness to palpation. Abdominal: Abdomen soft, no tenderness, rebound or guarding. Musculoskeletal: No edema, tenderness or deformity noted. Skin: Warm and dry. No rash, erythema, pallor or cyanosis Neurological: Alert. CN II-XII grossly intact, moving all extremities equally and fully. MDM: - Vitals signs showed hypertension - History obtained via EMS, given patient's dementia. History as above. - Chronic conditions affecting care: HTN; afib; CHF; CKD - Differential diagnoses include, but are not limited to: intracranial hemorrhage; CVA; ACS; dysrhythmia; electrolyte abnormality; pneumonia - Order placed for continuous cardiac monitoring. At this time, monitor showed rate of 88 bpm with irregular rhythm, per my interpretation. - External medical records reviewed. Discharge summary dated 02/15/2023 was reviewed. She was admitted at that time for acute CHF and rhinovirus encephalopathy. - EKG interpreted by myself showed atrial fibrillation. Rate 91 bpm. QT 384. No acute ischemic changes. - Laboratory workup interpreted by myself showed normal WBC; stable electrolytes; elevated troponin (110) - CXR negative for pneumonia or pneumothorax - CT head wo contrast negative for acute intracranial pathology - CT cervical spine wo contrast negative for acute injury. - Repeat troponin slightly downtrending, but still elevated at 92.6. - Patient has never had troponins this high on chart review. - Patient is demented and unable to provide any meaningful history. It was an unwitnessed fall from standing. Unknown if it was mechanical in nature or if she syncopized and with her elevated troponins, will admit to the hospital service. - Discussion was had with casework manager about patient's case and need for admission - Hospitalist consulted for admission - Patient admitted to [facility] for further evaluation and management. ASSESSMENT AND PLAN: Diagnosis: Fall from standing; NSTEMI; traumatic ecchymosis of face Plan: admit Past Med/Surg History Medical History Acute DVT (deep venous thrombosis) CKD (chronic kidney disease) stage 3, GFR 30-59 ml/min 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 Peripheral arterial occlusive disease CKD (chronic kidney disease), stage III Leukocytosis Chronic diastolic CHF (congestive heart failure) Intramuscular hematoma Closed fracture of right hip Fall Compression fracture of thoracic vertebra Vitamin D deficiency Anemia Atrial fibrillation HTN (hypertension) Arrhythmia Hypertension Pericardial effusion Pleural effusion Pleural effusion on right A-fib Hypertension Surgical History Status post-operative repair of hip fracture Hx laparoscopic cholecystectomy History of colon resection History of intestinal surgery Family History Family/Other Cardiac disorder Stroke Myocardial infarction Other Family history non-contributory Social History Smoking Status: Unknown if ever smoked Hx Alcohol Use: No Hx Substance Use: No Preferred Language: Mongolian Communication Ability: Impaired Communication Ability Comment: Patient disoriented. Unable to answer at this time. Bacteriology Research Assistant Required: No Beliefs That Will Affect Care: None marital status: / Current Living Situation: Personal Care Facility Current Living Situation Comment: currently at [facility] for rehab due to hip replacement in Jul 2019 current occupational status: retired Feels Safe at Home: Declines to Answer during the past year weight has: remained stable Assistive Devices: Walker Allergies Allergies Allergy/AdvReac Type Severity Reaction Status Date / Time codeine Allergy Unknown per Verified 09/05/23 16:23 celebration [facility] ..MAR fentanyl Allergy Unknown per Verified 09/05/23 16:23 [facility] ..MAR hydromorphone [From Dilaudid] Allergy Unknown per Verified 09/05/23 16:23 [facility] ..MAR tramadol Allergy Unknown per Verified 09/05/23 16:23 [facility] ..MAR morphine AdvReac Intermediate Severe Verified 09/05/23 16:23 agitation Home Meds Home Medications Medication Instructions Recorded Confirmed aspirin 81 mg chewable tablet 81 mg PO DAILY 02/11/23 09/05/23 acetaminophen 160 mg/5 mL (5 mL) 325 mg PO Q4 PRN pain or increased 04/21/23 09/05/23 oral solution temperature ferrous sulfate 325 mg (65 mg 325 mg PO DAILY 04/21/23 09/05/23 iron) tablet (FeroSul) food supplemt, lactose-reduced 1 ea PO BIDM 04/21/23 09/05/23 furosemide 20 mg tablet (Lasix) 20 mg PO 3XWK 04/21/23 09/05/23 sennosides 8.6 mg-docusate sodium 1 tab-cap PO QAM 04/21/23 09/05/23 50 mg tablet (Senexon-S) bisacodyl 10 mg rectal suppository 10 mg [place] DAILY PRN Constipation 09/05/23 09/05/23 magnesium hydroxide 400 mg/5 mL 30 ml PO Q24H PRN Constipation 09/05/23 09/05/23 oral suspension (Milk of Magnesia) metoprolol tartrate 25 mg tablet 25 mg PO BIDM 09/05/23 09/05/23 Previous Rx's Medication Instructions Recorded Wheeled Walker #1 ea 04/25/20 Results & Data (ED) Vital Signs Vital Signs - 24 hr 11/29/23 10:37 11/29/23 14:12 Temperature 36.5 C 36.6 C Temperature Source Oral Oral Pulse Rate 81 Pulse Rate [Finger] 88 Respiratory Rate 20 16 Respiratory Effort / Characteristics Non-Labored Spontaneous Non-Labored Respiratory Depth Normal Normal Respiratory Pattern Regular Blood Pressure 162/100 H Blood Pressure [Left Arm] 176/105 H Blood Pressure Mean 120 Blood Pressure Mean [Left Arm] 128 Pulse Oximetry 94 94 Oxygen Delivery Method Room Air Room Air Sepsis Recent Fever Within 48 Hours No Sepsis New/Unexplained Change in Mental Status N/A Sepsis Action Taken by Nursing No Action Required Laboratory Data 11/29/23 11:40 11/29/23 11:40 Lab Results 11/29/23 11/29/23 Range/Units 11:40 14:33 WBC 5.82 (4.8-10.8) K/ul RBC 4.26 (4.20-5.40) M/uL Hgb 13.0 (12.0-16.0) g/dl Hct 41.4 (37.0-47.0) % MCV 97.2 (80.0-100.0) fL MCH 30.5 (25.0-34.0) pg MCHC 31.4 L (32.0-36.0) g/dL RDW Std Deviation 45.8 (36.4-46.3) fL RDW Coeff of Elvi 13.0 (11.5-14.5) % Plt Count 184 (130-400) K/uL MPV 10.6 (9.4-12.4) fL Immature Gran % (Auto) 0.2 % Neut % (Auto) 76.4 % Lymph % (Auto) 11.7 % Dickson % (Auto) 7.2 % Eos % (Auto) 4.0 % Baso % (Auto) 0.5 % Neut # (Auto) 4.45 (1.40-6.50) K/uL Lymph # (Auto) 0.68 L (1.20-3.40) K/uL Dickson # (Auto) 0.42 (0.11-0.59) K/uL Eos # (Auto) 0.23 (0.00-0.50) K/uL Baso # (Auto) 0.03 (0.00-0.20) K/uL Immature Gran # (Auto) 0.01 (0.01-0.20) K/uL Sodium 142 (136-145) mmol/L Potassium 4.2 (3.5-5.1) mmol/L Chloride 107 (98-107) mmol/L Carbon Dioxide 31 (21-32) mmol/L Anion Gap 4 (3-11) BUN 26 H (6-23) mg/dl Creatinine 1.58 H (0.6-1.2) mg/dl Est Cr Clr Drug Dosing 20.0 ml/min Est GFR ( Amer) 33.3 ml/min Est GFR (Non-Af Amer) 28.7 ml/min BUN/Creatinine Ratio 16.5 (10-20) Glucose 93 (70-99(Fasting)) mg/dl Calcium 9.7 (8.6-10.3) mg/dl Total Bilirubin 1.2 H (0.2-1.0) mg/dl AST 22 (13-39) U/L ALT 10 (7-52) U/L Alkaline Phosphatase 59 (34-104) U/L Troponin I High Sens 110.0 H* 92.6 H* D (0-14) pg/ml Total Protein 7.1 (6.0-8.3) gm/dl Albumin 3.5 (3.4-5.0) gm/dl Globulin 3.6 (2.5-4.0) gm/dl Albumin/Globulin Ratio 1.0 (0.9-2) Imaging Data Radiologist's Impression: Cervical Spine CT 11/29/23 10:58 CT OF THE CERVICAL SPINE WITHOUT CONTRAST CLINICAL HISTORY: fall from standing COMPARISON STUDY: Cervical spine CT September 05, 2023. TECHNIQUE: Helical axial images of the cervical spine were obtained without IV contrast. Sagittal and coronal reconstructions were viewed. Automated exposure control was utilized for the study. A dose lowering technique was utilized adhering to the principles of ALARA. FINDINGS: Reversal the cervical lordosis is unchanged. Mild anterolisthesis of C2 on C3 is unchanged. Moderate multilevel facet arthrosis and degenerative disc disease is again noted. Slight loss of height of several upper thoracic vertebral bodies is unchanged. There is no acute cervical spine fracture. There are degenerative changes at the C1-C2 articulation. IMPRESSION: No acute cervical spine fracture or subluxation. ACT 112: Negative or not required by law. Electronically signed by: Jimi Skinner M.D. 11/29/2023 11:52 AM Chest X-Ray 11/29/23 10:58 SINGLE VIEW CHEST CLINICAL HISTORY: Fall FINDINGS: An AP, portable, upright chest radiograph is compared to study dated 09/05/2023 and correlated with chest CT dated 02/11/2023. A right internal jugular central venous infusion port is unchanged in position. A hiatal hernia is noted. The heart is enlarged noting atherosclerotic calcification of the thoracic aorta. The pulmonary vasculature is noncongested. Chronic interstitial thickening is similar to previous. There is bibasilar scarring/atelectasis. Small pleural effusions are suspected. No pneumothorax is seen. The skeletal structures are osteopenic. The bony thorax is grossly intact. Tiny calcifications versus radiodense foreign bodies projecting over the right shoulder are new from previous. IMPRESSION: 1. Cardiomegaly without radiographic evidence of congestive failure. 2. Suspect small pleural effusions. 3. Hiatal hernia. ACT 112: Negative or not required by law. Electronically signed by: Rodolfo Oliveira M.D. 11/29/2023 11:[address] 11/29/23 10:58 CT SCAN OF THE BRAIN WITHOUT IV CONTRAST CLINICAL HISTORY: Fall. COMPARISON STUDY: CT of the brain dated 09/05/2023. TECHNIQUE: Unenhanced axial CT scan of the brain is performed from the vertex to the skull base. A dose lowering technique was utilized adhering to the principles of ALARA. FINDINGS: Brain parenchyma: There is age-related involutional change noting advanced confluent subcortical and periventricular microangiopathic disease. There is no hemorrhage, mass effect, or evidence of acute territorial ischemia by CT criteria. Min-white matter differentiation is preserved. A small chronic lacunar infarct is noted in the right cerebellar hemisphere. No extra-axial fluid collection is seen. Ventricles, sulci, cisterns: Prominent secondary to involutional change. Intracranial vasculature: There is atherosclerotic calcification of the cavernous carotid and vertebral artery. Calvarium: The skeletal structures are osteopenic. No depressed calvarial fracture is identified. Soft tissues: There is a right frontoparietal scalp contusion. Sinuses and mastoids: The paranasal sinuses are clear. The mastoid air cells are well pneumatized. Orbits: The bony orbits are grossly intact. There are bilateral ocular lens implants. IMPRESSION: There is no hemorrhage, mass effect, or evidence of acute territorial ischemia by CT criteria. ACT 112: Negative or not required by law. Electronically signed by: Rodolfo Oliveira M.D. 11/29/2023 11:42 AM Discharge Plan Visit Data Chief Complaint: Fall ED Provider: Clementine Sal Discharge Problem: Fall from standing, Non-ST elevation WI (NSTEMI), Traumatic ecchymosis of face Forms Stand Alone Forms: [facility] Prescriptions Prescriptions: No Action (DME) Thierry Ahumada Mislay See Rx Instructions .ROUTE .MEDSUPPLY Qty: 1 0RF Rx Instructions: As directed furosemide [Lasix] 20 mg tablet 20 mg PO 3XWK Rx Instructions: take daily on MON,WED,FRI morning sennosides-docusate sodium [Senexon-S] 8.6-50 mg Tablet 1 tab-cap PO QAM ferrous sulfate [FeroSul] 325 mg (65 mg iron) Tablet 325 mg PO DAILY Boost Liquid 1 ea PO BIDM Rx Instructions: 1 can of BOOST liquid VANILLA twice a day acetaminophen 160 mg/5 mL (5 mL) Solution 325 mg PO Q4 PRN (Reason: pain or increased temperature) Rx Instructions: 325mg = 10.2ml magnesium hydroxide [Milk of Magnesia] 400 mg/5 mL Suspension 30 ml PO Q24H PRN (Reason: Constipation) bisacodyl 10 mg Suppository 10 mg [place] DAILY PRN (Reason: Constipation) metoprolol tartrate 25 mg tablet 25 mg PO BIDM aspirin 81 mg Tablet,Chewable 81 mg PO DAILY Referrals Referrals: Isaiah Fernández [Primary Care Provider] -
--- NOTE | 2023-11-29 11:32 | XRay Report ---
SINGLE VIEW CHEST CLINICAL HISTORY: Fall FINDINGS: An AP, portable, upright chest radiograph is compared to study dated 09/05/2023 and correlate d with chest CT dated 02/11/2023. A right internal jugular central venous infusion port is unchanged in position. A hiatal hernia is noted. The heart is enlarged noting atherosclerotic calcification of th e thoracic aorta. The pulmonary vasculature is noncongested. Chronic interstitial thickening is simil ar to previous. There is bibasilar scarring/atelectasis. Small pleural effusions are suspected. No pn eumothorax is seen. The skeletal structures are osteopenic. The bony thorax is grossly intact. Tiny c alcifications versus radiodense foreign bodies projecting over the right shoulder are new from previo us. IMPRESSION: 1. Cardiomegaly without radiographic evidence of congestive failure. 2. Suspect small pleural effusions. 3. Hiatal hernia. ACT 112: Negative or not required by law. Electronically signed by: Rodolfo Oliveira M.D. 11/29/2023 11:29 AM
--- NOTE | 2023-11-29 11:43 | CT Scan Report ---
CT SCAN OF THE BRAIN WITHOUT IV CONTRAST CLINICAL HISTORY: Fall. COMPARISON STUDY: CT of the brain dated 09/05/2023. TECHNIQUE: Unenhanced axial CT scan of the brain is performed from the vertex to the skull base. A do se lowering technique was utilized adhering to the principles of ALARA. FINDINGS: Brain parenchyma: There is age-related involutional change noting advanced confluent subcortical and periventricular microangiopathic disease. There is no hemorrhage, mass effect, or evidence of acute t erritorial ischemia by CT criteria. Min-white matter differentiation is preserved. A small chronic l acunar infarct is noted in the right cerebellar hemisphere. No extra-axial fluid collection is seen. Ventricles, sulci, cisterns: Prominent secondary to involutional change. Intracranial vasculature: There is atherosclerotic calcification of the cavernous carotid and vertebr al artery. Calvarium: The skeletal structures are osteopenic. No depressed calvarial fracture is identified. Soft tissues: There is a right frontoparietal scalp contusion. Sinuses and mastoids: The paranasal sinuses are clear. The mastoid air cells are well pneumatized. Orbits: The bony orbits are grossly intact. There are bilateral ocular lens implants. IMPRESSION: There is no hemorrhage, mass effect, or evidence of acute territorial ischemia by CT aguila pedro. ACT 112: Negative or not required by law. Electronically signed by: Rodolfo Oliveira M.D. 11/29/2023 11:42 AM
--- NOTE | 2023-11-29 11:54 | CT Scan Report ---
CT OF THE CERVICAL SPINE WITHOUT CONTRAST CLINICAL HISTORY: fall from standing COMPARISON STUDY: Cervical spine CT September 05, 2023. TECHNIQUE: Helical axial images of the cervical spine were obtained without IV contrast. Sagittal a nd coronal reconstructions were viewed. Automated exposure control was utilized for the study. A do se lowering technique was utilized adhering to the principles of ALARA. FINDINGS: Reversal the cervical lordosis is unchanged. Mild anterolisthesis of C2 on C3 is unchanged. Moderate multilevel facet arthrosis and degenerative disc disease is again noted. Slight loss of hei ght of several upper thoracic vertebral bodies is unchanged. There is no acute cervical spine fractur e. There are degenerative changes at the C1-C2 articulation. IMPRESSION: No acute cervical spine fracture or subluxation. ACT 112: Negative or not required by law. Electronically signed by: Jimi Skinner M.D. 11/29/2023 11:52 AM
[2023-11-29 12:07] LABS: Basophils # (auto) 0.03 K/uL (0.00-0.20); Basophils % (auto) 0.5 %; Eosinophils # (auto) 0.23 K/uL (0.00-0.50); Hematocrit (blood only) 41.4 % (37.0-47.0); Immature Granulocytes # (auto) 0.01 K/uL (0.01-0.20); Immature Granulocytes % (auto) 0.2 %; Lymphocytes # (auto) 0.68 K/uL (1.20-3.40); Lymphocytes % (auto) 11.7 %; Mean Corpuscular Hemoglobin 30.5 pg (25.0-34.0); Mean Corpuscular Hgb Conc 31.4 g/dL (32.0-36.0); Mean Corpuscular Volume 97.2 fL (80.0-100.0); Mean Platelet Volume 10.6 fL (9.4-12.4); Monocytes # (auto) 0.42 K/uL (0.11-0.59); Monocytes % (auto) 7.2 %; Neutrophils # (auto) 4.45 K/uL (1.40-6.50); Neutrophils % (auto) 76.4 %; Platelet Count 184 K/uL (130-400); RDW Standard Deviation 45.8 fL (36.4-46.3); Red Blood Count 4.26 M/uL (4.20-5.40); White Blood Count 5.82 K/ul (4.8-10.8)
[2023-11-29 12:22] LABS: Albumin Level 3.5 gm/dl (3.4-5.0); BUN Creatinine Ratio 16.5 (10-20); Bilirubin,Total 1.2 mg/dl (0.2-1.0); Calcium 9.7 mg/dl (8.6-10.3); Est GFR (African American) 33.3 ml/min; Est GFR (Non-African American) 28.7 ml/min; Globulin 3.6 gm/dl (2.5-4.0); Potassium 4.2 mmol/L (3.5-5.1); Total Protein 7.1 gm/dl (6.0-8.3)
--- NOTE | 2023-11-29 13:29 | Electrocardiogram Report ---
Test Reason : Blood Pressure : / mmHG Vent. Rate : 091 BPM Atrial Rate : 000 BPM P-R Int : 000 ms QRS Dur : 072 ms QT Int : 384 ms P-R-T Axes : 000 -23 004 degrees QTc Int : 472 ms Atrial fibrillation Nonspecific T wave abnormality Abnormal ECG When compared with ECG of 05-SEP-2023 15:33, No significant change was found Confirmed by Rey Bocanegra ([id number]) on 11/29/2023 1:29:15 PM Referred By: REFERRED SELF Confirmed By:Rey Bocanegra
[2023-11-29 15:22] LABS: Troponin I High Sensitivity 92.6 pg/ml (0-14)
[2023-11-29 17:12] LABS: Appearance Urine Clear (Clear); Bacteria Urine Automated Negative (Negative); Bilirubin Urine Negative (Negative); Blood Urine Negative (Negative); Color Urine Yellow; Epithelial Cell Urine Auto >30 /lpf (0-5); Glucose Urine UA Negative (Negative); Ketones Urine Trace (Negative); Leukocyte Esterase Urine Negative (Negative); Nitrite Urine Negative (Negative); RBC Urine Automated 0-4 /hpf (0-4); Specific Gravity Urine 1.026 (1.000-1.030); Urobilinogen Urine Negative (Negative); pH Urine 7.5 (4.5-7.5)
[2023-11-29 17:19] LABS: Protein Urine 1+ (Negative)
--- NOTE | 2023-11-29 17:26 | History & Physical Report ---
Date of Service November 29, 2023 Assessment & Plan (1) Fall from standing: Plan: most likely mechanical fall, possibly orthostasis from dehydration. Doubt arrhythmia genic, overall appears stable and does not appear to have suffered any significant injuriesonly real injury of noticed the bruising to the side of her face. - Given her dry mucous membranes and elevated creatinine, safe assumption would be dehydration/AKIgiven her prior history of diastolic CHF, we will be gentle with fluids and give LR for a liter and then reassess - follow on telemetry for completeness - PT/OT eval and treat (2) Elevated troponin: Plan: possibly a degree of demand ischemia from dehydration, LVH. Nothing appearing consistent with a true PR. Troponin has trended down since arrival. Follow clinically. (3) A-fib: Plan: Rate controlled. Appears that anticoagulation has not been chronically utilized (4) Hypertension: Plan: follow blood pressures on home meds (5) Chronic diastolic CHF (congestive heart failure): Plan: clinically dry (6) DVT prophylaxis: Plan: Lovenox (7) Discharge planning issues: Plan: observe on MedSurg/telemetry, PT/OT eval and treat, hopefully back to personal care. Of note it is not entirely clear why she is on Bactrim right now, but it was listed as being a course of treatment from 11/24 - 12/02 updated her son Alfredo who is her POA, updated on her status, confirmed that she is a DNR. History of Present Illness Chief Complaint: Fall Primary Care Provider: [facility] no real meaningful HPI review of systems are obtainable from the patient. ER had obtained HPI from EMS basically that patient had a fall at her personal-longterm. I called the personal-longterm to try to obtain a more firsthand HPI, but unfortunately it was a different shift, all they knew was that she had fallen, and essentially on what amounts to thirdhand signout, it sounded most consistent with a mechanical fall. patient does appear comfortable and vaguely/loosely denies any pain. Allergies Allergy/AdvReac Type Severity Reaction Status Date / Time codeine Allergy Unknown per Verified 11/29/23 16:29 [facility] ..MAR fentanyl Allergy Unknown per Ver[facility] 11/29/23 16[facility] ..[facility] hydromorphone [From Dilaudid] Allergy Unknown per Verified 11/29/23 16:29 [facility] ..MAR tramadol Allergy Unknown per Verified 11/29/23 16:29 [facility] ..MAR morphine AdvReac Intermediate Severe Verified 11/29/23 16:29 agitation Home Medications Medication Instructions Recorded Confirmed Type Wheeled Walker #1 ea 04/25/20 09/04/23 Rx aspirin 81 mg chewable tablet 81 mg PO DAILY 02/11/23 11/29/23 History ferrous sulfate 325 mg (65 mg 325 mg PO DAILY 04/21/23 11/29/23 History iron) tablet (FeroSul) food supplemt, lactose-reduced 1 ea PO BIDM 04/21/23 11/29/23 History sennosides 8.6 mg-docusate sodium 1 tab-cap PO QAM 04/21/23 11/29/23 History 50 mg tablet (Senexon-S) metoprolol tartrate 25 mg tablet 25 mg PO BIDM 09/05/23 11/29/23 History polyethylene glycol 400 1 % eye 1 drp ophthalmic (eye) BID 11/29/23 11/29/23 History drops (Visine Dry Eye Relief) sulfamethoxazole 800 1 tab PO BID 11/29/23 11/29/23 History mg-trimethoprim 160 mg tablet Past Med/Surg History Medical History Acute DVT (deep venous thrombosis) CKD (chronic kidney disease) stage 3, GFR 30-59 ml/min 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 Peripheral arterial occlusive disease CKD (chronic kidney disease), stage III Leukocytosis Chronic diastolic CHF (congestive heart failure) Intramuscular hematoma Closed fracture of right hip Fall Compression fracture of thoracic vertebra Vitamin D deficiency Anemia Atrial fibrillation HTN (hypertension) Arrhythmia Hypertension Pericardial effusion Pleural effusion Pleural effusion on right A-fib Hypertension Surgical History Status post-operative repair of hip fracture Hx laparoscopic cholecystectomy History of colon resection History of intestinal surgery Family History Family/Other Cardiac disorder Stroke Myocardial infarction Other Family history non-contributory Social History Smoking Status: Unknown if ever smoked Hx Alcohol Use: No Hx Substance Use: No Preferred Language: Albanian Communication Ability: Impaired Communication Ability Comment: Patient disoriented. Unable to answer at this time. Pump Erector Required: No Beliefs That Will Affect Care: None marital status: / Current Living Situation: Personal Care Facility Current Living Situation Comment: currently at [facility] for rehab due to hip replacement in Jul 2019 current occupational status: retired Feels Safe at Home: Declines to Answer during the past year weight has: remained stable Assistive Devices: Walker Review of Systems Review of Systems: Unobtainable due to cognitive status Physical Exam Physical Exam: She is awake and alert laying in bed curled up on her left side with her knees towards her chest, appears a little bit trepidations, but no physical distress. HEENT normocephalic, she has some bruising on the side of her right eye, but other than a small abrasion no real open lesions. EOMI. Mucous membranes slightly dry. Neck without meningeal signs or point tenderness, although the muscles do feel a little bit stiff, but more in a biomechanical milieu. Cardio is regular without rubs murmurs or gallops, lungs clear without rales rhonchi or wheezes. Skin is dry, no other bruises noted, no lesions (her son had inquired about the status of the wound below her kneeI do not see anything other than a very small scabbed lesion on her distal syed) musculoskeletal exam shows no point tenderness no crepitus, no pain with passive range of motion of her arms or shoulders, no pain with passive range of motion at her legs or hips, although she is starting to become frustrated with me at that point, and resists me on exam, although with no appearance of discomfort. Neuro shows no lateralizing signs. Labs, CTs, x-rays noted, EKG reviewed. Results & Data Results & Data Vital Signs (Past 12 Hours) Vital Signs Temp Pulse Pulse Resp BP BP Pulse Ox 11/29/23 14:12 97.9 F 88 16 176/105 H 94 11/29/23 10:37 97.7 F 81 20 162/100 H 94 O2 Del Method 11/29/23 14:12 Room Air 11/29/23 10:37 Room Air Code Status & VTE Plan VTE Prophylaxis Plan VTE Prophylaxis will be ordered: Yes PG Care Time/CCT Total # of Minutes Spent Total Time Spent with Patient: Total time spent is greater than 50% in coordination of care (as documented) at patient's floor/unit and/or counseling patient: Coding Level of Care Code 33057 INT INP/OBS CARE 3/75MIN Diagnoses Fall from standing W19.XXXA Elevated troponin R74.8 Permanent atrial fibrillation I48.21 Atrial fibrillation type: permanent Essential hypertension I10 Hypertension type: essential hypertension Chronic diastolic CHF (congestive heart failure) I50.32 DVT prophylaxis Z29.9 Discharge planning issues Z02.9 (3) A-fib Atrial fibrillation type: permanent Qualified Code(s): I48.21 - Permanent atrial fibrillation (4) Hypertension Hypertension type: essential hypertension Qualified Code(s): I10 - Essential (primary) hypertension
[2023-11-29] MEDS ORDERED: ONDANSETRON INJ 2 MG/ML 2 ML VIAL IV PRN (19:55)
[2023-11-29] MEDS ORDERED: ACETAMINOPHEN 325 MG TAB PO PRN (19:55)
[2023-11-29] MEDS ORDERED: ALUMINUM/MAGNESIUM SUSP 30 ML UDC PO PRN (19:55)
[2023-11-29] MEDS ORDERED: MAGNESIUM HYDROXIDE SUSP 30 ML UDC PO PRN (19:55)
[2023-11-29] MEDS ORDERED: POLYETHYLENE (MIRALAX) 17 GM PACK PO PRN (19:55)
[2023-11-29] MEDS: ARTIFICIAL TEARS OP SCH (21:19)
[2023-11-29] MEDS: ENOXAPARIN INJ 30 MG/0.3 ML SYR SQ SCH (21:19)
[2023-11-29] MEDS: LACTATED RINGER'S 1,000 ML IV SCH (21:19)
[2023-11-29] MEDS: SULFAMETHOXAZOLE/TRIMETHOPRIM DS 800/160MG TAB PO SCH (21:19)
[2023-11-30 02:23] LABS: BUN Creatinine Ratio 17.6 (10-20); Calcium 9.6 mg/dl (8.6-10.3); Creatinine Clr Calc Pharmacy 23.2 ml/min; Est GFR (African American) 39.9 ml/min; Est GFR (Non-African American) 34.4 ml/min
[2023-11-30 02:35] LABS: Basophils # (auto) 0.04 K/uL (0.00-0.20); Basophils % (auto) 0.5 %; Eosinophils # (auto) 0.31 K/uL (0.00-0.50); Eosinophils % (auto) 3.7 %; Hematocrit (blood only) 38.3 % (37.0-47.0); Hemoglobin 12.4 g/dl (12.0-16.0); Immature Granulocytes # (auto) 0.03 K/uL (0.01-0.20); Immature Granulocytes % (auto) 0.4 %; Lymphocytes # (auto) 0.82 K/uL (1.20-3.40); Lymphocytes % (auto) 9.9 %; Mean Corpuscular Hgb Conc 32.4 g/dL (32.0-36.0); Mean Corpuscular Volume 95.8 fL (80.0-100.0); Mean Platelet Volume 11.4 fL (9.4-12.4); Monocytes # (auto) 0.66 K/uL (0.11-0.59); Monocytes % (auto) 7.9 %; Neutrophils # (auto) 6.45 K/uL (1.40-6.50); Neutrophils % (auto) 77.6 %; Platelet Count 175 K/uL (130-400); RDW Coefficient of Variation 12.7 % (11.5-14.5); RDW Standard Deviation 44.9 fL (36.4-46.3); White Blood Count 8.31 K/ul (4.8-10.8)
[2023-11-30] MEDS ORDERED: PNEUMOCOCCAL VACCINE (PCV20) 20-VAL CONJ-DIP CRM/PF 0.5 ML SYR IM ONE (05:30)
--- NOTE | 2023-11-30 07:38 | Hospitalist Progress Note ---
Date of Service November 30, 2023 Assessment & Plan (1) Fall from standing: (2) A-fib: Plan (1) Fall from standing: most likely mechanical fall, possibly orthostasis from dehydration. Doubt arrhythmia-genic, overall appears stable and does not appear to have suffered any significant injuriesonly real injury of noticed the bruising to the side of her face. - Given her dry mucous membranes and elevated creatinine, safe assumption would be dehydration/AKIgiven her prior history of diastolic CHF, we will be gentle with fluids and give LR for a liter and then reassess - follow on telemetry for completeness - PT/OT eval and treat - UA negative - Cr, 1.36 <-- 1.58 (baseline ~ 1, though maybe trending upwards); BUN, 24 <-- 26; BUN/Cr 17.6 (2) Elevated troponin: possibly a degree of demand ischemia from dehydration, LVH. Nothing appearing consistent with a true DE. - Trop, 95.3 <-- 110, Troponin has trended down since arrival. Follow clinically. (3) A-fib: EKG shows AFib but rate controlled w/ ~ HR 91 bpm. Appears that anticoagulation has not been chronically utilized, likely 2/2 fall/bleeding risk. Patient refused her morning medication and her heart rate subsequently increased to ~ 160 bpm. Patient finally convinced to take her medication late this afternoon, and will stay on observation tonight. (4) Hypertension: follow blood pressures on home meds (5) Chronic diastolic CHF (congestive heart failure) clinically dry (6) DVT prophylaxis: Lovenox, 30 mg, SQ, nightly (7) Discharge planning issues: observe on MedSurg/telemetry, PT/OT eval and treat, hopefully back to personal care. updated her son Alfredo who is her POA, updated on her status, confirmed that she is a DNR. Disposition: MedSurg-Tele Code status: DNR/DNI Admission and Anticipated Discharge Date Admission Date: November 29, 2023 Supervising Physician Co-Signing Physician Notes I personally examined the patient and verified all domínguez points of history and exam, discussed case, and agree with decision making with Dr Perez no meaningful HPI/ROS. seems to have no complaints - did refuse beta reggie earlier and then HR increased unfortunately vitals noted nad heent nc at mmm breathing unlabored no accessory muscles good effort skin no rashes no pallor or icterus msk no pain with palpation/movement at shoulders/arms/hips/legs fall - seems to have no significant secondary issues, uncertain if it was mechanical or syncopal but no serious problems unearthed as cause, either afib/RVR - to be clear i do NOT think this led to her fall, suspect her rvr is secondary to being a bit dry and from refusing AM meds. metoprolol, fluids dehydration/aditya - fluids home soon - but RVR (probably mostly rebound from refusing AM beta reggie) makes it not really appear safe to get her home today, unfortunately Subjective I saw the patient this morning and she was largely uncooperative during both the review of systems and the exam. She stopped answering questions about any symptoms, pain, etc and would not resume responding. Patient did seem coherent but was not wanting to cooperate. Review of Systems Review of Systems: Unobtainable due to mental health condition (mostly uncooperative, intermittently responds to questions, dementia?) Patient states she has no pain anywhere even in places where there are visible contusions such as her r. eye. Repeated questioning did not yield change in response. Physical Exam Physical Exam: Patient largely resistant to PE, pushed me away, although I tried to explain that I simply needed to listen to her lungs, feel her abdomen, assess for any pain/tenderness of her body. Patient was not able to be convinced of the necessity for the exam. Cardiovascular: Rate/Rhythm: regular rate and + irregularly irregular Heart Sounds: no gallop and no murmur Results & Data Results & Data Vital Signs (Past 12 Hours) Vital Signs Pulse Pulse Resp BP BP Pulse Ox Pulse Ox 11/30/23 07:05 88 11/30/23 06:00 90 18 180/120 H 94 11/30/23 01:00 84 15 96 11/30/23 00:00 127 H 22 94 11/29/23 23:46 124 H 19 90 11/29/23 23:12 106 H 11/29/23 23:00 110 H 19 93 11/29/23 22:00 124 H 25 H 153/130 H 94 11/29/23 21:32 134 H 22 91 11/29/23 21:30 116 H 14 154/118 H 92 11/29/23 19:55 95 O2 Del Method O2 Del Method 11/30/23 07:05 11/30/23 06:00 Room Air 11/30/23 01:00 Room Air 11/30/23 00:00 Room Air 11/29/23 23:46 Room Air 11/29/23 23:12 11/29/23 23:00 Room Air 11/29/23 22:00 Room Air 11/29/23 21:32 Room Air 11/29/23 21:30 Room Air 11/29/23 19:55 Room Air (2) A-fib Atrial fibrillation type: permanent Qualified Code(s): I48.21 - Permanent atrial fibrillation
[2023-11-30] MEDS ORDERED: NON-FORMULARY MEDICATION (Food Supplemt, Lactose-Reduced Liquid) PO SCH (08:00)
[2023-11-30] MEDS: METOPROLOL TARTRATE 25 MG TAB PO SCH (08:19)
[2023-11-30] MEDS: ASPIRIN 81 MG ECTAB PO SCH (08:19)
[2023-11-30] MEDS: DOCUSATE SODIUM/SENNA 50/8.6MG TAB PO SCH (08:19)
[2023-11-30] MEDS: SULFA/TRIMETH 400/80MG TAB PO SCH (11:54)
--- NOTE | 2023-11-30 18:05 | Billing Data ---
Date of Service November 30, 2023 Coding Level of Care Code 94738 SUB INP/OBS CARE MIN
[2023-11-30] MEDS: LACTATED RINGER'S 1,000 ML IV SCH (19:17)
--- NOTE | 2023-12-01 06:39 | Discharge Summary ---
Date of Service December 01, 2023 Admission HPI Per Admitting Provider Patient is alert but not very oriented today, patient was pleasant but did not respond to any orientation questions, so AAO x 0. It was not possible to obtain an HPI from the patient, as she largely just smiled without attempting to respond to questions. Patient was briefly more cooperative during the physical exam today, allowing a cardiopulmonary exam and abdominal exam before attempting to push me away. Admission Exam Per Admitting Provider She is awake and alert laying in bed curled up on her left side with her knees towards her chest, appears a little bit trepidations, but no physical distress. HEENT normocephalic, she has some bruising on the side of her right eye, but other than a small abrasion no real open lesions. EOMI. Mucous membranes slightly dry. Neck without meningeal signs or point tenderness, although the muscles do feel a little bit stiff, but more in a biomechanical milieu. Cardio is regular without rubs murmurs or gallops, lungs clear without rales rhonchi or wheezes. Skin is dry, no other bruises noted, no lesions (her son had inquired about the status of the wound below her kneeI do not see anything other than a very small scabbed lesion on her distal syed) musculoskeletal exam shows no point tenderness no crepitus, no pain with passive range of motion of her arms or shoulders, no pain with passive range of motion at her legs or hips, although she is starting to become frustrated with me at that point, and resists me on exam, although with no appearance of discomfort. Neuro shows no lateralizing signs. Labs, CTs, x-rays noted, EKG reviewed. Principal Diagnosis Recent fall Discharge Exam Patient largely resistant to PE, pushed me away, although I tried to explain that I simply needed to listen to her lungs, feel her abdomen, assess for any pain/tenderness of her body. Patient was not able to be convinced of the necessity for the exam. Respiratory normal respiratory effort, lungs clear to auscultation Cardiovascular Rate/Rhythm: regular rate and + irregularly irregular Heart Sounds: no gallop and no murmur Gastrointestinal (Abdomen) Inspection/Auscultation: abdomen normal to inspection and normal bowel sounds; abdomen not distended Percussion/Palpation: abdomen soft; abdomen nontender and no guarding Psychiatric Orientation: alert and cooperative (cooperative for an extended period of time today); + not oriented x 3 Discharge Data Allergies Allergy/AdvReac Type Severity Reaction Status Date / Time codeine Allergy Unknown per Verified 11/29/23 16:29 [facility] ..MAR fentanyl Allergy Unknown per Verified 11/29/23 16:29 [facility] ..MAR hydromorphone [From Dilaudid] Allergy Unknown per Verified 11/29/23 16:29 [facility] ..MAR tramadol Allergy Unknown per Verified 11/29/23 16:29 [facility] ..MAR morphine AdvReac Intermediate Severe Verified 11/29/23 16:29 agitation Consultations 11/29/23 15:41 ED Decision to Admit Stat Ordered Studies 11/29/23 10:58 CT cervical spine wo con Stat CT head/brain wo con Stat Hospital Course (1) Fall from standing: (2) A-fib: (3) Hypertension: Plan (1) Fall from standing: most likely mechanical fall, possibly orthostasis from dehydration. Doubt arrhythmia-genic, overall appears stable and does not appear to have suffered any significant injuriesonly real injury of noticed the bruising to the side of her face. - Given her dry mucous membranes and elevated creatinine, safe assumption would be dehydration/AKIgiven her prior history of diastolic CHF, we will be gentle with fluids and give LR for a liter and then reassess - followed on telemetry for completeness - PT/OT eval and treat - UA negative - Cr, 1.36 <-- 1.58 (baseline ~ 1, though maybe trending upwards); BUN, 24 <-- 26; BUN/Cr 17.6 (2) Elevated troponin: possibly a degree of demand ischemia from dehydration, LVH. Nothing appearing consistent with a true MT. - Trop, 95.3 <-- 110, Troponin has trended down since arrival. Follow clinically. (3) A-fib: EKG shows AFib but rate controlled w/ ~ HR 91 bpm. Appears that anticoagulation has not been chronically utilized, likely 2/2 fall/bleeding risk. Patient refused her morning medication and her heart rate subsequently increased to ~ 160 bpm. Patient finally convinced to take her medication late yesterday afternoon, stayed on observation last night, discharged today. (4) Hypertension: follow blood pressures on home meds, patient displayed hypertensive BP readings after refusing medication while in hospital (5) Chronic diastolic CHF (congestive heart failure) clinically dry (6) DVT prophylaxis: Lovenox, 30 mg, SQ, nightly (7) Discharge planning issues: observe on MedSurg/telemetry, PT/OT eval and treat, hopefully back to personal care. updated her son Alfredo who is her POA, updated on her status, confirmed that she is a DNR. Disposition: MedSurg-Tele Code status: DNR/DNI Total Time Total Time Spent Total Time Spent (In Minutes): <30 Discharge Plan Discharge Items Patient Disposition: Hospice - Home Reason For Visit: FALL Discharge Diagnosis: Fall Activity: Resume your previous activity Non-emergency contact: Primary Care Provider Call non-emergency contact if: you have any medication questions and your pain is concerning for you Follow-up/Referrals: Isaiah Fernández [Primary Care Provider] - Diet: Regular Addtl Attending Provider Instructions: You were admitted to the hospital for a recent fall. You were treated with Bactrim, which was continued inpatient as one of your outpatient medications. A discharge summary will be sent to your primary care physician to ensure continuity of care. Please bring this discharge summary with you to your next office appointment so that your provider can review it at that time. Follow-up appointments: We have requested a follow-up appointment with your primary care physician within one week of discharge. Please call their office if you do not hear from them. Keep all your follow-up appointments as already scheduled. If you cannot make an appointment, notify your provider. Medications: Your medication list has been reviewed and reconciled upon discharge to ensure accuracy and continuity of care. An updated list of all your medications is included with your hospital discharge paperwork. Please review this list closely, and make note of any changes. Take your medications as instructed; do not skip a dose of your medicines. Make sure all of your doctors know every medicine you are taking (including djsj-ghm-tneuatb medicines, vitamins, and supplements). Call your primary care provider before taking any new medicines (including cmaz-cfq-bwzekol medicines, vitamins, and supplements), because some of these may interact with your current medications, or may make your symptoms worse. Tell your primary care provider if you cannot afford your medications. CONTACT YOUR PRIMARY CARE PROVIDER if you experience any of the following: additional falls, loss of consciousness Difficulty following your treatment plan, or difficulty taking medications CALL 911 OR GO TO THE EMERGENCY DEPARTMENT if you experience any of the following: Sudden, severe abdominal pain or nausea/vomiting Severe chest pain, or chest pain that radiates (moves) to your jaw or arm Sudden, severe shortness of breath or difficulty breathing Thank you for allowing us to participate in your care Pending Studies at Discharge: No Stand-Alone Forms: My [facility] Medications and DC Order Prescriptions: Continued (DME) Wheeled Walker Misc See Rx Instructions .ROUTE .MEDSUPPLY Qty: 1 0RF Rx Instructions: As directed sennosides-docusate sodium [Senexon-S] 8.6-50 mg Tablet 1 tab-cap PO QAM ferrous sulfate [FeroSul] 325 mg (65 mg iron) Tablet 325 mg PO DAILY food supplemt, lactose-reduced Liquid 1 ea PO BIDM Rx Instructions: 1 can of BOOST liquid VANILLA twice a day metoprolol tartrate 25 mg tablet 25 mg PO BIDM aspirin 81 mg Tablet,Chewable 81 mg PO DAILY sulfamethoxazole-trimethoprim 800-160 mg tablet 1 tab PO BID Rx Instructions: STARTED 11/25/23 FOR 7 DAYS, ENDS 12/03/23. Visine Dry Eye Relief 1 % Drops 1 drp OPHTHALMIC (EYE) BID Discharge Orders: Discharge Order (Routine); Ordered 12/01/23 Ordered By: Scott Perez Admission Data Admit Date/Time: 11/29/23 17:25 Attending Provider: Marvin Leon Admit Provider: Marvin Leon Primary Care Provider: [place] Other Providers: Doc Gale Other Interventions: Discharge Summary Assessment (RN) Last Done: 12/01/23 10:22 Supervising Physician Co-Signing Physician Notes I personally examined the patient and verified all domínguez points of history and exam, discussed case, and agree with decision making with Dr Perez no meaningful HPI/ROS. smiling vitals noted nad heent nc at mmm breathing unlabored no accessory muscles good effort skin no rashes no pallor or icterus fall - seems to have no significant secondary issues, uncertain if it was mechanical or syncopal but no serious problems unearthed as cause, either afib/RVR - to be clear i do NOT think this led to her fall, suspect her rvr was secondary to being a bit dry and from refusing AM meds on 11/29 - doing better, safe for return to [facility] dehydration/aditya - had IVF, encourage PO intake home ([facility]) today
--- NOTE | 2023-12-01 13:01 | Billing Data ---
Date of Service December 01, 2023 Coding Level of Care Code 74995 IN/OBS DISCH 30 MIN/LESS
== END 2023-12-01 11:10 | disposition hospice, home (50) ==
LOC: ED 10:28 → INTOOBSV 17:25 → EDINP 17:25 → 2W 11-30 12:32